=== PATIENT | female | born 1990 | race Caucasian/White ===

== ENCOUNTER 2018-04-24 20:03 | Emergency (ER) | payer OTHER, SELFPAY ==
[~2018-04-24] VITALS: Ht 165.1 cm; Wt 75.0 kg
[~2018-04-24 20:03] MED LIST: /AUGM875TA PO; /CELE20CA PO; /ONDA4TA PO; ACET650S PO; AMIT10TA2 OR; Buspar PO; COLA100C2 OR; CRYS28TA PO; DULO30CA PO; HYOS0.378 OR; MAXA10TA14 PO; MAXA5TAB10 PO; MIRALEX OR; PAXI20TA29 PO; PERC5TAB8 PO; PERC7.5T8 PO; PROP60TA14 PO; TIZA4CAP PO; TRAZ-163 PO; TRAZ1TAB14 PO; ZONI25CA2 PO; [UNRECOGNIZED DRUG - OTHER]; [UNRECOGNIZED DRUG - OTHER] OR; l; topiramate OR
[2018-04-24] MEDS ORDERED: FLUP5TA PO (20:22)
[2018-04-24] MEDS ORDERED: NITR100C2 PO (20:22)
[2018-04-24] MEDS ORDERED: CLON1TAB8 PO (20:22)
[2018-04-24] MEDS ORDERED: ABIL30TA4 PO (20:22)
[2018-04-24] MEDS ORDERED: PROP40TA62 PO (20:22)
[2018-04-24] MEDS ORDERED: PHEN-501 PO (20:22)
[2018-04-24] MEDS ORDERED: FLUO20CA19 PO (20:22)
[2018-04-24] MEDS ORDERED: TOPI100T9 PO ×2 (20:22)
[2018-04-24] MEDS ORDERED: diazePAM 10 MG TAB PO ONE (21:15)
[2018-04-24] MEDS ORDERED: GABAPENTIN 100 MG CAP PO ONE (21:15)
[2018-04-24] MEDS ORDERED: SOMA350T PO (22:28)
[2018-04-24] MEDS ORDERED: GABA-845 PO (22:28)
[2018-04-24 22:35] VITALS: BP 107/61
--- NOTE | 2018-04-25 08:26 | REP ---
Clinical: Pain and swelling. Technique: AP, yousif, bilateral oblique views of the mandible. Findings: The mandible and bilateral temporomandibular joints appear to be intact and stable that the surrounding soft tissues are unremarkable. Impression: No obvious acute abnormality by radiographic evaluation. Electronically Signed by Gregor Carreon MD 04/25/2018 08:18 A
== END 2018-04-24 22:41 | disposition home or self-care (01) ==
LOC: M ED 20:03
DX: R68.84 Jaw pain (principal); Z79.899 Other long term (current) drug therapy; Z88.8 Allergy status to other drugs, medicaments and biological substances

== ENCOUNTER 2018-07-08 17:17 | Inpatient (IN) | payer OTHER ==
[~2018-07-08] VITALS: Ht 165.1 cm; Wt 80.3 kg
[~2018-07-08 17:17] MED LIST changes: -/CELE20CA PO; -/ONDA4TA PO; +ABIL30TA4 PO; +CELE1CAP4 PO; +CLON1TAB8 PO; -DULO30CA PO; +DULO30CA9 PO; +FLUO20CA19 PO; +FLUP5TA PO; +GABA-845 PO; +NITR100C2 PO; +ONDA-1 PO; +PHEN-501 PO; +PROP40TA62 PO; +SOMA350T PO; +TOPI100T9 PO
[2018-07-08] MEDS ORDERED: ONDA4TAB5 PO (17:25)
[2018-07-08] MEDS ORDERED: BUPR1TAB52 PO (17:25)
[2018-07-08] MEDS ORDERED: LITH300C PO (17:25)
[2018-07-08] MEDS ORDERED: NS 1,000 ML IV SCH (17:43)
[2018-07-08] MEDS ORDERED: ONDANSETRON 4MG/2ML VIAL (J2405) IV ONE (17:45)
[2018-07-08] MEDS ORDERED: KETOROLAC 30 MG/ML VIAL (J1885) IV ONE (17:45)
[2018-07-08] MEDS ORDERED: PANTOPRAZOLE 40MG INJ (PROTONIX) (C9113) IV ONE (17:45)
[2018-07-08] MEDS: GASTROGRAFIN SOLUTION 30ML PO SCH ×2 (18:50→20:33)
[2018-07-08] MEDS ORDERED: ISOVUE-370 76% 100ML VIAL (Q9967) As Ordered ONE (19:39)
[2018-07-08] MEDS: SENOKOT S TAB PO SCH (21:00)
[2018-07-08] MEDS ORDERED: MORPHINE 4 MG/ML 1ML VIAL/SYRINGE (J2270) IV ONE (21:15)
[2018-07-08 21:16] LABS: ALBUMIN 3.8 GM/DL (3.2-5.2); ALT/SGPT 23 U/L (12-78); AMYLASE 56 U/L (25-115); BILIRUBIN,DIRECT < 0.1 MG/DL (0.0-0.2); BILIRUBIN,TOTAL 0.3 MG/DL (0.2-1.0); BLOOD UREA NITROGEN 5 MG/DL (7-18); CALCIUM LEVEL 8.9 MG/DL (8.5-10.1); CARBON DIOXIDE LEVEL 25 MEQ/L (21-32); CHLORIDE LEVEL 106 MEQ/L (98-107); GLOMERULAR FILTRATION RATE > 60.0 (>60); GLUCOSE, FASTING 87 MG/DL (70-100); LIPASE 275 U/L (73-393); POTASSIUM SERUM 3.4 MEQ/L (3.5-5.1); SODIUM LEVEL 137 MEQ/L (136-145); TOTAL PROTEIN 7.2 GM/DL (6.4-8.2)
[2018-07-08 21:34] LABS: BASO # 0.1 10^3/uL (0.0-0.2); BASO % 0.8 % (0.0-1.0); EOS # 0.5 10^3/uL (0.0-0.50); EOS % 4.5 % (0.0-3.0); HEMATOCRIT 35.6 % (36.0-47.0); HEMOGLOBIN 11.4 g/dl (12.0-15.5); LYMPH % 27.1 % (24.0-44.0); MEAN CORPUSCULAR HEMOGLOBIN 28.1 pg (27.0-33.0); MEAN CORPUSCULAR VOLUME 87.7 fl (80.0-96.0); MONO # 0.8 10^3/uL (0.0-0.8); MONO % 7.4 % (0.0-5.0); NEUTROPHILS # 6.7 10^3/uL (1.8-7.7); NEUTROPHILS % 59.7 % (36.0-66.0); PLATELET COUNT, AUTOMATED 366 10^3/uL (150-450); RED BLOOD COUNT 4.06 10^6/uL (4.00-5.40); WHITE BLOOD COUNT 11.2 10^3/uL (4.0-10.0)
[2018-07-08 21:38] LABS: HCG, SERUM QUALITATIVE NEGATIVE (NEGATIVE)
--- NOTE | 2018-07-08 22:48 | REPVR ---
EXAM: CT Abdomen and Pelvis With Contrast EXAM DATE/TIME: 07/08/2018 10:05 PM CLINICAL HISTORY: 28 years old, female; Abdominal pain; Generalized; Additional info: Pain HX of bowel obst and resection TECHNIQUE: Imaging protocol: Axial computed tomography images of the abdomen and pelvis with intravenous contrast. Coronal and sagittal reformatted images were created and reviewed. Radiation optimization: All CT scans at this facility use at least one of these dose optimization techniques: automated exposure control; mA and/or kV adjustment per patient size (includes targeted exams where dose is matched to clinical indication); or iterative reconstruction. Contrast material: ISOVUE 370; Contrast volume: 100 ml; Contrast route: IV; COMPARISON: No relevant prior studies available. FINDINGS: ABDOMEN: Liver: Normal. No mass. Gallbladder and bile ducts: There has been a cholecystectomy. Pancreas: Normal. No ductal dilation. Spleen: Normal. No splenomegaly. Adrenals: Normal. No mass. Kidneys and ureters: Normal. No hydronephrosis. Stomach and bowel: There is increased fluid demonstrated in the colon consistent with the reported history of diarrhea. No mass demonstrated. Several loops of dilated fluid-filled small bowel demonstrated as well. Finding may indicate the presence of a diffuse ileus. Small bowel obstruction not excluded. Bowel sutures in the left lower quadrant. Appendix: No evidence of appendicitis. PELVIS: Bladder: Unremarkable as visualized. Reproductive: Unremarkable as visualized. ABDOMEN and PELVIS: Intraperitoneal space: Normal. No free air. No significant fluid collection. Bones/joints: No acute fracture. No dislocation. Soft tissues: Unremarkable. Vasculature: Normal. No abdominal aortic aneurysm. Lymph nodes: Normal. No enlarged lymph nodes. IMPRESSION: 1. There has been a cholecystectomy. 2. There is increased fluid demonstrated in the colon consistent with the reported history of diarrhea. No mass demonstrated. 3. Several loops of dilated fluid-filled small bowel demonstrated as well. Finding may indicate the presence of a diffuse ileus. Small bowel obstruction not excluded. Electronically signed by: Luis Manuel Berman On 07/08/2018 22:48:03 PM
[2018-07-08] MEDS ORDERED: MORPHINE 2 MG/ML 1ML SYRINGE (J2270) IV ONE (23:15)
[2018-07-08] MEDS ORDERED: TUMS500C PO (23:27)
[2018-07-08] MEDS ORDERED: LAMO200T2 PO (23:27)
[2018-07-08] MEDS ORDERED: IBUP200C25 PO (23:27)
[2018-07-08] MEDS ORDERED: MULTCAP PO (23:27)
[2018-07-08] MEDS ORDERED: SIME125C4 PO (23:27)
[2018-07-08] MEDS ORDERED: ACETAMINOPHEN TAB 650MG DOSE (2X325MG) PO PRN (23:30)
[2018-07-08] MEDS: NS 1,000 ML IV SCH (23:46)
[2018-07-09] MEDS: PIPERACILLIN/TAZOBACTAM SOD 3.375 GM in D5W MINI-BAG PLUS 50 ML IV SCH ×5 (00:57→23:52)
[2018-07-09 01:53] VITALS: BP 124/71
[2018-07-09] MEDS: ONDANSETRON 4MG/2ML VIAL (J2405) IV PRN ×3 (02:04→14:23)
[2018-07-09] MEDS: MORPHINE 4 MG/ML 1ML VIAL/SYRINGE (J2270) IV PRN ×8 (02:05→22:42)
[2018-07-09] MEDS ORDERED: KETOROLAC 30 MG/ML VIAL (J1885) IV PRN (03:00)
[2018-07-09 06:00] VITALS: BP 114/66
[2018-07-09] MEDS: NS 1,000 ML IV SCH ×2 (06:22→14:22)
[2018-07-09 06:27] LABS: HEMATOCRIT 33.2 % (36.0-47.0); HEMOGLOBIN 10.2 g/dl (12.0-15.5); MEAN CORPUSCULAR HEMOGLOBIN 28.1 pg (27.0-33.0); MEAN CORPUSCULAR HGB CONC 30.7 g/dl (32.0-36.5); MEAN CORPUSCULAR VOLUME 91.5 fl (80.0-96.0); PLATELET COUNT, AUTOMATED 305 10^3/uL (150-450); RED BLOOD COUNT 3.63 10^6/uL (4.00-5.40); WHITE BLOOD COUNT 7.9 10^3/uL (4.0-10.0)
[2018-07-09 06:59] LABS: BLOOD UREA NITROGEN 4 MG/DL (7-18); CALCIUM LEVEL 7.5 MG/DL (8.5-10.1); CARBON DIOXIDE LEVEL 19 MEQ/L (21-32); CHLORIDE LEVEL 114 MEQ/L (98-107); CREATININE FOR GFR 0.83 MG/DL (0.55-1.30); GLOMERULAR FILTRATION RATE > 60.0 (>60); GLUCOSE, FASTING 85 MG/DL (70-100); POTASSIUM SERUM 3.5 MEQ/L (3.5-5.1); SODIUM LEVEL 143 MEQ/L (136-145)
[2018-07-09] MEDS ORDERED: clonazePAM 1 MG TAB PO PRN (07:45)
[2018-07-09] MEDS ORDERED: RIZATRIPTAN BENZOATE 10 MG TAB PO PRN (07:45)
[2018-07-09] MEDS ORDERED: CALCIUM CARBONATE 500 MG CHEW U/D PO PRN (07:45)
[2018-07-09] MEDS: SENOKOT S TAB PO SCH ×2 (09:00→20:08)
[2018-07-09] MEDS: LITHIUM CARBONATE 300 MG CAP PO SCH ×3 (09:21→20:08)
[2018-07-09] MEDS: buPROPion (WELLBUTRIN SR) 100 MG SR TAB PO SCH (09:21)
[2018-07-09] MEDS: PANTOPRAZOLE 40MG INJ (PROTONIX) (C9113) IV SCH (09:22)
[2018-07-09] MEDS: lamoTRIgine 100MG TAB PO SCH ×2 (09:22→20:08)
[2018-07-09] MEDS: FLUoxetine 20 MG CAP PO SCH (09:22)
[2018-07-09 14:00] VITALS: BP 109/65
[2018-07-09 22:00] VITALS: BP 115/67
[2018-07-10] MEDS: MORPHINE 4 MG/ML 1ML VIAL/SYRINGE (J2270) IV PRN ×7 (01:25→17:08)
[2018-07-10] MEDS: NS 1,000 ML IV SCH ×2 (03:51→08:29)
[2018-07-10] MEDS: PIPERACILLIN/TAZOBACTAM SOD 3.375 GM in D5W MINI-BAG PLUS 50 ML IV SCH ×2 (05:23→11:02)
[2018-07-10 06:00] VITALS: BP 116/70
[2018-07-10 06:53] LABS: HEMATOCRIT 32.8 % (36.0-47.0); HEMOGLOBIN 10.2 g/dl (12.0-15.5); MEAN CORPUSCULAR HEMOGLOBIN 28.6 pg (27.0-33.0); MEAN CORPUSCULAR HGB CONC 31.1 g/dl (32.0-36.5); MEAN CORPUSCULAR VOLUME 91.9 fl (80.0-96.0); PLATELET COUNT, AUTOMATED 322 10^3/uL (150-450); RED BLOOD COUNT 3.57 10^6/uL (4.00-5.40); WHITE BLOOD COUNT 7.1 10^3/uL (4.0-10.0)
[2018-07-10 07:19] LABS: BLOOD UREA NITROGEN 2 MG/DL (7-18); CALCIUM LEVEL 8.4 MG/DL (8.5-10.1); CARBON DIOXIDE LEVEL 25 MEQ/L (21-32); CHLORIDE LEVEL 113 MEQ/L (98-107); CREATININE FOR GFR 0.97 MG/DL (0.55-1.30); GLOMERULAR FILTRATION RATE > 60.0 (>60); GLUCOSE, FASTING 91 MG/DL (70-100); POTASSIUM SERUM 3.4 MEQ/L (3.5-5.1); SODIUM LEVEL 145 MEQ/L (136-145)
[2018-07-10] MEDS: PANTOPRAZOLE 40MG INJ (PROTONIX) (C9113) IV SCH (08:23)
[2018-07-10] MEDS: FLUoxetine 20 MG CAP PO SCH (08:26)
[2018-07-10] MEDS: LITHIUM CARBONATE 300 MG CAP PO SCH ×3 (08:26→20:15)
[2018-07-10] MEDS: SENOKOT S TAB PO SCH (08:27)
[2018-07-10] MEDS: lamoTRIgine 100MG TAB PO SCH ×2 (08:27→20:15)
[2018-07-10] MEDS: buPROPion (WELLBUTRIN SR) 100 MG SR TAB PO SCH (08:27)
[2018-07-10] MEDS: LR 1,000 ML IV SCH (12:18)
--- NOTE | 2018-07-10 13:21 | IPN ---
DATE: 07/10/2018 HISTORY: The patient is a 28-year-old woman who was admitted late on July 08, [address] Leon with some abdominal pain. She was admitted with a diagnosis of enteritis and started on Zosyn for antibiotic coverage. 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 She had a CT scan done on admission that was interpreted by the radiologist as showing fluid in the colon consistent with the history of diarrhea. There were several loops of dilated fluid-filled small bowel demonstrated as well. She reports that she has not had any flatus or bowel movement since admission. She has a nasogastric (NG) tube in place. She has had an adequate urine output. Vital signs: Show that she has been afebrile since admission. Her pulse is in the 60s and 70s and her blood pressure is good. Intake and output shows that she had 900 recorded in yesterday with 1800 of urine output. PHYSICAL EXAMINATION: The patient is lying quietly on the hospital bed. She has a nasogastric tube in place with a minimal amount of yellow-brown fluid in the tubing and in the container. Heart exam shows a regular rhythm. The lungs are clear. The abdomen appears flat. She has some guarding high in the epigastrium on palpation. The lower abdomen is mildly tender to palpation but generally soft. Laboratory studies today show a white count of 7, hemoglobin of 10, hematocrit of 33 and platelet count of 322,000. Chemistry profile today showed a sodium of 145, potassium 3.4, chloride 113, CO2 of 25, BUN of 2, creatinine 0.97, and a glucose of 91. A KUB today showed air throughout the small bowel down to the rectum. There appeared to be a small amount of oral contrast in the distal rectum. The bowel was mildly to moderately distended. There was no free air evident. IMPRESSION: The patient today notes persistent abdominal discomfort. She has some tenderness particularly in the epigastrium. The x-ray shows her small bowel completely filled with air and mildly distended throughout. There is air down into her rectal stump. PLAN: I will change the patient's Toradol to a scheduled medication to try to get better nonnarcotic control of her discomfort. I have encouraged her to cut back on use of the morphine, which she has been taking very regularly every 2 hours. I will check a lithium level to ensure that we have not gone too far astray on her lithium level. Her NG tube will be continued. I encouraged her to be up out of bed to ambulate at least three times a day. Will recheck a KUB in the morning.
[2018-07-10 14:00] VITALS: BP 114/87
[2018-07-10] MEDS: KETOROLAC 30 MG/ML VIAL (J1885) IV SCH ×2 (14:55→20:15)
[2018-07-10 22:00] VITALS: BP 126/91
[2018-07-11] MEDS: MORPHINE 4 MG/ML 1ML VIAL/SYRINGE (J2270) IV PRN ×2 (00:12→05:13)
[2018-07-11] MEDS: LR 1,000 ML IV SCH ×2 (02:24→14:25)
[2018-07-11] MEDS: KETOROLAC 30 MG/ML VIAL (J1885) IV SCH ×4 (02:24→20:32)
[2018-07-11 06:00] VITALS: BP 116/68
[2018-07-11] MEDS: LITHIUM CARBONATE 300 MG CAP PO SCH ×3 (08:43→20:32)
[2018-07-11] MEDS: PANTOPRAZOLE 40MG INJ (PROTONIX) (C9113) IV SCH (08:43)
[2018-07-11] MEDS: buPROPion (WELLBUTRIN SR) 100 MG SR TAB PO SCH (08:43)
[2018-07-11] MEDS: FLUoxetine 20 MG CAP PO SCH (08:43)
[2018-07-11] MEDS: lamoTRIgine 100MG TAB PO SCH ×2 (08:43→20:32)
--- NOTE | 2018-07-11 09:11 | REP ---
Supine abdomen two views: Comparison is the abdomen and pelvis CT dated 07/08/2018. There are are diffusely dilated large and small bowel loops throughout the entire abdomen. This is nonspecific and could represent ileus or bowel obstruction. The tip of a nasogastric tube is noted in the abdominal left upper quadrant. There are surgical clips in the abdominal right upper quadrant. Impression: Ileus versus bowel obstruction. Electronically Signed by Ramirez Lorenzana MD 07/10/2018 09:06 A
[2018-07-11] MEDS: clonazePAM 0.5 MG TAB PO PRN ×2 (11:13→20:32)
[2018-07-11] MEDS: NORCO, ANEXSIA 5/325MG TABLET (HYDROcodone/ACETAMINOPHEN) PO PRN ×2 (13:59→21:21)
[2018-07-11 14:00] VITALS: BP 118/87
[2018-07-11 22:00] VITALS: BP 131/83
[2018-07-12] MEDS: KETOROLAC 30 MG/ML VIAL (J1885) IV SCH (02:40)
[2018-07-12 06:00] VITALS: BP 120/76
[2018-07-12 07:12] LABS: BLOOD UREA NITROGEN 2 MG/DL (7-18); CALCIUM LEVEL 8.5 MG/DL (8.5-10.1); CARBON DIOXIDE LEVEL 28 MEQ/L (21-32); CHLORIDE LEVEL 109 MEQ/L (98-107); CREATININE FOR GFR 0.82 MG/DL (0.55-1.30); GLOMERULAR FILTRATION RATE > 60.0 (>60); GLUCOSE, FASTING 92 MG/DL (70-100); POTASSIUM SERUM 3.4 MEQ/L (3.5-5.1); SODIUM LEVEL 141 MEQ/L (136-145)
[2018-07-12 07:27] LABS: HEMOGLOBIN 10.2 g/dl (12.0-15.5); MEAN CORPUSCULAR HEMOGLOBIN 29.1 pg (27.0-33.0); MEAN CORPUSCULAR HGB CONC 32.9 g/dl (32.0-36.5); MEAN CORPUSCULAR VOLUME 88.3 fl (80.0-96.0); PLATELET COUNT, AUTOMATED 366 10^3/uL (150-450); RED BLOOD COUNT 3.51 10^6/uL (4.00-5.40); WHITE BLOOD COUNT 6.3 10^3/uL (4.0-10.0)
[2018-07-12] MEDS ORDERED: IBUPROFEN 600 MG TAB PO PRN (08:00)
[2018-07-12] MEDS: PANTOPRAZOLE 40MG INJ (PROTONIX) (C9113) IV SCH (09:20)
[2018-07-12] MEDS: LITHIUM CARBONATE 300 MG CAP PO SCH ×3 (09:20→20:46)
[2018-07-12] MEDS: buPROPion (WELLBUTRIN SR) 100 MG SR TAB PO SCH (09:21)
[2018-07-12] MEDS: lamoTRIgine 100MG TAB PO SCH ×2 (09:21→20:46)
[2018-07-12] MEDS: FLUoxetine 20 MG CAP PO SCH (09:21)
[2018-07-12] MEDS: DICYCLOMINE 10 MG CAP PO SCH ×3 (09:21→20:46)
[2018-07-12] MEDS: ONDANSETRON 4MG/2ML VIAL (J2405) IV PRN (11:54)
--- NOTE | 2018-07-12 11:56 | IPN ---
DATE: 07/12/2018 SUBJECTIVE: The patient is seen at bedside. She states that her abdominal pain is improved. She has been up and walking. She still has some pain in her abdomen, and is slightly worse when she has a bowel movement, however getting up and walking around helps her pain. She is off the morphine. She is only oral medication. She states that she has had a few bowel movements overnight. She continues to have good urine output. There were no acute events overnight. The patient has been afebrile. OBJECTIVE: Vital signs: Temperature 98.4, pulse 72 and regular, respiratory rate 16, blood pressure 120/76, pulse oximetry 96% on room air. General: The patient is lying quietly in the hospital bed. She is in no acute distress. Heart: Regular rate and rhythm. No murmurs, gallops or rubs. Lungs: Clear to auscultation bilaterally. No wheezes, rhonchi or rales. Abdomen: Nondistended. Positive bowel sounds. Upon palpation there is some mild pain in the left upper quadrant, otherwise no pain to palpation in the other quadrants. Abdomen is soft. There is no guarding, rebound or rigidity. LABORATORY DATA: CBC: WBC 6.3, hemoglobin 10.2, hematocrit 31.0, platelets 366. Chemistry: Sodium 141, potassium 3.4, chloride 109, carbon dioxide 28, BUN 2, creatinine 0.82, fasting glucose 92, calcium 8.5. IMPRESSION: This is a 28-year-old female who was admitted on 07/08/2018 for abdominal pain with probable enteritis. She continues to have tenderness in the left upper quadrant. PLAN: We are going to the patient's Toradol to Tylenol. We will add Bentyl for what we suspect is gas pain. She was encouraged to ambulate. My faculty preceptor for this patient encounter was physically present during the encounter and was fully available. All aspects of the patient interview, examination, medical decision making process, and medical care plan development were reviewed and approved by the faculty preceptor. The faculty preceptor is aware and concurs with the plan as stated in the body of this note and will attest to such by his/her co-signature.
--- NOTE | 2018-07-12 12:09 | HPE ---
DATE OF ADMISSION: 07/08/2018 CHIEF COMPLAINT: Abdominal pain, vomiting. HISTORY OF PRESENT ILLNESS: The patient is a 28-year-old female with a history of colonic inertia status post total colectomy who presents with recurrent abdominal distension, nausea and vomiting. She had a similar episode just over a week ago down in [place] and was hospitalized there for 5 days. She was treated with NG tube decompression and released after 5 days without any certain follow-up. She came up here to [place] to visit family and presents here with the same symptoms. In the emergency room she was found to have slightly elevated white count of 11.2. She also had a CT scan completed that was concerning for ileus versus bowel obstruction. Therefore, she was admitted to ar for evaluation. She has an NG tube in place already by the emergency room. Her nausea and vomiting have ceased. She is not passing any stool or flatus yet. Abdomen is still slightly distended, but her pain is improved. She says this came on suddenly earlier in the day. For the past week she has been doing okay. She does have a surgeon down in [place] that she follows up with for these chronic colon issues, also related some IBS. She had similar symptoms back in 2014 and required a total colectomy for colonic inertia because of it. They feel like it may be related to some of the extensive psych meds that she is on. Other than the nausea, vomiting, abdominal pain and distention she has no other significant complaints at this time. There is no changes in her medications. No of changes in diet and no trauma to the abdomen. PAST MEDICAL HISTORY: Multiple concussions. Irritable bowel syndrome. Anxiety and depression. PAST SURGICAL HISTORY: Left knee surgery. Cholecystectomy. Appendectomy. Total colectomy. ALLERGIES: 1. CETIRIZINE. 2. REGLAN. 3. SUMATRIPTAN. HOME MEDICATIONS: Please see med rec. SOCIAL HISTORY: Denies drug, alcohol or tobacco usage. FAMILY HISTORY: Noncontributory. REVIEW OF SYSTEMS: Pertinent positives and negatives as stated in the HPI. PHYSICAL EXAMINATION: GENERAL: Alert and oriented times three, in no acute stress. VITALS: Temperature 97.9, pulse 60, respirations 17, blood pressure 131/83, pulse ox 98% room air. HEENT: Pupils equally round and reactive to light and accommodation. HEART: S1, S2. Regular rate and rhythm. LUNGS: Clear to auscultation bilaterally. ABDOMEN: Soft, slightly distended, nontender. No rebound or guarding. EXTREMITIES: No clubbing, cyanosis or edema. LABORATORY DATA: White count 11.2, hemoglobin 11.4, platelets 336, potassium 3.4, creatinine 0.9. IMAGING STUDIES: CT abdomen and pelvis showed fluid distention in the colon consistent with history of diarrhea. Several loops of dilated fluid-filled small bowel demonstrated as well. This might indicate diffuse ileus versus possible obstruction. ASSESSMENT/PLAN: The patient again is a 28-year-old female with signs of likely gastroenteritis versus ileus. She also has a slight UTI on her labs. My recommendation at this time is to treat her with some empiric antibiotics for UTI and enteritis. Also will use the NG tube for decompression. Once her labs return to normal and she starts passing flatus and NG tube output decreased, will remove the NG tube and slowly advance her diet until she can be discharged safely. I have discussed in detail with her and answered all of her questions.
--- NOTE | 2018-07-12 12:22 | IPN ---
DATE: 07/11/2018 HISTORY: The patient was admitted by Dr. Leon with abdominal pain and distension. She had a nasogastric tube placed and has been kept nothing by mouth on some IV maintenance fluid. Today, she reports that she feels much better. She is hungry. She reports that she has been passing a lot of flatus. Vital signs show that she has been afebrile the past 24 hours. Pulse is in the 70s and 80s. Her blood pressure is good. Intake and output shows that her NG tube had about 800 mL out yesterday. Her urine output has been excellent. She has minimal out of her NG tube this morning. Physical exam shows that she appears comfortable. Heart exam shows a regular rate and rhythm. The lungs are clear. The abdomen is flat. She has active bowel sounds today. The abdomen is soft throughout and she does not appear to have any significant tenderness on palpation today. IMPRESSION: The patient seems to have decompressed her abdomen quite nicely since yesterday. The abdomen is soft and without significant tenderness and she has had a lot of flatus. PLAN: I will go ahead and remove her nasogastric tube. She will be started on some clear liquids today. I will stop the IV morphine and provide oral analgesics as necessary. Hopefully, she will continue to make good progress and be ready for discharge in the next 1-2 days.
[2018-07-12 14:00] VITALS: BP 129/85
[2018-07-12] MEDS: clonazePAM 0.5 MG TAB PO PRN ×2 (14:12→20:46)
[2018-07-12 22:00] VITALS: BP 126/75
[2018-07-13 06:00] VITALS: BP 131/86
[2018-07-13 06:51] LABS: HEMATOCRIT 31.9 % (36.0-47.0); HEMOGLOBIN 10.2 g/dl (12.0-15.5); MEAN CORPUSCULAR HEMOGLOBIN 28.4 pg (27.0-33.0); MEAN CORPUSCULAR VOLUME 88.9 fl (80.0-96.0); PLATELET COUNT, AUTOMATED 416 10^3/uL (150-450); RED BLOOD COUNT 3.59 10^6/uL (4.00-5.40); WHITE BLOOD COUNT 6.8 10^3/uL (4.0-10.0)
[2018-07-13 07:09] LABS: BLOOD UREA NITROGEN 1 MG/DL (7-18); CALCIUM LEVEL 9.1 MG/DL (8.5-10.1); CARBON DIOXIDE LEVEL 27 MEQ/L (21-32); CHLORIDE LEVEL 110 MEQ/L (98-107); CREATININE FOR GFR 1.08 MG/DL (0.55-1.30); GLOMERULAR FILTRATION RATE > 60.0 (>60); GLUCOSE, FASTING 89 MG/DL (70-100); POTASSIUM SERUM 3.6 MEQ/L (3.5-5.1); SODIUM LEVEL 141 MEQ/L (136-145)
[2018-07-13] MEDS: FLUoxetine 20 MG CAP PO SCH (08:24)
[2018-07-13] MEDS: LITHIUM CARBONATE 300 MG CAP PO SCH (08:24)
[2018-07-13] MEDS: PANTOPRAZOLE 40MG INJ (PROTONIX) (C9113) IV SCH (08:24)
[2018-07-13] MEDS: lamoTRIgine 100MG TAB PO SCH (08:24)
[2018-07-13] MEDS: buPROPion (WELLBUTRIN SR) 100 MG SR TAB PO SCH (08:24)
[2018-07-13] MEDS: DICYCLOMINE 10 MG CAP PO SCH (08:24)
--- NOTE | 2018-07-15 09:45 | DSES ---
DATE OF ADMISSION: 07/08/2018 DATE OF DISCHARGE: 07/13/2018 ADMISSION DIAGNOSIS: Abdominal pain and vomiting. DISCHARGE DIAGNOSIS: Gastroenteritis. HOSPITAL COURSE: 28-year-old female with history of colonic inertia status post total colectomy presented to the emergency department on 07/08/2018 with recurrent abdominal distension, nausea and vomiting. Originally she is from [place] and had just had a similar episode over a week prior where she was hospitalized for 5 days. She had been treated with nasogastric (NG) tube decompression. She was visiting family in [place] and started to have the same symptoms. In the emergency room, she had a slightly elevated white count of 11.[address] scan concerning for ileus versus bowel obstruction. Therefore, surgery was consulted for admission. NG tube was already put into place, which has helped to alleviate her nausea and vomiting. She was admitted to the medical-surgical floor. She was started on Zosyn for antibiotic coverage, and a KUB done on the second day of admission showed small bowel completely filled with air with mild distension. Pain medications started to be transitioned to nonopioid medication and ambulation was encouraged. The patient did well over the weekend with improvement in her pain, and the patient is starting to have bowel movements. Bentyl was added to her regimen for gas pain and the patient was transitioned to oral medications. On the morning of 07/13/2018, the patient's abdominal pain was much improved and she was anxious to be discharged home. She was discharged home with instructions to followup with the surgeon that she sees for all of her abdominal problems. My faculty preceptor for this patient encounter was physically present during the encounter and was fully available. All aspects of the patient interview, examination, medical decision making process, and medical care plan development were reviewed and approved by the faculty preceptor. The faculty preceptor is aware and concurs with the plan as stated in the body of this note and will attest to such by his/her co-signature.
== END 2018-07-13 10:20 | disposition home or self-care (01) | DRG 249 ==
LOC: M ED 17:17 → M ED INP 23:17 → M MS5PR 07-09 00:57
PROVIDERS: ADMIT Surgery; ATTEND Surgery
DX: K52.9 Noninfective gastroenteritis and colitis, unspecified (principal); F32.9 Major depressive disorder, single episode, unspecified; F41.9 Anxiety disorder, unspecified; Z88.8 Allergy status to other drugs, medicaments and biological substances

== ENCOUNTER 2019-07-16 17:31 | Inpatient (IN) | payer OTHER ==
[~2019-07-16] VITALS: Ht 165.1 cm; Wt 105.2 kg
[~2019-07-16 17:31] MED LIST changes: +BUPR1TAB52 PO; -FLUO20CA19 PO; +FLUO20CA22 PO; +IBUP200C25 PO; +LAMO200T3 PO; +LITH300C PO; +MULTCAP PO; +ONDA-83 PO; +SIME125C4 PO; -TRAZ-163 PO; +TRAZ-257 PO; +TUMS500C PO; +ZONI25CA13 PO; -ZONI25CA2 PO
[2019-07-16 20:13] VITALS: BP 119/74
[2019-07-16] MEDS: LR 1,000 ML IV SCH (21:08)
[2019-07-16] MEDS ORDERED: HALO5TA PO (21:33)
[2019-07-16] MEDS ORDERED: TRAZ-252 PO (21:33)
[2019-07-16] MEDS ORDERED: KLON0.5T PO (21:33)
[2019-07-16] MEDS ORDERED: DIVA500T94 PO (21:33)
[2019-07-16] MEDS ORDERED: ASEN5TA SL (21:37)
--- NOTE | 2019-07-16 21:39 | HPEPDOC ---
General Surgery H&P Date of Admission Jul 16, 2019 Attending Physician: BETH GE MD History and Physical CHIEF COMPLAINT: right lower quadrant pain HISTORY OF PRESENT ILLNESS: Patient is a 29-year-old female was transferred from [facility] where she presented to the emergency department. She is actually interested outside of our area was visiting when she had an episode of right-sided abdominal pain the day prior to persisted. She felt nauseated and was not vomiting. History of prior subtotal colectomy for colonic inertia back in 2014. She apparently had some postoperative problems a few weeks after had to undergo abdominal exploration for which she had a ileostomy/colostomy placed most likely from a leak and this was reversed 3 months after in March 2015. She returned couple weeks after would most likely is an abscess on her prior stoma site for which was opened up and evacuated. Since then has been having intermittent episodes of right lower quadrant pain and vomiting consistent with bowel obstruction. She was here in our hospital back in March 2018 was treated nonoperatively for an episode of bowel obstruction. She tells me that she was admitted in [place] back in March of this year for another bout of bowel obstruction and had a hernia repair done via an incision on her right lower quadrant/prior ileostomy/colostomy site. She was admitted a month back with an episode of constipation/bowel obstruction was treated with bowel rest and laxatives with resolution of her symptoms. This current symptom is about 2 days old. She reports crampy right lower quadrant pain and has been feeling nauseated. [facility] she was found to have a reading of partial small bowel obstruction related to a loop of bowel that is adhered over the right lower quadrant area and subsequently transferred to us for further care. ALLERGIES: Please see below. HOME MEDICATIONS: Please see below. PAST MEDICAL HISTORY: 1. bipolar disorder. 2. chronic neck pain 3. colonic inertia/constipation 4. migraine headaches 5. small bowel obstruction. PAST SURGICAL HISTORY: 1. appendectomy - laparoscopic. 2. cholecystectomy 3. subtotal colectomy 4. knee surgery. 5. hernia repair PERSONAL/SOCIAL HISTORY: denies smoking, occasional alcohol use, regular use of THC. REVIEW OF SYSTEMS: GENERAL: Patient was in her usual state of health prior to 2 days ago where she started having the above symptoms enumerated HPI.. HEENT: Denies any vision problems or hearing problems. Denies any sore throat. NECK: Denies any neck pain. CARDIOVASCULAR: Denies chest pain and palpitations. MUSCULOSKELETAL: Reports chronic back pain. SKIN: Denies rash. NEUROLOGIC: Denies headache, stroke and transient ischemic attack. PSYCHIATRIC: Reports history of anxiety, depression, bipolar disorder on medications. ENDOCRINE: Denies thyroid disease. HEMATOLOGY/ONCOLOGY: Denies any bleeding or clotting disorder. HEART: Denies any chest pains, palpitations, paroxysmal dyspnea, orthopnea. PULMONARY: Denies chronic cough, dyspnea and wheezing. GASTROINTESTINAL: See HPI. GENITOURINARY: Denies dysuria, frequency, hematuria and nocturia. ENDOCRINE: Denies polydipsia, polyphagia, polyuria, heat or cold intolerance. INFECTIOUS: Denies any recent upper respiratory tract infection, UTI, need for use of antibiotics. NUTRITION: Reports poor appetite secondary to above symptoms. PHYSICAL EXAMINATION: VITAL SIGNS: Please see below. GENERAL APPEARANCE: Patient appears mildly uncomfortable and reports anitha n/discomfort over the right lower quadrant area where her previous ileostomy/ostomy site is. Body habitus is moderately obese. HEENT: Normocephalic, atraumatic. [place] palpebral conjunctivae. Anicteric sclerae. Lips are mildly dry. She has a nasogastric tube in place and this is currently draining probably the contrast in her stomach as well as the strawberry flavored juice that she drank lunch time. CHEST: No chest wall abnormalities. Normal respiratory motion/effort. NECK: Supple. No thyromegaly. No lymphadenopathies. LUNGS: Lung sounds are clear to auscultation bilaterally. No wheezing appreciated. HEART: No chest wall abnormalities. Heart rate and rhythm are regular with no murmurs. ABDOMEN: She has a moderately obese abdomen, appears moderately distended, soft. She has a lower vertical midline incision as well as a transverse right lower quadrant incision and what appears to be recent vertical right lower quadrant incision. Grossly no signs of bulging at the right lower quadrant area or below the midline incisional area. She is mostly tender around the prior ostomy site on palpation but without any guarding. Tympanitic to percussion. Hypoactive bowel sounds. SKIN: Warm and dry. EXTREMITIES: Extremities have no deformities. No edema identified. NEUROLOGICAL: Awake, alert, oriented. ANCILLARIES: . LABORATORY DATA: Please see below. done at [facility] WBC 5.9 Hgb 11.3 hct 34.8 plt 249 Cr 1.2, BUN 21, LFTs normal Lip[place] 113 MICROBIOLOGY: Please see below. IMAGING: CT abdomen and pelvis partial small bowel obstruction IMPRESSION AND PLAN: Partial small bowel obstruction Patient presented at an outside institution with acute onset of cramping/right lower quadrant discomfort and on their imaging/follow-up was found to have evidence for what most likely is partial bowel obstruction related to a loop of bowel adhered to the right lower quadrant abdominal wall. She had her imaging studies done at [facility] and they have provided a disc and I will review this. Right now her tenderness is most pronounced over the right lower quadrant area as no signs of generalized peritonitis. Her labs appear within normal. No indication for emergent or urgent surgery. She has had prior bowel obstructions that has resolved with nonoperative therapy. The most recent of which, the patient reports was about a month ago which was admitted in the hospital in [facility]. Last admission here was in March 2018 where she also has had bowel obstruction and was treated nonoperatively with resolution of her symptoms. In between that time she has had a hernia repair according to her in March this year via a right lower quadrant incision. He is not clear whether she has had mesh placed over that area or not. For now she does not seem to be overtly dehydrated. We will keep the nasogastric tube and put this to low intermittent suction for bowel decompression and provide her with pain control as well as IV fluid hydration. I will review the CT imaging and depending on her clinical course make further recommendations. Vital Signs Vital Signs Date Time Temp Pulse Resp B/P (MAP) Pulse Ox O2 Delivery O2 Flow Rate FiO2 07/16/19 20:13 96.3 78 17 119/74 (89) 96 Room Air Home Medications Scheduled Asenapine (Saphris) 5 Mg Tab.subl, 20 MG SL QHS, (Reported) Clonazepam (Klonopin) 0.5 Mg Tablet, 0.5 MG PO TID, (Reported) Fluoxetine Hcl (Fluoxetine HCl) 20 Mg Cap, 60 MG PO DAILY, (Reported) Multivitamin (Multivitamins) 1 Each Capsule, 1 CAP PO DAILY, (Reported) Trazodone HCl (Trazodone HCl) 50 Mg Tablet, 50 MG PO QHS, (Reported) Scheduled PRN Ondansetron HCl (Ondansetron HCl) 4 Mg Tablet, 4 MG PO Q6H PRN for NAUSEA, (Reported) Rizatriptan Benzoate (Maxalt) 10 Mg Tab, 10 MG PO DAILY PRN for MIGRAINE, (Reported) Allergies Coded Allergies: cetirizine (Verified Allergy, Mild, rash, 07/08/18) metoclopramide (Verified Adverse Reaction, Mild, anxiety, 07/08/18) sumatriptan (Verified Adverse Reaction, Mild, joint pain, 07/08/18) A-FIB/CHADSVASC A-FIB History Current/History of A-Fib/PAF?: No Current PO Anticoag Therapy: BETH Ordonez MD Jul 16, 2019 21:39
[2019-07-16 22:00] VITALS: BP 119/75
[2019-07-16] MEDS ORDERED: RIZATRIPTAN BENZOATE 10 MG TAB PO PRN (22:00)
[2019-07-16] MEDS: traZODone 50 MG TAB PO SCH (23:13)
[2019-07-16] MEDS: PANTOPRAZOLE 40MG VIAL (C9113 PER 1) IV SCH (23:13)
[2019-07-16] MEDS: clonazePAM 0.5 MG TAB PO SCH (23:13)
[2019-07-16] MEDS: KETOROLAC 30 MG/ML 1ML VIAL IV PRN (23:14)
[2019-07-17] MEDS: PERCOCET 5MG/325MG TAB PO PRN ×3 (02:28→13:44)
[2019-07-17 06:00] VITALS: BP 120/78
[2019-07-17] MEDS: LR 1,000 ML IV SCH ×3 (06:17→20:40)
[2019-07-17 06:54] LABS: EOS # 0.2 10^3/uL (0.0-0.5); EOS % 4.8 % (0.0-3.0); HEMATOCRIT 32.3 % (36.0-47.0); HEMOGLOBIN 10.5 g/dl (12.0-15.5); LYMPH # 1.9 10^3/uL (1.5-5.0); LYMPH % 46.3 % (24.0-44.0); MEAN CORPUSCULAR HEMOGLOBIN 27.6 pg (27.0-33.0); MEAN CORPUSCULAR HGB CONC 32.5 g/dl (32.0-36.5); MONO # 0.4 10^3/uL (0.0-0.8); MONO % 9.5 % (0.0-5.0); NEUTROPHILS # 1.5 10^3/uL (1.5-8.5); NEUTROPHILS % 37.9 % (36.0-66.0); PLATELET COUNT, AUTOMATED 239 10^3/uL (150-450)
[2019-07-17 07:20] LABS: BLOOD UREA NITROGEN 19 MG/DL (7-18); CALCIUM LEVEL 8.7 MG/DL (8.5-10.1); CARBON DIOXIDE LEVEL 27 MEQ/L (21-32); CHLORIDE LEVEL 106 MEQ/L (98-107); CREATININE FOR GFR 0.85 MG/DL (0.55-1.30); GLOMERULAR FILTRATION RATE > 60.0 (>60); GLUCOSE, FASTING 78 MG/DL (70-100); POTASSIUM SERUM 4.3 MEQ/L (3.5-5.1); SODIUM LEVEL 137 MEQ/L (136-145)
[2019-07-17] MEDS: FLUoxetine 20 MG CAP PO SCH (08:55)
[2019-07-17] MEDS: clonazePAM 0.5 MG TAB PO SCH ×3 (08:55→20:40)
--- NOTE | 2019-07-17 10:42 | REP ---
ABDOMINAL SERIES: Supine and erect view of the abdomen and pelvis are performed. No free air is seen. There are multiple mildly dilated small bowel loops throughout the abdomen. There is a paucity of air in the colon. Findings suggest a area of either some degree of small bowel obstruction or diffuse ileus. There is contrast material in the bladder, which is mildly distended. Metallic clips are seen in the right upper quadrant. A PA view of the chest demonstrates no acute infiltrate. There is a nasogastric tube with sideport in the stomach. The heart is normal in size and the mediastinal silhouette is unremarkable. IMPRESSION: Multiple mildly dilated small bowel loops throughout the abdomen with a paucity of air in the colon suggests some degree of small bowel obstruction, or possibly diffuse ileus. Nasogastric tube is seen with sideport in the stomach. Electronically Signed by Ramirez Hicks MD 07/17/2019 09:51 P
--- NOTE | 2019-07-17 12:51 | IPNPDOC ---
Text Note Date of Service The patient was seen on 07/17/19. NOTE Patient reports improved pain, about 4/10. Still no flatus,no BM, NGT put out 275 mLs overnight She looks more comfortable today. She still has the nasogastric tube which has m ore bilious appearance to its drainage. Abdomen softer today, mild tenderness over RLQ are where her previous hernia is Impression: partial sbo I reviewed the CT scan from [facility] and there seems to be a possible parietal type hernia over the area though I do not see it as the point of obs truction. Follow up xray shows general mild dilation of the small bowel (even that of the pelvis). I would like to do a small bowel follow through to further evaluate for bowel obstruction. This will be scheduled tomorrow. Pain control seems to be adequate continue on NGT decompression. VS,Fishbone, I+O VS, Fishbone, I+O Laboratory Tests 07/17/19 06:38 Vital Signs Date Time Temp Pulse Resp B/P (MAP) Pulse Ox O2 Delivery O2 Flow Rate FiO2 07/17/19 09:28 16 Room Air 07/17/19 06:00 98.1 77 120/78 (92) 99 I&O- Last 24 Hours up to 6 AM 07/17/19 06:00 Intake Total 1325 ml Balance 1325 ml BETH GE MD Jul 17, 2019 12:51
[2019-07-17 14:00] VITALS: BP 121/79
[2019-07-17] MEDS ORDERED: MIRALAX *UNIT DOSE* 17GM PACKET PO ONE (14:00)
[2019-07-17] MEDS: ENOXAPARIN 40MG/0.4ML SYRINGE (J1650 PER 10MG) SC SCH (15:05)
[2019-07-17] MEDS: traZODone 50 MG TAB PO SCH (20:40)
[2019-07-17] MEDS: ONDANSETRON 4MG/2ML VIAL IV PRN (20:40)
[2019-07-17] MEDS: PANTOPRAZOLE 40MG VIAL (C9113 PER 1) IV SCH (20:40)
[2019-07-17] MEDS: KETOROLAC 30 MG/ML 1ML VIAL IV PRN (20:41)
[2019-07-17 22:00] VITALS: BP 114/76
[2019-07-18] MEDS: PERCOCET 5MG/325MG TAB PO PRN ×3 (01:14→16:43)
[2019-07-18] MEDS: LR 1,000 ML IV SCH ×3 (04:31→20:02)
[2019-07-18] MEDS: KETOROLAC 30 MG/ML 1ML VIAL IV PRN ×2 (05:41→23:40)
[2019-07-18 05:57] LABS: BASO % 0.7 % (0.0-1.0); EOS # 0.2 10^3/uL (0.0-0.5); HEMATOCRIT 31.7 % (36.0-47.0); HEMOGLOBIN 10.5 g/dl (12.0-15.5); LYMPH # 1.8 10^3/uL (1.5-5.0); LYMPH % 39.5 % (24.0-44.0); MEAN CORPUSCULAR HEMOGLOBIN 27.3 pg (27.0-33.0); MEAN CORPUSCULAR HGB CONC 33.1 g/dl (32.0-36.5); MEAN CORPUSCULAR VOLUME 82.3 fl (80.0-96.0); MONO # 0.4 10^3/uL (0.0-0.8); MONO % 9.3 % (0.0-5.0); NEUTROPHILS # 2.1 10^3/uL (1.5-8.5); NEUTROPHILS % 46.1 % (36.0-66.0); PLATELET COUNT, AUTOMATED 216 10^3/uL (150-450); RED BLOOD COUNT 3.85 10^6/uL (4.00-5.40); WHITE BLOOD COUNT 4.5 10^3/uL (4.0-10.0)
[2019-07-18 06:00] VITALS: BP 140/75
[2019-07-18 06:14] LABS: BLOOD UREA NITROGEN 11 MG/DL (7-18); CALCIUM LEVEL 8.2 MG/DL (8.5-10.1); CARBON DIOXIDE LEVEL 29 MEQ/L (21-32); CHLORIDE LEVEL 103 MEQ/L (98-107); CREATININE FOR GFR 0.87 MG/DL (0.55-1.30); GLOMERULAR FILTRATION RATE > 60.0 (>60); GLUCOSE, FASTING 75 MG/DL (70-100); SODIUM LEVEL 139 MEQ/L (136-145)
[2019-07-18] MEDS ORDERED: E-Z-PAQUE 96% w/w SUSP 176GM BTL As Ordered ONE (08:07)
[2019-07-18] MEDS: ENOXAPARIN 40MG/0.4ML SYRINGE (J1650 PER 10MG) SC SCH (12:59)
[2019-07-18] MEDS: clonazePAM 0.5 MG TAB PO SCH ×3 (12:59→20:03)
[2019-07-18] MEDS: FLUoxetine 20 MG CAP PO SCH (12:59)
[2019-07-18] MEDS: ONDANSETRON 4MG/2ML VIAL IV PRN (12:59)
[2019-07-18 14:00] VITALS: BP 139/89
--- NOTE | 2019-07-18 16:23 | REP ---
Examination Requested: SBFT Reason For Exam: Right lower quadrant pain evaluate for small bowel obstruction Small Bowel Follow Through The procedure was performed by GAIL Bates, under the direct supervision of Dr. Hicks. The images were reviewed with Dr. Hicks. The respiratory medicine physician film shows no organomegaly or pathological masses. The intestinal gas pattern appears normal. There are surgical roxanne in the right upper quadrant. The patient is status post colectomy in which a large portion of her large intestine was removed, leaving her rectum and sigmoid colon. The barium was administered and the barium column was followed through the small bowel to the level of the rectum . Small bowel transit time was approximately 135 minutes. During fluoroscopy gentle palpation shows all loops are freely mobile and pliable. There are no fixed or angulated loops. The small bowel loops are normal in course and caliber. There is no transition to suggest a partial small-bowel obstruction. Spot filming of the anastomosis at the sigmoid colon was limited due to lack of barium opacification. Impression: 1. Unremarkable small bowel follow-through, no obstruction. 1.5 minutes of fluoroscopy time was utilized for this procedure. Some fluoroscopic images are performed with last image hold technology. These images require no additional radiation. Reviewed by GAIL Canseco 07/18/2019 02:05 P Electronically Signed by Ramirez Hicks MD 07/18/2019 04:16 P
[2019-07-18] MEDS: MORPHINE 4 MG/ML 1ML VIAL/SYRINGE (J2270) IV PRN (19:46)
[2019-07-18] MEDS: PANTOPRAZOLE 40MG VIAL (C9113 PER 1) IV SCH (20:02)
[2019-07-18] MEDS: traZODone 50 MG TAB PO SCH (20:03)
[2019-07-18 22:00] VITALS: BP 132/84
[2019-07-19] VITALS (7 sets, daily range): BP systolic 119–130; BP diastolic 65–81
[2019-07-19] MEDS: LR 1,000 ML IV SCH ×3 (00:57→20:41)
[2019-07-19] MEDS: MORPHINE 4 MG/ML 1ML VIAL/SYRINGE (J2270) IV PRN ×4 (01:41→20:40)
[2019-07-19] MEDS: KETOROLAC 30 MG/ML 1ML VIAL IV PRN (06:16)
[2019-07-19 06:44] LABS: BLOOD UREA NITROGEN 11 MG/DL (7-18); CALCIUM LEVEL 8.9 MG/DL (8.5-10.1); CARBON DIOXIDE LEVEL 28 MEQ/L (21-32); CHLORIDE LEVEL 102 MEQ/L (98-107); CREATININE FOR GFR 0.85 MG/DL (0.55-1.30); GLOMERULAR FILTRATION RATE > 60.0 (>60); GLUCOSE, FASTING 64 MG/DL (70-100); POTASSIUM SERUM 3.9 MEQ/L (3.5-5.1); SODIUM LEVEL 139 MEQ/L (136-145)
[2019-07-19 07:04] LABS: BASO % 0.6 % (0.0-1.0); EOS # 0.3 10^3/uL (0.0-0.5); EOS % 4.9 % (0.0-3.0); HEMOGLOBIN 11.3 g/dl (12.0-15.5); LYMPH # 1.7 10^3/uL (1.5-5.0); LYMPH % 32.1 % (24.0-44.0); MEAN CORPUSCULAR HEMOGLOBIN 27.8 pg (27.0-33.0); MEAN CORPUSCULAR HGB CONC 33.2 g/dl (32.0-36.5); MEAN CORPUSCULAR VOLUME 83.5 fl (80.0-96.0); MONO # 0.6 10^3/uL (0.0-0.8); MONO % 12.1 % (0.0-5.0); NEUTROPHILS # 2.6 10^3/uL (1.5-8.5); NEUTROPHILS % 49.9 % (36.0-66.0); PLATELET COUNT, AUTOMATED 244 10^3/uL (150-450); RED BLOOD COUNT 4.07 10^6/uL (4.00-5.40); WHITE BLOOD COUNT 5.3 10^3/uL (4.0-10.0)
[2019-07-19] MEDS: ENOXAPARIN 40MG/0.4ML SYRINGE (J1650 PER 10MG) SC SCH (08:44)
[2019-07-19] MEDS: clonazePAM 0.5 MG TAB PO SCH ×3 (08:44→22:15)
[2019-07-19] MEDS: FLUoxetine 20 MG CAP PO SCH (08:44)
[2019-07-19] MEDS: ONDANSETRON 4MG/2ML VIAL IV PRN ×2 (09:40→17:52)
[2019-07-19] MEDS: PERCOCET 5MG/325MG TAB PO PRN (09:41)
--- NOTE | 2019-07-19 10:32 | IPNPDOC ---
Text Note Date of Service The patient was seen on 07/19/19. NOTE She continues to complain of right-sided abdominal pain right were previous i leostomy was located. Presumably this had a hernia repaired back in March. Her nasogastric tube output has been trailing off. She tolerated clamping the nasogastric tube overnight. Denies any nausea or bloating. On exam she looks more comfortable than on initial presentation Lungs sounds are clear to auscultation bilaterally with no wheezing Regular heart rate and rhythm without murmurs She has an obese abdomen that is remaining minimally distended uniformly. She remains tender over the right lower quadrant area with mild guarding, just about the same. Impression and plan small bowel obstruction Possible parietal hernia/incisional hernia from previous ileostomy I reviewed with her the results of the small bowel follow-through yesterday which did not objectively show any evidence of partial small bowel obstruction though the general flow was slow right through the midpoint and it took about 135 minutes to get to the sigmoid colon. Extensive she still has a long redundant sigmoid colon. She still does not have any bowel function. She normally has about 3-5 soft loose bowel movements daily. Though she remains decompressed, it does not seem like she has fully resolved. I propose: Into the operating room today to perform a diagnostic laparoscopy. From the image of the CT scan of the abdomen and pelvis done at [facility], I suspect there is some interparietal hernia over the right lower quadrant area where a loop of bowel seems to be tethered which may be causing her to pain and this may need to be freed up and likewise the hernia repaired. Patient has consented to surgery to undergo robotic-assisted laparoscopic lysis of adhesion and possibly repair her incisional hernia. VS,Shaheenbone, I+O VS, Shaheenbone, I+O Laboratory Tests 07/19/19 05:42 Vital Signs Date Time Temp Pulse Resp B/P (MAP) Pulse Ox O2 Delivery O2 Flow Rate FiO2 07/19/19 09:41 16 07/19/19 06:59 Room Air 07/19/19 06:00 98.3 67 121/78 (92) 95 I&O- Last 24 Hours up to 6 AM 07/19/19 06:00 Intake Total 810 ml Output Total 3300 ml Balance -2490 ml BETH GE MD Jul 19, 2019 10:32
[2019-07-19] MEDS ORDERED: ceFAZolin SOD 2 GM in IV 1 EA IV ONE (12:00)
[2019-07-19] MEDS ORDERED: propofoL 200 MG/20 ML VIAL As Ordered ONE (12:58)
[2019-07-19] MEDS ORDERED: dexameTHASONE 4 MG/ML 1ML VIAL (J1100 PER 1MG) As Ordered ONE (12:58)
[2019-07-19] MEDS ORDERED: LIDOCAINE 2% 100MG/5ML SDV (FOR ANES.) As Ordered ONE (12:58)
[2019-07-19] MEDS ORDERED: ONDANSETRON 4MG/2ML VIAL As Ordered ONE ×2 (12:58→17:38)
[2019-07-19] MEDS ORDERED: ROCURONIUM BROMIDE 50 MG/5 ML VIAL As Ordered ONE ×3 (12:58→16:31)
[2019-07-19] MEDS ORDERED: fentaNYL 250 MCG/5 ML INJECTION (J3010) As Ordered ONE (12:58)
[2019-07-19] MEDS ORDERED: MIDAZOLAM INJ 2MG/2ML VIAL (J2250 PER 1MG) As Ordered ONE (12:58)
[2019-07-19] MEDS ORDERED: BUPIVACAINE HCL 0.25% 10ML VIAL As Ordered ONE (13:05)
[2019-07-19] MEDS ORDERED: BUPIVACAINE HCL 0.25% 30ML VIAL As Ordered ONE (13:05)
[2019-07-19] MEDS ORDERED: LIDOCAINE 1% SDV 30ML VIAL As Ordered ONE (13:05)
[2019-07-19] MEDS ORDERED: BUPIVACAINE LIPOSOME/PF 1.3% 20ML VIAL (13.3MG/ML)(EXPAREL)(C9290 PER1MG) As Ordered ONE (13:05)
[2019-07-19] MEDS ORDERED: SCOPOLAMINE 1MG TRANSDERMAL PATCH As Ordered ONE (13:09)
[2019-07-19] MEDS ORDERED: SCOPOLAMINE 1MG TRANSDERMAL PATCH TOP ONE (13:15)
[2019-07-19] MEDS ORDERED: ceFAZolin 2 GM/D5W 50 ML IV BAG (J0690 PER 500MG) As Ordered ONE (13:25)
[2019-07-19] MEDS ORDERED: SUCCINYLCHOLINE 100 MG/5 ML SYRINGE (J0330) As Ordered ONE (13:35)
[2019-07-19] MEDS ORDERED: SEVOFLURANE INHAL SOLN 250 ML BTL As Ordered ONE (14:28)
[2019-07-19] MEDS ORDERED: PHENYLephrine HCL 500 MCG/5 ML (100MCG/ML) SYRINGE (J2370) As Ordered ONE (14:51)
[2019-07-19] MEDS ORDERED: ePHEDrine SULFATE 25 MG/5 ML(5MG/ML) SYRINGE As Ordered ONE (14:51)
[2019-07-19] MEDS ORDERED: ACETAMINOPHEN 1000MG 100ML IV BTL (OFIRMEV) (J0131 PER 10MG) As Ordered ONE (15:06)
[2019-07-19] MEDS ORDERED: SUGAMMADEX SODIUM 500 MG/5 ML VIAL (BRIDION) As Ordered ONE (15:19)
[2019-07-19] MEDS ORDERED: KETOROLAC 60 MG/2 ML VIAL As Ordered ONE (16:06)
[2019-07-19] MEDS ORDERED: fentaNYL 100 MCG/2 ML INJECTION (J3010) As Ordered ONE ×2 (16:32→17:37)
--- NOTE | 2019-07-19 17:38 | POST-OPPD ---
Postoperative Procedure Note Date Of Procedure: Jul 19, 2019 PREOPERATIVE DIAGNOSIS: small bowel obstruction, right lower quadrant incisional hernia, right lower quadrant pain POSTOPERATIVE DIAGNOSIS: right lower quadrant incisional hernia, no definite bowel obstruction FINDINGS: dilated loop of small bowel from prior [id number] small bowel anastomosis to the enterocolic anastomosis though no definite obstruction noted, 4x2 cm incisional hernia at right lower quadrant from prior ileostomy PROCEDURE: Robotic Assisted Laparoscopic lysis of adhesion, transabdominal preperitoneal repair of RLQ area with 9 cm parietex composite mesh SURGEON: LOLLY Gallegos CHILDREN TEACHER: Elmira Montague NP ANESTHESIA: General Anesthesia SPECIMENS: none ESTIMATED BLOOD LOSS: 50 mLs REPLACED: UO 600 mLs DRAINS: none COMPLICATIONS: none POSTOPERATIVE CONDITION: extubated to PACU, stable BETH GE MD Jul 19, 2019 17:38
[2019-07-19] MEDS: fentaNYL 100 MCG/2 ML INJECTION (J3010) IV PRN ×4 (17:45→18:10)
[2019-07-19] MEDS ORDERED: LR 1,000 ML IV SCH (18:00)
[2019-07-19] MEDS ORDERED: MORPHINE 4 MG/ML 1ML VIAL/SYRINGE (J2270) As Ordered ONE (18:03)
[2019-07-19] MEDS ORDERED: HYDROMORPHONE HCL 0.5 MG/ 0.5 ML SYRINGE (J1170 PER 1) As Ordered ONE ×2 (18:08→18:30)
[2019-07-19] MEDS: HYDROMORPHONE HCL 0.5 MG/ 0.5 ML SYRINGE (J1170 PER 1) IV PRN ×5 (18:16→18:49)
[2019-07-19] MEDS: PANTOPRAZOLE 40MG VIAL (C9113 PER 1) IV SCH (22:15)
[2019-07-19] MEDS: traZODone 50 MG TAB PO SCH (22:15)
[2019-07-20] VITALS (7 sets, daily range): BP systolic 98–122; BP diastolic 50–79
[2019-07-20] MEDS: KETOROLAC 30 MG/ML 1ML VIAL IV PRN ×4 (00:29→21:29)
[2019-07-20] MEDS: MORPHINE 4 MG/ML 1ML VIAL/SYRINGE (J2270) IV PRN ×4 (04:20→16:33)
[2019-07-20 06:12] LABS: BASO % 0.6 % (0.0-1.0); EOS # 0.1 10^3/uL (0.0-0.5); EOS % 1.5 % (0.0-3.0); HEMATOCRIT 31.6 % (36.0-47.0); HEMOGLOBIN 10.6 g/dl (12.0-15.5); LYMPH # 0.8 10^3/uL (1.5-5.0); MEAN CORPUSCULAR HGB CONC 33.5 g/dl (32.0-36.5); MEAN CORPUSCULAR VOLUME 83.6 fl (80.0-96.0); MONO # 0.7 10^3/uL (0.0-0.8); NEUTROPHILS # 5.2 10^3/uL (1.5-8.5); NEUTROPHILS % 76.6 % (36.0-66.0); PLATELET COUNT, AUTOMATED 237 10^3/uL (150-450); RED BLOOD COUNT 3.78 10^6/uL (4.00-5.40); WHITE BLOOD COUNT 6.8 10^3/uL (4.0-10.0)
[2019-07-20] MEDS: PERCOCET 5MG/325MG TAB PO PRN ×3 (06:14→17:16)
[2019-07-20] MEDS: LR 1,000 ML IV SCH ×2 (06:17→16:32)
[2019-07-20 06:31] LABS: BLOOD UREA NITROGEN 11 MG/DL (7-18); CALCIUM LEVEL 8.3 MG/DL (8.5-10.1); CARBON DIOXIDE LEVEL 27 MEQ/L (21-32); CHLORIDE LEVEL 102 MEQ/L (98-107); CREATININE FOR GFR 0.72 MG/DL (0.55-1.30); GLOMERULAR FILTRATION RATE > 60.0 (>60); GLUCOSE, FASTING 79 MG/DL (70-100); POTASSIUM SERUM 4.2 MEQ/L (3.5-5.1); SODIUM LEVEL 137 MEQ/L (136-145)
[2019-07-20] MEDS: ENOXAPARIN 40MG/0.4ML SYRINGE (J1650 PER 10MG) SC SCH (08:07)
[2019-07-20] MEDS: MIRALAX *UNIT DOSE* 17GM PACKET PO SCH ×2 (08:07→21:30)
[2019-07-20] MEDS: clonazePAM 0.5 MG TAB PO SCH ×3 (08:08→21:29)
[2019-07-20] MEDS: FLUoxetine 20 MG CAP PO SCH (08:08)
--- NOTE | 2019-07-20 09:41 | ROOPDOC ---
[facility] Report Of Operation Report of Operation DATE OF PROCEDURE: 07/19/19 PREOPERATIVE DIAGNOSIS: small bowel obstruction, right lower quadrant incisional hernia, right lower quadrant pain POSTOPERATIVE DIAGNOSIS: right lower quadrant incisional hernia, no definite bowel obstruction FINDINGS: dilated loop of small bowel from prior [id number] small bowel anastomosis to the enterocolic anastomosis though no definite obstruction noted, 4x2 cm incisional hernia at right lower quadrant from prior ileostomy PROCEDURE: Robotic Assisted Laparoscopic lysis of adhesion, transabdominal preperitoneal repair of RLQ area with 9 cm parietex composite mesh SURGEON: LOLLY Gallegos HR ADVISOR: Elmira Montague NP (Ms. Montague assisted me by providing intraoperative management of instruments on the field while I was at the surgeons console, retraction of bowels and suctioning. ) ANESTHESIA: General Anesthesia SPECIMENS: none ESTIMATED BLOOD LOSS: 50 mLs REPLACED: UO 600 mLs DRAINS: none COMPLICATIONS: none POSTOPERATIVE CONDITION: extubated to PACU, stable DESCRIPTION OF PROCEDURE: After sufficient general anesthesia, her abdomen was prepped and draped in usual sterile fashion. We paused for a surgical timeout using both pre-incision safety checklist to verify correct patient, procedure site and additional clinical information prior to beginning the procedure. She received Ancef 2 g IV preoperatively for wound prophylaxis. She had a prior midline incision and also a transverse and vertical incision over the right lower quadrant area where her prior ileostomy was located and according to her a recent open hernia repair done back in March. Her abdomen is obese, remains moderately distended but soft. I initially tried entered the abdomen using a left upper quadrant incision using a Veress needle but I could not get a consistent pressure reading during ins ufflation and likewise an inconsistent saline drop response. I switched to a 5 mm Kii Fios using a direct entry technique. Once I was sure I was through the peritoneum the abdomen was insufflated to a pressure 15 mmHg which dropped the bowels away from the port. Initial diagnostic laparoscopy of the bowel seems to move away from the abdominal wall except for a loop of bowel over the right upper quadrant area. There is evidence of persistent hernia over the right lower quadrant area where her prior ileostomy was located. Externally this was not palpable that this would be considered an intraparietal hernia. There were no bowels within the hernia itself. The dimensions measured is 4 x 2 cm oriented vertically. There is no presence of mesh to like to see. Her abdominal wall abscess relatively thinned out with prior scarring from her prior incisions. The visible portion of the small bowel appears moderately distended over the right lower quadrant area and this seems to be a prior [id number] entero-antral anastomosis. The bowels over the upper abdomen does not seem to be distended. I could not follow the course of her bowel to the rectum though from the small bowel follow-through the day prior seems to be at the level of the upper or mid sigmoid colon. She was placed in a slight Trendelenburg position, right tilt. 2 other robotic ports were placed over the left side of the abdomen roughly about 8-10 cm apart. The previous 5 mm port was exchanged for an 8 mm robotic trocar. I also placed the 5 mm port over the epigastric area to get a better look over the left upper quadrant area to check for any possible injury on entry and none was found. Using the epigastric port I also try to view over the right lower quadrant area and there is still some movable portion of the bowels. BETH GE MD Jul 20, 2019 09:41
[2019-07-20] MEDS: ONDANSETRON 4MG/2ML VIAL IV PRN (17:27)
[2019-07-20] MEDS ORDERED: MORPHINE 4 MG/ML 1ML VIAL/SYRINGE (J2270) IV ONE (18:00)
[2019-07-20] MEDS: PANTOPRAZOLE 40MG VIAL (C9113 PER 1) IV SCH (21:29)
[2019-07-20] MEDS: traZODone 50 MG TAB PO SCH (21:29)
[2019-07-21] MEDS: MORPHINE 4 MG/ML 1ML VIAL/SYRINGE (J2270) IV PRN ×5 (00:50→22:46)
[2019-07-21] MEDS: PERCOCET 5MG/325MG TAB PO PRN ×2 (02:42→15:22)
[2019-07-21] MEDS: LR 1,000 ML IV SCH ×2 (02:43→22:46)
[2019-07-21] MEDS: ONDANSETRON 4MG/2ML VIAL IV PRN ×2 (05:19→21:04)
[2019-07-21] MEDS: KETOROLAC 30 MG/ML 1ML VIAL IV PRN ×3 (05:21→21:04)
[2019-07-21 06:00] VITALS: BP 123/71
[2019-07-21 06:12] LABS: BASO % 0.2 % (0.0-1.0); EOS # 0.3 10^3/uL (0.0-0.5); HEMATOCRIT 29.7 % (36.0-47.0); HEMOGLOBIN 9.7 g/dl (12.0-15.5); LYMPH # 1.1 10^3/uL (1.5-5.0); LYMPH % 22.1 % (24.0-44.0); MEAN CORPUSCULAR HGB CONC 32.7 g/dl (32.0-36.5); MEAN CORPUSCULAR VOLUME 85.8 fl (80.0-96.0); MONO # 0.6 10^3/uL (0.0-0.8); MONO % 11.7 % (0.0-5.0); NEUTROPHILS % 60.8 % (36.0-66.0); PLATELET COUNT, AUTOMATED 219 10^3/uL (150-450); RED BLOOD COUNT 3.46 10^6/uL (4.00-5.40)
[2019-07-21 06:50] LABS: BLOOD UREA NITROGEN 11 MG/DL (7-18); CALCIUM LEVEL 8.4 MG/DL (8.5-10.1); CARBON DIOXIDE LEVEL 27 MEQ/L (21-32); CHLORIDE LEVEL 105 MEQ/L (98-107); CREATININE FOR GFR 0.86 MG/DL (0.55-1.30); GLOMERULAR FILTRATION RATE > 60.0 (>60); GLUCOSE, FASTING 93 MG/DL (70-100); POTASSIUM SERUM 3.6 MEQ/L (3.5-5.1); SODIUM LEVEL 139 MEQ/L (136-145)
[2019-07-21] MEDS: ENOXAPARIN 40MG/0.4ML SYRINGE (J1650 PER 10MG) SC SCH (08:02)
[2019-07-21] MEDS: MIRALAX *UNIT DOSE* 17GM PACKET PO SCH ×2 (08:02→21:00)
[2019-07-21] MEDS: clonazePAM 0.5 MG TAB PO SCH ×2 (08:02→16:36)
[2019-07-21] MEDS: FLUoxetine 20 MG CAP PO SCH (08:02)
[2019-07-21] MEDS ORDERED: PEG1POW PO ×2 (12:39→12:41)
[2019-07-21] MEDS ORDERED: PERCOCET PO (12:39)
--- NOTE | 2019-07-21 12:43 | DS.PDOC ---
Discharge Summary General Date of Admission Jul 16, 2019 at 20:13 Date of Discharge July 21, 2019 Attending Physician: BETH GE MD Discharge Summary PROCEDURES PERFORMED DURING STAY: Robotic Assisted Laparoscopic Lysis of Adhesion, incisional hernia repair. ADMITTING DIAGNOSES: 1. small bowel obstruction. DISCHARGE DIAGNOSES: 1. small bowel obstruction 2. incisional hernia. COMPLICATIONS/CHIEF COMPLAINT: Small Bowel Obstruction. HISTORY OF PRESENT ILLNESS: . HOSPITAL COURSE: . DISCHARGE MEDICATIONS: Please see below. ALLERGIES: Please see below. PHYSICAL EXAMINATION ON DISCHARGE: VITAL SIGNS: Please see below. GENERAL: HEENT: NECK: CARDIOVASCULAR EXAMINATION: RESPIRATORY EXAMINATION: ABDOMINAL EXAMINATION: EXTREMITIES: SKIN: NEUROLOGICAL EXAMINATION: PSYCHIATRIC EXAMINATION: LABORATORY DATA: Please see below. IMAGING: PROGNOSIS: ACTIVITY: [As tolerated]. DIET: DISCHARGE PLAN: DISPOSITION: . DISCHARGE INSTRUCTIONS: 1. . ITEMS TO FOLLOWUP ON ON OUTPATIENT: 1. . DISCHARGE CONDITION: [Stable]. TIME SPENT ON DISCHARGE: Greater than minutes. Vital Signs/I&Os Vital Signs Date Time Temp Pulse Resp B/P (MAP) Pulse Ox O2 Delivery O2 Flow Rate FiO2 07/21/19 11:55 16 Room Air 07/21/19 06:00 98.1 84 123/71 (88) 95 07/20/19 06:14 2.0 I&O- Last 24 Hours up to 6 AM 07/21/19 06:00 Intake Total 3980 ml Output Total 1350 ml Balance 2630 ml Laboratory Data Labs 24H Laboratory Tests 2 07/21/19 05:58: Immature Granulocyte % (Auto) 0.2, Neutrophils (%) (Auto) 60.8, Lymphocytes (%) (Auto) 22.1L, Monocytes (%) (Auto) 11.7H, Eosinophils (%) (Auto) 5.0H, Basophils (%) (Auto) 0.2, Neutrophils # (Auto) 3.0, Lymphocytes # (Auto) 1.1L, Monocytes # (Auto) 0.6, Eosinophils # (Auto) 0.3, Basophils # (Auto) 0.0, Nucleated Red Blood Cells % (auto) 0.0, Anion Gap 7L, Glomerular Filtration Rate > 60.0, Calcium Level 8.4L CBC/BMP Laboratory Tests 07/21/19 05:58 Discharge Medications Scheduled Asenapine (Saphris) 5 Mg Tab.subl, 20 MG SL QHS, (Reported) Clonazepam (Klonopin) 0.5 Mg Tablet, 0.5 MG PO TID, (Reported) Fluoxetine Hcl (Fluoxetine HCl) 20 Mg Cap, 60 MG PO DAILY, (Reported) Multivitamin (Multivitamins) 1 Each Capsule, 1 CAP PO DAILY, (Reported) Polyethylene Glycol 3350 (Polyethylene Glycol 3350) 17 Gm Powd.pack, 1 TBS PO DAILY Trazodone HCl (Trazodone HCl) 50 Mg Tablet, 50 MG PO QHS, (Reported) Scheduled PRN Ondansetron HCl (Ondansetron HCl) 4 Mg Tablet, 4 MG PO Q6H PRN for NAUSEA, (Reported) Oxycodone/Acetaminophen (Oxycodone-Acetaminophen 5-325) 1 Each Tablet, 1 TAB PO Q4HP PRN for MILD/MODERATE PAIN (PS 1-7) Rizatriptan Benzoate (Maxalt) 10 Mg Tab, 10 MG PO DAILY PRN for MIGRAINE, (Reported) Allergies Coded Allergies: cetirizine (Verified Allergy, Mild, rash, 07/08/18) metoclopramide (Verified Adverse Reaction, Mild, anxiety, 07/08/18) sumatriptan (Verified Adverse Reaction, Mild, joint pain, 07/08/18) BETH GE MD Jul 21, 2019 12:43
[2019-07-21 14:00] VITALS: BP 120/72
[2019-07-21 16:15] LABS: APPEARANCE, URINE CLOUDY (CLEAR); BACTERIA, URINE AUTO NEGATIVE (NEGATIVE); BILIRUBIN, URINE AUTO NEGATIVE (NEGATIVE); BLOOD, URINE BLOOD NEGATIVE (NEGATIVE); COLOR, URINE YELLOW (YELLOW); GLUCOSE, URINE (UA) AUTO NEGATIVE (NEGATIVE); KETONE, URINE AUTO NEGATIVE (NEGATIVE); LEUKOCYTE ESTERASE, URINE AUTO NEGATIVE (NEGATIVE); MUCUS, URINE SMALL (NEGATIVE); NITRITE, URINE AUTO NEGATIVE (NEGATIVE); PROTEIN, URINE AUTO NEGATIVE (NEGATIVE); RBC, URINE AUTO 1 /HPF (0-3); SPECIFIC GRAVITY URINE AUTO 1.011 (1.002-1.035); SQUAMOUS EPITHELIAL CELL UR AU 7 /HPF (0-6); UROBILINOGEN, URINE AUTO 0.2 mg/dL (0.0-2.0); WBC, URINE AUTO 5 /HPF (0-3)
[2019-07-21] MEDS ORDERED: ACETAMINOPHEN TAB 650MG DOSE (2X325MG) PO PRN (21:15)
[2019-07-21 22:00] VITALS: BP 112/68
[2019-07-21] MEDS: PANTOPRAZOLE 40MG VIAL (C9113 PER 1) IV SCH (22:45)
--- NOTE | 2019-07-22 00:11 | REP ---
Clinical: Nausea and vomiting. Technique: Upright view of the chest with supine and upright views of the abdomen and pelvis. Comparison: 07/10/2018 Findings: Current examination demonstrates dilated loops of small bowel with air-fluid levels suggesting element of early versus partial small bowel obstruction (Contrast identified within the rectosigmoid colon likely from recent small bowel follow-through examination). Upright view of the chest demonstrates no free air to suggest perforation. Evidence of prior cholecystectomy. Skeletal structures are intact. No foreign body. Impression: Findings suggest early versus partial small bowel obstruction. Correlation and follow up is recommended. Electronically Signed by Gregor Carreon MD 07/22/2019 12:02 A
[2019-07-22] MEDS: traZODone 50 MG TAB PO SCH (00:30)
[2019-07-22] MEDS: clonazePAM 0.5 MG TAB PO SCH ×2 (00:30→08:10)
[2019-07-22] MEDS: PERCOCET 5MG/325MG TAB PO PRN ×2 (02:26→10:14)
[2019-07-22 06:00] VITALS: BP 110/66
[2019-07-22] MEDS ORDERED: FLEET ENEMA PR ONE (06:00)
[2019-07-22 06:54] LABS: BASO % 0.3 % (0.0-1.0); EOS # 0.4 10^3/uL (0.0-0.5); HEMATOCRIT 29.4 % (36.0-47.0); HEMOGLOBIN 9.2 g/dl (12.0-15.5); LYMPH # 1.2 10^3/uL (1.5-5.0); LYMPH % 19.4 % (24.0-44.0); MEAN CORPUSCULAR HEMOGLOBIN 27.4 pg (27.0-33.0); MEAN CORPUSCULAR HGB CONC 31.3 g/dl (32.0-36.5); MEAN CORPUSCULAR VOLUME 87.5 fl (80.0-96.0); MONO % 16.4 % (0.0-5.0); NEUTROPHILS # 3.4 10^3/uL (1.5-8.5); NEUTROPHILS % 57.4 % (36.0-66.0); PLATELET COUNT, AUTOMATED 249 10^3/uL (150-450); RED BLOOD COUNT 3.36 10^6/uL (4.00-5.40)
[2019-07-22] MEDS: LR 1,000 ML IV SCH (07:15)
[2019-07-22 07:25] LABS: ALBUMIN 2.7 GM/DL (3.2-5.2); ALT/SGPT 24 U/L (12-78); BILIRUBIN,TOTAL 0.3 MG/DL (0.2-1.0); BLOOD UREA NITROGEN 8 MG/DL (7-18); CALCIUM LEVEL 8.1 MG/DL (8.5-10.1); CARBON DIOXIDE LEVEL 30 MEQ/L (21-32); CHLORIDE LEVEL 105 MEQ/L (98-107); CREATININE FOR GFR 0.87 MG/DL (0.55-1.30); GLOMERULAR FILTRATION RATE > 60.0 (>60); GLUCOSE, FASTING 85 MG/DL (70-100); POTASSIUM SERUM 3.9 MEQ/L (3.5-5.1); SODIUM LEVEL 141 MEQ/L (136-145); TOTAL PROTEIN 5.3 GM/DL (6.4-8.2)
[2019-07-22] MEDS: MIRALAX *UNIT DOSE* 17GM PACKET PO SCH (08:09)
[2019-07-22] MEDS: MORPHINE 4 MG/ML 1ML VIAL/SYRINGE (J2270) IV PRN ×2 (08:10→12:15)
[2019-07-22] MEDS: FLUoxetine 20 MG CAP PO SCH (08:10)
[2019-07-22] MEDS: ENOXAPARIN 40MG/0.4ML SYRINGE (J1650 PER 10MG) SC SCH (08:10)
--- NOTE | 2019-07-22 12:03 | IPNPDOC ---
Text Note Date of Service The patient was seen on 07/22/19. NOTE Patient was doing well when I saw her yesterday and felt ready to go home but in the afternoon she was noted to have low grade fever so discharge was held. In the evening she had one episode of fever of 101.6 and did not feel well and threw up. She defervesced and feels moderately better this morning. She has had 2 small bms this morning (one after the fleets enema). Denies nuasea at this time. She has tolerated some clears and would like to try some solid food. On exam she looks relatively comfortable Her abdomen still looks somewhat distended and tympanitic to percussion. She has some mild tenderness over the right lower quadrant area but no guarding. Impression and plans; small bowel obstruction RLQ incisional hernia h/o colonic inertia s/p subtotal colectomy I am not sure what the fever is about. Workup so far is negative including that of her urinalysis, cxr and axr. No free air on xr and no signs of peritonitis on exam. Her labs skew more shift of lymphocytes with normal wbc (?viral origin) that is why I checked her for covid and this was also negative. She still is somewhat distended but tolerating clears and would like to try soft foods and if possible go home. I will advance her to soft diet and check up on her later and if not febrile would consider discharging her home. There is still the issue of her abdominal distention. Intraoperatively the portion of her small bowel from the astj-hs-fkfv sb anastomosis from the ileostomy to the junction of the entero-colic anastomosis was distended uniformly. There is no mechanical obstruction along the route of the bowel. The left over colon is still somewhat redundant for treatment for colonic inertia (usually taken through to the upper rectum) and this could still pose as possible functional obstructing point, I think. I would recommend for her to continue on intermittent miralax. VS,Fishbone, I+O VS, Fishbone, I+O Laboratory Tests 07/22/19 06:09 Vital Signs Date Time Temp Pulse Resp B/P (MAP) Pulse Ox O2 Delivery O2 Flow Rate FiO2 07/22/19 10:44 16 07/22/19 06:00 98.7 94 110/66 (81) 98 Room Air 07/20/19 06:14 2.0 I&O- Last 24 Hours up to 6 AM 07/22/19 06:00 Intake Total 2260 ml Output Total 1400 ml Balance 860 ml BETH GE MD July 22, 2019 12:03
[2019-07-22] MEDS ORDERED: KETOROLAC 30 MG/ML 1ML VIAL IV PRN (12:45)
[2019-07-22] MEDS ORDERED: PERCOCET 5MG/325MG TAB PO PRN (12:45)
[2019-07-23] MEDS ORDERED: FLUO40CA PO (10:00)
[2019-07-23] MEDS ORDERED: MIRA1POW3 PO (10:00)
[2019-07-23] MEDS ORDERED: PERC5TAB12 PO (10:00)
[2019-07-23] MEDS ORDERED: NEXP1IMP SC (10:00)
== END 2019-07-22 15:23 | disposition left against medical advice (07) | DRG 227 ==
LOC: M MSPAV 20:13
PROVIDERS: ADMIT Surgery; ATTEND Surgery
PROC: 8E0W4CZ Robotic Assisted Procedure of Trunk Region, Percutaneous Endoscopic Approach (ICD-10-PCS; 2019-07-19)
PROC: 0WUF4JZ Supplement Abdominal Wall with Synthetic Substitute, Percutaneous Endoscopic Approach (ICD-10-PCS; principal; 2019-07-19 13:00)
DX: K43.2 Incisional hernia without obstruction or gangrene (principal); K56.50 Intestinal adhesions [bands], unspecified as to partial versus complete obstruction; Z79.899 Other long term (current) drug therapy; F31.9 Bipolar disorder, unspecified; M54.2 Cervicalgia; G43.909 Migraine, unspecified, not intractable, without status migrainosus; Z88.8 Allergy status to other drugs, medicaments and biological substances

== ENCOUNTER 2019-07-23 07:36 | Inpatient (IN) | payer OTHER ==
[~2019-07-23] VITALS: Ht 165.1 cm; Wt 109.1 kg
[~2019-07-23 07:36] MED LIST changes: +ASEN5TA SL; +DIVA500T94 PO; +HALO5TA PO; +KLON0.5T PO; +PEG1POW PO; +PERCOCET PO; +TRAZ-252 PO
[2019-07-23] MEDS ORDERED: ONDANSETRON 4MG/2ML VIAL IV ONE (08:30)
[2019-07-23] MEDS ORDERED: MORPHINE 4 MG/ML 1ML VIAL/SYRINGE (J2270) IV ONE (08:30)
[2019-07-23] MEDS ORDERED: NS 1,000 ML IV ONE (08:30)
[2019-07-23 08:31] LABS: BASO % 0.3 % (0.0-1.0); EOS # 0.5 10^3/uL (0.0-0.5); EOS % 7.8 % (0.0-3.0); HEMATOCRIT 32.4 % (36.0-47.0); HEMOGLOBIN 10.4 g/dl (12.0-15.5); LYMPH # 0.9 10^3/uL (1.5-5.0); LYMPH % 13.4 % (24.0-44.0); MEAN CORPUSCULAR HEMOGLOBIN 27.5 pg (27.0-33.0); MEAN CORPUSCULAR HGB CONC 32.1 g/dl (32.0-36.5); MEAN CORPUSCULAR VOLUME 85.7 fl (80.0-96.0); MONO # 0.7 10^3/uL (0.0-0.8); MONO % 9.9 % (0.0-5.0); NEUTROPHILS # 4.5 10^3/uL (1.5-8.5); NEUTROPHILS % 68.1 % (36.0-66.0); PLATELET COUNT, AUTOMATED 303 10^3/uL (150-450); RED BLOOD COUNT 3.78 10^6/uL (4.00-5.40); WHITE BLOOD COUNT 6.6 10^3/uL (4.0-10.0)
[2019-07-23] MEDS ORDERED: ISOVUE-370 76% 100ML VIAL As Ordered ONE (08:31)
[2019-07-23 08:55] LABS: BILIRUBIN,DIRECT 0.1 MG/DL (0.0-0.2); BILIRUBIN,TOTAL 0.3 MG/DL (0.2-1.0); TOTAL PROTEIN 6.1 GM/DL (6.4-8.2)
[2019-07-23] MEDS ORDERED: MORPHINE 2 MG/ML 1ML VIAL (J2270) IV ONE (09:15)
--- NOTE | 2019-07-23 09:17 | REP ---
Clinical: Abdominal pain with hernia surgery postop day #3. Technique: Axial contrast enhanced images from the lung bases to the pubic symphysis with coronal and sagittal re-formations using 100 ml Isovue 370 intravenous contrast material. Findings: Bibasilar atelectasis and small pleural effusions noted. There is evidence and history for prior colectomy and previous anterior colonic anastomosis at the level of the sigmoid colon. Generalized fluid-filled distended loops of bowel are noted throughout the abdomen and pelvis along with few collapsed loops of small bowel in the left mid abdomen. Small amount of free fluid and scattered mesenteric stranding noted. These findings are nonspecific and may represent postoperative changes and ileus. However clinical correlation is recommended to exclude possible infection and/or partial obstruction. No free air or discrete drainable collection/abscess identified. Fatty infiltration to the liver. Spleen, pancreas, bilateral adrenal glands and kidneys are normal. Evidence of prior cholecystectomy noted. Pelvis demonstrates collapsed normal bladder and age-appropriate uterus/adnexa. No significant adenopathy. No free air. Abdominal aorta without aneurysm or dissection. Musculoskeletal structures are intact. Impression: 1. Nonspecific findings involving the bowel including dilated fluid-filled loops of bowel as well as mesenteric stranding and small amount of ascites. Differential diagnosis includes normal postoperative changes with ileus as well as possible infection and partial obstruction. Close clinical observation is warranted. 2. Mild bibasilar atelectasis and small pleural effusions. Electronically Signed by Gregor Carreon MD 07/23/2019 09:08 A
[2019-07-23] MEDS ORDERED: MORPHINE 2 MG/ML 1ML VIAL (J2270) IV PRN (09:30)
[2019-07-23] MEDS ORDERED: NS 1,000 ML IV SCH (09:30)
--- NOTE | 2019-07-23 09:31 | REP ---
Clinical: Abdominal pain . Comparison: 07/21/2019 . Findings: The mediastinum and cardiac silhouette are stable and within normal limits for portable technique. The lung ayala are clear without acute consolidation, effusion, or pneumothorax. Skeletal structures are intact. Impression: No acute cardiopulmonary process appreciated. Electronically Signed by Gregor Carreon MD 07/23/2019 09:23 A
[2019-07-23] MEDS ORDERED: MIRA1POW3 PO (10:00)
[2019-07-23] MEDS ORDERED: PERC5TAB12 PO (10:00)
[2019-07-23] MEDS ORDERED: FLUO40CA PO (10:00)
[2019-07-23] MEDS ORDERED: NEXP1IMP SC (10:00)
[2019-07-23 11:45] VITALS: BP 140/87
[2019-07-23] MEDS: SIMETHICONE 80 MG CHEW TAB PO SCH ×3 (12:02→20:24)
[2019-07-23] MEDS: D5W/LR 1,000 ML IV SCH ×2 (12:03→20:23)
[2019-07-23] MEDS: MORPHINE 2 MG/ML 1ML VIAL (J2270) IV PRN ×3 (12:03→22:00)
[2019-07-23] MEDS: PANTOPRAZOLE 40MG VIAL (C9113 PER 1) IV SCH (12:03)
[2019-07-23 14:00] VITALS: BP 141/83
[2019-07-23] MEDS: KETOROLAC 30 MG/ML 1ML VIAL IV PRN ×2 (14:46→21:14)
--- NOTE | 2019-07-23 15:55 | HPE ---
DATE OF ADMISSION: 07/23/2019 The patient is being readmitted after she left reportedly against medical advice (AMA) yesterday with having a persistent ileus after an incisional hernia was repaired by Dr. Lowery. Essentially had evidence of an ileus/partial bowel obstruction, underwent operative repair of a right lower quadrant incisional hernia, and did have some progression of her diet but then had increasing distension and had increasing pain. Essentially went home and had increasing discomfort, pain, distension, and presents now for readmission. PAST MEDICAL HISTORY: Significant for a history of bipolar disorder, chronic neck pain, colonic inertia, constipation, history of migraines, history of small bowel obstruction, history of laparoscopic appendectomy, history of cholecystectomy, history of subtotal colectomy, history of knee surgery, history of hernia repair. PHYSICAL EXAMINATION: Reveals a morbidly obese female who seems uncomfortable but not in severe distress. HEENT: Unremarkable. NECK: Supple without adenopathy. LUNGS: Clear. HEART: Regular. ABDOMEN: Distended, mildly tender but mostly on the right-hand side where she had the incisional hernia repaired. Her incisions are clean and dry. No drainage. No erythema is appreciated. Otherwise, CT scan was reviewed which indeed shows evidence of dilated small bowel and a small amount of ascites, most likely consistent with an ileus more so than a persistent bowel obstruction. IMPRESSION AND PLAN: The patient has evidence of a postoperative ileus. At this point given her abdominal distension, pain, nasogastric (NG) tube decompression with nothing by mouth status is warranted. We will see how she does over the ensuing 24-48 hours but I anticipate she will need to be hospitalized for the next several days. We will start some IV fluids for hydration and continue watching her at this time.
[2019-07-23 18:00] VITALS: BP 130/79
[2019-07-23 22:00] VITALS: BP 134/75
[2019-07-23] MEDS: ONDANSETRON 4MG/2ML VIAL IV PRN (22:01)
[2019-07-24 02:00] VITALS: BP 130/66
[2019-07-24] MEDS: MORPHINE 2 MG/ML 1ML VIAL (J2270) IV PRN ×5 (02:26→22:33)
[2019-07-24] MEDS: D5W/LR 1,000 ML IV SCH ×4 (02:36→22:33)
[2019-07-24 05:15] LABS: HEMATOCRIT 27.8 % (36.0-47.0); HEMOGLOBIN 8.8 g/dl (12.0-15.5); MEAN CORPUSCULAR HEMOGLOBIN 27.6 pg (27.0-33.0); MEAN CORPUSCULAR HGB CONC 31.7 g/dl (32.0-36.5); MEAN CORPUSCULAR VOLUME 87.1 fl (80.0-96.0); PLATELET COUNT, AUTOMATED 276 10^3/uL (150-450); RED BLOOD COUNT 3.19 10^6/uL (4.00-5.40); WHITE BLOOD COUNT 5.2 10^3/uL (4.0-10.0)
[2019-07-24 05:36] LABS: BLOOD UREA NITROGEN 5 MG/DL (7-18); CALCIUM LEVEL 8.3 MG/DL (8.5-10.1); CARBON DIOXIDE LEVEL 28 MEQ/L (21-32); CHLORIDE LEVEL 107 MEQ/L (98-107); CREATININE FOR GFR 0.67 MG/DL (0.55-1.30); GLOMERULAR FILTRATION RATE > 60.0 (>60); GLUCOSE, FASTING 95 MG/DL (70-100); POTASSIUM SERUM 3.6 MEQ/L (3.5-5.1); SODIUM LEVEL 141 MEQ/L (136-145)
[2019-07-24] MEDS: KETOROLAC 30 MG/ML 1ML VIAL IV PRN (05:47)
[2019-07-24 06:00] VITALS: BP 128/86
[2019-07-24] MEDS: SIMETHICONE 80 MG CHEW TAB PO SCH ×4 (07:25→21:06)
[2019-07-24] MEDS: PANTOPRAZOLE 40MG VIAL (C9113 PER 1) IV SCH (07:25)
[2019-07-24 10:00] VITALS: BP 132/84
[2019-07-24] MEDS: KETOROLAC 30 MG/ML 1ML VIAL IV SCH ×2 (11:23→17:22)
[2019-07-24 14:00] VITALS: BP 135/89
[2019-07-24 18:00] VITALS: BP_SYST 111; BP_SYST 139; BP_DIAS 74; BP_DIAS 88
[2019-07-24] MEDS: traZODone 50 MG TAB PO SCH (21:06)
[2019-07-24] MEDS: clonazePAM 0.5 MG TAB PO SCH (21:06)
[2019-07-24 22:00] VITALS: BP 135/84
[2019-07-25] MEDS: KETOROLAC 30 MG/ML 1ML VIAL IV SCH ×5 (01:00→23:49)
[2019-07-25 02:00] VITALS: BP 131/85
[2019-07-25] MEDS: MORPHINE 2 MG/ML 1ML VIAL (J2270) IV PRN ×3 (03:49→20:30)
[2019-07-25] MEDS: D5W/LR 1,000 ML IV SCH ×2 (03:53→20:17)
[2019-07-25 05:52] LABS: HEMATOCRIT 28.9 % (36.0-47.0); HEMOGLOBIN 9.3 g/dl (12.0-15.5); MEAN CORPUSCULAR HEMOGLOBIN 27.5 pg (27.0-33.0); MEAN CORPUSCULAR HGB CONC 32.2 g/dl (32.0-36.5); MEAN CORPUSCULAR VOLUME 85.5 fl (80.0-96.0); PLATELET COUNT, AUTOMATED 296 10^3/uL (150-450); RED BLOOD COUNT 3.38 10^6/uL (4.00-5.40); WHITE BLOOD COUNT 5.2 10^3/uL (4.0-10.0)
[2019-07-25 06:00] VITALS: BP 130/88
[2019-07-25 06:13] LABS: BLOOD UREA NITROGEN 5 MG/DL (7-18); CALCIUM LEVEL 8.4 MG/DL (8.5-10.1); CARBON DIOXIDE LEVEL 29 MEQ/L (21-32); CHLORIDE LEVEL 107 MEQ/L (98-107); GLOMERULAR FILTRATION RATE > 60.0 (>60); GLUCOSE, FASTING 104 MG/DL (70-100); POTASSIUM SERUM 3.7 MEQ/L (3.5-5.1); SODIUM LEVEL 143 MEQ/L (136-145)
[2019-07-25] MEDS: PANTOPRAZOLE 40MG VIAL (C9113 PER 1) IV SCH (09:07)
[2019-07-25] MEDS: clonazePAM 0.5 MG TAB PO SCH ×3 (09:07→20:16)
[2019-07-25] MEDS: SIMETHICONE 80 MG CHEW TAB PO SCH ×4 (09:07→20:16)
[2019-07-25 10:00] VITALS: BP 127/79
--- NOTE | 2019-07-25 10:20 | IPN ---
DATE: 07/24/2019 The patient was admitted yesterday with ileus postoperatively. She has sustained a normal white count overnight. She has been afebrile. However, she has only had some minimal nasogastric (NG) tube output and a very small bowel movement, but she still is complaining of crampy abdominal pain and significant abdominal distention. On her abdominal exam, she does have some distention, but it is not as tense as it was yesterday. She still has some tenderness around her incisional site, but otherwise is stable. Overall from an abdominal exam standpoint, I am not seeing any infectious abnormality. IMPRESSION AND PLAN: The patient has evidence of a small bowel movement, has had minimal NG output, all suggesting that she is starting to resolve her ileus, but she is still moderately distended. Thus, I anticipate that this is not completely resolved. Thus, will keep her nothing by mouth (n.p.o.) with the NG tube in place overnight and will see how she does over the next 24 hours. Will continue with supportive care and increase her activity. At this point, her abdominal pain, I am questioning whether this is most likely secondary to the fascial closure/incisional hernia repair more so than the abdominal distention, but in any case given that she is still uncomfortable with her current situation it is reasonable to see how she does with the NG tube overnight and see if we can resolve this. She may need an upper GI with small bowel follow-through or she may need a transversus abdominis plane (TAP) block from anesthesia to provide some extra relief if this her major issue at this time, pain control. Will see how she does overnight with the nonsteroidals and morphine that is currently ordered.
[2019-07-25] MEDS ORDERED: FLEET ENEMA PR ONE (12:30)
--- NOTE | 2019-07-25 12:41 | REP ---
ABDOMINAL SERIES: Supine and erect views of the abdomen are performed. No free intraperitoneal air is seen. There are moderately dilated small and large bowel loops with air-fluid levels on the upright view. Pattern is similar to the CT scan of 07/23/2019. The dilated bowel loops are mainly in the abdomen with relative collapse of the rectum. Metallic clips are seen in the right upper quadrant. An accompanying view of the chest demonstrates no acute infiltrate. Heart and mediastinum are unremarkable. IMPRESSION: Moderate dilatation of small and large bowel loops in the abdomen appears similar in pattern and caliber compared to the CT of 07/23/2019. Electronically Signed by Ramirez Hicks MD 07/25/2019 12:51 P
[2019-07-25 14:00] VITALS: BP 137/86
[2019-07-25] MEDS ORDERED: MAGNESIUM CITRATE 300 ML BTL PO ONE (15:30)
[2019-07-25 18:00] VITALS: BP 136/74
[2019-07-25] MEDS: ONDANSETRON 4MG/2ML VIAL IV PRN (19:04)
[2019-07-25] MEDS: ALVIMOPAN 12 MG CAPSULE (ENTEREG) PO SCH (20:16)
[2019-07-25] MEDS: traZODone 50 MG TAB PO SCH (20:16)
[2019-07-25 22:00] VITALS: BP 140/88
[2019-07-26 02:00] VITALS: BP 140/89
[2019-07-26] MEDS: D5W/LR 1,000 ML IV SCH ×2 (03:21→12:24)
[2019-07-26] MEDS: MORPHINE 2 MG/ML 1ML VIAL (J2270) IV PRN ×2 (03:21→08:38)
[2019-07-26] MEDS: KETOROLAC 30 MG/ML 1ML VIAL IV SCH ×3 (05:53→17:17)
[2019-07-26 06:00] VITALS: BP 138/90
[2019-07-26 06:27] LABS: HEMATOCRIT 30.7 % (36.0-47.0); MEAN CORPUSCULAR HEMOGLOBIN 27.6 pg (27.0-33.0); MEAN CORPUSCULAR HGB CONC 32.6 g/dl (32.0-36.5); MEAN CORPUSCULAR VOLUME 84.8 fl (80.0-96.0); PLATELET COUNT, AUTOMATED 326 10^3/uL (150-450); RED BLOOD COUNT 3.62 10^6/uL (4.00-5.40); WHITE BLOOD COUNT 5.2 10^3/uL (4.0-10.0)
[2019-07-26 06:54] LABS: BLOOD UREA NITROGEN 4 MG/DL (7-18); CALCIUM LEVEL 8.6 MG/DL (8.5-10.1); CARBON DIOXIDE LEVEL 30 MEQ/L (21-32); CHLORIDE LEVEL 106 MEQ/L (98-107); CREATININE FOR GFR 0.75 MG/DL (0.55-1.30); GLOMERULAR FILTRATION RATE > 60.0 (>60); GLUCOSE, FASTING 103 MG/DL (70-100); POTASSIUM SERUM 3.9 MEQ/L (3.5-5.1); SODIUM LEVEL 141 MEQ/L (136-145)
--- NOTE | 2019-07-26 08:28 | IPNPDOC ---
Text Note Date of Service The patient was seen on 07/25/19. NOTE Patient signed out AMA last Thursday and returned to the hospital Thursday with right lower quadrant abdominal pain. On imaging during her presentation she has evidence of either bowel obstruction at the enterocolic anastomosis on postop ileus. She is having small loose bowel movements but has not decompressed her abdomen yet. She had lost her NG tube yesterday evening but that has not been draining anything the past day or so. She reports she is better but still having crampy right lower quadrant pain. She is taking a lot of narcotics and asking for them even though she looks comfortable. She is ambulating hallways per her report. She's been afebrile. On examination she is lying flat in bed, looks comfortable does not seem to be anxious. She is cooperative. Lungs are clear to auscultation bilaterally without wheezing She has regular heart rate and rhythm without murmurs Abdomen is obese, soft still distended in appearance, soft mildly less so than it was last Thursday. Mildly less tender over the right lower quadrant/incisional hernia repair site. The 3 port sites are all healing accordingly with Dermabond on them with no drainage. Impression: Status post incisional hernia repair Partial small bowel obstruction versus ileus I'm allowing her some clear liquids. I'll give her a dose of mag citrate and also some fleets enema was given early today. She is having small bowel movements but not enough to decompress her abdomen. She is only passing little flatus in between. I suspect this has also somewhat to do with the use of narcotics. I would consider doing a barium enema to evaluate the possibility of stricture or narrowing at the enterocolic anastomosis if no better. VS,Fishbone, I+O VS, Fishbone, I+O Laboratory Tests 07/26/19 05:36 Vital Signs Date Time Temp Pulse Resp B/P (MAP) Pulse Ox O2 Delivery O2 Flow Rate FiO2 07/26/19 06:00 97.3 77 17 138/90 (106) 94 Room Air I&O- Last 24 Hours up to 6 AM 07/26/19 06:00 Intake Total 2290 ml Output Total 2150 ml Balance 140 ml BETH GE MD July 26, 2019 08:28
[2019-07-26] MEDS: PANTOPRAZOLE 40MG VIAL (C9113 PER 1) IV SCH (08:37)
[2019-07-26] MEDS: clonazePAM 0.5 MG TAB PO SCH ×3 (08:37→21:34)
[2019-07-26] MEDS: ALVIMOPAN 12 MG CAPSULE (ENTEREG) PO SCH ×2 (08:37→21:34)
[2019-07-26] MEDS: SIMETHICONE 80 MG CHEW TAB PO SCH ×4 (08:37→21:34)
[2019-07-26 10:00] VITALS: BP 137/79
[2019-07-26] MEDS ORDERED: LIQUID POLIBAR PLUS 105% w/v 1900ML BTL As Ordered ONE (12:45)
[2019-07-26] MEDS ORDERED: PERCOCET 5MG/325MG TAB PO PRN (13:00)
[2019-07-26 14:00] VITALS: BP 143/78
[2019-07-26] MEDS: PERCOCET 5MG/325MG TAB PO PRN ×2 (14:01→18:50)
--- NOTE | 2019-07-26 16:37 | REP ---
BARIUM ENEMA SINGLE CONTRAST The procedure was performed under the direct supervision of Dr. Hicks. The images were reviewed with Dr. Hicks. The mosaic layer film shows no organomegaly or pathological masses. Bowel gas pattern is nonspecific. There are surgical clips noted in the right upper quadrant. Liquid barium was instilled into the colon and retrograde flow. There is free flow of contrast through the ileocolic anastomosis. The contrast refluxes into moderately dilated small bowel loops. There is no evidence of stricture or obstruction. There is a blind ending segment of bowel identified. There is no evidence of extravasation. Impression: There is free flow of contrast through the ileocolic anastomoses without evidence of stricture or obstruction. 3.8 minutes of fluoroscopy time was utilized for this procedure. Electronically Signed by GAIL Frye 07/26/2019 04:23 P Electronically Signed by Ramirez Hicks MD 07/26/2019 04:29 P
[2019-07-26] MEDS: diphenhydrAMINE 25MG CAP PO PRN (17:16)
[2019-07-26 18:00] VITALS: BP 133/86
[2019-07-26] MEDS: traZODone 50 MG TAB PO SCH (21:34)
[2019-07-26 22:00] VITALS: BP 123/74
[2019-07-27] MEDS: diphenhydrAMINE 25MG CAP PO PRN ×2 (00:19→08:22)
[2019-07-27] MEDS: KETOROLAC 30 MG/ML 1ML VIAL IV SCH ×2 (00:20→06:03)
[2019-07-27 02:00] VITALS: BP 121/76
[2019-07-27 05:46] LABS: HEMATOCRIT 31.2 % (36.0-47.0); HEMOGLOBIN 10.2 g/dl (12.0-15.5); MEAN CORPUSCULAR HEMOGLOBIN 27.6 pg (27.0-33.0); MEAN CORPUSCULAR HGB CONC 32.7 g/dl (32.0-36.5); MEAN CORPUSCULAR VOLUME 84.6 fl (80.0-96.0); PLATELET COUNT, AUTOMATED 345 10^3/uL (150-450); RED BLOOD COUNT 3.69 10^6/uL (4.00-5.40); WHITE BLOOD COUNT 5.7 10^3/uL (4.0-10.0)
[2019-07-27 06:00] VITALS: BP 109/69
[2019-07-27 06:05] LABS: BLOOD UREA NITROGEN 5 MG/DL (7-18); CALCIUM LEVEL 8.6 MG/DL (8.5-10.1); CARBON DIOXIDE LEVEL 29 MEQ/L (21-32); CHLORIDE LEVEL 105 MEQ/L (98-107); CREATININE FOR GFR 0.86 MG/DL (0.55-1.30); GLOMERULAR FILTRATION RATE > 60.0 (>60); GLUCOSE, FASTING 93 MG/DL (70-100); POTASSIUM SERUM 3.8 MEQ/L (3.5-5.1); SODIUM LEVEL 141 MEQ/L (136-145)
[2019-07-27] MEDS: clonazePAM 0.5 MG TAB PO SCH (08:22)
[2019-07-27] MEDS: PERCOCET 5MG/325MG TAB PO PRN (08:22)
[2019-07-27] MEDS: ALVIMOPAN 12 MG CAPSULE (ENTEREG) PO SCH (08:22)
[2019-07-27] MEDS: PANTOPRAZOLE 40MG VIAL (C9113 PER 1) IV SCH ×2 (08:22→09:00)
[2019-07-27] MEDS: SIMETHICONE 80 MG CHEW TAB PO SCH (08:25)
[2019-07-27] MEDS ORDERED: MIRALAX *UNIT DOSE* 17GM PACKET PO SCH (09:00)
[2019-07-27 10:00] VITALS: BP 142/88
--- NOTE | 2019-07-27 12:37 | IPNPDOC ---
Text Note Date of Service The patient was seen on 07/27/19. NOTE Patient has tolerated soft diet last night and this morning. She denies any na usea or increased bloating. Abdominal pain continues to get better. She had a barium enema done yesterday afternoon. She continues to have small loose bowel movements and passes flatus during bowel movements. On exam she looks comfortable Her abdomen remains mildly distended but less so than it was the past 2 days. There is only minimal residual tenderness of the right lower quadrant incisional hernia repair site without any evidence for seroma or hematoma. Her 3 lateral port incisions are healing accordingly. The rash on her abdomen seems to have resolved. Impression and plans: Right lower quadrant incisional hernia repair. She is 1 week postop now Postop ileus versus partial small bowel obstruction on a patient with prior history of subtotal colectomy for colonic inertia. Had a discussion with air with the results of all the studies we have done so far. She had a subtotal colectomy done for colonic inertia and preoperatively last week I did a small bowel follow-through and noted that contrast did pass through her small bowel although this was at the top end of normal as it took 1 hour 30 minutes for all the contrast passed through to the colonic anastomosis which seems to be at the level of the sigmoid colon. There is some small bowel distention at the level of the prior ileostomy reversal site. This was confirmed intraoperatively were her side to side small bowel anastomosis seems distended and this progresses through to the level of the right lower quadrant ileocolonic anastomosis and she seems to have still some redundant sigmoid colon left. I did not see any obvious areas of obstruction or stricture as I ran the bowel. The area where her small bowel is anastomosed to the sigmoid colon has a large mesenteric defect which is quite large to close and may pose as site of internal hernia theoretically but is not at the moment and the redundant portion of the sigmoid colon passes through this freely. I did a barium enema yesterday to further evaluate the site of the ileocolonic anastomosis to see if there is any narrowing or stricture at the area and this is also confirmative of both the preoperative small bowel follow-through and intraoperative findings. She seems to have a [id number] ileocolonic anastomosis at the proximal sigmoid colon with a relatively long segment of the distal sigmoid as a blind end. I told her that not sure how this is contributing to her symptoms though she tells me that she is having regular multiple loose bowel movements daily safe for the periods where she has obstruction. Since she is all better now, I think she is able to go home and advised her to discuss the findings with her operative surgeon or with a colorectal surgeon whether her anastomosis needs to be revised. Otherwise I think she is stable enough for discharge. VS,Fishbone, I+O VS, Fishbone, I+O Laboratory Tests 07/27/19 05:20 Vital Signs Date Time Temp Pulse Resp B/P (MAP) Pulse Ox O2 Delivery O2 Flow Rate FiO2 07/27/19 10:00 96.9 86 20 142/88 (106) 99 Room Air I&O- Last 24 Hours up to 6 AM 07/27/19 06:00 Intake Total 2565 ml Output Total 1450 ml Balance 1115 ml BETH GE MD July 27, 2019 12:37
[2019-07-28] MEDS ORDERED: CLON1TAB8 OR (11:11)
[2019-07-28] MEDS ORDERED: PRED20TA PO (12:49)
== END 2019-07-27 11:54 | disposition home or self-care (01) | DRG 252 ==
LOC: M ED 07:36 → M ED INP 09:25 → ENRESERV 11:30 → M MSPAV 11:48
PROVIDERS: ADMIT Surgery; ATTEND Surgery
DX: K91.89 Other postprocedural complications and disorders of digestive system (principal); F31.9 Bipolar disorder, unspecified; G43.909 Migraine, unspecified, not intractable, without status migrainosus; M54.2 Cervicalgia

== ENCOUNTER 2019-07-28 10:44 | Emergency (ER) | payer OTHER ==
[~2019-07-28] VITALS: Ht 165.1 cm; Wt 102.5 kg
[~2019-07-28 10:44] MED LIST changes: +FLUO40CA PO; +MIRA1POW3 PO; +NEXP1IMP SC; +PERC5TAB12 PO
[2019-07-28] MEDS ORDERED: CLON1TAB8 OR (11:11)
[2019-07-28] MEDS ORDERED: diphenhydrAMINE 50MG/ML VIAL (J1200) IV STA (11:43)
[2019-07-28] MEDS ORDERED: FAMOTIDINE INJ 20MG/2ML VIAL (S0028 PER 1) IVP ONE (11:45)
[2019-07-28] MEDS ORDERED: methylPREDNISolone INJ 125 MG/2 ML VIAL (J2930) IV ONE (11:45)
[2019-07-28] MEDS ORDERED: PRED20TA PO (12:49)
[2019-07-28 12:52] VITALS: BP 137/73
== END 2019-07-28 12:57 | disposition home or self-care (01) ==
LOC: M ED 10:44
DX: L50.9 Urticaria, unspecified (principal); T78.40XA Allergy, unspecified, initial encounter; Y92.89 Other specified places as the place of occurrence of the external cause; G43.909 Migraine, unspecified, not intractable, without status migrainosus; F32.9 Major depressive disorder, single episode, unspecified; F41.9 Anxiety disorder, unspecified; F60.3 Borderline personality disorder; Z79.899 Other long term (current) drug therapy; Z88.8 Allergy status to other drugs, medicaments and biological substances
CPT/HCPCS: 84702; 96374; 96375; 99283; J1200; J2930

== ENCOUNTER 2019-08-01 11:18 | Emergency (ER) | payer OTHER ==
[~2019-08-01] VITALS: Ht 165.1 cm; Wt 99.0 kg
[~2019-08-01 11:18] MED LIST changes: +CLON1TAB8 OR; +PRED20TA PO
[2019-08-01 11:53] LABS: BASO # 0.1 10^3/uL (0.0-0.2); EOS # 0.2 10^3/uL (0.0-0.5); EOS % 1.9 % (0.0-3.0); HEMATOCRIT 37.2 % (36.0-47.0); HEMOGLOBIN 11.8 g/dl (12.0-15.5); LYMPH # 2.9 10^3/uL (1.5-5.0); MEAN CORPUSCULAR HEMOGLOBIN 27.2 pg (27.0-33.0); MEAN CORPUSCULAR HGB CONC 31.7 g/dl (32.0-36.5); MEAN CORPUSCULAR VOLUME 85.7 fl (80.0-96.0); MONO # 0.8 10^3/uL (0.0-0.8); MONO % 6.6 % (0.0-5.0); NEUTROPHILS # 7.2 10^3/uL (1.5-8.5); NEUTROPHILS % 63.6 % (36.0-66.0); PLATELET COUNT, AUTOMATED 443 10^3/uL (150-450); RED BLOOD COUNT 4.34 10^6/uL (4.00-5.40); WHITE BLOOD COUNT 11.3 10^3/uL (4.0-10.0)
[2019-08-01 12:22] LABS: BILIRUBIN,DIRECT 0.1 MG/DL (0.0-0.2); BILIRUBIN,TOTAL 0.3 MG/DL (0.2-1.0); TOTAL PROTEIN 7.2 GM/DL (6.4-8.2)
[2019-08-01] MEDS ORDERED: ONDANSETRON 4MG/2ML VIAL IV ONE (12:30)
[2019-08-01] MEDS ORDERED: KETOROLAC 30 MG/ML 1ML VIAL IV ONE (12:30)
[2019-08-01] MEDS ORDERED: MORPHINE 4 MG/ML 1ML VIAL/SYRINGE (J2270) IV ONE (12:45)
--- NOTE | 2019-08-01 13:38 | REP ---
ABDOMINAL SERIES: Supine and erect view of the abdomen are performed. There is no free intraperitoneal air. There is no evidence of small bowel obstruction. No significantly dilated small bowel loops are seen. Metallic clips are seen in the right upper quadrant. Visualized osseous structures are unremarkable. IMPRESSION: No free air or obstruction. Electronically Signed by Ramirez Hicks MD 08/01/2019 01:46 P
[2019-08-01 13:45] VITALS: BP 109/65
[2019-08-01] MEDS ORDERED: ONDA4TAB6 PO (13:45)
== END 2019-08-01 14:00 | disposition home or self-care (01) ==
LOC: M ED 11:18
DX: K91.89 Other postprocedural complications and disorders of digestive system (principal); J45.909 Unspecified asthma, uncomplicated; F31.9 Bipolar disorder, unspecified; K21.9 Gastro-esophageal reflux disease without esophagitis; G43.909 Migraine, unspecified, not intractable, without status migrainosus; K58.9 Irritable bowel syndrome, unspecified; F60.3 Borderline personality disorder; Z79.899 Other long term (current) drug therapy; Z79.3 Long term (current) use of hormonal contraceptives; Z88.8 Allergy status to other drugs, medicaments and biological substances
CPT/HCPCS: 74019; 80047; 80076; 81001; 83690; 84702; 85025; 96374; 96375; 99284; J1885; J2270; J2405

== ENCOUNTER 2019-09-14 10:52 | Emergency (ER) | payer OTHER ==
[~2019-09-14] VITALS: Ht 165.1 cm; Wt 90.9 kg
[~2019-09-14 10:52] MED LIST changes: -FLUP5TA PO; +FLUP5TAB13 PO; +ONDA4TAB6 PO
[2019-09-14] MEDS ORDERED: LORA1TAB4 PO (11:18)
[2019-09-14] MEDS ORDERED: HYDR1CAP25 PO (11:18)
[2019-09-14 11:26] VITALS: BP 124/73
[2020-01-05] MEDS ORDERED: PAXI20TA29 PO (08:27)
[2020-02-05] MEDS ORDERED: QUET300T2 PO (00:07)
[2020-02-05] MEDS ORDERED: RISP-7 PO (00:07)
== END 2019-09-14 11:28 | disposition home or self-care (01) ==
LOC: M ED 10:52
DX: F11.20 Opioid dependence, uncomplicated (principal); Z79.899 Other long term (current) drug therapy

== ENCOUNTER 2019-11-11 16:32 | Emergency (ER) | payer OTHER ==
[~2019-11-11] VITALS: Ht 165.1 cm; Wt 94.8 kg
[~2019-11-11 16:32] MED LIST changes: +FLUP5TA PO; -FLUP5TAB13 PO; +HYDR1CAP25 PO; +LORA1TAB4 PO
[2019-11-11 16:33] VITALS: BP 129/75
[2019-11-11] MEDS ORDERED: BUSP15TA47 PO (17:03)
--- NOTE | 2019-12-02 13:09 | ECGEPIP ---
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
== END 2019-11-11 17:16 | disposition left against medical advice (07) ==
LOC: M ED 16:32
DX: Z76.0 Encounter for issue of repeat prescription (principal); F41.9 Anxiety disorder, unspecified; F31.9 Bipolar disorder, unspecified; Z53.9 Procedure and treatment not carried out, unspecified reason; Z88.8 Allergy status to other drugs, medicaments and biological substances; Z79.899 Other long term (current) drug therapy

== ENCOUNTER 2020-01-05 08:09 | Emergency (ER) | payer OTHER ==
[~2020-01-05] VITALS: Ht 165.1 cm; Wt 99.8 kg
[~2020-01-05 08:09] MED LIST changes: +BUSP15TA47 PO
[2020-01-05] MEDS ORDERED: PAXI20TA29 (08:27)
[2020-01-05] MEDS ORDERED: CYCL-707 (08:27)
[2020-01-05 09:19] LABS: BASO # 0.1 10^3/uL (0.0-0.2); BASO % 0.8 % (0.0-1.0); EOS # 0.2 10^3/uL (0.0-0.5); EOS % 3.1 % (0.0-3.0); HEMOGLOBIN 11.9 g/dl (12.0-15.5); LYMPH % 25.4 % (24.0-44.0); MEAN CORPUSCULAR HGB CONC 32.2 g/dl (32.0-36.5); MEAN CORPUSCULAR VOLUME 90.2 fl (80.0-96.0); MONO # 0.5 10^3/uL (0.0-0.8); NEUTROPHILS % 64.1 % (36.0-66.0); PLATELET COUNT, AUTOMATED 301 10^3/uL (150-450); WHITE BLOOD COUNT 7.7 10^3/uL (4.0-10.0)
[2020-01-05 09:39] LABS: ALBUMIN 3.8 GM/DL (3.2-5.2); BILIRUBIN,DIRECT 0.1 MG/DL (0.0-0.2); BILIRUBIN,TOTAL 0.3 MG/DL (0.2-1.0)
[2020-01-05] MEDS ORDERED: KETOROLAC 30 MG/ML 1ML VIAL IV ONE (09:45)
[2020-01-05] MEDS ORDERED: ISOVUE-370 76% 100ML VIAL As Ordered ONE (10:26)
--- NOTE | 2020-01-05 10:30 | REPVR ---
PROCEDURE INFORMATION: Exam: XR Abdomen, 1 View Exam date and time: 01/05/2020 10:06 AM Age: 29 years old Clinical indication: Abdominal pain; Additional info: Umbilical pain, recent sbo TECHNIQUE: Imaging protocol: XR of the abdomen. Views: Frontal supine view of the abdomen. 1 View. COMPARISON: CR ABDOMEN (MIN 2 VIEW) 08/01/2019 12:21 PM FINDINGS: Gastrointestinal tract: There are air-filled loops of bowel noted in the right upper quadrant possibly large bowel. Feces are noted in the rectum. Intraperitoneal space: There is a small amount of air in slightly dilated left upper quadrant small bowel loops up to 31 mm. Organs: There are cholecystectomy clips. Bones/joints: Unremarkable. IMPRESSION: Ileus versus early bowel obstruction. Electronically signed by: Bayron Carver On 01/05/2020 10:30:18 AM
--- NOTE | 2020-01-05 10:54 | REPVR ---
PROCEDURE INFORMATION: Exam: CT Abdomen And Pelvis With Contrast Exam date and time: 01/05/2020 10:28 AM Age: 29 years old Clinical indication: Abdominal pain; Periumbilical; Additional info: Periumbilical pain into lower abdomen, last week sbo TECHNIQUE: Imaging protocol: Computed tomography of the abdomen and pelvis with intravenous contrast. Radiation optimization: All CT scans at this facility use at least one of these dose optimization techniques: automated exposure control; mA and/or kV adjustment per patient size (includes targeted exams where dose is matched to clinical indication); or iterative reconstruction. Contrast material: ISOVUE 370; Contrast volume: 100 ml; Contrast route: INTRAVENOUS (IV); COMPARISON: SR CT ABD/PEL W/IV CONTRAST ONLY 07/23/2019 8:42 AM FINDINGS: Lungs: The lung bases are almost clear with a minimal amount of fluid and atelectasis in each base. Liver: The liver is moderate to severely fatty enlarged 192 mm. Gallbladder and bile ducts: The gallbladder removal is stable. Pancreas: Normal. No ductal dilation. Spleen: Normal. No splenomegaly. Adrenals: Normal. No mass. Kidneys and ureters: Normal. No hydronephrosis. Stomach and bowel: There is an abundance of feces noted in the rectosigmoid colon. There is a suture line seen involving the sigmoid colon. There appears to be a subtotal colectomy and this is stable. There dilated small bowel loops in upper pelvis measuring up to 38 mm. There is a suture line seen involving the small bowel at the level of transition between dilated small bowel apparently nondilated small bowel. Small bowel loops that are dilated appear to be distal to nondilated small bowel loops. Appendix: No evidence of appendicitis. Intraperitoneal space: Unremarkable. No free air. No significant fluid collection. Vasculature: Unremarkable. No abdominal aortic aneurysm. Lymph nodes: Unremarkable. No enlarged lymph nodes. Urinary bladder: Unremarkable as visualized. Reproductive: Unremarkable as visualized. Bones/joints: The spine is unchanged. Soft tissues: Unremarkable. IMPRESSION: 1. Questionable internal hernia or focal obstruction versus ileus. Consider small bowel series. 2. Subtotal colectomy with feces throughout the remaining sigmoid colon. 3. Stable fatty large liver. Electronically signed by: Bayron Carver On 01/05/2020 10:54:44 AM
[2020-01-05] MEDS ORDERED: ONDANSETRON 4MG/2ML VIAL IV ONE (11:15)
[2020-01-05] MEDS ORDERED: MORPHINE 2 MG/ML 1ML VIAL (J2270) IV ONE (11:15)
[2020-01-05 14:14] VITALS: BP 133/88
== END 2020-01-05 14:15 | disposition short-term general hospital (02) ==
LOC: M ED 08:09
DX: K56.609 Unspecified intestinal obstruction, unspecified as to partial versus complete obstruction (principal); K76.0 Fatty (change of) liver, not elsewhere classified; K59.00 Constipation, unspecified; G43.909 Migraine, unspecified, not intractable, without status migrainosus; G47.00 Insomnia, unspecified; F41.9 Anxiety disorder, unspecified; F33.9 Major depressive disorder, recurrent, unspecified; Z88.8 Allergy status to other drugs, medicaments and biological substances; Z79.899 Other long term (current) drug therapy
CPT/HCPCS: 74018; 74177; 80047; 80076; 81001; 83690; 84702; 85025; 96374; 96375; 99284; J1885; J2270; J2405; Q9967

== ENCOUNTER 2020-02-04 16:31 | Inpatient (IN) | payer OTHER ==
[~2020-02-04] VITALS: Ht 165.1 cm; Wt 90.0 kg
[~2020-02-04 16:31] MED LIST changes: +CYCL-707
[2020-02-04] MEDS ORDERED: IBUP1TAB7 PO (16:48)
[2020-02-04] MEDS ORDERED: NORC1TAB7 PO (16:48)
[2020-02-04] MEDS ORDERED: NS 1,000 ML IV ONE ×2 (17:15→23:30)
[2020-02-04] MEDS ORDERED: ONDANSETRON 4MG/2ML VIAL IV ONE (17:15)
[2020-02-04 17:51] LABS: BASO # 0.1 10^3/uL (0.0-0.2); BASO % 0.8 % (0.0-1.0); EOS # 0.4 10^3/uL (0.0-0.5); EOS % 6.6 % (0.0-3.0); HEMATOCRIT 35.1 % (36.0-47.0); HEMOGLOBIN 11.1 g/dl (12.0-15.5); LYMPH # 2.6 10^3/uL (1.5-5.0); LYMPH % 42.9 % (24.0-44.0); MEAN CORPUSCULAR HEMOGLOBIN 27.8 pg (27.0-33.0); MEAN CORPUSCULAR HGB CONC 31.6 g/dl (32.0-36.5); MONO # 0.4 10^3/uL (0.0-0.8); MONO % 7.2 % (0.0-5.0); NEUTROPHILS # 2.6 10^3/uL (1.5-8.5); NEUTROPHILS % 42.3 % (36.0-66.0); PLATELET COUNT, AUTOMATED 385 10^3/uL (150-450); RED BLOOD COUNT 3.99 10^6/uL (4.00-5.40); WHITE BLOOD COUNT 6.1 10^3/uL (4.0-10.0)
[2020-02-04] MEDS ORDERED: KETOROLAC 30 MG/ML 1ML VIAL IV ONE (18:00)
[2020-02-04 18:18] LABS: ALBUMIN 3.9 GM/DL (3.2-5.2); ALT/SGPT 50 U/L (12-78); BILIRUBIN,DIRECT < 0.1 MG/DL (0.0-0.2); BILIRUBIN,TOTAL 0.3 MG/DL (0.2-1.0); LIPASE 190 U/L (73-393); TOTAL PROTEIN 7.8 GM/DL (6.4-8.2)
--- NOTE | 2020-02-04 18:53 | REPVR ---
PROCEDURE INFORMATION: Exam: XR Complete Acute Abdomen Series Exam date and time: 02/04/2020 5:07 PM Age: 29 years old Clinical indication: Abdominal pain TECHNIQUE: Imaging protocol: XR complete acute abdomen series, including 2 or more views of the abdomen and a single view chest. COMPARISON: CR Abdomen,Flat Upright,PA CHEST 07/25/2019 10:37 AM FINDINGS: Lungs: Normal. No consolidation. Pleural space: Normal. No pneumothorax. Heart/Mediastinum: Normal. No cardiomegaly. Gastrointestinal tract: There is gastric distention with retained secretions. Clinical correlation to exclude gastroparesis or gastric outlet obstruction suggested. Intraperitoneal space: Normal. No free air. Organs: There has been a cholecystectomy. Bones/joints: Normal. No acute fracture. Soft tissues: Normal. IMPRESSION: 1. There has been a cholecystectomy. 2. There is gastric distention with retained secretions. Clinical correlation to exclude gastroparesis or gastric outlet obstruction suggested. Electronically signed by: Luis Manuel Berman On 02/04/2020 18:53:32 PM
[2020-02-04] MEDS ORDERED: MORPHINE 4 MG/ML 1ML VIAL/SYRINGE (J2270) IV ONE ×2 (19:00→22:45)
[2020-02-04] MEDS: GASTROGRAFIN SOLUTION 30ML PO SCH ×2 (19:54→20:29)
[2020-02-04] MEDS ORDERED: ISOVUE-370 76% 100ML VIAL As Ordered ONE (21:03)
--- NOTE | 2020-02-04 22:10 | REPVR ---
PROCEDURE INFORMATION: Exam: CT Abdomen And Pelvis With Contrast Exam date and time: 02/04/2020 9:43 PM Age: 29 years old Clinical indication: Other: Gastroparesis; Prior surgery; Additional info: Possible gastric outlet obx, gastroparesis, recent bowel res TECHNIQUE: Imaging protocol: Computed tomography of the abdomen and pelvis with intravenous contrast. Radiation optimization: All CT scans at this facility use at least one of these dose optimization techniques: automated exposure control; mA and/or kV adjustment per patient size (includes targeted exams where dose is matched to clinical indication); or iterative reconstruction. Contrast material: ISOVUE 370; Contrast volume: 100 ml; Contrast route: INTRAVENOUS (IV); COMPARISON: CT ABD/PEL W/IV CONTRAST ONLY 01/05/2020 10:24 AM FINDINGS: Liver: There is a diffuse decrease in hepatic parenchymal density, consistent with steatosis. Gallbladder and bile ducts: There has been a cholecystectomy. Pancreas: Normal. No ductal dilation. Spleen: Normal. No splenomegaly. Adrenal glands: Normal. No mass. Kidneys and ureters: Normal. No hydronephrosis. Stomach and bowel: There is gastric distention with retained secretions. Clinical correlation to exclude gastroparesis or gastric outlet obstruction suggested. Previously demonstrated distended rectosigmoid colon containing feces is clear. Sutures demonstrated in the mid sigmoid region consistent with prior subtotal colectomy. Right lower quadrant ileostomy. Thickened wall of several small bowel loops in the right lower quadrant. Finding may be related to bowel infection or inflammatory bowel disease in the appropriate clinical setting. No bowel obstruction demonstrated. Appendix: No evidence of appendicitis. Intraperitoneal space: There is a small amount of free intraperitoneal fluid present. Incisional fluid demonstrated in the suture line in the lower abdomen consistent with recent surgery. Vasculature: Unremarkable. No abdominal aortic aneurysm. Lymph nodes: Unremarkable. No enlarged lymph nodes. Urinary bladder: Unremarkable as visualized. Reproductive: Unremarkable as visualized. Bones/joints: Unremarkable. No acute fracture. Soft tissues: Unremarkable. IMPRESSION: 1. There is a small amount of free intraperitoneal fluid present. 2. There is a diffuse decrease in hepatic parenchymal density, consistent with steatosis. 3. There has been a cholecystectomy. 4. There is gastric distention with retained secretions. Clinical correlation to exclude gastroparesis or gastric outlet obstruction suggested. 5. Previously demonstrated distended rectosigmoid colon containing feces is clear. Sutures demonstrated in the mid sigmoid region consistent with prior subtotal colectomy. 6. Thickened wall of several small bowel loops in the right lower quadrant. Finding may be related to bowel infection or inflammatory bowel disease in the appropriate clinical setting. No bowel obstruction demonstrated. 7. Incisional fluid demonstrated in the suture line in the lower abdomen consistent with recent surgery. Electronically signed by: Luis Manuel Berman On 02/04/2020 22:09:28 PM
[2020-02-04] MEDS ORDERED: GLUCAGON INJ 1MG VIAL SC PRN (23:15)
[2020-02-04] MEDS ORDERED: GLUCOSE 4GM CHEW TABLET PO PRN (23:15)
[2020-02-04] MEDS ORDERED: DEXTROSE 50% 50 ML SYRINGE IV PRN (23:15)
[2020-02-04] MEDS ORDERED: ACETAMINOPHEN *IV* 1,000 MG in IV 1 EA IV ONE (23:30)
[2020-02-04] MEDS ORDERED: PROMETHAZINE INJ 25 MG/ML VIAL (J2550) IV PRN (23:30)
[2020-02-05] MEDS ORDERED: METOCLOPRAMIDE INJ 10MG/2ML VIAL (J2765 PER 1) IV SCH
[2020-02-05] MEDS ORDERED: TRAZ-189 PO (00:04)
[2020-02-05] MEDS ORDERED: ONDA-83 PO (00:04)
[2020-02-05] MEDS ORDERED: QUET1TAB10 PO (00:07)
[2020-02-05] MEDS ORDERED: HYDR-4571 PO (00:07)
[2020-02-05] MEDS ORDERED: RISP0.5T3 PO (00:07)
[2020-02-05] MEDS ORDERED: AIMO70IN2 INJ (00:07)
[2020-02-05] MEDS ORDERED: DICY20TA11 PO (00:09)
[2020-02-05] MEDS ORDERED: HALO5TA PO (00:09)
--- NOTE | 2020-02-05 00:23 | HPEPDOC ---
[facility] Medical History & Physical Date of Admission Feb 04, 2020 Date of Service: Feb 04, 2020 History and Physical CHIEF COMPLAINT: abdominal pain x 1 day HISTORY OF PRESENT ILLNESS: 29 y/o female with past medical history significant for IBS, ULISES, Depression, colonic inertia s/p subtotal colectomy, RLQ ileostomy, Bowel obstruction, lysis of adhesions with multiple ER visits and hospital admissions for abdominal pain presents to the ER c/o acute onset of periumbilical abdominal pain that started this morning when she woke up, described as sharp and stabbing with a constant ache all over the sharp stabbing pains last for about 1-2 minutes, accompanied with persistent nausea throughout the day without fever, chills, or vomiting. Her ileostomy has yellow loose stools noted today. She is passing gas from below. Pain is worse when she is sitting up or presses on the periumbilical area and worse when she walks around. Pain is better when she lays still on her back. After taking 800 mg of ibuprofen and hydrocodone 5 mg patient had no improvement and decided to come into the ER for further evaluation. Patient was found to be afebrile with no white count. CT abdomen and pelvis shows possible gastric outlet obstruction versus gastroparesis, prior subtotal colectomy. Thickened monahan of several small bowel loops in the right lower quadrant may be related to bowel infection or inflammatory bowel disease in the appropriate setting. Incisional fluid in the suture line in the lower abdomen consistent with recent surgery. Patient otherwise denies bright red blood via the ileostomy bag, melena, black tarry stools, constipation, hematemesis, fever, chills, sore throat, ear pain, discharge, rhinorrhea, blurred vision, double vision, shortness of breath, chest pain, pressure, tightness, lightheadedness or diz ziness, polyuria, polydipsia, flank pain, malodorous cloudy urine, bilateral upper and lower extremity weakness, rash, weight gain, weight loss, polyphagia, insomnia or hypersomnia.Hospitalist was called to admit for abdominal pain, possible gastroparesis versus gastric outlet obstruction. PAST MEDICAL HISTORY: migraines, vertigo, generalized anxiety disorder, multiple concussions, irritable bowel syndrome. acute stress disorder. major depression. Postoperative ileus versus partial small bowel obstruction. of bowel obstruction status post lysis of adhesions and incisional hernia repair .colonic inertia status post subtotal colectomy. chronic neck pain. trapezius muscle spasms. cervical disc bulging. liver steatosis PAST SURGICAL HISTORY: lysis of adhesions and incisional hernia repair . subtotal colectomy.Left knee surgery.Cholecystectomy. laparoscopic Appendectomy. HOME MEDICATIONS: SEE BELOW ALLERGIES: see below SOCIAL HISTORY: masters degree in Social work. denies etoh, cigarette. admits to using THC. used marijuana at the age of 9. FAMILY HISTORY: mother-bipolar disorder. middle sister-suicide attempt ALLERGIES: Please see below. REVIEW OF SYSTEMS:per HPI for positive findings. 10point ROS otherwise negative HOME MEDICATIONS: Please see below. PHYSICAL EXAMINATION: VITAL SIGNS:see below GENERAL APPEARANCE: Obese female, no respiratory distress HEENT: Normocephalic, atraumatic. Anicteric sclerae. . Dry mucous membranes . Pupils round, reactive to light accommodation. Extra muscles are intact. Normocephalic, atraumatic. Face is symmetric. Tongue is midline CHEST: No chest wall abnormalities. Normal respiratory motion/effort. NECK: Supple. No thyromegaly. No lymphadenopathies. , No thyromegaly LUNGS: Air entry is equal. No kyphoscoliosis Lung sounds are clear to auscultation bilaterally. No adventitious breath sounds HEART: S1, S2 gular with no murmurs. ABDOMEN: Midline abdominal incision with roxanne lines clean, dry, without purulence RLQ tenderness around the ostomy site on palpation but without any guarding. Tympanitic to percussion. Hypoactive bowel sounds. SKIN: [place] in color, well perfused Warm and dry. EXTREMITIES: No cyanosis, clubbing or pitting edema LABORATORY DATA: See below. IMAGING: Exam: CT Abdomen And Pelvis With Contrast Exam date and time: 02/04/2020 9:43 PM Age: 29 years old Clinical indication: Other: Gastroparesis; Prior surgery; Additional info: Possible gastric outlet obx, gastroparesis, recent bowel res TECHNIQUE: Imaging protocol: Computed tomography of the abdomen and pelvis with intravenous contrast. Radiation optimization: All CT scans at this facility use at least one of these dose optimization techniques: automated exposure control; mA and/or kV adjustment per patient size (includes targeted exams where dose is matched to clinical indication); or iterative reconstruction. Contrast material: ISOVUE 370; Contrast volume: 100 ml; Contrast route: INTRAVENOUS (IV); COMPARISON: CT ABD/PEL W/IV CONTRAST ONLY 01/05/2020 10:24 AM FINDINGS: Liver: There is a diffuse decrease in hepatic parenchymal density, consistent with steatosis. Gallbladder and bile ducts: There has been a cholecystectomy. Pancreas: Normal. No ductal dilation. Spleen: Normal. No splenomegaly. Adrenal glands: Normal. No mass. Kidneys and ureters: Normal. No hydronephrosis. Stomach and bowel: There is gastric distention with retained secretions. Clinical correlation to exclude gastroparesis or gastric outlet obstruction suggested. Previously demonstrated distended rectosigmoid colon containing feces is clear. Sutures demonstrated in the mid sigmoid region consistent with prior subtotal colectomy. Right lower quadrant ileostomy. Thickened wall of several small bowel loops in the right lower quadrant. Finding may be related to bowel infection or inflammatory bowel disease in the appropriate clinical setting. No bowel obstruction demonstrated. Appendix: No evidence of appendicitis. Intraperitoneal space: There is a small amount of free intraperitoneal fluid present. Incisional fluid demonstrated in the suture line in the lower abdomen consistent with recent surgery. Vasculature: Unremarkable. No abdominal aortic aneurysm. Lymph nodes: Unremarkable. No enlarged lymph nodes. Urinary bladder: Unremarkable as visualized. Reproductive: Unremarkable as visualized. Bones/joints: Unremarkable. No acute fracture. Soft tissues: Unremarkable. IMPRESSION: 1. There is a small amount of free intraperitoneal fluid present. 2. There is a diffuse decrease in hepatic parenchymal density, consistent with steatosis. 3. There has been a cholecystectomy. 4. There is gastric distention with retained secretions. Clinical correlation to exclude gastroparesis or gastric outlet obstruction suggested. 5. Previously demonstrated distended rectosigmoid colon containing feces is clear. Sutures demonstrated in the mid sigmoid region consistent with prior subtotal colectomy. 6. Thickened wall of several small bowel loops in the right lower quadrant. Finding may be related to bowel infection or inflammatory bowel disease in the appropriate clinical setting. No bowel obstruction demonstrated. 7. Incisional fluid demonstrated in the suture line in the lower abdomen consistent with recent surgery. Electronically signed by: Luis Manuel Berman On 02/04/2020 22:09:28 PM MICROBIOLOGY: Please see below. ASSESSMENT/PLAN:29 y/o female with past medical history significant for IBS, ULISES, Depression, colonic inertia s/p subtotal colectomy, RLQ ileostomy, Bowel obstruction, lysis of adhesions with multiple ER visits and hospital admissions for abdominal pain presents to the ER c/o acute onset of periumbilical abdominal pain that started this morning when she woke up, described as sharp and stabbing with a constant ache all over the sharp stabbing pains last for about 1-2 minutes, accompanied with persistent nausea throughout the day without fever, chills, or vomiting. Her ileostomy has yellow loose stools noted today. She is passing gas from below. Pain is worse when she is sitting up or presses on the periumbilical area and worse when she walks around. Pain is better when she lays still on her back. After taking 800 mg of ibuprofen and hydrocodone 5 mg patient had no improvement and decided to come into the ER for further evaluation. Patient was found to be afebrile with no white count. CT abdomen and pelvis shows possible gastric outlet obstruction versus gastroparesis, prior subtotal colectomy. Thickened monahan of several small bowel loops in the right lower quadrant may be related to bowel infection or inflammatory bowel disease in the appropriate setting. Incisional fluid in the suture line in the lower abdomen consistent with recent surgery. Patient otherwise denies bright red blood via the ileostomy bag, melena, black tarry stools, constipation, hematemesis, fever, chills, sore throat, ear pain, discharge, rhinorrhea, blurred vision, double vision, shortness of breath, chest pain, pressure, tightness, lightheadedness or dizziness, polyuria, polydipsia, flank pain, malodorous cloudy urine, bilateral upper and lower extremity weakness, rash, weight gain, weight loss, polyphagia, insomnia or hypersomnia.Hospitalist was called to admit for abdominal pain, possible gastroparesis versus gastric outlet obstruction. Gastroparesis/Gastric Outlet Obstruction -Nothing by mouth status, IV fluids, antiemetics. Hypoglycemic protocol. Monitor electrolytes and supplement as needed. Patient has had no vomiting. Does not want a nasogastric tube. General surgery has been consulted. Dr. Leon. migraines, chronic -No acute complaints generalized anxiety disorder, -Chronic major depression. -Chronic . Resume home medications. Denies suicidal or homicidal ideation h/o colonic inertia status post subtotal colectomy -RLQ ileostomy . Supportive care, IV fluids, nothing by mouth status, antiemetics and pain medications chronic neck pain/ cervical disc bulging. -No acute complaints Obesity BMI 34 -Complicating care Diet nothing by mouth DVT prophylaxis compression stockings, Lovenox Disposition pending clinical improvement Vital Signs Vital Signs Date Time Temp Pulse Resp B/P (MAP) Pulse Ox O2 Delivery O2 Flow Rate FiO2 02/04/20 22:47 18 02/04/20 20:38 96.4 85 122/82 (95) 100 Room Air Laboratory Data Labs 24H Laboratory Tests 2 02/04/20 17:23: Immature Granulocyte % (Auto) 0.2, Neutrophils (%) (Auto) 42.3, Lymphocytes (%) (Auto) 42.9, Monocytes (%) (Auto) 7.2H, Eosinophils (%) (Auto) 6.6H, Basophils (%) (Auto) 0.8, Neutrophils # (Auto) 2.6, Lymphocytes # (Auto) 2.6, Monocytes # (Auto) 0.4, Eosinophils # (Auto) 0.4, Basophils # (Auto) 0.1, Nucleated Red Blood Cells % (auto) 0.0, Total Bilirubin 0.3, Direct Bilirubin < 0.1, Aspartate Amino Transf (AST/SGOT) 34, Alanine Aminotransferase (ALT/SGPT) 50, Alkaline Phosphatase 52, Total Protein 7.8, Albumin 3.9, Albumin/Globulin Ratio 1.0L, Lipase 190 02/04/20 17:40: POC Glucose (Misc Panel) 85, POC Sodium (Misc Panel) 140, POC Potassium (Misc Panel) 4.0, POC Chloride (Misc Panel) 100, POC Total CO2 (Misc Panel) 31.0H, POC Blood Urea Nitrogen (Misc Panel 20, POC Ionized Calcium (Misc Panel) 4.8, POC Creatinine (Misc Panel) 0.9, POC Hematocrit (Misc Panel) 35.0L 02/04/20 17:43: POC Beta HCG, Quantitative < 5.0 CBC/BMP Laboratory Tests 02/04/20 17:23 Home Medications Scheduled Buspirone HCl (Buspirone HCl) 15 Mg Tablet, 15 MG PO TID Erenumab-Aooe (Aimovig Autoinjector) 140 Mg/1 Ml Auto.injct, 140 MG INJ QMONTH DECEMBER NOT SURE ON EXACT DAY Etonogestrel (Nexplanon) 68 Mg Implant, 68 MG SC ASDIRECTED Haloperidol (Haloperidol) 5 Mg Tablet, 5 MG PO TID Multivitamin (Multivitamins) 1 Each Capsule, 1 CAP PO DAILY Paroxetine HCl (Paxil) 20 Mg Tablet, 60 MG PO DAILY Quetiapine Fumarate (Quetiapine Fumarate) 300 Mg Tablet, 300 MG PO QHS Risperidone (Risperidone) 0.5 Mg Tablet, 0.5 MG PO BID Trazodone HCl (Trazodone HCl) 100 Mg Tablet, 200 MG PO QHS Scheduled PRN Dicyclomine HCl (Dicyclomine HCl) 20 Mg Tablet, 20 MG PO TID PRN for ABDOMINAL PAIN Hydrocodone/Acetaminophen ([place] 5-325 Tablet) 1 Each Tablet, 1 TAB PO BIDP PRN for pain Hydroxyzine Pamoate (Hydroxyzine Pamoate) 25 Mg Capsule, 100 MG PO TID PRN for ANXIETY/AGITATION Ibuprofen (Ibuprofen) 800 Mg Tablet, 800 MG PO TID PRN for PAIN Ondansetron HCl (Ondansetron HCl) 4 Mg Tablet, 4 MG PO Q6-8HP PRN for NAUSEA OR VOMITING Rizatriptan Benzoate (Maxalt) 10 Mg Tab, 10 MG PO DAILY PRN for MIGRAINE Allergies Coded Allergies: cetirizine (Verified Allergy, Mild, rash, 01/05/20) metoclopramide (Verified Adverse Reaction, Mild, anxiety, 01/05/20) sumatriptan (Verified Adverse Reaction, Mild, joint pain, 01/05/20) A-FIB/CHADSVASC A-FIB History Current/History of A-Fib/PAF?: No Current PO Anticoag Therapy: No Age/Risk Factor Scoring CHADSVASC: CHADSVASC Response (Comments) Value Age Risk Factor Age < 65 years old 0 Gender Risk Factor Female 1 Hx of CHF No 0 Hx of HTN No 0 Hx of Stroke/TIA/or VTE No 0 Hx of Diabetes No 0 Hx of Vascular Disease No 0 Total 1 Treatment Treatment ordered: NONE REX BARRIOS MD Feb 04, 2020 23:24
[2020-02-05] MEDS: KETOROLAC 30 MG/ML 1ML VIAL IV SCH ×3 (00:29→11:33)
[2020-02-05] MEDS: D5W/0.45% SODIUM CHLORIDE 1,000 ML IV SCH ×2 (02:00→11:33)
[2020-02-05] MEDS ORDERED: PERCOCET 5MG/325MG TAB PO ONE (03:00)
[2020-02-05] MEDS ORDERED: NALOXONE INJ 0.4MG/1ML VIAL (J2310 PER 1MG) IV PRN (03:00)
[2020-02-05] MEDS ORDERED: HYDROMORPHONE HCL 0.5 MG/ 0.5 ML SYRINGE (J1170 PER 1) IV ONE (03:00)
[2020-02-05] MEDS ORDERED: PANTOPRAZOLE 40MG VIAL (C9113 PER 1) IV ONE (03:00)
[2020-02-05 04:00] VITALS: BP 111/78
[2020-02-05 04:03] VITALS: BP 124/72
[2020-02-05] MEDS ORDERED: ACETAMINOPHEN 500 MG TAB PO PRN (06:30)
[2020-02-05] MEDS ORDERED: PERCOCET 5MG/325MG TAB PO PRN (07:00)
[2020-02-05 07:33] LABS: BLOOD UREA NITROGEN 12 MG/DL (7-18); CALCIUM LEVEL 8.2 MG/DL (8.5-10.1); CARBON DIOXIDE LEVEL 20 MEQ/L (21-32); CHLORIDE LEVEL 111 MEQ/L (98-107); CREATININE FOR GFR 0.71 MG/DL (0.55-1.30); GLOMERULAR FILTRATION RATE > 60.0 (>60); GLUCOSE, FASTING 95 MG/DL (70-100); POTASSIUM SERUM 4.1 MEQ/L (3.5-5.1); SODIUM LEVEL 141 MEQ/L (136-145)
[2020-02-05 08:11] LABS: HEMATOCRIT 31.5 % (36.0-47.0); HEMOGLOBIN 9.8 g/dl (12.0-15.5); MEAN CORPUSCULAR HEMOGLOBIN 27.9 pg (27.0-33.0); MEAN CORPUSCULAR HGB CONC 31.1 g/dl (32.0-36.5); MEAN CORPUSCULAR VOLUME 89.7 fl (80.0-96.0); PLATELET COUNT, AUTOMATED 337 10^3/uL (150-450); RED BLOOD COUNT 3.51 10^6/uL (4.00-5.40); WHITE BLOOD COUNT 5.4 10^3/uL (4.0-10.0)
--- NOTE | 2020-02-05 08:31 | REP ---
INDICATION: abd pain. COMPARISON: 02/04/2020 FINDINGS: KUB shows the intestinal gas pattern to be nonspecific. The organ silhouettes insofar as delineated are unremarkable. There is no evidence of free intraperitoneal air. The colostomy site is unchanged. The urinary bladder is opacified with previously injected intravenous contrast. IMPRESSION: Nonspecific. <Electronically signed by Alexandro Garcia > 02/05/20 0888
[2020-02-05] MEDS ORDERED: ENOXAPARIN 40MG/0.4ML SYRINGE (J1650 PER 10MG) SC SCH (09:00)
[2020-02-05] MEDS ORDERED: PERCOCET PO (13:14)
[2020-02-05] MEDS ORDERED: ACET-683 PO ×2 (13:14→13:16)
[2020-02-05] MEDS ORDERED: PANT40TA29 PO (13:18)
--- NOTE | 2020-02-05 13:31 | DS.PDOC ---
Discharge Summary General Date of Admission Feb 04, 2020 at 23:15 Date of Discharge 02/05/20 Attending Physician: MARIE JACKSON MD Discharge Summary PROCEDURES PERFORMED DURING STAY: [None]. ADMITTING DIAGNOSES: Gastroparesis/gastric outlet obstruction Chronic migraines ULISES Major depression Hx of colonic inertia s/p subtotal colectomy Chronic neck pain/cervical disc bulge Obesity, BMI 34 DISCHARGE DIAGNOSES: Gastritis Chronic migraines ULISES Major depression Hx of colonic inertia s/p subtotal colectomy Chronic neck pain/cervical disc bulge Obesity, BMI 34 COMPLICATIONS/CHIEF COMPLAINT: Gastric Outlet Obstruction. HISTORY OF PRESENT ILLNESS: 29 y/o female with past medical history significant for IBS, ULISES, Depression, colonic inertia s/p subtotal colectomy, RLQ il eostomy, Bowel obstruction, lysis of adhesions with multiple ER visits and hospital admissions for abdominal pain presents to the ER c/o acute onset of periumbilical abdominal pain that started this morning when she woke up, described as sharp and stabbing with a constant ache all over the sharp stabbing pains last for about 1-2 minutes, accompanied with persistent nausea throughout the day without fever, chills, or vomiting. Her ileostomy has yellow loose stools noted today. She is passing gas from below. Pain is worse when she is sitting up or presses on the periumbilical area and worse when she walks around. Pain is better when she lays still on her back. After taking 800 mg of ibuprofen and hydrocodone 5 mg patient had no improvement and decided to come into the ER for further evaluation. Patient was found to be afebrile with no white count. CT abdomen and pelvis shows possible gastric outlet obstruction versus gastroparesis, prior subtotal colectomy. Thickened monahan of several small bowel loops in the right lower quadrant may be related to bowel infection or inflammatory bowel disease in the appropriate setting. Incisional fluid in the suture line in the lower abdomen consistent with recent surgery. Patient otherwise denies bright red blood via the ileostomy bag, melena, black tarry stools, constipation, hematemesis, fever, chills, sore throat, ear pain, discharge, rhinorrhea, blurred vision, double vision, shortness of breath, chest pain, pressure, tightness, lightheadedness or dizziness, polyuria, polydipsia, flank pain, malodorous cloudy urine, bilateral upper and lower extremity weakness, rash, weight gain, weight loss, polyphagia, insomnia or hypersomnia.Hospitalist was called to admit for abdominal pain, possible gastroparesis versus gastric outlet obstruction. HOSPITAL COURSE: Patient was admitted for management of abdominal pain. Is controlled with IV ketorolac as well as morphine IV. She was evaluated by Dr. Leon from general surgery. Patient has been having regular bowel movements through the ostomy. She did not complain of nausea, vomiting. She tolerated a regular diet that was ordered by Dr. Leon. I discussed case with him, she likely suffers from a bout of gastroenteritis. Further, he is not concerned regarding gastric outlet obstruction as the patient underwent a CT with by mouth contrast and contrast was seen to transition throughout the GI tract and into the ostomy bag. She does not require surgical management, could be discharged with outpatient surgical follow-up in [place]. Patient's pain was well- controlled on discharge. The patient's hemoglobin went from 11.1-9.8. However, it should be noted that the patient received 2 L of normal saline IV fluids and this is likely due to dilution, as is indicated by reduction of WBC, as well as platelet counts. No blood was seen in the output of the ostomy. DISCHARGE MEDICATIONS: Please see below. ALLERGIES: Please see below. PHYSICAL EXAMINATION ON DISCHARGE: VITAL SIGNS: Please see below. VITAL SIGNS: please see below General: NAD, comfortable HEENT: PERRLA, EOMI, sclerae clear Neck: supple, normal ROM, no JVD Respiratory: lungs CTAB, no wheeze, no rales, no crackles CVS: RRR, normal S1, S2, no murmurs Abdo: Resident is stoma putting out soft brown stool. Abdomen is soft, nontender to palpation. Bowel sounds present Extremities: no edema, pulses 2+ MSK: no joint deformities, normal ROM Neuro: no focal neuro deficits, moving all 4 extremities, CN2-12 intact. Stren gth 5/5 in all 4 extremities. No nystagmus. Psych: calm, cooperative, AAO x 3 LABORATORY DATA: Please see below. IMAGING: Abdo xray (): FINDINGS: Lungs: Normal. No consolidation. Pleural space: Normal. No pneumothorax. Heart/Mediastinum: Normal. No cardiomegaly. Gastrointestinal tract: There is gastric distention with retained secretions. Clinical correlation to exclude gastroparesis or gastric outlet obstruction suggested. Intraperitoneal space: Normal. No free air. Organs: There has been a cholecystectomy. Bones/joints: Normal. No acute fracture. Soft tissues: Normal. IMPRESSION: 1. There has been a cholecystectomy. 2. There is gastric distention with retained secretions. Clinical correlation to exclude gastroparesis or gastric outlet obstruction suggested. Exam: CT Abdomen And Pelvis With Contrast Exam date and time: 02/04/2020 9:43 PM Age: 29 years old Clinical indication: Other: Gastroparesis; Prior surgery; Additional info: Possible gastric outlet obx, gastroparesis, recent bowel res TECHNIQUE: Imaging protocol: Computed tomography of the abdomen and pelvis with intravenous contrast. Radiation optimization: All CT scans at this facility use at least one of these dose optimization techniques: automated exposure control; mA and/or kV adjustment per patient size (includes targeted exams where dose is matched to clinical indication); or iterative reconstruction. Contrast material: ISOVUE 370; Contrast volume: 100 ml; Contrast route: INTRAVENOUS (IV); COMPARISON: CT ABD/PEL W/IV CONTRAST ONLY 01/05/2020 10:24 AM FINDINGS: Liver: There is a diffuse decrease in hepatic parenchymal density, consistent with steatosis. Gallbladder and bile ducts: There has been a cholecystectomy. Pancreas: Normal. No ductal dilation. Spleen: Normal. No splenomegaly. Adrenal glands: Normal. No mass. Kidneys and ureters: Normal. No hydronephrosis. Stomach and bowel: There is gastric distention with retained secretions. Clinical correlation to exclude gastroparesis or gastric outlet obstruction suggested. Previously demonstrated distended rectosigmoid colon containing feces is clear. Sutures demonstrated in the mid sigmoid region consistent with prior subtotal colectomy. Right lower quadrant ileostomy. Thickened wall of several small bowel loops in the right lower quadrant. Finding may be related to bowel infection or inflammatory bowel disease in the appropriate clinical setting. No bowel obstruction demonstrated. Appendix: No evidence of appendicitis. Intraperitoneal space: There is a small amount of free intraperitoneal fluid present. Incisional fluid demonstrated in the suture line in the lower abdomen consistent with recent surgery. Vasculature: Unremarkable. No abdominal aortic aneurysm. Lymph nodes: Unremarkable. No enlarged lymph nodes. Urinary bladder: Unremarkable as visualized. Reproductive: Unremarkable as visualized. Bones/joints: Unremarkable. No acute fracture. Soft tissues: Unremarkable. IMPRESSION: 1. There is a small amount of free intraperitoneal fluid present. 2. There is a diffuse decrease in hepatic parenchymal density, consistent with steatosis. 3. There has been a cholecystectomy. 4. There is gastric distention with retained secretions. Clinical correlation to exclude gastroparesis or gastric outlet obstruction suggested. 5. Previously demonstrated distended rectosigmoid colon containing feces is clear. Sutures demonstrated in the mid sigmoid region consistent with prior subtotal colectomy. 6. Thickened wall of several small bowel loops in the right lower quadrant. Finding may be related to bowel infection or inflammatory bowel disease in the appropriate clinical setting. No bowel obstruction demonstrated. 7. Incisional fluid demonstrated in the suture line in the lower abdomen consistent with recent surgery. Electronically signed by: Luis Manuel Berman On 02/04/2020 22:09:28 PM Jose M astudillo 02/05/20 FINDINGS: KUB shows the intestinal gas pattern to be nonspecific. The organ silhouettes insofar as delineated are unremarkable. There is no evidence of free intraperitoneal air. The colostomy site is unchanged. The urinary bladder is opacified with previously injected intravenous contrast. IMPRESSION: Nonspecific. PROGNOSIS: good ACTIVITY: As tolerated. DIET: regular DISCHARGE PLAN: DC home with PCP and general surgery follow up. Pain control. DISPOSITION: home DISCHARGE INSTRUCTIONS: 1. Please follow-up with your primary care doctor within 3-5 days 2. Please follow-up with general surgery within 1-2 weeks (Dr. Regan in [facility] in [facility]). 3. Please taking medications as prescribed. 4. If he developed bleeding, chest pain, shortness of breath, seizures, nausea, fevers, or otherwise worsening of your symptoms, please call 911 or return to the nearest emergency room DISCHARGE CONDITION: Stable TIME SPENT ON DISCHARGE: 35 minutes Vital Signs/I&Os Vital Signs Date Time Temp Pulse Resp B/P (MAP) Pulse Ox O2 Delivery O2 Flow Rate FiO2 02/05/20 10:00 17 02/05/20 04:03 98.0 82 124/72 (89) 98 Room Air I&O- Last 24 Hours up to 6 AM 02/05/20 06:00 Intake Total 2380 ml Output Total 0 ml Balance 2380 ml Laboratory Data Labs 24H Laboratory Tests 2 02/04/20 17:23: Immature Granulocyte % (Auto) 0.2, Neutrophils (%) (Auto) 42.3, Lymphocytes (%) (Auto) 42.9, Monocytes (%) (Auto) 7.2H, Eosinophils (%) (Auto) 6.6H, Basophils (%) (Auto) 0.8, Neutrophils # (Auto) 2.6, Lymphocytes # (Auto) 2.6, Monocytes # (Auto) 0.4, Eosinophils # (Auto) 0.4, Basophils # (Auto) 0.1, Nucleated Red Blood Cells % (auto) 0.0, Total Bilirubin 0.3, Direct Bilirubin < 0.1, Aspartate Amino Transf (AST/SGOT) 34, Alanine Aminotransferase (ALT/SGPT) 50, Alkaline Phosphatase 52, Total Protein 7.8, Albumin 3.9, Albumin/Globulin Ratio 1.0L, Lipase 190 02/04/20 17:40: POC Glucose (Misc Panel) 85, POC Sodium (Misc Panel) 140, POC Potassium (Misc Panel) 4.0, POC Chloride (Misc Panel) 100, POC Total CO2 (Misc Panel) 31.0H, POC Blood Urea Nitrogen (Misc Panel 20, POC Ionized Calcium (Misc Panel) 4.8, POC Creatinine (Misc Panel) 0.9, POC Hematocrit (Misc Panel) 35.0L 02/04/20 17:43: POC Beta HCG, Quantitative < 5.0 02/05/20 00:21: Erythrocyte Sedimentation Rate 24H, Lactic Acid Level 1.4, C-Reactive Protein, Quantitative < 0.30 02/05/20 02:43: Coronavirus (COVID-19)(PCR) NEGATIVE 02/05/20 06:25: Anion Gap 10, Glomerular Filtration Rate > 60.0, Calcium Level 8.2L, Magnesium Level 2.0 02/05/20 08:00: Nucleated Red Blood Cells % (auto) 0.0 CBC/BMP Laboratory Tests 02/04/20 17:23 02/05/20 06:25 02/05/20 08:00 Discharge Medications Scheduled Buspirone HCl (Buspirone HCl) 15 Mg Tablet, 15 MG PO TID, (Reported) Erenumab-Aooe (Aimovig Autoinjector) 140 Mg/1 Ml Auto.injct, 140 MG INJ QMONTH, (Reported) DECEMBER NOT SURE ON EXACT DAY Etonogestrel (Nexplanon) 68 Mg Implant, 68 MG SC ASDIRECTED, (Reported) Haloperidol (Haloperidol) 5 Mg Tablet, 5 MG PO TID, (Reported) Multivitamin (Multivitamins) 1 Each Capsule, 1 CAP PO DAILY, (Reported) Pantoprazole Sodium (Pantoprazole Sodium) 40 Mg Tablet.dr, 40 MG PO DAILY Paroxetine HCl (Paxil) 20 Mg Tablet, 60 MG PO DAILY, (Reported) Quetiapine Fumarate (Quetiapine Fumarate) 300 Mg Tablet, 300 MG PO QHS, (R eported) Risperidone (Risperidone) 0.5 Mg Tablet, 0.5 MG PO BID, (Reported) Trazodone HCl (Trazodone HCl) 100 Mg Tablet, 200 MG PO QHS, (Reported) Scheduled PRN Acetaminophen (Acetaminophen) 500 Mg Tablet, 500 MG PO Q8H PRN for PAIN Dicyclomine HCl (Dicyclomine HCl) 20 Mg Tablet, 20 MG PO TID PRN for ABDOMINAL PAIN, (Reported) Hydrocodone/Acetaminophen ([place] 5-325 Tablet) 1 Each Tablet, 1 TAB PO BIDP PRN for pain, (Reported) Hydroxyzine Pamoate (Hydroxyzine Pamoate) 25 Mg Capsule, 100 MG PO TID PRN for ANXIETY/AGITATION, (Reported) Ondansetron HCl (Ondansetron HCl) 4 Mg Tablet, 4 MG PO Q6-8HP PRN for NAUSEA OR VOMITING, (Reported) Oxycodone/Acetaminophen (Oxycodone-Acetaminophen 5-325) 1 Each Tablet, 1 TAB PO Q4HP PRN for MODERATE PAIN (PS 5-7) Rizatriptan Benzoate (Maxalt) 10 Mg Tab, 10 MG PO DAILY PRN for MIGRAINE, (Reported) Allergies Coded Allergies: cetirizine (Verified Allergy, Mild, rash, 01/05/20) metoclopramide (Verified Adverse Reaction, Mild, anxiety, 01/05/20) sumatriptan (Verified Adverse Reaction, Mild, joint pain, 01/05/20) MARIE JACKSON MD Feb 05, 2020 13:31
[2020-02-06] MEDS ORDERED: PANTOPRAZOLE 40MG VIAL (C9113 PER 1) IV SCH (09:00)
--- NOTE | 2020-02-06 09:59 | CR ---
DATE OF CONSULTATION: 02/05/2020 REASON FOR CONSULTATION: Abdominal pain. HISTORY OF PRESENT ILLNESS: The patient is a 29-year-old female with a past surgical history significant for multiple abdominal surgeries. She has had at least three surgeries with within the past year for both hernia repairs and a bowel obstruction. The most recent surgery was about three weeks ago down in [place]. She had a laparotomy with lysis of adhesions and a right lower quadrant ileostomy that was created. She does have a history of colonic inertia. Therefore, she has had multiple bowel resections with subtotal colectomy. She has had multiple hernias, lysis of adhesions, appendectomy, cholecystectomy in addition to multiple other surgeries. She currently lives in [place]. She is in town visiting her mother. Yesterday she had breakfast at home and then went out to eat with her mother as well. Mid-afternoon, she developed sharp pains in the middle of her incision just superior to the umbilicus in the midline. It was a very sharp stabbing pain. She tried taking ibuprofen and hydrocodone for it but without any improvement. She came to the emergency room for evaluation. In the ER, labs were normal. Vitals were stable. Pain was uncontrolled with medications. CT showed the stomach full of food as well as some thickened loops of small bowel. Because of this, she was admitted to the medical service and then consulted me for evaluation. This morning, she says the pain is improved but it is still present. It is mainly point tenderness just above the belly button in the midline, no pains anywhere else. She denies any nausea or vomiting, no fevers or chills. Even though her stomach was full of food or secretions on the CT, she denies having any problems with nausea or emesis and again she did say that she had eaten just prior to coming to the hospital. Her ostomy is still working. Output has been adequate and no other complaints. PAST MEDICAL HISTORY: 1. Migraines. 2. Vertigo. 3. Generalized anxiety disorder. 4. IBS. 5. Depression. 6. Fatty liver. 7. Chronic neck pain. PAST SURGICAL HISTORY: 1. Lysis of adhesions. 2. Hernia repairs. 3. Subtotal colectomy. 4. Left knee surgery. 5. Cholecystectomy. 6. Appendectomy. SOCIAL HISTORY: Denies drug, alcohol, tobacco use. FAMILY HISTORY: Noncontributory. ALLERGIES: Cetirizine, metoclopramide, sumatriptan. HOME MEDICATIONS: Please see med rec. REVIEW OF SYSTEMS: Pertinent positives and negatives in the HPI. PHYSICAL EXAMINATION: GENERAL: Alert and oriented x3. No acute distress. VITAL SIGNS: Temperature 98, pulse 82, respirations 18, blood pressure 124/72, pulse ox 98% on room air. HEENT: Pupils equally round and reactive to light and accommodation. HEART: S1, S2, regular rate and rhythm. LUNGS: Clear to auscultation bilaterally. ABDOMEN: Soft, slight tenderness in the midline superior to the umbilicus, no palpable hernias. No tenderness anywhere else in the abdomen. No rebound, guarding or rigidity. EXTREMITIES: No clubbing, cyanosis or edema. LABORATORY DATA: White count 6.1, hemoglobin 11.1, platelets 385. Potassium 4.1, creatinine 0.71, lactic acid 1.4. IMAGING: CT, abdomen and pelvis from yesterday evening showed free fluid inside the abdomen, fatty liver, cholecystectomy, gastric distention with retained secretions. Rectosigmoid colon containing feces, thickened wall with several small bowel loops in the right lower quadrant and some incisional fluid in the suture line in the lower abdomen, consistent with recent surgery. ASSESSMENT AND PLAN: The patient is a 29-year-old female three weeks postop from laparotomy with bowel resection and ileostomy, currently presenting with midline abdominal pains. I explained to her that this could be related to some mild gastroenteritis versus the possibility of ripping of a stitch in her midline. At this time, there are no palpable hernias. There are no hernias identified on her CT scan. She has no nausea, vomiting or fevers and her white count is normal. At this time, I recommend continue with just p.o. pain control, put her back on a regular diet and once her pain is stable, she can be discharged home to return to [place]. There are no signs of anything here that needs emergent or urgent surgery. This is likely all normal postoperative pain coinciding with possibly some mild gastroenteritis. PATI
== END 2020-02-05 14:10 | disposition home or self-care (01) | DRG 254 ==
LOC: M ED 16:31 → M ED INP 23:15 → ENRESERV 02-05 02:09 → M MSPAV 02-05 04:29
PROVIDERS: ADMIT General Practice; ATTEND Family Medicine
DX: K31.1 Adult hypertrophic pyloric stenosis (principal); K31.84 Gastroparesis; K76.0 Fatty (change of) liver, not elsewhere classified; G43.909 Migraine, unspecified, not intractable, without status migrainosus; F32.9 Major depressive disorder, single episode, unspecified; M54.2 Cervicalgia; E66.9 Obesity, unspecified; Z68.34 Body mass index [BMI] 34.0-34.9, adult; F41.1 Generalized anxiety disorder; Z79.899 Other long term (current) drug therapy; Z88.8 Allergy status to other drugs, medicaments and biological substances

== ENCOUNTER 2020-04-11 13:38 | Emergency (ER) | payer OTHER ==
[~2020-04-11] VITALS: Ht 165.1 cm; Wt 100.2 kg
[~2020-04-11 13:38] MED LIST changes: +ACET-683 PO; +AIMO70IN2 INJ; +DICY20TA11 PO; -FLUP5TA PO; +FLUP5TAB13 PO; +HYDR-4571 PO; +IBUP1TAB7 PO; +NORC1TAB7 PO; +PANT40TA29 PO; +QUET300T2 PO; +RISP-7 PO; +TRAZ-189 PO
--- OUTSIDE RECORDS SUMMARY | 2020-04-11 13:46 | CCD | Continuity of Care Document ---
Author Author [facility] Address [address] [place] [address] Phone Care Team Providers Care Direct Entry Midwife Name Role Phone PCP Unavailable Allergies, Adverse Reactions, Alerts Allergen Type Severity Reaction Last Updated Verified Status MDX - Nka - No Known Allergies Allergy Unknown June No Active Medications Medication Status Dose Units Route Sig Qty Days Start Date End Date Instructions CYCLOBENZAPRINE HCL Active 10 At Bedtime Escitalopram Oxalate Active 20 At Bedtime Ibuprofen Active 800 Rizatriptan Benzoate Active 10 Trazodone HCl* Active 50 At Bedtime Problems No problem information available. Procedures Procedure Date Performed Status ABD/PEL WITH IV CONTRAST February 09, 2020 completed ABD/PEL WITH IV CONTRAST March 09, 2020 completed ABD/PEL WITH IV CONTRAST April 06, 2020 completed Relevant Diagnostic Tests and/or Laboratory Data Laboratory Results Test Date/Time Result Interpretation Reference Range Result Co mment Performing Site White Blood Count April 06, 2020 5:48am 6.0 4.0-10 .0 [facility], [address] [place] [address] Red Blood Count April 06, 2020 5:48am 3.92 4.00-5.5 0 [facility], [address] [place] [address] Hemoglobin April 06, 2020 5:48am 10.9 12.0-16.0 [facility], [address] [place] [address] Hematocrit April 06, 2020 5:48am 32.5 36.0-48.8 [facility], [address] [place] [address] Mean Corpuscular Volume April 06, 2020 5:48am 82.9 80-96 [facility], [address] [facility] [address] Mean Corpuscular Hemoglobin April 06, 2020 5:48am 27.8 27.0-31.0 [facility], [address] [place] [address] Mean Corpuscular Hgb Concent Diff April 06, 2020 5:48am 33.5 32.0-36.0 [facility], [address] [facility] [address] Red Cell Distribution Width April 06, 2020 5:48am 13.6 10.0-14.5 [facility], [address] [facility] [address] Platelet Count April 06, 2020 5:48am 290 172-450 [facility], [address] [facility] [address] Mean Platelet Volume April 06, 2020 5:48am 10.4 9.0 -13.0 [facility], [address] [facility] [address] Granulocytes % (Auto) April 06, 2020 5:48am 61.1 50 -80.0 [facility], [address] [facility] [address] Immature Granulocytes % April 06, 2020 5:48am 0.3 0.0-0.2 [facility], [address] [facility] [address] Lymphocytes % April 06, 2020 5:48am 26.8 25.0-50.0 [facility], [address] [facility] [address] Monocytes % April 06, 2020 5:48am 7.0 2.0-10.0 [facility], [address] [facility] [address] Eosinophils % April 06, 2020 5:48am 4.0 0-5.0 [facility], [address] [facility] [address] Basophils % April 06, 2020 5:48am 0.8 0.0-2.0 [facility], [address] [facility] [address] Granulocytes # April 06, 2020 5:48am 3.7 2.0-8.00 [facility], [address] [facility] [address] Immature Granulocytes # April 06, 2020 5:48am 0.0 0.0-0.2 [facility], [address] [facility] [address] Lymphocytes # April 06, 2020 5:48am 1.6 1.0-5.0 [facility], [address] [facility] [address] Monocytes # April 06, 2020 5:48am 0.4 0.10-1.20 [facility], [address] [facility] [address] Eosinophils # April 06, 2020 5:48am 0.2 0.0-0.5 [facility], [address] [facility] [address] Basophils # April 06, 2020 5:48am 0.1 0.0-0.2 [facility], [address] [facility] [address] Prothrombin Time March 09, 2020 3:30am 10.1 9.1-11 .6 [facility], [address] [facility] [address] INR International Normalized Ratio March 09, 2020 3:30am 0.97 0.87-1.06 [facility], [address] [facility] [address] Partial Thromboplastin Time - Familia March 09, 2020 3:30am 20.8 21.2-27.3 [facility], [address] [facility] [address] Urine Color April 06, 2020 5:49am [facility], [address] [facility] [address] Urine Appearance April 06, 2020 5:49am CLOUDY [facility], [address] [facility] [address] Urine Glucose April 06, 2020 5:49am NEGATIVE NEGATIVE [facility], [address] [facility] [address] Urine Bilirubin April 06, 2020 5:49am NEGATIVE NEGATIVE [facility], [address] [facility] [address] Urine Ketones April 06, 2020 5:49am NEGATIVE NEGATIVE [facility], [address] [facility] [address] Specific [place] April 06, 2020 5:49am 1.025 1.001-1 .035 [facility], [address] [facility] [address] Urine Blood April 06, 2020 5:49am NEGATIVE NEGATIVE [facility], [address] [facility] [address] Urine pH April 06, 2020 5:49am 5.0 5.0-9.0 [facility], [address] [facility] [address] Urine Protein April 06, 2020 5:49am NEGATIVE NEGATIVE [facility], [address] [facility] [address] Urine Urobilinogen April 06, 2020 5:49am NORMAL(0.2-1) 0 -1 [facility], [address] [facility] [address] Urine Nitrite April 06, 2020 5:49am NEGATIVE NEGATIVE [facility], [address] [facility] [address] Urine Leukocyte Esterase April 06, 2020 5:49am NEGATIVE NEGATIVE [facility], [address] [facility] [address] Glucose Level April 06, 2020 5:48am 97 74-106 [facility], [address] [facility] [address] Lactic Acid Level April 06, 2020 5:48am 1.2 0.4-2. 0 [facility], [address] [facility] [address] Blood Urea Nitrogen April 06, 2020 5:48am 19 7-18 [facility], [address] [facility] [address] Creatinine April 06, 2020 5:48am 0.80 0.6-1.0 [facility], [address] [facility] [address] Sodium Level April 06, 2020 5:48am 136 136-145 [facility], [address] [facility] [address] Potassium Level April 06, 2020 5:48am 5.0 3.5-5.1 [facility], [address] [facility] [address] Chloride Level April 06, 2020 5:48am 100 98-107 [facility], [address] [facility] [address] Carbon Dioxide Level April 06, 2020 5:48am 25 21- 32 [facility], [address] [facility] [address] Calcium Level April 06, 2020 5:48am 9.4 8.5-10.1 [facility], [address] [place] [id number] Anion Gap April 06, 2020 5:48am 11.0 5-12 [facility], [address] [facility] [address] Estimated GFR (MDRD) April 06, 2020 5:48am 84 GFR IS CALCULATED IN mL/min/1.73m2 NORMAL FUNCTION: >90MILDLY DECREASED: 60-89MILDY TO MODERATELY DECREASED: 45-59 MODERATELY TO SEVERELY DECREASED: 30-44SEVERELY DECREASED: 15-29RENAL FAILURE: <15 [facility], [address] [place] [address] Aspartate Amino Transf (AST/SGOT) April 06, 2020 5:48am 43 15-37 [facility], [address] [place] [id number] Alanine Aminotransferase (ALT/SGPT) April 06, 2020 5:48am 73 12-78 [facility], [address] [facility] [address] Alkaline Phosphatase April 06, 2020 5:48am 38 46- 116 [facility], [address] [facility] [address] Total Bilirubin April 06, 2020 5:48am 0.4 0.2-1.0 [facility], [address] [facility] [address] Total Protein April 06, 2020 5:48am 7.5 6.4-8.2 [facility], [address] [facility] [address] Albumin April 06, 2020 5:48am 3.6 3.4-5.0 [facility], [address] [facility] [address] Lipase April 06, 2020 5:48am 70 73-393 [facility], [address] [facility] [address] Magnesium Level March 09, 2020 3:30am 2.0 1.8-2.4 [facility], [address] [facility] [address] Coronavirus (COVID-19)(PCR) April 06, 2020 6:15am NEGATIVE NEGATIVE Negative results should be treated as presumptive and, ifinconsistent with clinical signs and symptoms or necessaryfor patient management, should be tested with differentauthorized or cleared molecular tests.Negative results do not preclude SARS-CoV-2 infection andshould not be used as the sole basis for patient managementdecisions.This is a rapid molecular in vitro diagnostic test utilizingan isothermal nucleic acid amplification technology intendedfor the qualitative detection of nucleic acid from the SARS-CoV-2 viral RNA in direct nasal, nasopharyngeal orthroat swabs from individuals who are suspected of COVID-19.Results are for the indentification of SARS-CoV-2 RNA. [id number] RNA is generally detectable in respiratorysamples during the actue phase of infection. [facility], [address] [place], [place] [id number] Blood Culture (LAB) March 09, 2020 3:40am SENT TO [facility], [address] [place] [address] Diagnostic Imaging Reports Report Dictated Date/Time Dictated By Status PS360 TEMPLATE February 09, 2020 8:53am CHRIS MCKEON Patient Name: RITA ROSA Unit#: [id number] Rad#: [id number] : 90 Status: TAD Whittington MD: DARLEEN FRITZ @ Room/Bed Sex: Lauren BrooksAnimal Physiologist: Irais Pedro Date: 02/09/20 Report #: [id number] Signed - ABD/PEL WITH IV CONTRAST ORIGINAL REPORT DATE OF EXAMINATION: 02/09/2020 13:36 EST ABD/PEL WITH IV CONTRAST HISTORY: Pain. Periumbilical pain. TECHNIQUE: This CT exam was performed using the following dose reduction techniques: automated exposure control, adjustment of mA and/or kV according to the patient's size, and use of iterative reconstruction technique. Standard contiguous axial spiral imaging was obtained from the dome of the diaphragms through the symphysis pubis without oral contrast and with intravenous contrast administration and with coronal reformatting. FINDINGS: Lower thorax: Unremarkable ABDOMEN: Liver: Moderate fatty infiltration Gallbladder and bile ducts: Cholecystectomy Pancreas: Unremarkable Spleen: Unremarkable Adrenals: Unremarkable Kidneys and ureters: Unremarkable Stomach and bowel: Right lower quadrant ostomy stoma. Colectomy appear Appendix: No appendicitis PELVIS: Bladder: Grossly unremarkable, partially opacified Reproductive: Unremarkable Mild ascites IMPRESSION: Status post colectomy. Right lower quadrant ostomy stoma. There is some subcutaneous soft tissue stranding above the umbilicus and the umbilicus itself likely related to recent surgery. Cellulitis not excluded. Mild ascites. Moderate fatty infiltration of liver. Electronically signed in PS360 by: Chris Mckeon M.D. 02/09/2020 13:56 EST PS360 TEMPLATE March 09, 2020 5:13am CHRIS MCKEON comp leted Patient Name: RITA ROSA Unit#: [id number] Rad#: [id number] : 90 Status: REG SONYA Whittington MD: [place] OLVERA Room/Bed Sex: F Animal Physiologist: Ej Gonzales Date: 03/09/20 Report #: [id number] Signed - ABD/PEL WITH IV CONTRAST ORIGINAL REPORT DATE OF EXAMINATION: 03/09/2020 8:13 EST ABD/PEL WITH IV CONTRAST HISTORY: Abdominal pain. Lower abdominal pain. Comparison is made to prior study of 02/09/2020 TECHNIQUE: This CT exam was performed using the following dose reduction techniques: automated exposure control, adjustment of mA and/or kV according to the patient's size, and use of iterative reconstruction technique. Standard contiguous axial spiral imaging was obtained from the dome of the diaphragms through the symphysis pubis without oral contrast and with intravenous contrast administration and with coronal reformatting. FINDINGS: Lower thorax: Unremarkable ABDOMEN: Liver: Fatty infiltration without interval progression Gallbladder and bile ducts: Cholecystectomy Pancreas: Unremarkable Spleen: Unremarkable Adrenals: Unremarkable Kidneys and ureters: Unremarkable Stomach and bowel: Right lower quadrant ostomy stoma as seen previously. Colectomy Appendix: Colectomy PELVIS: Bladder: Incompletely opacified and distended, grossly unremarkable Reproductive: Unremarkable Mild ascites without interval change. Previously noted soft tissue stranding in the region of the umbilicus has improved. IMPRESSION: No significant interval change since the prior study with exception of resolved soft tissue stranding near the umbilicus in this patient with colectomy. Electronically signed in PS360 by: Chris Mckeon M.D. 03/09/2020 10:16 EST Health Concerns No known health concerns documented Chief Complaint and Reason for Visit Reason for Visit SEVERE ABDOMINAL PAIN, VOMIT ING Encounters Encounter Location(s) Arrival/Admit Date Discharge/Depart Date Provider(s) [facility] April 06, 2020 5:28am April 06, 2020 8:20am NICKIE OTT [facility] March 09, 2020 2:53a m March 09, 2020 6:31am [place] OLVERA [facility] March 04, 2020 9:03a m March 04, 2020 11:09am PHYLLIS HERNANDEZ [facility] February 09, 2020 5:16a m February 09, 2020 10:06am DARLEEN FRITZ @[facility] No Assessments Information Available Functional Status No Functional Status information available Goals No Goals Information Available Immunizations No Immunization Information Available Mental Status No Mental Status Information Available Medical Equipment No Medical Equipment Information available Insurance Providers Guarantor RITA ROSA Address [address] [place] [address] Contact Info. Home Phone: Payer Policy Id Coverage Id Subscriber's Name Subscriber Id Effect carlin Date Expiration Date [facility] [id number] RITA ROSA Social History Assigned Sex Female Vital Signs No vital signs result information available.
--- OUTSIDE RECORDS SUMMARY | 2020-04-11 13:46 | CCD | Continuity of Care Document ---
Author Author [facility] Address [address] [place] [address] Phone Care Team Providers Care Silk Printer Name Role Phone NEEDED, INFO PCP Unavailable Allergies, Adverse Reactions, Alerts Allergen [...] information available. Procedures Procedure Date Performed Status ABDOMEN FLAT/UPRIGHT November 13, 2019 completed ABD/PEL NO CONTRAST December 20, 2019 completed ABD/PEL NO CONTRAST December 21, 2019 completed ABDOMEN (KUB) December 29, 2019 completed ABD/PEL WITH IV CONTRAST February 09, 2020 completed Relevant Diagnostic Tests and/or Laboratory Data Laboratory Results Test Date/Time Result Interpretation Reference Range Result Co mment Performing Site White Blood Count February 09, 2020 7:40am 6.4 4.0-1 0.0 [facility] Main Lab, [address] [place] [address]293 Red Blood Count February 09, 2020 7:40am 3.69 4.00-5. 50 [facility], [address] [place] [address] 54596 Hemoglobin February 09, 2020 7:40am 10.4 12.0-16.0 [facility], [address] [place] [address] 66446 Hematocrit February 09, 2020 7:40am 32.1 36.0-48.8 [facility], [address] [facility] 93557 Mean Corpuscular Volume February 09, 2020 7:40am 87.0 80-96 [facility], [address] [facility] 05365 Mean Corpuscular Hemoglobin February 09, 2020 7:40am 28.2 27.0-31.0 [facility], [address] [facility] 94033 Mean Corpuscular Hgb Concent Diff February 09, 2020 7:40am 32.4 32.0-36.0 [facility], [address] [facility] 19472 Red Cell Distribution Width February 09, 2020 7:40am 12.8 10.0-14.5 [facility], [address] [facility] 85298 Platelet Count February 09, 2020 7:40am 267 172-450 [facility], [address] [facility] 20608 Mean Platelet Volume February 09, 2020 7:40am 9.6 9. 0-13.0 [facility], [address] [facility] 20564 Granulocytes % (Auto) February 09, 2020 7:40am 54.8 5 0-80.0 [facility], [address] [facility] 28050 Immature Granulocytes % February 09, 2020 7:40am 0.0 0.0-0.2 [facility], [address] [facility] 12106 Lymphocytes % February 09, 2020 7:40am 28.7 25.0-50.0 [facility], [address] [facility] 64131 Monocytes % February 09, 2020 7:40am 7.4 2.0-10.0 [facility], [address] [facility] 86017 Eosinophils % February 09, 2020 7:40am 8.5 0-5.0 [facility], [address] [facility] 47249 Basophils % February 09, 2020 7:40am 0.6 0.0-2.0 [facility], [address] [facility] 93229 Granulocytes # February 09, 2020 7:40am 3.5 2.0-8.00 [facility], [address] [facility] 61429 Immature Granulocytes # February 09, 2020 7:40am 0.0 0.0-0.2 [facility], [address] [facility] 20195 Lymphocytes # February 09, 2020 7:40am 1.8 1.0-5.0 [facility], [address] [facility] 77825 Monocytes # February 09, 2020 7:40am 0.5 0.10-1.20 [facility], [address] [facility] 23747 Eosinophils # February 09, 2020 7:40am 0.5 0.0-0.5 [facility], [address] [facility] 51169 Basophils # February 09, 2020 7:40am 0.0 0.0-0.2 [facility], [address] [facility] 61844 Prothrombin Time February 09, 2020 7:40am 9.9 9.1-11 .6 [facility], [address] [facility] 68918 INR International Normalized Ratio February 09, 2020 7:40am 0.95 0.87-1.06 [facility] Lab, [address] [facility] 04347 Partial Thromboplastin Time - [place] February 09, 2020 7:40am 21.0 21.2-27.3 [facility], [address] [facility] 95410 Urine Color December 29, 2019 2:36pm [facility] Main Lab, [address] [facility] 77029 Urine Appearance December 29, 2019 2:36pm CLEAR [facility], [address] [facility] 93733 Urine Glucose December 29, 2019 2:36pm NEGATIVE NEGATIVE [facility], [address] [facility] 50587 Urine Bilirubin December 29, 2019 2:36pm NEGATIVE NEGATIVE [facility], [address] [facility] 82809 Urine Ketones December 29, 2019 2:36pm NEGATIVE NEGATIVE [facility], [address] [facility] 14079 Specific [place] December 29, 2019 2:36pm 1.025 1.001-1. 035 [facility], [address] [facility] 05499 Urine Blood December 29, 2019 2:36pm NEGATIVE NEGATIVE [facility], [address] [facility] 21534 Urine pH December 29, 2019 2:36pm 7.5 5.0-9.0 [facility] Lab, [address] [facility] 77094 Urine Protein December 29, 2019 2:36pm NEGATIVE NEGATIVE [facility], [address] [facility] 61546 Urine Urobilinogen December 29, 2019 2:36pm NORMAL(0.2-1) 0- 1 [facility] Lab, [address] [facility] 72730 Urine Nitrite December 29, 2019 2:36pm NEGATIVE NEGATIVE [facility] Lab, [address] [facility] 34695 Urine Leukocyte Esterase December 29, 2019 2:36pm TRACE NEGATIVE [facility] Lab, [address] [facility] 21493 Specific [place] December 21, 2019 3:34pm 1.025 1.001 -1.035 [facility] Lab, [address] [facility] 71870 Urine Leukocyte Esterase December 21, 2019 3:34pm NEGATIVE NEGATIVE [facility], [address] [facility] 45458 Urine Nitrite December 21, 2019 3:34pm NEGATIVE NEGATIVE [facility], [address] [facility] 31904 Urine pH December 21, 2019 3:34pm 7.0 5.0-9.0 [facility], [address] [facility] 54758 Urine Protein December 21, 2019 3:34pm NEGATIVE NEGATIVE [facility], [address] [facility] 77627 Urine Glucose December 21, 2019 3:34pm NEGATIVE NEGATIVE [facility], [address] [facility] 13151 Urine Ketones December 21, 2019 3:34pm NEGATIVE NEGATIVE [facility] Lab, [address] [facility] 02936 Urine Urobilinogen December 21, 2019 3:34pm NORMAL(0.2-1) 0-1 [facility], [address] [facility] 38402 Urine Bilirubin December 21, 2019 3:34pm NEGATIVE NEGATI VE [facility] Lab, [address] [facility] 06609 Urine Blood December 21, 2019 3:34pm NEGATIVE NEGATIVE [facility], [address] [facility] 76176 Urine Microscopic RBC December 29, 2019 2:36pm NONE SEEN 0-3 [facility], [address] [facility] 44816 Urine Microscopic WBC December 29, 2019 2:36pm 0-2 0-5 [facility], [address] [facility] 02949 Urine Epithelial Cells December 29, 2019 2:36pm 3+ 0 [facility], [address] [facility] 07601 Urine Bacteria December 29, 2019 2:36pm 1+ NONE SEEN [facility], [address] [facility] 92812 URINE CULTURE November 13, 2019 6:22am SENT TO REF LAB [facility], [address] [place] [address]804 Glucose Level February 09, 2020 7:40am 96 74-106 [facility] Lab, [address] [place] [address] 77121 Lactic Acid Level December 29, 2019 5:40pm 1.6 0.4-2.0 [facility], [address] [place] [address] 87214 Blood Urea Nitrogen February 09, 2020 7:40am 15 7-1 8 [facility], [address] [facility] 51361 Creatinine February 09, 2020 7:40am 0.9 0.6-1.0 [facility], [address] [place] [address] 76187 Sodium Level February 09, 2020 7:40am 139 136-145 [facility], [address] [facility] 77383 Potassium Level February 09, 2020 7:40am 4.1 3.5-5.1 [facility], [address] [place] [address] 59912 Chloride Level February 09, 2020 7:40am 100 98-107 [facility], [address] [facility] 71776 Carbon Dioxide Level February 09, 2020 7:40am 29 21 -32 [facility], [address] [facility] 98152 Calcium Level February 09, 2020 7:40am 9.4 8.5-10.1 [facility], [address] [place] [address] 58292 Anion Gap February 09, 2020 7:40am 10.0 5-12 [facility], [address] [facility] 93202 Estimated GFR (MDRD) February 09, 2020 7:40am 74 GFR IS CALCULATED IN mL/min/1.73m2 NORMAL FUNCTION: >90MILDLY DECREASED: 60-89MILDY TO MODERATELY DECREASED: 45-59 MODERATELY TO SEVERELY DECREASED: 30-44SEVERELY DECREASED: 15-29RENAL FAILURE: <15 [facility], [address] [facility] 61413 Aspartate Amino Transf (AST/SGOT) February 09, 2020 7:40am 16 15-37 02/09/20 1538: AST previously reported as: 0 L U/L [facility], [address] [place] [address] Alanine Aminotransferase (ALT/SGPT) February 09, 2020 7:40am 39 12-78 [facility], [address] [facility] 19333 Alkaline Phosphatase February 09, 2020 7:40am 41 46 -116 [facility], [address] [place] [address] 99698 Total Bilirubin February 09, 2020 7:40am 0.2 0.2-1.0 [facility], [address] [place] [address] 13110 Total Protein February 09, 2020 7:40am 7.2 6.4-8.2 [facility], [address] [place] [address] 23082 Albumin February 09, 2020 7:40am 3.6 3.4-5.0 [facility], [address] [place] [address] 60346 Lipase February 09, 2020 7:40am 106 73-393 [facility], [address] [place] [address] 09349 Magnesium Level February 09, 2020 7:40am 1.7 1.8-2.4 [facility], [address] [place] [address] 52229 Urine HCG, Qualitative December 29, 2019 2:36pm NEGATIVE NE GATIVE [facility], [address] [place] [address] 73404 Adenovirus (PCR) December 22, 2019 1:28am Not Detected Not [facility], [address] [place] [address] 54569 Coronavirus Type 229E (PCR) December 22, 2019 1:28am Not Detected Not [facility], [address] [place] [address] 29806 Coronavirus Type HKU1 (PCR) December 22, 2019 1:28am Not Detected Not [facility], [address] [facility] 44964 Coronavirus Type NL63 (PCR) December 22, 2019 1:28am Not Detected Not [facility] Lab, [address] [facility] 67648 Coronavirus Type OC43 (PCR) December 22, 2019 1:28am Not Detected Not [facility], [address] [facility] 98967 Coronavirus (COVID-19)(PCR) December 22, 2019 1:28am Not Detected Not [facility], [address] [facility] 85661 Human Metapneumovirus (PCR) December 22, 2019 1:28am Not Detected Not [facility], [address] [facility] 27963 Rhinovirus (PCR) December 22, 2019 1:28am Not Detected Not [facility], [address] [facility] 37300 Influenza Type A (RT-PCR) December 22, 2019 1:28am Not Detected Not [facility], [address] [facility] 90235 Influenza Type B (RT-PCR) December 22, 2019 1:28am Not Detected Not [facility], [address] [facility] 87979 Parainfluenza Type 1 (PCR) December 22, 2019 1:28am Not Detected Not [facility], [address] [facility] 18078 Parainfluenza Type 2 (PCR) December 22, 2019 1:28am Not Detected Not [facility], [address] [facility] 58847 Parainfluenza Type 3 (PCR) December 22, 2019 1:28am Not Detected Not [facility], [address] [facility] 08183 Parainfluenza Type 4 (PCR) December 22, 2019 1:28am Not Detected Not [facility], [address] [facility] 71410 Respiratory Syncytial Virus (PCR) December 22, 2019 1:28am Not Detecte d Not [facility], [address] [facility] 65360 Bordetella parapertussis DNA (PCR) December 22, 2019 1:28am Not Detec donny Not [facility], [address] [place] [address] 12495 Bordetella pertussis DNA (PCR) December 22, 2019 1:28am Not Detected Not [facility], [address] [facility] 52435 Chlamydia pneumoniae December 22, 2019 1:28am Not Detected N ot [facility], [address] [facility] 76180 Mycoplasma pneumoniae December 22, 2019 1:28am Not Detected Not The Above results have been determined by using the TORCHmolecular FilmArray system.FilmArray is an automated in vitro diagnostic system thatutilizes nested multiplex Polymerase Chain Reaction (PCR)and high-resolution melting analysis to detect and identifymultiple nucleic acid targets from clinical specimens. [facility], [address] [place] [address] Blood Culture (LAB) December 29, 2019 5:40pm SENT TO [facility], [address] [place] [address] Diagnostic Imaging Reports Report Dictated Date/Time Dictated By Status PS360 TEMPLATE November 13, 2019 7:56am KEZIA BARNEY ed Patient Name: RITA ROSA Unit#: [id number] Rad#: [id number] : 90 Status: REG SONYA Whittington MD: PHYLLIS HERNANDEZ Room/Bed Sex: F Sleeping Car Conductor: Christian Whaley Date: 11/13/19 Report #: [id number] Signed - ABDOMEN FLAT/UPRIGHT ORIGINAL REPORT DATE OF EXAMINATION: 11/13/2019 10:42 EDT ABDOMEN FLAT/UPRIGHT ABDOMEN INDICATION: Small bowel obstruction COMPARISON: CT scan 10/19/2019 TECHNIQUE: AP supine and upright views of the abdomen were obtained. FINDINGS: Large amount stool in the distal colon. No dilated small bowel or air-fluid levels. Surgical clips are visualized in the right upper quadrant. No pathologic calcifications. IMPRESSION: Nonobstructive bowel gas pattern Electronically signed in PS360 by: Kezia Barney M.D. 11/13/2019 11:57 EDT PS360 TEMPLATE December 20, 2019 4:38pm KEZIA BARNEY comp leted Patient Name: RITA ROSA Unit#: [id number] Rad#: [id number] : 90 Status: TAD Whittington MD: HALLE AN Room/Bed Sex: F Sleeping Car Conductor: Sylvia Magallon Date: 12/20/19 Report #: [id number] Signed - ABD/PEL NO CONTRAST ORIGINAL REPORT CT SCAN OF THE ABDOMEN AND PELVIS DATE OF EXAMINATION: 12/20/2019 INDICATION: Abdominal pain COMPARISON: 10/19/2019, 02/09/2019 TECHNIQUE: Axial images were obtained through the abdomen and pelvis from the lung bases through the rectum. Intravenous contrast was not utilized for this examination. One or more of the following dose reduction techniques were utilized in effectively lowering the radiation dose for this examination: Automated Exposure Control, Adjustment of the mA and/or kV according to patient size, or Iterative reconstruction ABDOMEN FINDINGS: There is mild dependent atelectatic change at the lung bases. The liver is diminished in attenuation consistent with fatty change. No focal hepatic or splenic lesions. The patient is postcholecystectomy. Stomach is full of particulate matter. There is prominent renal sinus fat. No hydronephrosis or renal stones. The left kidney is duplex system. The pancreas and adrenal glands are unremarkable. The patient is post subtotal colectomy. There is gaseous distention of bowel. Surgical clips are visualized in the lower abdomen. PELVIC FINDINGS: No adenopathy, ascites, or abnormal pelvic masses are identified. The bladder is unremarkable. IMPRESSION: Post subtotal colectomy. There is gaseous distention of bowel however no evidence of obstruction. No evidence of free air. The liver is diffusely decreased in attenuation consistent with fatty change. Electronically signed in PS360 by: Kezia Barney M.D. 12/20/2019 20:44 EDT PS360 TEMPLATE December 21, 2019 5:07pm KEZIA BARNEY comp leted Patient Name: RITA ROSA Unit#: [id number] Rad#: [id number] : 90 Status: TAD Whittington MD: [place] OLVERA Room/Bed Sex: F Sleeping Car Conductor: Ronit Guevara Date: 12/21/19 Report #: [id number] Signed - ABD/PEL NO CONTRAST ORIGINAL REPORT CT SCAN OF THE ABDOMEN AND PELVIS DATE OF EXAMINATION: 12/21/2019 INDICATION: Lower abdominal pain and vomiting COMPARISON: 12/20/2019 TECHNIQUE: Axial images were obtained through the abdomen and pelvis from the lung bases through the rectum. Intravenous contrast was not utilized for this examination. One or more of the following dose reduction techniques were utilized in effectively lowering the radiation dose for this examination: Automated Exposure Control, Adjustment of the mA and/or kV according to patient size, or Iterative reconstruction ABDOMEN FINDINGS: Lung bases are clear. The patient is post subtotal colectomy. The liver is diffusely decreased in attenuation consistent with fatty change. There are surgical clips in the gallbladder fossa postcholecystectomy. The spleen, pancreas, adrenal glands are unremarkable. There is slight prominence of the renal sinus fat. No hydronephrosis. There is a tiny hyperdense punctate focus in the cortex of the midpole of the right kidney laterally. The aorta is unremarkable. Bowel is distended and fluid-filled. No clear obstruction of identified. Postoperative changes are noted with surgical clips as well as stranding within the soft tissues of the right lower quadrant superficial tissues. PELVIC FINDINGS: The bladder is unremarkable. Uterus is unremarkable. Postoperative changes are noted. There is prominent stool and a small section of bowel in the pelvis. No free air or free fluid. IMPRESSION: Post subtotal colectomy. There is distention of the bowel with air-fluid levels. This has increased slightly when compared to the study from one day previously. No clear obstructing point. There is a focus of of stool within the distal colon and pelvis. Electronically signed in PS360 by: Kezia Barney M.D. 12/21/2019 21:13 EDT PS360 TEMPLATE December 29, 2019 4:35pm KEZIA BARNEY [facility] ed Patient Name: RITA ROSA Unit#: [id number] Rad#: [id number] : 90 Status: TAD Whittington MD: MINH VIGIL Room/Bed Sex: F Sleeping Car Conductor: Nehemiah Lilly Date: 12/29/19 Report #: [id number] Signed - ABDOMEN (KUB) ORIGINAL REPORT DATE OF EXAMINATION: 12/29/2019 19:33 EDT ABDOMEN (KUB) ABDOMEN INDICATION: Right flank COMPARISON: 11/13/2019 TECHNIQUE: AP supine views of the abdomen were obtained. FINDINGS: There are surgical clips in the right upper quadrant consistent with previous cholecystectomy. There are multiple surgical roxanne in the right hemiabdomen. No dilated bowel. Bowel gas pattern is unremarkable. No visualized pathologic calcifications. IMPRESSION: Unremarkable bowel gas pattern Electronically signed in PS360 by: Kezia Barney M.D. 12/29/2019 20:36 EDT Health Concerns No known health concerns documented Chief Complaint and Reason for Visit Reason for Visit SEVERE STOMACH PAIN Encounters Encounter Location(s) Arrival/Admit Date Discharge/Depart Date Provider(s) [facility] February 09, 2020 5:16a honorio February 09, 2020 10:06am DARLEEN FRITZ @[facility] December 29, 2019 2:14pm December 29, 2019 6:45pm MINH VIGIL [facility] December 21, 2019 2: 33pm December 22, 2019 12:30pm [place] OLVERA [facility] December 20, 2019 2:18 pm December 20, 2019 5:14pm HALLE AN [facility] November 13, 2019 6:00am November 13, 2019 8:55am HERNANDEZ, PHYLLIS W Assessments No Assessments Information Available Functional Status No Functional Status information available Goals No Goals Information Available Immunizations No Immunization Information Available Mental Status No Mental Status Information Available Medical Equipment No Medical Equipment Information available Insurance Providers Guarantor RITA ROSA Address [address] [place] [address] Contact Info. Home Phone: Payer Policy Id Coverage Id Subscriber's Name Subscriber Id Effect carlin Date Expiration Date [employer] [id number] RITA ROSA Plan of Treatment Future Tests Future scheduled test information is unavailable Pending Tests Test Name Date ordered URINE COLOR. February 09, 2020 6:16am URINE APPEARANCE February 09, 2020 6:16am URINE GLUCOSE (UA) February 09, 2020 6:16am URINE BILIRUBIN February 09, 2020 6:16am URINE KETONE February 09, 2020 6:16am SPECIFIC GRAVITY,URINE February 09, 2020 6:16am URINE BLOOD February 09, 2020 6:16am PH,URINE February 09, 2020 6:16am URINE PROTEIN February 09, 2020 6:16am URINE UROBILINOGEN February 09, 2020 6:16am URINE NITRATE February 09, 2020 6:16am URINE LEUKOCYTE ESTERASE February 09, 2020 6:16am Future Visits Future appointment information is unavailable Referrals to Other Providers Referral information is unavailable Future Procedures Future procedure information is unavailable Future Medications Future medication information is unavailable Patient Instructions Patient instructions are unavailable Social History Assigned Sex Female Vital Signs No vital signs result information available.
--- OUTSIDE RECORDS SUMMARY | 2020-04-11 13:46 | CCD | Continuity of Care Document ---
Author Author [facility] Address [address] [place] [address] Phone Care Team Providers Care Assistant Professor Of Art Name Role Phone PCP Unavailable Allergies, Adverse [...] available. Procedures Procedure Date Performed Status ABD/PEL NO CONTRAST December 20, 2019 completed ABD/PEL NO CONTRAST December 21, 2019 completed ABDOMEN (KUB) December 29, 2019 completed ABD/PEL WITH IV CONTRAST February 09, 2020 completed Relevant Diagnostic Tests and/or Laboratory Data Laboratory Results Test Date/Time Result Interpretation Reference Range Result Co mment Performing Site White Blood Count February 09, 2020 7:40am 6.4 4.0-[address] [facility], [address] [place] [address] 17787 Red Blood Count February 09, 2020 7:40am 3.69 4.00-5. 50 [facility], [address] [place] [address] 62613 Hemoglobin February 09, 2020 7:40am 10.4 12.0-16.0 [facility], [address] [place] [address] 93648 Hematocrit February 09, 2020 7:40am 32.1 36.0-48.8 [facility], [address] [place] [address] 14887 Mean Corpuscular Volume February 09, 2020 7:40am 87.0 80-96 [facility], 4 [facility] [address]40 Mean Corpuscular Hemoglobin February 09, 2020 7:40am 28.2 27.0-31.0 [facility], [address] [place] [address] Mean Corpuscular Hgb Concent Diff February 09, 2020 7:40am 32.4 32.0-36.0 [facility], [address] [place] [address] Red Cell Distribution Width February 09, 2020 7:40am 12.8 10.0-14.5 [facility], [address] [place] [address] Platelet Count February 09, 2020 7:40am 267 172-450 [facility], [address] [place] [address] Mean Platelet Volume February 09, 2020 7:40am 9.6 9. 0-13.0 [facility], [address] [place] [address] Granulocytes % (Auto) February 09, 2020 7:40am 54.8 5 0-80.0 [facility], [address] [place] [address] Immature Granulocytes % February 09, 2020 7:40am 0.0 0.0-0.2 [facility], 4 [facility] 41980 Lymphocytes % February 09, 2020 7:40am 28.7 25.0-50.0 [facility], 4 [facility] 51877 Monocytes % February 09, 2020 7:40am 7.4 2.0-10.0 [facility], 4 [facility] 10250 Eosinophils % February 09, 2020 7:40am 8.5 0-5.0 [facility], 4 [facility] 10643 Basophils % February 09, 2020 7:40am 0.6 0.0-2.0 [facility], 4 [facility] 08733 Granulocytes # February 09, 2020 7:40am 3.5 2.0-8.00 [facility], 4 [facility] 29588 Immature Granulocytes # February 09, 2020 7:40am 0.0 0.0-0.2 [facility], 4 [facility] 54332 Lymphocytes # February 09, 2020 7:40am 1.8 1.0-5.0 [facility], 4 [facility] 09436 Monocytes # February 09, 2020 7:40am 0.5 0.10-1.20 [facility], 4 [facility] 42430 Eosinophils # February 09, 2020 7:40am 0.5 0.0-0.5 [facility], 4 [facility] 47122 Basophils # February 09, 2020 7:40am 0.0 0.0-0.2 [facility], 4 [facility] 91748 Prothrombin Time February 09, 2020 7:40am 9.9 9.1-[address] [facility], 4 [facility] 48124 INR International Normalized Ratio February 09, 2020 7:40am 0.95 0.87-1.06 [facility], 4 [facility] 22079 Partial Thromboplastin Time - Familia February 09, 2020 7:40am 21.0 21.2-27.3 [facility], 4 [facility] 51599 Urine Color December 29, 2019 2:36pm [facility], 4 [facility] 90626 Urine Appearance December 29, 2019 2:36pm [facility], 4 [facility] 97465 Urine Glucose December 29, 2019 2:36pm NEGATIVE NEGATIVE [facility], 4 [facility] 92691 Urine Bilirubin December 29, 2019 2:36pm NEGATIVE NEGATIVE [facility], 4 [facility] 49549 Urine Ketones December 29, 2019 2:36pm NEGATIVE NEGATIVE [facility], 4 [facility] 83194 Specific [place] December 29, 2019 2:36pm 1.025 1.001-1. 035 [facility], 4 [facility] 07350 Urine Blood December 29, 2019 2:36pm NEGATIVE NEGATIVE [facility], 4 [facility] 03207 Urine pH December 29, 2019 2:36pm 7.5 5.0-9.0 [facility], 4 [facility] 48571 Urine Protein December 29, 2019 2:36pm NEGATIVE NEGATIVE [facility], 4 [facility] 42386 Urine Urobilinogen December 29, 2019 2:36pm NORMAL(0.2-1) 0- 1 [facility], 4 [facility] 87984 Urine Nitrite December 29, 2019 2:36pm NEGATIVE NEGATIVE [facility], 4 [facility] 51965 Urine Leukocyte Esterase December 29, 2019 2:36pm TRACE NEGATIVE [facility], 4 [facility] 58563 Specific [place] December 21, 2019 3:34pm 1.025 1.001 -1.035 [facility], 4 [facility] 30232 Urine Leukocyte Esterase December 21, 2019 3:34pm NEGATIVE NEGATIVE [facility], 4 [facility] 24053 Urine Nitrite December 21, 2019 3:34pm NEGATIVE NEGATIVE [facility], 4 [facility] 36043 Urine pH December 21, 2019 3:34pm 7.0 5.0-9.0 [facility], 4 [facility] 00755 Urine Protein December 21, 2019 3:34pm NEGATIVE NEGATIVE [facility], 4 [facility] 44370 Urine Glucose December 21, 2019 3:34pm NEGATIVE NEGATIVE [facility], 4 [facility] 70787 Urine Ketones December 21, 2019 3:34pm NEGATIVE NEGATIVE [facility], 4 [facility] 02179 Urine Urobilinogen December 21, 2019 3:34pm NORMAL(0.2-1) 0-1 [facility], 4 [facility] 27094 Urine Bilirubin December 21, 2019 3:34pm NEGATIVE NEGATI VE [facility], 4 [facility] 57997 Urine Blood December 21, 2019 3:34pm NEGATIVE NEGATIVE [facility], 4 [facility] 10928 Urine Microscopic RBC December 29, 2019 2:36pm NONE SEEN 0-3 [facility], 4 [facility] 43536 Urine Microscopic WBC December 29, 2019 2:36pm 0-2 0-5 [facility], 4 [facility] 99589 Urine Epithelial Cells December 29, 2019 2:36pm 3+ 0 [facility], 4 [facility] 54831 Urine Bacteria December 29, 2019 2:36pm 1+ NONE SEEN [facility], 4 [facility] 04525 Glucose Level February 09, 2020 7:40am 96 74-106 [facility], 4 [facility] 97703 Lactic Acid Level December 29, 2019 5:40pm 1.6 0.4-2.0 [facility], 4 [facility] 43859 Blood Urea Nitrogen February 09, 2020 7:40am 15 7-[address] [facility], 4 [facility] 92389 Creatinine February 09, 2020 7:40am 0.9 0.6-1.0 [facility], 4 [facility] 09453 Sodium Level February 09, 2020 7:40am 139 136-145 [facility], 4 [facility] 16577 Potassium Level February 09, 2020 7:40am 4.1 3.5-5.1 [facility], 4 [facility] 66669 Chloride Level February 09, 2020 7:40am 100 98-107 [facility], 4 [facility] 38741 Carbon Dioxide Level February 09, 2020 7:40am 29 21 -32 [facility], 4 [facility] 56542 Calcium Level February 09, 2020 7:40am 9.4 8.5-10.1 [facility], 4 [facility] 90209 Anion Gap February 09, 2020 7:40am 10.0 5-12 [facility], 4 [facility] 57842 Estimated GFR (MDRD) February 09, 2020 7:40am 74 GFR IS CALCULATED IN mL/min/1.73m2 NORMAL FUNCTION: >90MILDLY DECREASED: 60-89MILDY TO MODERATELY DECREASED: 45-59 MODERATELY TO SEVERELY DECREASED: 30-44SEVERELY DECREASED: 15-29RENAL FAILURE: <15 [facility], 4 [facility] 58167 Aspartate Amino Transf (AST/SGOT) February 09, 2020 7:40am 16 15-37 02/09/20 1538: AST previously reported as: 0 L U/L [facility], 4 [facility] 15793 Alanine Aminotransferase (ALT/SGPT) February 09, 2020 7:40am 39 12-78 [facility], 4 [facility] 05401 Alkaline Phosphatase February 09, 2020 7:40am 41 46 -116 [facility], 4 [facility] 14066 Total Bilirubin February 09, 2020 7:40am 0.2 0.2-1.0 [facility], [address] [place] [address] 60903 Total Protein February 09, 2020 7:40am 7.2 6.4-8.2 [facility], [address] [place] [address] 35969 Albumin February 09, 2020 7:40am 3.6 3.4-5.0 [facility], [address] [place] [address] 28934 Lipase February 09, 2020 7:40am 106 73-393 [facility], [address] [place] [address] 60269 Magnesium Level February 09, 2020 7:40am 1.7 1.8-2.4 [facility], [address] [place] [address] 59865 Urine HCG, Qualitative December 29, 2019 2:36pm NEGATIVE NE GATIVE [facility], [address] [place] [address] 41611 Adenovirus (PCR) December 22, 2019 1:28am Not Detected Not [facility], [address] [place] [address] 60424 Coronavirus Type 229E (PCR) December 22, 2019 1:28am Not Detected Not [facility], [address] [place] [address] 44673 Coronavirus Type HKU1 (PCR) December 22, 2019 1:28am Not Detected Not [facility], [address] [place] [address] 53061 Coronavirus Type NL63 (PCR) December 22, 2019 1:28am Not Detected Not [facility], [address] [place] [address] 68523 Coronavirus Type OC43 (PCR) December 22, 2019 1:28am Not Detected Not [facility], 4 [facility] 00362 Coronavirus (COVID-19)(PCR) December 22, 2019 1:28am Not Detected Not [facility], 4 [facility] 59279 Human Metapneumovirus (PCR) December 22, 2019 1:28am Not Detected Not [facility], 4 [facility] 22278 Rhinovirus (PCR) December 22, 2019 1:28am Not Detected Not [facility], 4 [facility] 05317 Influenza Type A (RT-PCR) December 22, 2019 1:28am Not Detected Not [facility], 4 [facility] 06336 Influenza Type B (RT-PCR) December 22, 2019 1:28am Not Detected Not [facility], 4 [facility] 08202 Parainfluenza Type 1 (PCR) December 22, 2019 1:28am Not Detected Not [facility], 4 [facility] 91896 Parainfluenza Type 2 (PCR) December 22, 2019 1:28am Not Detected Not [facility], 4 [facility] 12760 Parainfluenza Type 3 (PCR) December 22, 2019 1:28am Not Detected Not [facility], 4 [facility] 69860 Parainfluenza Type 4 (PCR) December 22, 2019 1:28am Not Detected Not [facility], 4 [facility] 10859 Respiratory Syncytial Virus (PCR) December 22, 2019 1:28am Not Detecte d Not [facility], 4 [facility] 26507 Bordetella parapertussis DNA (PCR) December 22, 2019 1:28am Not Detec donny Not [facility], 4 [facility] 22192 Bordetella pertussis DNA (PCR) December 22, 2019 1:28am Not Detected Not [facility], 4 [facility] 02669 Chlamydia pneumoniae December 22, 2019 1:28am Not Detected N ot [facility], 4 [facility] 54808 Mycoplasma pneumoniae December 22, 2019 1:28am Not Detected Not The Above results have been determined by using the [employer] FilmArray system.FilmArray is an automated in vitro diagnostic system thatutilizes nested multiplex Polymerase Chain Reaction (PCR)and high-resolution melting analysis to detect and identifymultiple nucleic acid targets from clinical specimens. [facility], [address] [place] [address] 89749 Blood Culture (LAB) December 29, 2019 5:40pm SENT TO [facility], [address] [place], [place] [address] Diagnostic Imaging Reports Report Dictated Date/Time Dictated By Status PS360 TEMPLATE December 20, 2019 4:38pm KEZIA BARNEY Patient Name: RITA ROSA Unit#: [id number] Rad#: [id number] : 90 Status: TAD Whittington MD: HALLE AN Room/Bed Sex: F Manager Primary Care: Sylvia Magallon Date: 12/20/19 Report #: [id number] Signed - ABD/PEL NO CONTRAST ORIGINAL REPORT [...] TEMPLATE December 21, 2019 5:07pm KEZIA BARNEY leted Patient Name: RITA ROSA Unit#: [id number] Rad#: [id number] : 90 Status: REG SONYA Whittington MD: [place] OLVERA Room/Bed Sex: F Manager Primary Care: GuevaraRonit ding Date: 12/21/19 Report #: [id number] Signed - ABD/PEL NO CONTRAST ORIGINAL REPORT [...] TEMPLATE December 29, 2019 4:35pm KEZIA BARNEY ed Patient Name: RITA ROSA Unit#: [id number] Rad#: [id number] : 90 Status: TAD Whittington MD: MINH VIGIL Room/Bed Sex: F Manager Primary Care: Nehemiah Lilly Date: 12/29/19 Report #: [id number] Signed - ABDOMEN (KUB) ORIGINAL REPORT DATE OF EXAMINATION: 12/29/2019 19:33 EDT ABDOMEN (KU) ABDOMEN INDICATION: Right flank COMPARISON: 11/13/2019 TECHNIQUE: [...] by: Kezia Barney M.D. 12/29/2019 20:36 EDT PS360 TEMPLATE February 09, 2020 8:53am CHRIS MCKEON Patient Name: RITA ROSA Unit#: [id number] Rad#: [id number] : 90 Status: TAD Whittington MD: DARLEEN FRITZ @ Room/Bed Sex: F Manager Primary Care: Irais Pedro Date: 02/09/20 Report #: [id number] Signed - ABD/PEL WITH IV CONTRAST ORIGINAL [...] by: Chris Mckeon M.D. 02/09/2020 13:56 EST Health Concerns No known health concerns documented Chief Complaint and Reason for Visit Reason for Visit HEADACHE Encounters Encounter Location(s) Arrival/Admit Date Discharge/Depart Date Provider(s) [facility] March 04, 2020 9:03a m March 04, 2020 11:09am PHYLLIS HERNANDEZ [facility] February 09, 2020 5:16a m February 09, 2020 10:06am DARLEEN FRITZ @[facility] December 29, 2019 2:14pm December 29, 2019 6:45pm MINH VIGIL Discharged Inpatient [facility] December 21, 2019 2: 33pm December 22, 2019 12:30pm [place] OLVERA [facility] December 20, 2019 2:18 pm December 20, 2019 5:14pm HALLE AN Assessments No Assessments Information Available Functional Status No Functional Status information available Goals No Goals Information Available Immunizations No Immunization Information Available Mental Status No Mental Status Information Available Medical Equipment No Medical Equipment Information available Insurance Providers Guarantor RITA ROSA Address [address] [place] [address] Contact Info. Home Phone: Payer Policy Id Coverage Id Subscriber's Name Subscriber Id Effect carlin Date Expiration Date [facility] [id number] RITA ROSA Social History Assigned Sex Female Vital Signs No vital signs result information available.
--- OUTSIDE RECORDS SUMMARY | 2020-04-11 13:46 | CCD | Continuity of Care Document ---
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 50 [facility] Lab, 4 [facility] 68825 Hemoglobin March 09, 2020 3:30am 11.3 12.0-16.0 [facility] Main Lab, 4 [facility] [address]3286 Hematocrit March 09, 2020 3:30am 33.8 36.0-48.8 [facility] Main Lab, [address] [place] [address] Mean Corpuscular Volume March 09, 2020 3:30am 83.3 80-96 [facility] Main Lab, 4 [facility] [address] Mean Corpuscular Hemoglobin March 09, 2020 3:30am 27.8 27.0-31.0 [facility] Main Lab, [address] [place] [address] Mean Corpuscular Hgb Concent Diff March 09, 2020 3:30am 33.4 32.0-36.0 [facility] Main Lab, [address] [place] [address] Red Cell Distribution Width March 09, 2020 3:30am 12.9 10.0-14.5 [facility] Main Lab, [address] [place] [address] Platelet Count March 09, 2020 3:30am 273 172-450 [facility] Main Lab, [address] [place] [address] Mean Platelet Volume March 09, 2020 3:30am 10.0 9. 0-13.0 [facility] Main Lab, [address] [place] [address] Granulocytes % (Auto) March 09, 2020 3:30am 58.2 5 0-80.0 [facility] Main Lab, [address] [place] [address] Immature Granulocytes % March 09, 2020 3:30am 0.3 0.0-0.2 [facility] Main Lab, 4 [facility] [address] Lymphocytes % March 09, 2020 3:30am 30.0 25.0-50.0 [facility] Main Lab, 4 [facility] 85846 Monocytes % March 09, 2020 3:30am 7.5 2.0-10.0 [facility] Main Lab, 4 [facility] [address] Eosinophils % March 09, 2020 3:30am 3.1 0-5.0 [facility] Main Lab, 4 [facility] [address] Basophils % March 09, 2020 3:30am 0.9 0.0-2.0 [facility] Main Lab, 4 [facility] [address] Granulocytes # March 09, 2020 3:30am 3.4 2.0-8.00 [facility] Main Lab, 4 [place] [address] Immature Granulocytes # March 09, 2020 3:30am 0.0 0.0-0.2 [facility] Main Lab, 4 [facility] [address]609 Lymphocytes # March 09, 2020 3:30am 1.8 1.0-5.0 [facility] Main Lab, 4 [facility] [address]8079 Monocytes # March 09, 2020 3:30am 0.4 0.10-1.20 [facility] Main Lab, 4 [facility] [address]46 Eosinophils # March 09, 2020 3:30am 0.2 0.0-0.5 [facility] Main Lab, 4 [facility] [address]2316 Basophils # March 09, 2020 3:30am 0.1 0.0-0.2 [facility] Main Lab, 4 [facility] [address] Prothrombin Time March 09, 2020 3:30am 10.1 9.1-11 .6 [facility] Main Lab, 4 [facility] [address] INR International Normalized Ratio March 09, 2020 3:30am 0.97 0.87-1.06 [facility] Main Lab, 4 [facility] [address]165 Partial Thromboplastin Time - Familia March 09, 2020 3:30am 20.8 21.2-27.3 [facility] Main Lab, 4 [facility] 85324 Urine Color March 09, 2020 5:30am [facility] Main Lab, 4 [facility] 92002 Urine Appearance March 09, 2020 5:30am CLEAR [facility] Main Lab, 4 [facility] [address]138 Urine Glucose March 09, 2020 5:30am NEGATIVE NEGATIVE [facility] Main Lab, 4 [facility] [address]85[address] Urine Bilirubin March 09, 2020 5:30am NEGATIVE NEGATIV E [facility] Main Lab, 4 [facility] [address] Urine Ketones March 09, 2020 5:30am NEGATIVE NEGATIVE [facility] Main Lab, 4 [facility] [address] Specific Olin March 09, 2020 5:30am 1.020 1.001- 1.035 [facility] Main Lab, 4 [facility] 58864 Urine Blood December 29, 2019 2:36pm NEGATIVE NEGATIVE [facility] Main Lab, 4 [facility] [address]192 Urine Blood March 09, 2020 5:30am NEGATIVE NEGATIVE [facility] Main Lab, 4 [facility] [address] Urine pH March 09, 2020 5:30am 6.0 5.0-9.0 [facility] Main Lab, 4 [facility] 62497 Urine Protein December 29, 2019 2:36pm NEGATIVE NEGATIVE [facility] Main Lab, 4 [facility] 31928 Urine Protein March 09, 2020 5:30am NEGATIVE NEGATIVE [facility] Main Lab, 4 [facility] 93371 Urine Urobilinogen March 09, 2020 5:30am NORMAL(0.2-1) 0-1 [facility] Main Lab, 4 [facility] [address] Urine Nitrite December 29, 2019 2:36pm NEGATIVE NEGATIVE [facility] Main Lab, 4 [facility] [address]885 Urine Nitrite March 09, 2020 5:30am NEGATIVE NEGATIVE [facility] Main Lab, 4 [facility] [address]83 Urine Leukocyte Esterase December 29, 2019 2:36pm TRACE NEGATIVE [facility] Main Lab, 4 [facility] 81631 Urine Leukocyte Esterase March 09, 2020 5:30am NEGATIVE NEGATIVE [facility] Main Lab, 4 [facility] 81321 Specific [place]lin December 21, 2019 3:34pm 1.025 1.001 -1.035 [facility] Main Lab, 4 [facility] 08120 Urine Leukocyte Esterase December 21, 2019 3:34pm NEGATIVE NEGATIVE [facility] Main Lab, 4 [facility] 87441 Urine Nitrite December 21, 2019 3:34pm NEGATIVE NEGATIVE [facility] Main Lab, 4 [facility] [address]85 Urine pH December 21, 2019 3:34pm 7.0 5.0-9.0 [facility] Main Lab, 4 [facility] 67441 Urine Protein December 21, 2019 3:34pm NEGATIVE NEGATIVE [facility] Main Lab, 4 [facility] 28490 Urine Glucose December 21, 2019 3:34pm NEGATIVE NEGATIVE [facility] Main Lab, 4 [facility] 75447 Urine Ketones December 21, 2019 3:34pm NEGATIVE NEGATIVE [facility] Main Lab, 4 [facility] 52106 Urine Urobilinogen December 21, 2019 3:34pm NORMAL(0.2-1) 0-1 [facility] Main Lab, 4 [facility] 28665 Urine Bilirubin December 21, 2019 3:34pm NEGATIVE NEGATI VE [facility] Main Lab, 4 [facility] 84735 Urine Blood December 21, 2019 3:34pm NEGATIVE NEGATIVE [facility] Main Lab, 4 [facility] 61511 Urine Microscopic RBC December 29, 2019 2:36pm NONE SEEN 0-3 [facility] Main Lab, 4 [facility] 28014 Urine Microscopic WBC December 29, 2019 2:36pm 0-2 0-5 [facility] Main Lab, 4 [facility] 57349 Urine Epithelial Cells December 29, 2019 2:36pm 3+ 0 [facility] Main Lab, 4 [facility] 42061 Urine Bacteria December 29, 2019 2:36pm 1+ NONE SEEN [facility] Main Lab, 4 [facility] 41726 Glucose Level March 09, 2020 3:30am 101 74-106 [facility] Main Lab, 4 [facility] 24928 Lactic Acid Level March 09, 2020 3:30am 2.0 0.4-2 .0 [facility] Main Lab, 4 [facility] 66756 Blood Urea Nitrogen March 09, 2020 3:30am 15 7-1 8 [facility] Main Lab, 4 [facility] 36618 Creatinine March 09, 2020 3:30am 0.87 0.6-1.0 [facility] Main Lab, 4 [facility] 85667 Sodium Level March 09, 2020 3:30am 138 136-145 [facility] Main Lab, 4 [facility] 00603 Potassium Level March 09, 2020 3:30am 3.9 3.5-5.1 [facility] Main Lab, 4 [facility] 23132 Chloride Level March 09, 2020 3:30am 100 98-107 [facility] Main Lab, 4 [facility] 22777 Carbon Dioxide Level March 09, 2020 3:30am 24 21 -32 [facility] Main Lab, 4 [facility] 84825 Calcium Level March 09, 2020 3:30am 9.6 8.5-10.1 [facility] Main Lab, 4 [facility] 35703 Anion Gap March 09, 2020 3:30am 14.0 5-12 [facility] Main Lab, 4 [facility] 33815 Estimated GFR (MDRD) March 09, 2020 3:30am 76 GFR IS CALCULATED IN mL/min/1.73m2 NORMAL FUNCTION: >90MILDLY DECREASED: 60-89MILDY TO MODERATELY DECREASED: 45-59 MODERATELY TO SEVERELY DECREASED: 30-44SEVERELY DECREASED: 15-29RENAL FAILURE: <15 [facility] Main Lab, [address] [place] [address] Aspartate Amino Transf (AST/SGOT) March 09, 2020 3:30am 27 15-37 [facility] Main Lab, [address] [place] [address] Alanine Aminotransferase (ALT/SGPT) March 09, 2020 3:30am 52 12-78 [facility] Main Lab, 4 [place] [address] Alkaline Phosphatase March 09, 2020 3:30am 33 46 -116 [facility] Main Lab, 4 [facility] [address]391 Total Bilirubin March 09, 2020 3:30am 0.4 0.2-1.0 [facility] Main Lab, 4 [facility] 03496 Total Protein March 09, 2020 3:30am 7.7 6.4-8.2 [facility] Main Lab, 4 [facility] 08118 Albumin March 09, 2020 3:30am 4.0 3.4-5.0 [facility] Main Lab, 4 [facility] 09176 Lipase March 09, 2020 3:30am 64 73-393 [facility] Main Lab, 4 [facility] 45156 Magnesium Level March 09, 2020 3:30am 2.0 1.8-2.4 [facility] Main Lab, 4 [facility] 25707 Urine HCG, Qualitative December 29, 2019 2:36pm NEGATIVE NE GATIVE [facility] Main Lab, [address] [place] [address] Adenovirus (PCR) December 22, 2019 1:28am Not Detected [facility] Main Lab, 4 [facility] 16320 Coronavirus Type 229E (PCR) December 22, 2019 1:28am Not Detected Not [facility] Main Lab, 4 [facility] 27405 Coronavirus Type HKU1 (PCR) December 22, 2019 1:28am Not Detected [facility] Main Lab, 4 [facility] 59313 Coronavirus Type NL63 (PCR) December 22, 2019 1:28am Not Detected [facility] Main Lab, 4 [facility] 78404 Coronavirus Type OC43 (PCR) December 22, 2019 1:28am Not Detected Not [facility] Main Lab, 4 [facility] 19045 Coronavirus (COVID-19)(PCR) December 22, 2019 1:28am Not Detected Not [facility] Main Lab, 4 [facility] 92186 Human Metapneumovirus (PCR) December 22, 2019 1:28am Not Detected Not [facility] Main Lab, 4 [facility] 71384 Rhinovirus (PCR) December 22, 2019 1:28am Not Detected [facility] Main Lab, 4 [facility] 60958 Influenza Type A (RT-PCR) December 22, 2019 1:28am Not Detected Not [facility] Main Lab, 4 [facility] 39767 Influenza Type B (RT-PCR) December 22, 2019 1:28am Not Detected Not [facility] Main Lab, 4 [facility] 59355 Parainfluenza Type 1 (PCR) December 22, 2019 1:28am Not Detected Not [facility] Main Lab, 4 [facility] 36461 Parainfluenza Type 2 (PCR) December 22, 2019 1:28am Not Detected Not [facility] Main Lab, 4 [facility] 45245 Parainfluenza Type 3 (PCR) December 22, 2019 1:28am Not Detected Not [facility] Main Lab, 4 [facility] 90942 Parainfluenza Type 4 (PCR) December 22, 2019 1:28am Not Detected Not [facility] Main Lab, 4 [facility] 68319 Respiratory Syncytial Virus (PCR) December 22, 2019 1:28am Not Detecte d Not [facility] Main Lab, [address] [place] [address] Bordetella parapertussis DNA (PCR) December 22, 2019 1:28am Not Detec donny Not [facility], [address] [place] [address] Bordetella pertussis DNA (PCR) December 22, 2019 1:28am Not Detected Not [facility], [address] [place] [address] Chlamydia pneumoniae December 22, 2019 1:28am Not Detected N ot [facility], [address] [place] [address] Mycoplasma pneumoniae December 22, 2019 1:28am Not Detected Not The Above results have been determined by using the [employer] FilmArray system.FilmArray is an automated in vitro diagnostic system thatutilizes nested multiplex Polymerase Chain Reaction (PCR)and high-resolution melting analysis to detect and identifymultiple nucleic acid targets from clinical specimens. [facility], [address] [place] [address] Blood Culture (LAB) March 09, 2020 3:40am SENT TO [facility], [address] [place] [address] Diagnostic Imaging Reports Report Dictated Date/Time Dictated By Status PS360 TEMPLATE December 20, 2019 4:38pm KEZIA [place] Patient Name: RITA ROSA Unit#: [id number] Rad#: [id number] : 90 Status: REG SONYA Whittington MD: HALLE AN Room/Bed Sex: F Missing Persons Investigator: Sylvia Magallon Date: 12/20/19 Report #: [id number] Signed - ABD/PEL NO CONTRAST ORIGINAL REPORT [...] [place] leted Patient Name: RITA ROSA Unit#: [id number] Rad#: [id number] : 90 Status: TAD Whittington MD: [place] OLVERA Room/Bed Sex: F Missing Persons Investigator: Ronit Guevara Date: 12/21/19 Report #: [id number] Signed - ABD/PEL NO CONTRAST ORIGINAL REPORT [...] [place] ed Patient Name: RITA ROSA Unit#: [id number] Rad#: [id number] : 90 Status: REG SONYA Whittington MD: MINH VIGIL Room/Bed Sex: Lauren Missing Persons Investigator: Nehemiah Lilly Date: 12/29/19 Report #: [id number] Signed - ABDOMEN (KUB) ORIGINAL REPORT DATE [...] CHRIS MCKEON Patient Name: RITA ROSA Unit#: [id number] [facility]#: [id number] [id number]: REG SONYA Whittington MD: DARLEEN FRITZ @ Room/Bed Sex: F Missing Persons Investigator: Irais Pedro Date: 02/09/20 Report #: [id number] Signed - ABD/PEL WITH IV CONTRAST ORIGINAL [...] for Visit Reason for Visit SEVERE ABDOMINAL PAIN Encounters Encounter Location(s) Arrival/Admit Date Discharge/Depart Date Provider(s) [facility] March 09, 2020 2:53a m March 09, 2020 6:31am [place] OLVERA [facility] March 04, 2020 9:03a m March 04, 2020 11:09am PHYLLIS HERNANDEZ [facility] February 09, 2020 5:16a m February 09, 2020 10:06am DARLEEN FRITZ @[facility] December 29, 2019 2:14pm December 29, 2019 6:45pm MINH VIGIL [facility] December 21, 2019 2: 33pm December 22, 2019 12:30pm [place] OLVERA [facility] December 20, 2019 2:18 pm December 20, 2019 5:14pm HALLE AN Assessments No Assessments Information Available Functional Status No Functional Status information available Goals No Goals Information Available Immunizations No Immunization Information Available Mental Status No Mental Status Information Available Medical Equipment No Medical Equipment Information available Insurance Providers Guarantor RITA ROSA Address [address] [place] [address] Contact Info. Home Phone: Payer Policy Id Coverage Id Subscriber's Name Subscriber Id Effect carlin Date Expiration Date [facility] [id number] RITA ROSA Social History Assigned Sex Female Vital Signs No vital signs result information available.
--- OUTSIDE RECORDS SUMMARY | 2020-04-11 13:47 | CCD ---
Author Author [facility] Organization [facility] Address Unknown Phone Unavailable Care Team Providers Care Laundromat Worker Name Role Phone PETROFF, NICKIE PA Unavailable Unavailable PETROFF, NICKIE PA Unavailable Unavailable PETROFF, NICKIE PA Unavailable Unavailable PETROFF, NICKIE PA Unavailable Unavailable PETROFF, NICKIE PA Unavailable Unavailable PETROFF, NICKIE PA Unavailable Unavailable PETROFF, NICKIE PA Unavailable Unavailable PETROFF, NICKIE PA Unavailable Unavailable SYMENOW, G CHRISTOPHER PA Unavailable Unavailable SYMENOW, G CHRISTOPHER PA Unavailable Unavailable SYMENOW, G CHRISTOPHER PA Unavailable Unavailable SYMENOW, G CHRISTOPHER PA Unavailable Unavailable SYMENOW, G CHRISTOPHER PA Unavailable Unavailable SYMENOW, G CHRISTOPHER PA Unavailable Unavailable SYMENOW, G CHRISTOPHER PA Unavailable Unavailable SYMENOW, G CHRISTOPHER PA Unavailable Unavailable SYMENOW, G CHRISTOPHER PA Unavailable Unavailable SYMENOW, G CHRISTOPHER PA Unavailable Unavailable SYMENOW, G CHRISTOPHER PA Unavailable Unavailable SYMENOW, G CHRISTOPHER PA Unavailable Unavailable SYMENOW, G CHRISTOPHER PA Unavailable Unavailable SYMENOW, G CHRISTOPHER PA Unavailable Unavailable SYMENOW, G CHRISTOPHER PA Unavailable Unavailable SYMENOW, G CHRISTOPHER PA Unavailable Unavailable SYMENOW, G CHRISTOPHER PA Unavailable Unavailable Cope, W Phyllis RPA-C Unavailable Unavailable Cope, W Phyllis RPA-C Unavailable Unavailable Cope, W Phyllis RPA-C Unavailable Unavailable Cope, W Phyllis RPA-C Unavailable Unavailable Cope, W Phyllis RPA-C Unavailable Unavailable Cope, W Phyllis RPA-C Unavailable Unavailable Cope, W Phyllis RPA-C Unavailable Unavailable Cope, W Phyllis RPA-C Unavailable Unavailable Cope, W Phyllis RPA-C Unavailable Unavailable Cope, W Phyllis RPA-C Unavailable Unavailable Cope, W Phyllis RPA-C Unavailable Unavailable Cope, W Phyllis RPA-C Unavailable Unavailable Cope, W Phyllis RPA-C Unavailable Unavailable Cope, W Phyllis RPA-C Unavailable Unavailable Cope, W Phyllis RPA-C Unavailable Unavailable Cope, W Phyllis RPA-C Unavailable Unavailable CATRINA, L DARLEEN PA Unavailable Unavailable CATRINA, L DARLEEN PA Unavailable Unavailable CATRINA, L DARLEEN PA Unavailable Unavailable CATRINA, L DARLEEN PA Unavailable Unavailable CATRINA, L DARLEEN PA Unavailable Unavailable CATRINA, L DARLEEN PA Unavailable Unavailable CATRINA, L DARLEEN PA Unavailable Unavailable CATRINA, L DARLEEN PA Unavailable Unavailable CATRINA, L DARLEEN PA Unavailable Unavailable CATRINA, L DARLEEN PA Unavailable Unavailable CATRINA, L DARLEEN PA Unavailable Unavailable CATRINA, L DARLEEN PA Unavailable Unavailable CATRINA, L DARLEEN PA Unavailable Unavailable CATRINA, L DARLEEN PA Unavailable Unavailable CATRINA, L DARLEEN PA Unavailable Unavailable CATRINA, L DARLEEN PA Unavailable Unavailable CATRINA, L DARLEEN PA Unavailable Unavailable CATRINA, L DARLEEN PA Unavailable Unavailable CATRINA, L DARLEEN PA Unavailable Unavailable NATALIYA, HALLE PA Unavailable Unavailable NATALIYA, HALLE PA Unavailable Unavailable NATALIYA, HALLE PA Unavailable Unavailable NATALIYA, HALLE PA Unavailable Unavailable NATALIYA, HALLE PA Unavailable Unavailable NATALIYA, HALLE PA Unavailable Unavailable NATALIYA, HALLE PA Unavailable Unavailable NATALIYA, HALLE PA Unavailable Unavailable NATALIYA, HALLE PA Unavailable Unavailable NATALIYA, HALLE PA Unavailable Unavailable NATALIYA, HALLE PA Unavailable Unavailable NATALIYA, HALLE PA Unavailable Unavailable NATALIYA, HALLE PA Unavailable Unavailable NATALIYA, HALLE PA Unavailable Unavailable NATALIYA, HALLE PA Unavailable Unavailable Josiah Mcfadden MD Unavailable Unavailable Josiah Mcfadden MD Unavailable Unavailable Josiah Mcfadden MD Unavailable Unavailable Dombek-Lang, Josiah EarlPatricia MD Unavailable Unavailable Dombek-Lang, Josiah EarlPatricia MD Unavailable Unavailable Dombek-Lang, Josiah Gomez MD Unavailable Unavailable Dombek-Lang, Josiah EarlPatricia MD Unavailable Unavailable Dombek-Lang, Josiah Gomez MD Unavailable Unavailable Dombek-Lang, V Patricia MD Unavailable Unavailable Dombek-Lang, V Patricia MD Unavailable Unavailable Dombek-Lang, Josiah Gomez MD Unavailable Unavailable Dombek-Lang, V Patricia MD Unavailable Unavailable Dombek-Lang, V Patricia MD Unavailable Unavailable Dombek-Lang, V Patricia MD Unavailable Unavailable Dombek-Lang, V Patricia MD Unavailable Unavailable Dombek-Lang, V Patricia MD Unavailable Unavailable Dombek-Lang, Josiah Gomez MD Unavailable Unavailable Dombek-Lang, Josiah Gomez MD Unavailable Unavailable Dombek-Lang, V Patricia CRUZ Unavailable Unavailable Dombek-Lang, Josiah Gomez MD Unavailable Unavailable Dombek-Lang, Josiah Gomez MD Unavailable Unavailable Dombek-Lang, Josiah Gomez MD Unavailable Unavailable Dombek-Lang, Josiah Gomez MD Unavailable Unavailable Dombek-Lang, Josiah Gomez MD Unavailable Unavailable Marcusbek-LangJosiah MD Unavailable Unavailable Dombek-Lang, Josiah Gomez MD Unavailable Unavailable Dombek-LangJosiah MD Unavailable Unavailable Dombek-Lang, Josiah Gomez MD Unavailable Unavailable aMrcusbek-LangJosiah MD Unavailable Unavailable Marcusbek-LangJosiah MD Unavailable Unavailable Dombek-LangJosiah MD Unavailable Unavailable Dombek-LangJosiah MD Unavailable Unavailable Dombek-Lang, V Patricia CRUZ Unavailable Unavailable Dombek-Lang, V Patricia MD Unavailable Unavailable Dombek-Lang, V Patricia CRUZ Unavailable Unavailable Dombek-Lang, V Patricia MD Unavailable Unavailable Richards, Emil PA Unavailable Unavailable Richards, Emil PA Unavailable Unavailable Richards, Emil PA Unavailable Unavailable Richards, Emil PA Unavailable Unavailable Richards, Emil PA Unavailable Unavailable Richards, Emil PA Unavailable Unavailable Richards, Emil PA Unavailable Unavailable Richards, Emil PA Unavailable Unavailable Richards, Emil PA Unavailable Unavailable Richards, Emil PA Unavailable Unavailable Richards, Emil PA Unavailable Unavailable Richards, Emil PA Unavailable Unavailable CRANE, W ADI PA Unavailable Unavailable CRANE, W ADI PA Unavailable Unavailable CRANE, W ADI PA Unavailable Unavailable CRANE, W ADI PA Unavailable Unavailable CRANE, W ADI PA Unavailable Unavailable CRANE, W ADI PA Unavailable Unavailable CRANE, W ADI PA Unavailable Unavailable CRANE, W ADI PA Unavailable Unavailable CRANE, W ADI PA Unavailable Unavailable CRANE, W ADI PA Unavailable Unavailable CRANE, W ADI PA Unavailable Unavailable CRANE, W ADI PA Unavailable Unavailable CRANE, W ADI PA Unavailable Unavailable CRANE, W ADI PA Unavailable Unavailable CRANE, W ADI PA Unavailable Unavailable CRANE, W ADI PA Unavailable Unavailable CRANE, W ADI PA Unavailable Unavailable CRANE, W ADI PA Unavailable Unavailable CRANE, W ADI PA Unavailable Unavailable CRANE, W ADI PA Unavailable Unavailable CRANE, W ADI PA Unavailable Unavailable CRANE, W ADI PA Unavailable Unavailable CRANE, W ADI PA Unavailable Unavailable CRANE, W ADI PA Unavailable Unavailable CRANE, W ADI PA Unavailable Unavailable CRANE, W ADI PA Unavailable Unavailable CRANE, W ADI PA Unavailable Unavailable CRANE, W ADI PA Unavailable Unavailable CRANE, W ADI PA Unavailable Unavailable CRANE, W ADI PA Unavailable Unavailable CRANE, W ADI PA Unavailable Unavailable CRANE, W ADI PA Unavailable Unavailable CRANE, W ADI PA Unavailable Unavailable CRANE, W ADI PA Unavailable Unavailable CRANE, W ADI PA Unavailable Unavailable CRANE, W ADI PA Unavailable Unavailable CRANE, W ADI PA Unavailable Unavailable CRANE, W ADI PA Unavailable Unavailable CRANE, W ADI PA Unavailable Unavailable CRANE, W ADI PA Unavailable Unavailable CRANE, W ADI PA Unavailable Unavailable CRANE, W ADI PA Unavailable Unavailable CRANE, W ADI PA Unavailable Unavailable CRANE, W ADI PA Unavailable Unavailable CRANE, W ADI PA Unavailable Unavailable CRANE, W ADI PA Unavailable Unavailable ABELINO HUNTER MD Unavailable Unavailable ABELINO HUNTER MD Unavailable Unavailable ABELINO HUNTER MD Unavailable Unavailable ABELINO HUNTER MD Unavailable Unavailable TEGANLARRY MCCULLOUGH PA Unavailable Unavailable TEGANLARRY MCCULLOUGH PA Unavailable Unavailable TEGAN, LARRY JESSICA PA Unavailable Unavailable TEGAN, LARRY JESSICA PA Unavailable Unavailable TEGAN, LARRY JESSICA PA Unavailable Unavailable TEGAN, LARRY JESSICA PA Unavailable Unavailable TEGAN, LARRY JESSICA PA Unavailable Unavailable TEGAN, LARRY JESSICA PA Unavailable Unavailable TEGAN, LARRY JESSICA PA Unavailable Unavailable TEGAN, LARRY JESSICA PA Unavailable Unavailable TEGAN, LARRY JESSICA PA Unavailable Unavailable TEGAN, LARRY JESSICA PA Unavailable Unavailable TEGAN, LARRY JESSICA PA Unavailable Unavailable TEGAN, LARRY JESSICA PA Unavailable Unavailable TEGAN, LARRY JESSICA PA Unavailable Unavailable TEGAN, LARRY JESSICA PA Unavailable Unavailable TEGAN, LARRY JESSICA PA Unavailable Unavailable TEGAN, LARRY JESSICA PA Unavailable Unavailable TEGAN, LARRY JESSICA PA Unavailable Unavailable TEGAN, LARRY JESSICA PA Unavailable Unavailable TEGAN, LARRY JESSICA PA Unavailable Unavailable Cope, W Phyllis RPA-C Unavailable Unavailable Cope, W Phyllis RPA-C Unavailable Unavailable Cope, W Phyllis RPA-C Unavailable Unavailable Cope, W Phyllis RPA-C Unavailable Unavailable Cope, W Phyllis RPA-C Unavailable Unavailable Cope, W Phyllis RPA-C Unavailable Unavailable Cope, W Phyllis RPA-C Unavailable Unavailable Cope, W Phyllis RPA-C Unavailable Unavailable Cope, W Phyllis RPA-C Unavailable Unavailable Cope, W Phyllis RPA-C Unavailable Unavailable Cope, W Phyllis RPA-C Unavailable Unavailable Cope, W Phyllis RPA-C Unavailable Unavailable Cope, W Phyllis RPA-C Unavailable Unavailable Cope, W Phyllis RPA-C Unavailable Unavailable Cope, W Phyllis RPA-C Unavailable Unavailable Cope, W Phyllis RPA-C Unavailable Unavailable Abimael Bales Unavailable Unavailable Abimael Bales Unavailable Unavailable MARTHA, Yariel TUCKER MD Unavailable Unavailable MARTHA, Yariel TUCKER MD Unavailable Unavailable MARTHA, Yariel TUCKER MD Unavailable Unavailable MARTHA, Yariel TUCKER MD Unavailable Unavailable MARTHA, Yariel TUCKER MD Unavailable Unavailable MARTHA, Yariel TUCKER MD Unavailable Unavailable MARTHA, Yariel TUCKER MD Unavailable Unavailable MARTHA, Yariel TUCKER MD Unavailable Unavailable Cliff TRAORE KIN DO Unavailable Unavailable EUGENIE, J KIN DO Unavailable Unavailable EUGENIE, J KIN DO Unavailable Unavailable EUGENIE, J KIN DO Unavailable Unavailable EUGENIE, J KIN DO Unavailable Unavailable EUGENIE, J KIN DO Unavailable Unavailable EUGENIE, Cliff KIN DO Unavailable Unavailable EUGENIE, J KIN DO Unavailable Unavailable EUGENIE, Cliff KIN DO Unavailable Unavailable WERBLIN, Esteban. PHYLLIS Unavailable [phone] WERBLIN, Esteban. PHYLLIS Unavailable [phone] WERBLIN, Esteban. PHYLLIS Unavailable [phone] WERBLIN, Esteban. PHYLLIS Unavailable [phone] WERBLIN, Luigi FERGUSON Unavailable [phone] [facility] [place] Unavailable Unavailable Bartoszewski, Aparna Jacque MS, RPA-C Unavailable Unav ailable Bartoszewski, Aparna Jacque MS, RPA-C Unavailable Unav ailable Bartoszewski, Aparna Jacque MS, RPA-C Unavailable Unav ailable Bartoszewski, Aparna Jacque MS, RPA-C Unavailable Unav ailable Bartoszewski, Aparna Jacque MS, RPA-C Unavailable Unav ailable Bartoszewski, Aparna Jacque MS, RPA-C Unavailable Unav ailable Bartoszewski, Aparna Jacque MS, RPA-C Unavailable Unav ailable Bartoszewski, Aparna Jacque MS, RPA-C Unavailable Unav ailable Bartoszewski, Aparna Jacque MS, RPA-C Unavailable Unav ailable Bartoszewski, Aparna Jacque MS, RPA-C Unavailable Unav ailable Bartoszewski, Aparna Jacque MS, RPA-C Unavailable Unav ailable Bartoszewski, Aparna Jacque MS, RPA-C Unavailable Unav ailable Bartoszewski, Aparna Jacque MS, RPA-C Unavailable Unav ailable Bartoszewski, Aparna Jacque MS, RPA-C Unavailable Unav ailable Bartoszewski, Aparna Jacque MS, RPA-C Unavailable Unav ailable Bartoszewski, Aparna Jacque MS, RPA-C Unavailable Unav ailable Bartoszewski, Aparna Jacque MS, RPA-C Unavailable Unav ailable Bartoszewski, Aparna Jacque MS, RPA-C Unavailable Unav ailable Bartoszewski, Aparna Jacque MS, RPA-C Unavailable Unav ailable Bartoszewski, Aparna Jacque MS, RPA-C Unavailable Unav ailable Bartoszewski, Aparna Jacque MS, RPA-C Unavailable Unav ailable Bartoszewski, Apanra Jacque MS, RPA-C Unavailable Unav ailable Bartoszewski, Aparna Jacque MS, RPA-C Unavailable Unav ailable Bartoszewski, Aparna Jacque MS, RPA-C Unavailable Unav ailable Bartoszewski, Aparna Jacque MS, RPA-C Unavailable Unav ailable Bartoszewski, Aparna Jacque MS, RPA-C Unavailable Unav ailable Bartoszewski, Aparna Jacque MS, RPA-C Unavailable Unav ailable Bartoszewski, Aparna Jacque MS, RPA-C Unavailable Unav ailable Bartoszewski, Aparna Jacque MS, RPA-C Unavailable Unav ailable DiVencenzo, Phyllis DO Unavailable Unavailable DiVencenzo, Phyllis DO Unavailable Unavailable DiVencenzo, Phyllis DO Unavailable Unavailable DiVencenzo, Phyllis DO Unavailable Unavailable DiVencenzo, Phyllis DO Unavailable Unavailable SYSTEM IN, NOT IN PROVIDER Unavailable Unavailable Rydberg, Sabrina PA Unavailable Unavailable Rydberg, Sabrina PA Unavailable Unavailable Rydberg, Sabrina PA Unavailable Unavailable Rydberg, Sabrina PA Unavailable Unavailable Rydberg, Sabrina PA Unavailable Unavailable Rydberg, Sabrina PA Unavailable Unavailable Rydberg, Sabrina PA Unavailable Unavailable Rydberg, Sabrina PA Unavailable Unavailable Rydberg, Sabrina PA Unavailable Unavailable Rydberg, Sabrina PA Unavailable Unavailable Rydberg, Sabrina PA Unavailable Unavailable Rydberg, Sabrina PA Unavailable Unavailable Rydberg, Sabrina PA Unavailable Unavailable Rydberg, Sabrina PA Unavailable Unavailable Rydberg, Sabrina PA Unavailable Unavailable Rydberg, Sabrina PA Unavailable Unavailable Rydberg, Sabrina PA Unavailable Unavailable Rydberg, Sabrina PA Unavailable Unavailable Rydberg, Sabrina PA Unavailable Unavailable Rydberg, Sabrina PA Unavailable Unavailable Rydberg, Sabrina PA Unavailable Unavailable Rydberg, Sabrina PA Unavailable Unavailable Re-disclosure Warning The records that you are about to access may contain information from federally-assisted alcohol or drug abuse programs. If such information is present, then the following federally mandated warning applies: This information has been disclosed to you from records protected by federal confidentiality rules (42 CFR part 2). The federal rules prohibit you from making any further disclosure of this information unless further disclosure is expressly permitted by the written consent of the person to whom it pertains or as otherwise permitted by 42 CFR part 2. A general authorization for the release of medical or other information is NOT sufficient for this purpose. The Federal rules restrict any use of the information to criminally investigate or prosecute any alcohol or drug abuse patient.The records that you are about to access may contain highly sensitive health information, the redisclosure of which is protected by Article 27-F of the [facility] Public Health law. If you continue you may have access to information: Regarding HIV / AIDS; Provided by facilities licensed or operated by the [facility] Office of Mental Health; or Provided by the [facility] Office for People With Developmental Disabilities. If such information is present, then the following [facility] mandated warning applies: This information has been disclosed to you from confidential records which are protected by state law. State law prohibits you from making any further disclosure of this information without the specific written consent of the person to whom it pertains, or as otherwise permitted by law. Any unauthorized further disclosure in violation of state law may result in a fine or [place] [facility] sentence or both. A general authorization for the release of medical or other information is NOT sufficient authorization for further disc losure. Allergies and Adverse Reactions Type Description Substance Reaction Status Data Source(s ) DRUG INGREDI METOCLOPRAMIDE METOCLOPRAMIDE Anxiety [facility] [place] DRUG INGREDI SUMATRIPTAN SUMATRIPTAN Other [facility] Drug allergy MDX - Nka - No Known Allergies MDX - Nka - No Known [facility] Family History Family Member Name Family Member Gender Family Member Status Date o f Status Description Data Source(s) Unknown Female Encounters Encounter Providers Location Date Indications Data Source(s ) Outpatient Attender: Sabrina DILLON 04/09/2020 11:19:00 AM [facility] Outpatient Attender: Sabrina DILLON 04/09/2020 10:30:00 AM [facility] Emergency Attender: NICKIE DILLON EMERGENCY ROOM-ER 03/23 11:16:00 AM EST - 04/06/2020 01:20:00 PM [facility] Patient discharged. Outpatient Attender: NJ OLVERA PAConsultant: [facility] [id number] 03/09/2020 08:30:00 AM [facility] Emergency Attender: NJ DILLON EMERGENCY ROOM- ER 03/09/2020 08:02:00 AM [facility] - 03/09/2020 11:31:00 AM [facility] Patient discharged. Emergency Attender: Phyllis LUZC 02:40:00 PM [facility] - 03/04/2020 04:09:00 PM [facility] Patient discharged. Emergency Attender: DARLEEN DILLON EMERGENCY ROOM-ER 11:18:00 AM [facility] - 02/09/2020 03:06:00 PM [facility] Patient discharged. Outpatient Attender: Patricia Mcfadden MDConsultant: [facility] [id number] 12/29/2019 09:40:00 PM EDT [facility] Emergency Attender: Emil Richards PAAdayaender: NIKKIE DILLON EMERGENCY ROOM-ER 12/29/2019 07:33:00 PM EDT - 12/29/2019 10:45:00 PM EDT [facility] Patient discharged. Inpatient Attender: ABELINO HUNTER MDReferrer: ABELINO HUNTER MD 12/22/2019 10:13:22 PM EDT [facility] Inpatient Attender: Andrei Sheridan er: ABELINO HUNTER MDAdmitter: Andrei Cosme: PROVIDER SYSTEM IN [id number]-0512/22/2019 12:00:00 A M EDT - 12/25/2019 01:57:00 PM EDT Unspecified intestinal obstruction, unsp ecified as to partial versus complete obstruction [facility] Unspecified intestinal obstruction, unsp ecified as to partial versus complete obstruction Patient discharged. Inpatient Attender: NJ Melgar PAAdayaender: DARLEEN LOZADAdmitter: Phyllis Carranza DO EMERGENCY ROOM-OBS UNIT 12/21/2019 09:59:00 PM EDT - 12/22/2019 04:30:00 PM EDT [facility] Patient discharged. Emergency Attender: HALLE AN PAAttender: NIKKIE DILLON EMERGENCY ROOM-ER 12/20/2019 08:09:00 PM EDT - 12/20/2019 09:14:00 PM [facility] Patient discharged. Emergency Attender: Phyllis STEWART EMERGENCY ROOM-ER 0 11/13/2019 10:30:00 AM EDT - 11/13/2019 12:55:00 PM [facility] Patient discharged. Outpatient Attender: Phyllis LUZCConsultant: [facility] [id number] [facility]EN D[facility]ON EMERGENCY ROOM-ER 05:29:00 PM EDT - [facility]ender: JESSICA DILLON 03:30:00 PM EDT - 10/03/2019 04:55:00 PM [facility] Patient discharged. Emergency Attender: DARLEEN DILLON EMERGENCY ROOM-ER 11:38:00 AM EDT - 09/12/2019 04:28:00 PM [facility] Patient discharged. Emergency Attender: NICKIE DILLON EMERGENCY ROOM-ER 06/22 03:47:00 PM EDT - 07/16/2019 07:28:00 PM [facility] Patient discharged. Emergency Attender: DARLEEN DILLON EMERGENCY ROOM-ER 11:31:00 AM EDT - 10/31/2018 03:00:00 PM [facility] Patient discharged. Emergency Attender: PHYLLIS CADE EMERGENCY ROOM-ER 12/15 03:33:00 PM EDT - 12/16/2015 07:10:00 PM [facility] Emergency Attender: GARRETT THOMAS MD EMERGENCY ROOM-E R 02/07/2014 11:15:00 AM [facility] - 02/07/2014 01:35:00 PM [facility] Emergency Attender: ADI DILLON 01:22:00 PM [facility] - 03/17/2013 03:06:00 PM [facility] Outpatient Attender: Jacque Zurita MS, PAT EMERGENC Y ROOM-RAD 03/15/2012 10:24:00 AM [facility] - 03/15/2012 10:24:00 AM EST [facility] Emergency Attender: KIN TRAORE DO EMERGENCY ROOM-ER 05:55:00 AM [facility] - 03/14/2012 01:33:00 PM [facility] Immunizations Vaccine Date Status Description Data Source(s) New in 2011. IIV4 12/23/2019 12:00:00 AM EDT completed In [facility] IM Pres Free (0.5 mL dose) 12/23/2019 [facility] Medications Medication Brand Name Start Date Product Form Dose Route Admi nistrative Instructions Pharmacy Instructions Status Indications Reaction Description Data Source(s) 500 mg 04/09/2020 12:00:00 AM EST tablet 20 TAKE ONE TABLET BY MOUTH EVERY 12 HOURS WITH FOOD OR MILK TAKE ONE TABLET BY MOUTH EVERY 12 HOURS WITH FOOD OR MILK SOLD: 04/09/2020 [facility] 875-125 mg 03/04/2020 12:00:00 AM EST tablet 20 TAKE ONE TABLET BY MOUTH TWICE A DAY TAKE ONE TABLET BY MOUTH TWICE A DAY SOLD: 03/04/2020 [facility] 5-325 mg 02/09/2020 12:00:00 AM EST tablet 12 TAKE ONE TO TWO TABLETS BY MOUTH EVERY 4 TO 6 HOURS WHILE AWAKE NEEDED FOR PAIN MAXIMUM DAILY DOSE = 12 TAKE ONE TO TWO TABLETS BY MOUTH EVERY 4 TO 6 HOURS WHILE AWAKE NEEDED FOR PAIN MAXIMUM DAILY DOSE = 12 SOLD: 02/09/2020 [facility] pantoprazole 40 MG Delayed Release Oral Tablet Pantoprazole Sodium 40 MG Oral Tablet Delayed Release (PROTONIX) Pantoprazole Sodium 40 MG Oral Tablet De layed Release (PROTONIX) 12/26/2019 12:00:00 AM EDT 40 mg Oral active Take 1 tablet by mouth daily [facility] pantoprazole 40 MG Delayed Release Oral Tablet pantoprazole (PROTONIX) EC tablet 40 mg pantoprazole (PROTONIX) EC tablet 40 mg 12/25/2019 09:00:00 AM E DT 40 mg Oral active 40 mg, Ora l, Daily Standard, First dose on 12/25/19 at 0900, For 30 days
Do not crush or chew
[facility] Medication administered onsite Cyclobenzaprine hydrochloride 10 MG Oral Tablet CYCLOBENZAPR INE HCL 12/25/2019 12:00:00 AM EDT tablet 40 TAKE ONE TABLET BY MOUTH TWICE A DAY NEEDED MAXIMUM DAILY DOSE = 2 TAKE ONE TABLET BY MOUTH TWICE A DAY NEEDED MAXIMUM DAILY DOSE = 2 SOLD: 12/25/2019 [facility] 50 mg 12/25/2019 12:00:00 AM EDT tablet 8 TAKE ONE TABLET BY MOUTH EVERY 6 HOURS NEEDED MAXIMUM DAILY DOSE = 4 TAKE ONE TABLET BY MOUTH EVERY 6 HOURS A S NEEDED MAXIMUM DAILY DOSE = 4 SOLD: 12/25/2019 [facility] tramadol hydrochloride 50 MG Oral Tablet traMADol HCl 50 MG Oral Tablet (ULTRAM) traMADol HCl 50 MG Oral Tablet (ULTRAM) 12/25/2019 12:00:00 AM EDT 50 mg Oral active Take 1 tablet b y mouth every 6 (six) hours as needed for up to 2 days, Max Daily Dose: 200 mg [facility] Acetaminophen 325 MG Oral Tablet Acetaminophen 325 MG Oral T ablet 12/25/2019 12:00:00 AM EDT 650 mg Oral active Take 2 tablets by mouth every 8 (eight) hours [facility] 15 mg 12/25/2019 12:00:00 AM EDT tablet 20 TAKE ONE TABLET BY MOUTH EVERY DAY TAKE ONE TABLET BY MOUTH EVERY DAY SOLD: 12/25/2019 [facility] meloxicam 15 MG Oral Tablet Meloxicam 15 MG Oral Table t (Mobic) Meloxicam 15 MG Oral Tablet (Mobic) 12/25/2019 12:00:00 AM EDT 15 mg Oral active Take 1 tablet by mouth daily [facility] Cyclobenzaprine hydrochloride 10 MG Oral Tablet Cyclobenzaprine HCl 10 MG Oral Tablet (FLEXERIL) Cyclobenzaprine HCl 10 MG Oral Tablet (FLEXERIL) 12/24 12:00:00 AM EDT 10 mg Oral active Take 1 tablet by mouth Two times daily as needed for Muscle spasms [facility] pantoprazole 40 MG Delayed Release Oral Tablet PANTOPRAZOLE SODIUM 12/25/2019 12:00:00 AM EDT tablet,delayed release (DR/EC) 30 T WINTER ONE TABLET BY MOUTH EVERY DAY TAKE ONE TABLET BY MOUTH EVERY DAY SOLD: 12/25/2019 [facility] Benzocaine 15 MG / Menthol 3.6 MG Oral L ozenge benzocaine-menthol (CEPACOL) 15- 3.6 MG per lozenge 1 lozenge benzocaine-menthol (CEPACOL) 15-3.6 MG p er lozenge 1 lozenge 12/24/2019 01:19:36 PM EDT 1 {lozenge} Mouth/Throat active 1 lozenge, Mouth/Throat, Every 2 hours PRN, Sore Throat, Starting 12/24/19 at 1319, For 30 days [facility] Medication administered onsite potassium chloride (K-DUR) dissolvable tablet 40 mEq 12585-5 [id number] 12/24/2019 12:15:00 PM EDT 40 meq Oral completed 40 mEq, Oral, Once, 12/24/19 at 1215, For 1 dose
May be dissolved in water for patients with a G-Tube or unable to swallow. If concern for clogging G-Tube, may contact Pharmacy to switch formulation to a powder packet.
[facility] Medication administered onsite tramadol hydrochloride 50 MG Oral Tablet tramadol (ULT KAMINI) tablet 50 mg tramadol (ULTRAM) tablet 50 mg 12/24/2019 12:07:47 PM EDT 50 mg Oral active 50 mg, Oral, Every 6 hours PRN, Moderate Pain (Pain Scale Score 4-6), Starting 12/24/19 at 1207, For 3 days [facility] Medication administered onsite Furosemide 20 MG Oral Tablet furosemide (LASIX) tablet 20 mg furosemide (LASIX) tablet 20 mg 12/24/2019 12:07:14 PM EDT 20 mg Oral activ e 20 mg, Oral, Daily PRN, Swelling, Starting 12/24/19 at 1207, For 30 days [facility] Medication administered onsite Dicyclomine Hydrochloride 10 MG Oral Capsule dicyclomi ne (BENTYL) capsule 10 mg dicyclomine (BENTYL) capsule 10 mg 12/24/2019 12:06:32 PM EDT 10 mg Oral active 10 mg, Oral, 2 Times Daily PRN, Spastic pain, Starting 12/24/19 at 1206, For 30 days [facility] Medication administered onsite Cyclobenzaprine hydrochloride 10 MG Oral Tablet cyclobenzaprine (FLEXERIL) tablet 10 mg cyclobenzaprine (FLEXERIL) tablet 10 mg 12/24/2019 12:05:52 PM EDT 10 mg Oral active 10 mg, Oral, 2 T imes Daily PRN, Muscle spasms, Starting 12/24/19 at 1205, For 30 days [facility] Medication administered onsite pantoprazole 4 MG/ML Injectable Solution pantoprazole (PROTONIX) injection 40 mg pantoprazole (PROTONIX) injection 40 mg 12/24/2019 09:00:00 AM EDT 40 mg Intravenous aborted 40 mg, Intrav enous, Daily Standard, First dose on 12/24/19 at 0900, For 30 days [facility] Medication administered onsite Acetaminophen 325 MG Oral Tablet acetaminophen (TYLENO L) tablet 975 mg acetaminophen (TYLENOL) tablet 975 mg 12/24/2019 08:30:00 AM EDT 97 5 mg Oral active 975 mg, Oral, E very 8 hours, First dose on 12/24/19 at 0830, For 30 days
Maximum daily dose of acetaminophen is 3,000 mg from all sources in 24 hours.
[facility] Medication administered onsite Oxycodone Hydrochloride 5 MG Oral Tablet oxyCODONE (ROXICODONE) immediate release tablet 5 mg oxyCODONE (ROXICODONE) immediate release tablet 5 mg 12/24/2019 08:16:51 AM EDT 5 mg Oral aborted 5 mg, Oral, Every 4 hours PRN, Moderate Pain (Pain Scale Score 4-6), Starting 12/24/19 at 0816, For 3 days
Oxycodone immediate release is limited to 10 mg per dose. Higher doses ( only) require Pain Service consultation and approval.
[facility] Medication administered onsite Acetaminophen 10 MG/ML Injectable Soluti on acetaminophen (OFIRMEV) infusion 1,000 mg acetaminophen (OFIRMEV) infusion 1,000 mg 12/23/2019 10:39:15 PM EDT 1000 mg Intravenous aborted 1,000 mg , Intravenous, Administer over 15 Minutes, Every 8 hours PRN, Mild Pain (Pain Scale Score 1-3), Moderate Pain (Pain Scale Score 4-6), Starting Thu12/23/19 at 2239, For 1 day
Maximum dose 3 gm daily from all sources
[facility] Medication administered onsite influenza vac split quad (FLUARIX) injection 6 months and ol marco a 0.5 mL [id number] 12/23/2019 08:27:06 PM EDT 0.5 mL Intramuscular complet ed 0.5 mL, Intramuscular, Give Now, Starting Thu12/23/19 at 2027, For 1 dose [facility] Medication administered onsite Potassium Chloride 0.1 MEQ/ML Injectable Solution potassium chloride 10 mEq in 100 mL IVPB (premix) potassium chloride 10 mEq in 100 mL IVPB (premix) 12/23/2019 06:00:00 PM EDT 10 meq Intravenous completed 10 mEq, Intravenous, Administer over 60 Minutes, Every 1 hour, First dose on Thu12/23/19 at 1800, For 2 doses [facility] Medication administered onsite 0.4 ML Enoxaparin sodium 100 MG/ML Prefi lled Syringe enoxaparin sodium (LOVENOX) injection 40 mg enoxaparin sodium (LOVENOX) injection 40 mg 12/23/2019 09:00:00 AM EDT 40 mg Subcutaneous active 40 mg, Subcutaneous, Daily Standard, First dose on Thu12/23/19 at 0900, For 30 days [facility] Medication administered onsite ondansetron (ZOFRAN) injection 4 mg [id number] 12/23/2019 02:56:2 5 AM EDT 4 mg Intravenous active 4 mg, In travenous, Every 8 hours PRN, Nausea, Vomiting, Starting Thu12/23/19 at 0256, For 7 days [facility] Medication administered onsite Calcium Chloride 0.0014 MEQ/ML / Potassi um Chloride 0.004 MEQ/ML / Sodium Chloride 0.103 MEQ/ML / Sodium Lactate 0.028 MEQ/ML Injectable Solution lactated ringers infusion lactated ringers infusion 12/22/2019 10:15:00 PM EDT 135 mL/h Intravenous aborted at 135 m L/hr, Intravenous, Continuous, Starting [place] 12/22/19 at 2215, For 30 days [facility] Medication administered onsite fentaNYL (SUBLIMAZE) (PF) injection 25 mcg [id number] 12/22/2019 10:06:32 PM EDT 25 ug Intravenous aborted 25 m cg, Intravenous, Every 3 hours PRN, Other, breakthrough, Starting [place] 12/22/19 at 2206, For 2 days [facility] Medication administered onsite 1 ML Ketorolac Tromethamine 15 MG/ML Car tridge ketorolac (TORADOL) 15 MG/ML injection 15 mg ketorolac (TORADOL) 15 MG/ML injection 15 mg 0 10:06:15 PM EDT 15 mg Intravenous aborted 15 m g, Intravenous, Every 6 hours PRN, Severe Pain (Pain Scale Score 7-10), Starting [place] 12/22/19 at 2206, For 5 days [facility] Medication administered onsite Acetaminophen 10 MG/ML Injectable Soluti on acetaminophen (OFIRMEV) infusion 1,000 mg acetaminophen (OFIRMEV) infusion 1,000 mg 12/22/2019 10:05:59 PM EDT 1000 mg Intravenous completed 1,000 mg , Intravenous, Administer over 15 Minutes, Every 8 hours PRN, Mild Pain (Pain Scale Score 1-3), Moderate Pain (Pain Scale Score 4-6), Starting [place] 12/22/19 at 2205, For 1 day
Maximum dose 3 gm daily from all sources
[facility] Medication administered onsite diphenhydrAMINE (BENADRYL) injection 25 mg [id number] 12/22/2019 09:30:00 PM EDT 25 mg Intravenous completed 25 mg, Intravenous, Once, [place] 12/22/19 at 2130, For 1 dose [facility] Medication administered onsite morphine sulfate (PF) injection 4 mg [id number] 12/22/2019 09:15: 00 PM EDT 4 mg Intravenous completed 4 mg, In travenous, Once, [facility] 12/22/19 at 2115, For 1 dose [facility] Medication administered onsite morphine sulfate (PF) 4 MG/ML injection [id number] 12/22/19 09:07:38 PM EDT completed Starting [facility] at 2107, For 1 dose
Jaquelin Chavis : cabinet override
[facility] Medication administered onsite morphine sulfate (PF) injection 4 mg [id number] 12/22/2019 07:45: 00 PM EDT 4 mg Intravenous completed 4 mg, In travenous, Once, [facility] 12/22/19 at 1945, For 1 dose [facility] Medication administered onsite ondansetron (ZOFRAN) injection 4 mg [id number] 12/22/2019 07:45:0 0 PM EDT 4 mg Given by IV completed 4 mg, Gi thao by IV, Once, [place] 12/22/19 at 1945, For 1 dose [facility] Medication administered onsite Dicyclomine Hydrochloride 10 MG Oral Cap norbert Dicyclomine HCl 10 MG Oral Capsule (BENTYL) Dicyclomine HCl 10 MG Oral Capsule (BENTYL) 12/21/2019 12:00 :00 AM EDT aborted TAKE ONE CAPSULE BY MOUTH TWICE A DAY NEEDED [facility] 10 mg 12/21/2019 12:00:00 AM EDT capsule 15 TAKE ONE CAPSULE BY MOUTH TWICE A DAY NEEDED TAKE ONE CAPSULE BY MOUTH TWICE A DAY NEEDED SOLD: 12/21/2019 [facility] tramadol hydrochloride 50 MG Oral Tablet traMADol HCl 50 MG Oral Tablet (ULTRAM) traMADol HCl 50 MG Oral Tablet (ULTRAM) 10/20/2019 12:00:00 AM EDT aborted TAKE 1 2 TABLETS BY MOUTH EVERY 4 6 HOURS MAXIMUM DAILY DOSE 8 TABLETS [facility] 50 mg 10/20/2019 12:00:00 AM EDT tablet 12 TAKE 1-2 TABLETS BY MOUTH EVERY 4-6 HOURS MAXIMUM DAILY DOSE = 8 TABLETS TAKE 1-2 TABLETS BY MOUTH EVERY 4-6 HOURS MAXIMUM DAILY DOSE = 8 TABLETS SOLD: 10/20/2019 [facility] 4 mg 10/20/2019 12:00:00 AM EDT tablet 12 TAKE ONE TABLET BY MOUTH THREE TIMES A DAY NEEDED TAKE ONE TABLET BY MOUTH THREE TIMES A DAY NEEDED S OLD: 10/20/2019 [facility] 1 mg 10/17/2019 12:00:00 AM EDT tablet 42 TAKE ONE TABLET BY MOUTH THREE TIMES A DAY NEEDED MAXIMUM DAILY DOSE = 3 TAKE ONE TABLET BY MOUTH THREE TIMES A DAY NEEDED MAXIMUM DAILY DOSE = 3 SOLD: 10/17/2019 [facility] Cyclobenzaprine hydrochloride 10 MG Oral Tablet CYCLOBENZAPR INE HCL 10/03/2019 12:00:00 AM EDT tablet 21 TAKE ONE TABLET BY MOUTH EVERY 8 HOURS NEEDED FOR PAIN TAKE ONE TABLET BY MOUTH EVERY 8 HOURS NEEDED FOR PAIN SO LD: 10/03/2019 [facility] Cyclobenzaprine hydrochloride 10 MG Oral Tablet Cyclobenzaprine HCl 10 MG Oral Tablet (FLEXERIL) Cyclobenzaprine HCl 10 MG Oral Tablet (FLEXERIL) 10/02 12:00:00 AM EDT 10 mg Oral aborted Take 10 mg by mouth every 8 (eight) hours as needed For Pain [facility] Furosemide 20 MG Oral Tablet Furosemide 20 MG Oral Tab let (LASIX) Furosemide 20 MG Oral Tablet (LASIX) 10/01/2019 12:00:00 AM EDT active TAKE ONE TABLET BY MOUTH EVERY DAY NEEDED FOR SWELLING [facility] 20 mg 10/01/2019 12:00:00 AM EDT tablet 30 TAKE ONE TABLET BY MOUTH EVERY DAY NEEDED FOR SWELLING TAKE ONE TABLET BY MOUTH EVERY DAY NE EDED FOR SWELLING SOLD: 10/01/2019 [facility] 1 mg 09/12/2019 12:00:00 AM EDT tablet 12 TAKE ONE TABLET BY MOUTH THREE TIMES A DAY NEEDED, MAXIMUM DAILY DOSE = 3 TAKE ONE TABLET BY MOUTH THREE TIMES A DAY NEEDED, MAXIMUM DAILY DOSE = 3 SOLD: 09/12/2019 [facility] 20 mg 09/12/2019 12:00:00 AM EDT tablet 15 TAKE THREE TABLETS BY MOUTH EVERY DAY TAKE THREE TABLETS BY MOUTH EVERY DAY SOLD: 09/12/2019 [facility] Acetaminophen 325 MG / Oxycodone Hydrochloride 5 MG Or al Tablet [Percocet] Percocet 08/02/2019 12:00:00 AM EDT ORAL active [facility] ([facility], ) Acetaminophen 325 MG / Oxycodone Hydroch loride 5 MG Oral Tablet oxyCODONE- Acetaminophen 5-325 MG Oral Tablet (PERCOCET) oxyCODONE-Acetaminophen 5-325 MG Oral Tablet (PERCOCET) 08/02/2019 12:00:00 AM EDT aborted TAKE ONE TABLET BY MOUTH EVERY 4 TO 6 HOURS MAXIMUM DAILY DOSE 4 [facility] Insurance Providers Payer name Policy type / Coverage type Policy ID Covered libertarian ID Covered libertarian's relationship to haque Policy Haque Plan Information [employer] INSUR[employer] CO [id number] SP [id number] [facility] [id number] S U [id number] [facility] [id number] S [id number] CLAIM#[id number] CLAIM#[id number] INSURANCE CLAIM#[id number] S CLAIM#[id number] [facility] [id number] CHILD [id number] [employer] INSURANCE CO O [id number] S [id number] CIGNA U [id number] Self [id number] CIGNA [id number] Jayashree [id number] CIGNA [id number] [employer] [place] [id number] S [id number] [id number] CIG[employer] INSURANCE CO [id number] SP [id number] SELF PAY ONLY [id number] [facility] [id number] [facility] [id number] [id number] Health Net Federal Servic Commercial Family Depend ent SELF PAY SP UNAVAILABLE S UNAVAILA BLE CLAIMS SERVICE [place] [id number] PARENT [id number] [employer] [place] BC [id number] S VYS [id number] [employer] [place] WATN PPO [id number]/[phone] [id number] SP [id number] Problems, Conditions, and Diagnoses Code Display Name Description Problem Type Effective Dates Data Source(s) M62.838 Other muscle spasm OTHER MUSCLE SPASM Diagnosis 01:24:00 PM [facility] Z90.49 Acquired 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 ACQUIRED ABSENCE OF OTHER SPECIFIED PARTS OF DIGES Diagnosis 04/06/2020 11:16:0 0 AM [facility] Z79.899 Other residential (current) drug therapy O THER [facility] (CURRENT) DRUG THERAPY Diagnosis 04/06/2020 11:16:00 AM [facility] Z79.891 long-term (current) use of opiate analge sic [facility] (CURRENT) USE OF OPIATE ANALGESIC Diagnosis 04/06/2020 11:16:00 AM [facility] Z20.822 CONTACT WITH AND (SUSPECTED) EXPOSURE TO COVID-19 CONTACT WITH AND (SUSPECTED) EXPOSURE TO COVID-19 Diagnosis 04/06/2020 11:16:00 AM [facility] J45.909 Unspecified asthma, uncomplicated UNSPECIFIED THMA, UNCOMPLICATED Diagnosis 04/06/2020 11:16:00 AM [facility] R10.31 Right lower quadrant pain RIGHT LOWER QUADRANT PAIN Di agnosis 04/06/2020 11:16:00 AM [facility] Z90.89 Acquired absence of other organs ACQUIRED ABSENC E OF OTHER ORGANS Diagnosis 03/09/2020 08:02:00 AM [facility] Z79.3 long-term (current) use of hormonal cont raceptives 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 Diagnosis 03/09/2020 08:02:00 AM [facility] Z79.2 long-term (current) use of antibiotics L SHARMILA TERM (CURRENT) USE OF ANTIBIOTICS Diagnosis 03/09/2020 08:02:00 AM [facility] G89.29 Other chronic pain OTHER CHRONIC PAIN Diagnosis 08:02:00 AM [facility] R10.11 Right upper quadrant pain RIGHT UPPER QUADRANT PAIN Di agnosis 03/09/2020 08:02:00 AM [facility] R10.9 Unspecified abdominal pain UNSPECIFIED ABDOMINAL PAIN Diagnosis 03/09/2020 08:02:00 AM [facility] H66.001 Acute suppurative otitis med ia without spontaneous rupture of ear drum, right ear ACUTE SUPPR OTITIS MEDIA W/O SPON RUPT EAR DRUM, R Diagnosis 03/04/2020 02:40:00 PM [facility] G43.009 Migraine without aura, not intractable, without status migrainosus MIGRAINE W/O AURA, NOT INTRACTABLE, W/O STATUS MARISA Diagnosis 02:40:00 PM [facility] R51.9 HEADACHE, UNSPECIFIED HEADACHE, UNSPECIFIED Diagnosis 03/04/2020 02:40:00 PM [facility] R10.13 Epigastric pain EPIGASTRIC PAIN Diagnosis 02/09/2020 11:1 8:00 AM [facility] K56.609 Unspecified intestinal obstr uction, unspecified as to partial versus complete obstruction Unspecified intestinal obstruction, unsp ecified as to partial versus complete obstruction Diagnosis 12/22/2019 06:33:00 PM E [facility] concern for SBO, N/V, abd pain concern for SBO, N/V, a bd pain Diagnosis 12/22/2019 06:33:00 PM [facility] Z68.35 Body mass index (BMI) 35.0-35.9, adult B [place] INDEX [BMI] 35.0-35.9, ADULT Diagnosis 12/21/2019 09:59:00 PM [facility] Z20.828 Contact with and (suspected) exposure to other viral communicable diseases CONTACT W AND EXPOSURE TO OTH VIRAL COMMUNICABLE D Diagnosis 12/21/2019 09:59:00 PM [facility] E66.9 Obesity, unspecified OBESITY, UNSPECIFIED Diagnosis 12/21/2019 09:59:00 PM [facility] D64.9 Anemia, unspecified ANEMIA, UNSPECIFIED Diagnosis 0 12/21/2019 09:59:00 PM [facility] N18.2 Chronic kidney disease, stage 2 (mild) C HRONIC KIDNEY DISEASE, STAGE 2 (MILD) Diagnosis 12/21/2019 09:59:00 PM [facility] I12.9 Hypertensive chronic kidney disease with stage 1 through stage 4 chronic kidney disease, or unspecified chronic kidney disease HYPERTENSIVE CHRONIC KIDNEY DISEASE W STG 1-4/UNSP Diagnosis 12/21/2019 09:59:00 PM [facility] K56.7 Ileus, unspecified ILEUS, UNSPECIFIED Diagnosis 09:59:00 PM [facility] K52.9 Noninfective gastroenteritis and colitis , unspecified NONINFECTIVE GASTROENTERITIS AND COLITIS, UNSPECIF Diagnosis 12/20/2019 08:09:00 PM [facility] R10.30 Lower abdominal pain, unspecified LOWER ABDOMINA L PAIN, UNSPECIFIED Diagnosis 12/20/2019 08:09:00 PM [facility] R10.84 Generalized abdominal pain GENERALIZED ABDOMINAL PAIN Diagnosis 11/13/2019 10:30:00 AM [facility] Y92.[address] the place of o ccurrence of the external cause OTH PLACES THE PLACE OF OCCURRENCE OF THE EXTER Diagnosis 03:30:00 PM [facility] X50.1XXA OVEREXERTION FROM PROLONGED STATIC OR AW KWARD POST OVEREXERTION FROM PROLONGED STATIC OR AWKWARD POST Diagnosis 10/03/2019 03:30:00 PM [facility] Y93.01 Activity, walking, marching and hiking A CTIVITY, WALKING, MARCHING AND HIKING Diagnosis 10/03/2019 03:30:00 PM [facility] S43.421A Sprain of right rotator cuff capsule, in itial encounter SPRAIN OF RIGHT ROTATOR CUFF CAPSULE, INITIAL ENCO Diagnosis 10/03/2019 03:30:00 PM [facility] S43.001A Unspecified subluxation of right shoulde r joint, initial encounter UNSPECIFIED SUBLUXATION OF RIGHT SHOULDER JOINT, I Diagnosis 03:30:00 PM [facility] S49.91XA Unspecified injury of right shoulder and upper arm, initial encounter UNSP INJURY OF RIGHT SHOULDER AND UPPER ARM, INIT ENCNTR Diagnosis 10/03/2019 03:30:00 PM [facility] R79.89 Other specified abnormal findings of blo od chemistry OTHER SPECIFIED ABNORMAL 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 Diagnosis 09/12/2019 11:38:00 AM [facility] M79.662 Pain in left lower leg PAIN IN LEFT LOWER LEG Diagnosi s 09/12/2019 11:38:00 AM [facility] M79.661 Pain in right lower leg PAIN IN RIGHT LOWER LEG Diagno sis 09/12/2019 11:38:00 AM [facility] F41.1 Generalized anxiety disorder GENERALIZED ANXIETY DISOR MARCO A Diagnosis 09/12/2019 11:38:00 AM [facility] J45.31 Mild persistent asthma with (acute) exac erbation MILD PERSISTENT ASTHMA WITH (ACUTE) EXACERBATION Diagnosis 09/12/2019 11:38:00 AM [facility] R06.00 Dyspnea, unspecified DYSPNEA, UNSPECIFIED Diagnosis 09/12/2019 11:38:00 AM [facility] K59.8 Other specified functional intestinal di sorders OTHER SPECIFIED FUNCTIONAL INTESTINAL DISORDERS Diagnosis 07/16/2019 03:47:[facility] K[facility].51 INTESTINAL ADHESIONS [BANDS], WITH PARTI AL OBSTRUC INTESTINAL ADHESIONS [BANDS], WITH PARTIAL OBSTRUC Diagnosis 07/16/2019 03:47:00 PM [facility] Surgeries/Procedures Procedure Description Date Indications Data Source(s) BLOOD COUNT COMPLETE AUTOMATED CBC STAT 12/25/2019 6:18 A M EDT 12/25/2019 06:18:00 AM [facility] PHOSPHORUS INORGANIC PHOSPHORUS LEVEL STAT 12/25/2019 6:18 AM E DT 12/25/2019 06:18:00 AM [facility] MAGNESIUM MAGNESIUM LEVEL STAT 12/25/2019 6:18 AM EDT 12/25/2019 06:18:00 AM [facility] BASIC METABOLIC PANEL CALCIUM TOTAL BASIC METABOLIC PANEL STAT 12/25/2019 6:18 AM EDT 12/25/2019 [facility]TE AUTOMATED CBC Routine 12/24/2019 3:39 A M EDT 12/24/2019 03:39:00 AM [facility] PHOSPHORUS INORGANIC PHOSPHORUS LEVEL Routine 12/24/2019 3:39 AM E DT 12/24/2019 03:39:00 AM [facility] MAGNESIUM MAGNESIUM LEVEL Routine 12/24/2019 3:39 AM EDT 12/24/2019 03:39:00 AM [facility] BASIC METABOLIC PANEL CALCIUM TOTAL BASIC METABOLIC PANEL Routi ne 12/24/2019 3:39 AM EDT 12/24/2019 03:39:00 AM EDT [facility] FLUORO UPPER GI SERIES WITH SMALL BOWEL FLUORO UPPER GI SERIES WITH SMALL BOWEL STAT 12/23/2019 3:20 PM EDT 12/23/2019 03:20 :00 PM [facility] THROMBOPLASTIN TIME PARTIAL PLASMA/WHOLE BLOOD PARTIA L THROMBOPLASTIN TIME (PTT) Routine 12/22/2019 10:54 PM EDT 12/22/2019 10:54 :00 PM [facility] PROTHROMBIN TIME PROTIME INR Routine 12/22/2019 10:54 PM EDT 12/22/2019 10:54:00 PM [facility] BLOOD COUNT COMPLETE AUTOMATED CBC Routine 12/22/2019 10:54 P M EDT 12/22/2019 10:54:00 PM [facility] LIPASE LIPASE LEVEL Routine 12/22/2019 10:54 PM EDT 12/22/2019 10:54:00 PM [facility] AMYLASE AMYLASE LEVEL Routine 12/22/2019 10:54 PM EDT 12/22/2019 10:54:00 PM [facility] HEPATIC FUNCTION PANEL HEPATIC FUNCTION PANEL A Routine 12/22/2019 10:54 PM EDT 12/22/2019 10:54:00 PM EDT [facility] BASIC METABOLIC PANEL CALCIUM TOTAL BASIC METABOLIC PANEL Routi ne 12/22/2019 10:54 PM EDT 12/22/2019 10:54:00 PM EDT [facility] COVID-19 PCR COVID-19 PCR Routine 12/22/2019 10:05 PM EDT 12/22/2019 10:05:00 PM [facility] XR ABDOMEN AP ABD SUPINE ONLY 14035 XR ABDOMEN AP ABD SUPIN E ONLY [id number] Routine 12/22/2019 11:00 AM EDT 12/22/2019 11:00:00 AM [facility] Results ID Date Data Source [id number] 04/06/2020 04:31:00 PM EST [facility] Patient: RITA ROSA Observation Report [facility].VisitID: [id number] [place] [id number] [phone], FRegistration Date/Time: 04/06/2020 10:29 Weight:95.7 kg (S). Height/Length:65 inches (S). BMI:35.2 FAMILY HISTORYPaternal grandmother: Cancer. Father: Diabetes Insipidus, Heart Disease, Hypertension, CVA - Cerebrovascular Accident. INSTRUCTIONSYour Current Medications: Your current home medications have been reviewed. CONTINUE TAKING THE FOLLOWING MEDICATIONS:Hydrocodone* : 5-325mg q8h, Last: 0500 today, prn. hydrOXYzine HCl Oral : 50 mg 3x a day, Last: today, prn. Macrobid Oral : 50mg daily, Last: today. Multivitamins Oral : 1 pill daily, Last: today. Nexplanon Subcutaneous : Last: continuous, implant. Paxil Oral : Tablet 20 mg, 1 tablet daily, Last: today. SEROquel Oral : Tablet 300 mg, 1 tablet daily, Last: last night, every PM. Topiramate Oral : Tablet 100 mg, 1 tablet daily, Last: last night, at bedtime. traZODone HCl Oral : 150 mg daily, Last: last night, every PM. Zofran ODT Oral : 4mg 3x a day, Last: 3 days ago, prn, after meals. (Electronically signed by Nickie Ryan P.A. 04/06/2020 16:22) Name Value Range Interpretation Code Description Data Colleen rce(s) Supporting Document(s) ID Date Data Source [id number] 04/06/2020 12:46:00 PM EST [facility] DATE OF EXAMINATION: 04/06/2020 11:07 EST ABD/PEL WITH IV CONTRAST HISTORY: Pain TECHNIQUE: This CT exam was performed using the following dose reduction techniques:automated exposure control, adjustment of mA and/or kV according to thepatient's size, and use of iterative reconstruction technique. Standard contiguous axial spiral imaging was obtained from the dome of thediaphragms through the symphysis pubis without oral contrast and withintravenous contrast administration and with coronal reformatting. FINDINGS: Lower thorax: Unremarkable ABDOMEN: Liver: Moderate fatty infiltration unchanged since the prior studyGallbladder and bile ducts: CholecystectomyPancreas: UnremarkableSpleen: UnremarkableAdrenals: UnremarkableKidneys and ureters: UnremarkableStomach and bowel: Colectomy. Right lower quadrant ostomy stomaAppendix: Colectomy PELVIS: Bladder: UnremarkableReproductive: Unremarkable Again identified is mild ascites. IMPRESSION: No interval change. Electronically signed in PS[facility] by: Chris Mckeon M.D. 04/06/2020 12:40 EST Name Value Range Interpretation Code Description Data Colleen rce(s) Supporting Document(s) ID Date Data Source [id number] 04/06/2020 11:15:00 AM EST [facility] Name Value Range Interpretation Code Description Data Colleen rce(s) Supporting Document(s) COVID-19 NEGATIVE [facility] This lab was ordered by [facility] and reported by [facility]. ID Date Data Source [id number] 04/06/2020 11:36:00 AM EST [facility] [id number] Name Value Range Interpretation Code Description Data Colleen rce(s) Supporting Document(s) COVID-19 NEGATIVE NEGATIVE [facility] Negative results should be treated as pr esumptive and, ifinconsistent with clinical signs and symptoms [...] are for the indentification of SARS-CoV-2 RNA. [id number] RNA is generally detectable in respiratorysamples during the actue phase of infection. ID Date Data Source [id number] 04/06/2020 11:15:00 AM EST [facility]SYS[facility] [id number] Name Value Range Interpretation Code Description Data Colleen rce(s) Supporting Document(s) URINE COLOR. [facility] URINE [facility] CLOU[facility] GLU[facility]SE (UA) NEGATIVE mg/dL NEGATIVE [facility] URINE BILIRUBIN NEGATIVE NEGATIVE [facility] URINE KETONE NEGATIVE mg/dL NEGATIVE [facility] SPECIFIC GRAVITY,URINE 1.025 1.001-1.035 [facility] URINE BLOOD NEGATIVE NEGATIVE [facility] PH,URINE 5.0 5.0-9.0 [facility] URINE PROTEIN NEGATIVE mg/dL NEGATIVE [facility] URINE UROBILINOGEN NORMAL(0.2-1) mg/dL 0-1 [facility] URINE NITRATE NEGATIVE NEGATIVE [facility] URINE LEUKOCYTE ESTERASE NEGATIVE NEGATIVE [facility] ID Date Data Source [id number] 04/06/2020 11:29:00 AM [facility] TSYSORDER [id number] Name Value Range Interpretation Code Description Data Colleen rce(s) Supporting Document(s) LACTIC ACID 1.2 mmol/L 0.4-2.0 [facility] ID Date Data Source [id number] 04/06/2020 11:23:00 AM [facility] l TSYSORDER [id number] Name Value Range Interpretation Code Description Data Colleen rce(s) Supporting Document(s) LIPASE 70 U/L 73-393 [facility] ID Date Data Source [id number] 04/06/2020 11:23:00 AM [facility] l TSYSORDER [id number] Name Value Range Interpretation Code Description Data Colleen rce(s) Supporting Document(s) GLUCOSE 97 mg/dL 74-106 [facility] BLOOD UREA NITROGEN 19 mg/dL 7-18 H [facility] ital CREATININE 0.80 mg/dL 0.6-1.0 [facility] SODIUM 136 mmol/L 136-145 [facility] POTASSIUM 5.0 mmol/L 3.5-5.1 [facility] CHLORIDE 100 mmol/L 98-107 [facility] CO2 25 mmol/L 21-32 [facility] CALCIUM 9.4 mg/dL 8.5-10.1 [facility] ANION GAP 11.0 mmol/L 5-12 [facility] GLOMERULAR FILTRATION RATE 84 mL/min [facility] GFR IS CALCULATED IN mL/min/1.73m2 TATI L FUNCTION: >90MILDLY DECREASED: 60-89MILDY TO MODERATELY DECREASED: 45-59 MODERATELY TO SEVERELY DECREASED: 30-44SEVERELY DECREASED: 15-29RENAL FAILURE: <15 AST 43 U/L 15-37 H [facility] ALT 73 U/L 12-78 [facility] ALKALINE PHOSPHATASE 38 U/L 46-116 L [facility] TOTAL BILIRUBIN 0.4 mg/dL 0.2-1.0 [facility] TOTAL PROTEIN 7.5 g/dl 6.4-8.2 [facility] ALBUMIN 3.6 gm/dL 3.4-5.0 [facility] ID Date Data Source [id number] 04/06/2020 11:21:00 AM [facility] al TSYSORDER [id number] Name Value Range Interpretation Code Description Data Colleen rce(s) Supporting Document(s) HCG,SERUM NEGATIVE NEGATIVE [facility] False negative results may occur when th e levels of hCG arebelow the sensitivity level of the test. If isstill suspected, a first morning urine specimen should becollected 48hrs later.This test has a sensitivity of 10mIU/mL in serum mod18fPB/mL in urine. ID Date Data Source [id number] 04/06/2020 11:11:00 AM [facility] l TSYSORDER [id number] Name Value Range Interpretation Code Description Data Colleen rce(s) Supporting Document(s) WHITE BLOOD COUNT 6.0 K/mm3 4.0-10.0 [facility] al RED BLOOD COUNT 3.92 M/mm3 4.00-5.50 L [facility] HEMOGLOBIN 10.9 gm/dL 12.0-16.0 L [facility] HEMATOCRIT 32.5 % 36.0-48.8 L [facility] MEAN CELL VOLUME 82.9 fl 80-96 [facility] MEAN CORPUSCULAR HEMOGLOBIN 27.8 pg 27.0-31.0 [facility] MEAN CORPUSCULAR HGB CONC 33.5 g/dl 32.0-36.0 [facility] RED CELL DISTRIBUTION WIDTH 13.6 % 10.0-14.5 [facility] PLATELET COUNT 290 K/mm3 172-450 [facility] MEAN PLATELET VOLUME 10.4 fl 9.0-13.0 [facility] pital GRAN % 61.1 % 50-80.0 [facility] IG% 0.3 % 0.0-0.2 H [facility] LYMPH % 26.8 % 25.0-50.0 [facility] MONO % 7.0 % 2.0-10.0 [facility] EOS % 4.0 % 0-5.0 [facility] BASO % 0.8 % 0.0-2.0 [facility] GRAN # 3.7 K/mm3 2.0-8.00 [facility] IG# 0.0 K/mm3 0.0-0.2 [facility] LYMPH # 1.6 K/mm3 1.0-5.0 [facility] MONO # 0.4 K/mm3 0.10-1.20 [facility] EOS # 0.2 K/mm3 0.0-0.5 [facility] BASO # 0.1 K/mm3 0.0-0.2 [facility] ID Date Data Source [id number] 03/29/2020 05:15:00 PM EST [facility] Name Value Range Interpretation Code Description Data Colleen rce(s) Supporting Document(s) SARS-CoV-2 RNA Resp Ql LEXIE+probe Negative [facility] This lab was ordered by [facility] and reported by [facility]. ID Date Data Source [id number] 03/09/2020 01:09:00 PM EST [facility] Patient: RITA ROSA [facility]ation [facility].VisitID: [id number] [place] [address] [phone], FRegistration Date/Time: 03/09/2020 07:53 Weight:90.2 kg (S). Height/Length:65 inches (S). 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 Additional Surgeries:Appendectomy.Cholecystectomy.Colon resection.Hernia Repair.Knee Surgery.Left knee surgery. Medications:Amoxicillin-Pot Clavulanate Oral, 2x a day, last dose this am.Hydrocodone 5-325mg, q8h as needed, last dose today.hydrOXYzine HCl Oral 50 mg, 3x a day as needed, last dose today.Multivitamins Oral 1 pill, daily, last dose today.Nexplanon Subcutaneous, last dose continuous (implant).Paxil Oral (Tablet 20 mg) 1 tablet, daily, last dose today.SEROquel Oral 300 mg, daily every PM, last dose last night (100 mg am and 200 mg at night total of 300 mg po daily).traZODone HCl Oral 150 mg, daily every PM, last dose last night.Zofran ODT Oral 4mg, 3x a day as needed, after meals, last dose today. Allergies:No Known Environmental Allergies.Reglan.(anxiety)Sumatriptan. (joint pain). FAMILY HISTORYFather: Diabetes, Heart Disease, Hypertension, Stroke/Brain Attack. INSTRUCTIONSYour Current Medications: Your current home medications have been reviewed. CONTINUE TAKING THE FOLLOWING MEDICATIONS:Amoxicillin-Pot Clavulanate Oral : 2x a day, Last: this am. Hydrocodone* : 5-325mg q8h, Last: today, prn. hydrOXYzine HCl Oral : 50 mg 3x a day, Last: today, prn. Multivitamins Oral : 1 pill daily, Last: today. Nexplanon Subcutaneous : Last: continuous, implant. Paxil Oral : Tablet 20 mg, 1 tablet daily, Last: today. SEROquel Oral : 300 mg daily, Last: last night, every PM, 100 mg am and 200 mg at night total of 300 mg po daily. traZODone HCl Oral : 150 mg daily, Last: last night, every PM. Zofran ODT Oral : 4mg 3x a day, Last: today, prn, after meals. (Electronically signed by Nj Olvera, P.AWilmar 03/09/2020 13:01) Name Value Range Interpretation Code Description Data [facility] Supporting Document(s) ID Date Data Source [id number] 03/09/2020 10:51:00 AM EST [facility] TSYSORDER [id number] Name Value Range Interpretation Code Description Data [facility] Supporting Document(s) URINE COLOR. [facility] URINE APPEARANCE CLEAR [facility] URINE GLUCOSE (UA) NEGATIVE mg/dL NEGATIVE [facility] URINE BILIRUBIN NEGATIVE NEGATIVE [facility] URINE KETONE NEGATIVE mg/dL NEGATIVE [facility] SPECIFIC GRAVITY,URINE 1.020 1.001-1.035 [facility] URINE BLOOD NEGATIVE NEGATIVE [facility] PH,URINE 6.0 5.0-9.0 [facility] URINE PROTEIN NEGATIVE mg/dL NEGATIVE [facility] URINE UROBILINOGEN NORMAL(0.2-1) mg/dL 0-1 [facility] URINE NITRATE NEGATIVE NEGATIVE [facility] URINE LEUKOCYTE ESTERASE NEGATIVE NEGATIVE [facility] ID Date Data Source [id number] 03/09/2020 10:22:00 AM EST [facility] DATE OF EXAMINATION: 03/09/2020 8:13 EST ABD/PEL WITH IV CONTRAST HISTORY: Abdominal pain. Lower abdominal pain. Comparison is made to prior studyof 02/09/2020 TECHNIQUE: This CT exam was performed using the following dose reduction techniques:automated exposure control, adjustment of mA and/or kV according to thepatient's size, and use of iterative reconstruction technique. Standard contiguous axial spiral imaging was obtained from the dome of thediaphragms through the symphysis pubis without oral contrast and withintravenous contrast administration and with coronal reformatting. FINDINGS: Lower thorax: Unremarkable ABDOMEN: Liver: Fatty infiltration without interval progressionGallbladder and bile ducts: CholecystectomyPancreas: UnremarkableSpleen: UnremarkableAdrenals: UnremarkableKidneys and ureters: UnremarkableStomach and bowel: Right lower quadrant ostomy stoma as seen previously.ColectomyAppendix: Colectomy PELVIS: Bladder: Incompletely opacified and distended, grossly unremarkableReproductive: Unremarkable Mild ascites without interval change. Previously noted soft tissue stranding inthe region of the umbilicus has improved. IMPRESSION: No significant interval change since the prior study with exception of resolvedsoft tissue stranding near the umbilicus in this patient with colectomy. Electronically signed in PS360 by: Chris Mckeon M.D. 03/09/2020 10:16 EST Name Value Range Interpretation Code Description Data Colleen rce(s) Supporting Document(s) ID Date Data Source [id number] 03/16/2020 09:28:00 AM EST [facility] L-AC Name Value Range Interpretation Code Description Data Colleen rce(s) Supporting Document(s) [facility] ID Date Data Source [id number] 03/16/2020 09:29:00 AM EST [facility] #1LAC Name Value Range Interpretation Code Description Data Colleen rce(s) Supporting Document(s) [facility] ID Date Data Source [id number] 03/09/2020 09:14:00 AM EST [facility] TSYSORDER [id number] Name Value Range Interpretation Code Description Data Colleen rce(s) Supporting Document(s) LACTIC ACID 2.0 mmol/L 0.4-2.0 [facility] ID Date Data Source [id number] 03/09/2020 09:14:00 AM EST [facility] TSYSORDER [id number] Name Value Range Interpretation Code Description Data Colleen rce(s) Supporting Document(s) MAGNESIUM 2.0 mg/dL 1.8-2.4 [facility] ID Date Data Source [id number] 03/09/2020 09:14:00 AM EST [facility] TSYSORDER [id number] Name Value Range Interpretation Code Description Data Colleen rce(s) Supporting Document(s) LIPASE 64 U/L 73-393 L [facility] ID Date Data Source [id number] 03/09/2020 09:14:00 AM [facility] TSYSORDER [id number] Name Value Range Interpretation Code Description Data Colleen rce(s) Supporting Document(s) GLUCOSE 101 mg/dL 74-106 [facility] BLOOD UREA NITROGEN 15 mg/dL 7-18 [facility] ital CREATININE 0.87 mg/dL 0.6-1.0 [facility] SODIUM 138 mmol/L 136-145 [facility] POTASSIUM 3.9 mmol/L 3.5-5.1 [facility] CHLORIDE 100 mmol/L 98-107 [facility] CO2 24 mmol/L 21-32 [facility] CALCIUM 9.6 mg/dL 8.5-10.1 [facility] ANION GAP 14.0 mmol/L 5-12 H [facility] GLOMERULAR FILTRATION RATE 76 mL/min [facility] GFR IS CALCULATED IN mL/min/1.73m2 TATI L FUNCTION: >90MILDLY DECREASED: 60-89MILDY TO MODERATELY DECREASED: 45-59 MODERATELY TO SEVERELY DECREASED: 30-44SEVERELY DECREASED: 15-29RENAL FAILURE: <15 AST 27 U/L 15-37 [facility] ALT 52 U/L 12-78 [facility] ALKALINE PHOSPHATASE 33 U/L 46-116 L [facility] pital TOTAL BILIRUBIN 0.4 mg/dL 0.2-1.0 [facility] TOTAL PROTEIN 7.7 g/dl 6.4-8.2 [facility] ALBUMIN 4.0 gm/dL 3.4-5.0 [facility] ID Date Data Source [id number] 03/09/2020 09:14:00 AM [facility] l TSYSORDER [id number] Name Value Range Interpretation Code Description Data Colleen rce(s) Supporting Document(s) PARTIAL THROMBOPLASTIN TIME 20.8 SECONDS 21.2-27.3 [facility] ID Date Data Source [id number] 03/09/2020 09:14:00 AM [facility] TSYSORDER [id number] Name Value Range Interpretation Code Description Data Colleen rce(s) Supporting Document(s) PROTHROMBIN TIME (PATIENT) 10.1 SECONDS 9.1-11.6 [facility] INR 0.97 0.87-1.06 [facility] ID Date Data Source [id number] 03/09/2020 09:02:00 [facility] [id number] Name Value Range Interpretation Code Description Data Colleen rce(s) Supporting Document(s) HCG,SERUM NEGATIVE NEGATIVE [facility] False negative results may occur when th e levels of hCG arebelow the sensitivity level of the test. If isstill suspected, a first morning urine specimen should becollected 48hrs later.This test has a sensitivity of 10mIU/mL in serum kom80tJD/mL in urine. ID Date Data Source [id number] 03/09/2020 08:46:00 AM [facility] TSYSORDER [id number] Name Value Range Interpretation Code Description Data Colleen rce(s) Supporting Document(s) WHITE BLOOD COUNT 5.8 K/mm3 4.0-10.0 [facility] al RED BLOOD COUNT 4.06 M/mm3 4.00-5.50 [facility] HEMOGLOBIN 11.3 gm/dL 12.0-16.0 [facility] HEMATOCRIT 33.8 % 36.0-48.8 [facility] MEAN CELL VOLUME 83.3 fl 80-96 [facility] MEAN CORPUSCULAR HEMOGLOBIN 27.8 pg 27.0-31.0 [facility] MEAN CORPUSCULAR HGB CONC 33.4 g/dl 32.0-36.0 [facility] RED CELL DISTRIBUTION WIDTH 12.9 % 10.0-14.5 [facility] PLATELET COUNT 273 K/mm3 172-450 [facility] MEAN PLATELET VOLUME 10.0 fl 9.0-13.0 [facility] pital GRAN % 58.2 % 50-80.0 [facility] IG% 0.3 % 0.0-0.2 H [facility] LYMPH % 30.0 % 25.0-50.0 [facility] MONO % 7.5 % 2.0-10.0 [facility] EOS % 3.1 % 0-5.0 [facility] BASO % 0.9 % 0.0-2.0 [facility] GRAN # 3.4 K/mm3 2.0-8.00 [facility] IG# 0.0 K/mm3 0.0-0.2 [facility] LYMPH # 1.8 K/mm3 1.0-5.0 [facility] MONO # 0.4 K/mm3 0.10-1.20 [facility] EOS # 0.2 K/mm3 0.0-0.5 [facility] BASO # 0.1 K/mm3 0.0-0.2 [facility] ID Date Data Source [id number] 03/04/2020 05:05:00 PM [facility] Patient: RITA ROSA Observation Report - [facility].VisitID: [id number] [place] [address] [phone], [facility] Date/Time: 03/04/2020 14:03 Weight:90.2 kg (S). Height/Length:69 inches (S). BMI:29.4 FAMILY HISTORYNo significant family medical history. (Electronically signed by Phyllis Cope PA 03/04/2020 16:00) Name Value Range Interpretation Code Description Data Colleen rce(s) Supporting Document(s) ID Date Data Source [id number] 02/09/2020 06:46:00 PM EST [facility] Patient: SANDEEPArielle RITA Coronado Observation Report [facility].VisitID: [id number] [place] [address] [phone], FRegistration Date/Time: 02/09/2020 10:16 Weight:90.2 kg (S). Height/Length:65 inches (S). 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 Additional Surgeries:Appendectomy.Cholecystectomy.Colon resection.Hernia Repair.Knee Surgery.Left knee surgery. Medications:hydrOXYzine HCl Oral 50 mg, 3x a day as needed, last dose today.Multivitamins Oral 1 pill, daily, last dose yesterday.Nexplanon Subcutaneous, last dose continuous (implant).Paxil Oral (Tablet 20 mg) 1 tablet, daily, last dose today.SEROquel Oral 300 mg, daily every AM, every PM, last dose last night (100 mg am and 200 mg at night total of 300 mg po daily).traZODone HCl Oral 150 mg, daily every PM, last dose last night.Zofran ODT Oral 4mg, 3x a day as needed, after meals, last dose today. Allergies:Reglan.(anxiety)Sumatriptan. (joint pain). FAMILY HISTORYNegative. No significant family medical history. (Electronically signed by Bridger Nunez 02/09/2020 18:00) Name Value Range Interpretation Code Description Data Colleen rce(s) Supporting Document(s) ID Date Data Source [id number] 02/09/2020 02:01:00 PM [facility] DATE OF EXAMINATION: 02/09/2020 13:36 ES T ABD/PEL WITH IV CONTRAST HISTORY: Pain. Periumbilical pain. TECHNIQUE: This CT exam was performed using the following dose reduction techniques:automated exposure control, adjustment of mA and/or kV according to thepatient's size, and use of iterative reconstruction technique. Standard contiguous axial spiral imaging was obtained from the dome of thediaphragms through the symphysis pubis without oral contrast and withintravenous contrast administration and with coronal reformatting. FINDINGS: Lower thorax: Unremarkable ABDOMEN: Liver: Moderate fatty infilt rationGallbladder and bile ducts: CholecystectomyPancreas: UnremarkableSpleen: UnremarkableAdrenals: UnremarkableKidneys and ureters: UnremarkableStomach and bowel: Right lower quadrant ostomy stoma. Colectomy appearAppendix: No appendicitis PELVIS: Bladder: Grossly unremarkable, partially opacifiedReproductive: Unremarkable Mild ascites IMPRESSION: Status post colectomy. Right lower quadrant ostomy stoma. There is somesubcutaneous soft tissue stranding above the umbilicus and the umbilicus itselflikely related to recent surgery. Cellulitis not excluded. Mild ascites. Moderate fatty infiltration of liver. Electronically signed in PS360 by: Chris Mckeon M.D. 02/09/2020 13:56 EST Name Value Range Interpretation Code Description Data Colleen rce(s) Supporting Document(s) ID Date Data Source [id number] 02/09/2020 01:20:00 PM EST [facility] TSYSORDER [id number] Name Value Range Interpretation Code Description Data Colleen rce(s) Supporting Document(s) MAGNESIUM 1.7 mg/dL 1.8-2.4 [facility] ID Date Data Source [id number] 02/09/2020 01:20:00 PM EST [facility] TSYSORDER [id number] Name Value Range Interpretation Code Description Data Colleen rce(s) Supporting Document(s) LIPASE 106 U/L 73-393 [facility] ID Date Data Source [id number] 02/09/2020 01:20:00 PM EST [facility] TSYSORDER [id number] Name Value Range Interpretation Code Description Data Colleen rce(s) Supporting Document(s) GLUCOSE 96 mg/dL 74-106 [facility] BLOOD UREA NITROGEN 15 mg/dL 7-18 [facility] ital CREATININE 0.9 mg/dL 0.6-1.0 [facility] SODIUM 139 mmol/L 136-145 [facility] POTASSIUM 4.1 mmol/L 3.5-5.1 [facility] CHLORIDE 100 mmol/L 98-107 [facility] CO2 29 mmol/L 21-32 [facility] CALCIUM 9.4 mg/dL 8.5-10.1 [facility] ANION GAP 10.0 mmol/L 5-12 [facility] GLOMERULAR FILTRATION RATE 74 mL/min [facility] GFR IS CALCULATED IN mL/min/1.73m2 TATI L FUNCTION: >90MILDLY DECREASED: 60-89MILDY TO MODERATELY DECREASED: 45-59 MODERATELY TO SEVERELY DECREASED: 30-44SEVERELY DECREASED: 15-29RENAL FAILURE: <15 AST 16 U/L 15-37 L [facility] 02/09/20 1538: AST previously reported as: 0 L U/L ALT 39 U/L 12-78 [facility] ALKALINE PHOSPHATASE 41 U/L 46-116 [facility] pital TOTAL BILIRUBIN 0.2 mg/dL 0.2-1.0 [facility] TOTAL PROTEIN 7.2 g/dl 6.4-8.2 [facility] ALBUMIN 3.6 gm/dL 3.4-5.0 [facility] ID Date Data Source [id number] 02/09/2020 01:10:00 PM [facility] Name Value Range Interpretation Code Description Data Colleen rce(s) Supporting Document(s) PARTIAL THROMBOPLASTIN TIME 21.0 SECONDS 21.2-27.3 [facility] ID Date Data Source [id number] 02/09/2020 01:10:00 PM [facility] Name Value Range Interpretation Code Description Data Colleen rce(s) Supporting Document(s) PROTHROMBIN TIME (PATIENT) 9.9 SECONDS 9.1-11.6 [facility] INR 0.95 0.87-1.06 [facility] ID Date Data Source [id number] 02/09/2020 01:05:00 [facility] [id number] Name Value Range Interpretation Code Description Data Colleen rce(s) Supporting Document(s) HCG,SERUM NEGATIVE NEGATIVE [facility] False negative results may occur when th e levels of hCG arebelow the sensitivity level of the test. If isstill suspected, a first morning urine specimen should becollected 48hrs later.This test has a sensitivity of 10mIU/mL in serum vbd25wOD/mL in urine. ID Date Data Source [id number] 02/09/2020 12:57:00 PM EST [facility] TSYSORDER [id number] Name Value Range Interpretation Code Description Data Colleen rce(s) Supporting Document(s) WHITE BLOOD COUNT 6.4 K/mm3 4.0-10.0 [facility] 3.69 M/mm3 4.00-5.50 L [facility] l HEMOGLOBIN 10.4 gm/dL 12.0-16.0 L [facility] HEMATOCRIT 32.1 % 36.0-48.8 L [facility] MEAN CELL VOLUME 87.0 fl 80-96 [facility] l MEAN CORPUSCULAR HEMOGLOBIN 28.2 pg 27.0-31.0 [facility] MEAN CORPUSCULAR HGB CONC 32.4 g/dl 32.0-36.0 [facility] RED CELL DISTRIBUTION WIDTH 12.8 % 10.0-14.5 [facility] PLATELET COUNT 267 K/mm3 172-450 [facility] MEAN PLATELET VOLUME 9.6 fl 9.0-13.0 [facility] pital GRAN % 54.8 % 50-80.0 [facility] IG% 0.0 % 0.0-0.2 [facility] LYMPH % 28.7 % 25.0-50.0 [facility] MONO % 7.4 % 2.0-10.0 [facility] EOS % 8.5 % 0-5.0 H [facility] BASO % 0.6 % 0.0-2.0 [facility] GRAN # 3.5 K/mm3 2.0-8.00 [facility] IG# 0.0 K/mm3 0.0-0.2 [facility] LYMPH # 1.8 K/mm3 1.0-5.0 [facility] MONO # 0.5 K/mm3 0.10-1.20 [facility] EOS # 0.5 K/mm3 0.0-0.5 [facility] BASO # 0.0 K/mm3 0.0-0.2 [facility] ID Date Data Source [id number] 01/12/2020 07:25:00 PM EDT [facility] Name Value Range Interpretation Code Description Data Colleen rce(s) Supporting Document(s) SARS coronavirus 2 RNA [Presence] in Res piratory specimen by LEXIE with probe detection [facility] This lab was ordered by [facility] and reported by [facility]. ID Date Data Source [id number] 12/29/2019 10:57:00 PM EDT [facility] Patient: RITA ROSA Observation Report [facility].VisitID: [id number] [place], [place] [id number], FRegistration Date/Time: 12/29/2019 18:14 Weight:95.7 kg (S). Height/Length:65 inches (S). BMI:35.2 PAST HISTORYMedications:Paxil Oral (Tablet 20 mg) 1 tablet, daily, last dose 12/29/19.hydrOXYzine HCl Oral 50 mg, 3x a day as needed, last dose 12/29/19.Multivitamins Oral 1 pill, daily, last dose this am.Nexplanon Subcutaneous, last dose continuous (implant).SEROquel Oral 300 mg, daily every AM, every PM, last dose last night (100 mg am and 200 mg at night total of 300 mg po daily).traZODone HCl Oral 150 mg, daily every PM, last dose last night.Zofran ODT Oral 4mg, 3x a day as needed, after meals, last dose 12/28/19. Allergies:Immitrex.Reglan. Definite(anxiety). FAMILY HISTORY(non contributory). (Electronically signed by Emil Richards PA-C 12/29/2019 22:37) Addenda for RITA ROSA VisitID: [id number] Date: 12/29/2019 12/29/2019 18:37Triage/assessment/progress all completed by Meg Stoddard. Richi Mercedes aware.(Electronically signed by Alma Vigil R.N. 12/29/2019 18:37) Name Value Range Interpretation Code Description Data Colleen rce(s) Supporting Document(s) ID Date Data Source [id number] 01/05/2020 10:26:00 AM EDT [facility] Name Value Range Interpretation Code Description Data Colleen rce(s) Supporting Document(s) [facility] ID Date Data Source [id number] 12/29/2019 10:37:00 PM EDT [facility] l TSYSORDER [id number] Name Value Range Interpretation Code Description Data Colleen rce(s) Supporting Document(s) LACTIC ACID 1.6 mmol/L 0.4-2.0 [facility] ID Date Data Source [id number] 12/29/2019 10:27:00 PM EDT [facility] TSYSORDER [id number] Name Value Range Interpretation Code Description Data Colleen rce(s) Supporting Document(s) GLUCOSE 83 mg/dL 74-106 [facility] BLOOD UREA NITROGEN 16 mg/dL 7-18 [facility] ital CREATININE 0.9 mg/dL 0.6-1.0 [facility] SODIUM 140 mmol/L 136-145 [facility] POTASSIUM 3.9 mmol/L 3.5-5.1 [facility] CHLORIDE 101 mmol/L 98-107 [facility] CO2 28 mmol/L 21-32 [facility] CALCIUM 9.1 mg/dL 8.5-10.1 [facility] ANION GAP 11.0 mmol/L 5-12 [facility] GLOMERULAR FILTRATION RATE 74 mL/min [facility] GFR IS CALCULATED IN mL/min/1.73m2 TATI L FUNCTION: >90MILDLY DECREASED: 60-89MILDY TO MODERATELY DECREASED: 45-59 MODERATELY TO SEVERELY DECREASED: 30-44SEVERELY DECREASED: 15-29RENAL FAILURE: <15 AST 11 U/L 15-37 [facility] ALT 29 U/L 12-78 [facility] ALKALINE PHOSPHATASE 50 U/L 46-116 [facility] pital TOTAL BILIRUBIN 0.2 mg/dL 0.2-1.0 [facility] TOTAL PROTEIN 6.6 g/dl 6.4-8.2 [facility] ALBUMIN 3.9 gm/dL 3.4-5.0 [facility] ID Date Data Source [id number] 12/29/2019 10:27:00 PM EDT [facility] l TSYSORDER [id number] Name Value Range Interpretation Code Description Data Colleen rce(s) Supporting Document(s) MAGNESIUM 1.9 mg/dL 1.8-2.4 [facility] ID Date Data Source [id number] 12/29/2019 10:27:00 PM EDT [facility] TSYSORDER [id number] Name Value Range Interpretation Code Description Data Colleen e(s) Supporting Document(s) LIPASE 159 U/L 73-393 [facility] ID Date Data Source [id number] 12/29/2019 10:22:00 PM EDT [facility] [id number] Name Value Range Interpretation Code Description Data Colleen [facility](s) Supporting Document(s) WHITE BLOOD COUNT 4.9 K/mm3 4.0-10.0 [facility]LOOD [facility] 3.83 M/mm3 4.00-5.50 L [facility] l HEMOGLOBIN 11.3 gm/dL 12.0-16.0 [facility] HEMATOCRIT 33.2 % 36.0-48.8 [facility] MEAN CELL VOLUME 86.7 fl 80-96 [facility] MEAN CORPUSCULAR HEMOGLOBIN 29.5 pg 27.0-31.0 [facility] MEAN CORPUSCULAR HGB CONC 34.0 g/dl 32.0-36.0 [facility] RED CELL DISTRIBUTION WIDTH 12.8 % 10.0-14.5 [facility] PLATELET COUNT 312 K/mm3 172-450 [facility] MEAN PLATELET VOLUME 10.0 fl 9.0-13.0 [facility] pital GRAN % 39.5 % 50-80.0 L [facility] IG% 0.4 % 0.0-0.2 H [facility] LYMPH % 47.2 % 25.0-50.0 [facility] MONO % 9.1 % 2.0-10.0 [facility] EOS % 2.6 % 0-5.0 [facility] BASO % 1.2 % 0.0-2.0 [facility] GRAN # 1.9 K/mm3 2.0-8.00 L [facility] IG# 0.0 K/mm3 0.0-0.2 [facility] LYMPH # 2.3 K/mm3 1.0-5.0 [facility] MONO # 0.5 K/mm3 0.10-1.20 [facility] EOS # 0.1 K/mm3 0.0-0.5 [facility] BASO # 0.1 K/mm3 0.0-0.2 [facility] ID Date Data Source [id number] 12/29/2019 10:21:00 PM EDT [facility] l TSYSORDER [id number] Name Value Range Interpretation Code Description Data Colleen rce(s) Supporting Document(s) PROTHROMBIN TIME (PATIENT) 9.9 SECONDS 9.2-11.6 [facility] INR 0.95 0.87-1.06 [facility] ID Date Data Source [id number] 12/29/2019 10:21:00 PM EDT [facility] l TSYSORDER [id number] Name Value Range Interpretation Code Description Data Colleen rce(s) Supporting Document(s) PARTIAL THROMBOPLASTIN TIME 20.1 SECONDS 21.4-30.2 [facility] ID Date Data Source [id number] 12/29/2019 08:42:00 PM EDT [facility] DATE OF EXAMINATION: 12/29/2019 19:33 EDT ABDOMEN (KUB) ABDOMEN INDICATION: Right flank COMPARISON: 11/13/2019 TECHNIQUE: AP supine views of the abdomen were obtained. FINDINGS: There are surgical clips in the right upper quadrant consistent withprevious cholecystectomy. There are multiple surgical roxanne in the righthemiabdomen. No dilated bowel. Bowel gas pattern is unremarkable. No visualizedpathologic calcifications. IMPRESSION: Unremarkable bowel gas pattern Electronically signed in PS360 by: Kezia Braney M.D. 12/29/2019 20:36 EDT Name Value Range Interpretation Code Description Data Colleen rce(s) Supporting Document(s) ID Date Data Source [id number] 12/29/2019 07:52:00 PM EDT [facility] l TSYSORDER [id number] Name Value Range Interpretation Code Description Data Colleen rce(s) Supporting Document(s) URINE RBC NONE SEEN /hpf 0-3 [facility] URINE WBC 0-2 /hpf 0-5 H [facility] URINE EPITHELIAL CELLS 3+ /hpf 0 [facility] URINE BACTERIA 1+ NONE SEEN [facility] ID Date Data Source [id number] 12/29/2019 07:50:00 PM EDT [facility] ital TSYSORDER [id number] Name Value Range Interpretation Code Description Data Colleen rce(s) Supporting Document(s) URINE COLOR. [facility] URINE APPEARANCE CLEAR [facility] l URINE GLUCOSE (UA) NEGATIVE mg/dL NEGATIVE [facility] URINE BILIRUBIN NEGATIVE NEGATIVE [facility] URINE KETONE NEGATIVE mg/dL NEGATIVE [facility] SPECIFIC GRAVITY,URINE 1.025 1.001-1.035 [facility] URINE BLOOD NEGATIVE NEGATIVE [facility] PH,URINE 7.5 5.0-9.0 [facility] URINE PROTEIN NEGATIVE mg/dL NEGATIVE [facility] URINE UROBILINOGEN NORMAL(0.2-1) mg/dL 0-1 [facility] URINE NITRATE NEGATIVE NEGATIVE [facility] URINE LEUKOCYTE ESTERASE TRACE NEGATIVE [facility] ID Date Data Source [id number] 12/29/2019 06:36:00 PM EDT [facility] TSYSORDER [id number] Name Value Range Interpretation Code Description Data Colleen rce(s) Supporting Document(s) HCG URINE NEGATIVE NEGATIVE [facility] ID Date Data Source [id number] 12/29/2019 11:20:49 AM EDT [facility] Name Value Range Interpretation Code Description Data Colleen rce(s) Supporting Document(s) Discharge Summary [facility] MAIHEp0iBrYLHrEc86/WUWhvKIJgj1JeVGwpCCz7EEdrJMQbM1ShSGD7mI7pVOF3NYzWIcEwRfRwOUN2 lbm [file] MlGXXmXPRzTaX2XnBgQH2LWf0WKoC8XOR6rGQmFk5KBRo9AWCHHzQvGB6ZFHs= ID Date Data Source [id number] 12/25/2019 11:52:52 PM EDT [facility] Name Value Range Interpretation Code Description Data Colleen rce(s) Supporting Document(s) ED Provider Note [facility] RYEUOn9iLiADUwOy76/YJTfaPPHxu0VmUFwcGPd4KAziZQAzO6WfRSZ7gV3wVHP0XEhBZuBbKiWiOHQ5 lbm [file] ICAgICAgICAgICAgICAgICAgICAgICAgICAgICAgICAgICAgICAgICAgICAgICAgICAgICAgICAgICAg ICAgICAgICAgICAgICAgICAgICAgICAgICAgICAgICAgDQogICAgICAgICAgICAgICAgICAgICAgICAg ICAgICAgICAgICAgICAgICAgICAgICAgICAgICAgIC AgICAgICAgICAgICAgICAgICAgICAgICAgICAgICAgICAgICAgICAgICAgDQogICAgICAgICAgICAgIC AgICAgICAgICAgICAgICAgICAgICAgICAgICAgICAgICAgICAgICAgICAgICAgICAgICAgICAgICAgIC AgICAgICAgICAgICAgICAgICAgICAgICAgDQogICAg ICAgICAgICAgICAgICAgICAgICAgICAgICAgICAgICAgICAgICAgICAgICAgICAgICAgICAgICAgICAg ICAgICAgICAgICAgICAgICAgICAgICAgICAgICAgICAgICAgDQogICAgICAgICAgICAgICAgICAgICAg ICAgICAgICAgICAgICAgICAgICAgICAgICAgICAgIC AgICAgICAgICAgICAgICAgICAgICAgICAgICAgICAgICAgICAgICAgICAgICAgDQogICAgICAgICAgIC AgICAgICAgICAgICAgICAgICAgICAgICAgICAgICAgICAgICAgICAgICAgICAgICAgICAgICAgICAgIC AgICAgICAgICAgICAgICAgICAgICAgICAgICAgDQog ICAgICAgICAgICAgICAgICAgICAgICAgICAgICAgICAgICAgICAgICAgICAgICAgICAgICAgICAgICAg ICAgICAgICAgICAgICAgICAgICAgICAgICAgICAgICAgICAgICAgDQogICAgICAgICAgICAgICAgICAg ICAgICAgICAgICAgICAgICAgICAgICAgICAgICAgIC AgICAgICAgICAgICAgICAgICAgICAgICAgICAgICAgICAgICAgICAgICAgICAgICAgDQogICAgICAgIC AgICAgICAgICAgICAgICAgICAgICAgICAgICAgICAgICAgICAgICAgICAgICAgICAgICAgICAgICAgIC AgICAgICAgICAgICAgICAgICAgICAgICAgICAgICAg DQogICAgICAgICAgICAgICAgICAgICAgICAgICAgICAgICAgICAgICAgICAgICAgICAgICAgICAgICAg BOJwUFEdWIRfVJXpLLAyTYVhAPEbIAObGWKzOVRbDNBiRGCkJGUrHHQvMWg0K8xoXGWxADSzAQ0sPGh5 Jz8+OJmHQwGpKAS4eoMkuL4TLN9ys0CiSHslRLAjn6 TiRRw0TT5KHJRtNRpdKQ2HWNdpoj7WFNSdGFTcmMILf3zrOdVdVLT0QBNmEdzhAP6WCIXsW5esjaZzDQ HuQKLJLEfrENZKPNksBOOOJFFtLVTlNbJcQkMtNOOnPVToCJCZTQC8RKNmOgXxEDvtJT8Rh0NmmHV5SG o+Qg5CTR6fp9AoGAh3XxKvSB5iwx7MURqZOwGfJ6Qi azB2CGRsANEyYv7KAAQtKJQduFZ3PDYuHITGNgBfP0PpgX05KVDQPu8+HAsmhcKrSazTKwFvHFWfk0Rj DTe3NP0ETWNmXEw8hFMlPPDjSCQxfbnaTTZpSb40BAExQqokUNHveJLgFEqvQXCvyjawSV5HVVU9RDAm FqDhOfByREArJHzvQNPOCRlVMmKfZ9Axx0IjHwG0VY EmKmDaDAhvCTArMoBdIZ24aTqsOC0FUZAxJKPrGH05FVKlYUOzEn0VXPMnJeT2aQL6RNUmRLIKUs5+DQ ofxvThLftXInV7XRLnf7RsPIw0IV3VVPLoHDx4hREsZPDnSRBmnsfvBNLtEv33CFEtVehyGTFujUHmLK ewETYndrakEQ6TTYV4GWJzOtSyLeEbHJWfCLveGIKR XXuZCnJhW1Cec5EoCpTwNMFhFKYxI6gRGxYcGCHzAPSbcWvyTX7FVtVsW8LaxrJodHQ4JpOoYGJLLpXd O7JfYSDmZAFvGEHFBRojIC5EWEc9LJE2LDZdOi8OIk5TIdNqST2ziw0FCDFmUXNsAzeOWbz5NVoyFW9B hEDdFPxYOGCGajztQ6ZzEk67AIKxRaisXq2wGWR7BF KgDgUsj90gRjGgDVSQExAnjSOsRU9mVqRwGsFoLDZ3WIeuEQ6uNIznNF7MLPN3LDgaNGkcOECPHS5MLQ cdIONaXMHatrYlaUOmRNieKR0UKOVhftOsWMEiAMCQBLvqVV5StfG0IIL1NJCqVu9MVu7SLoMzLT7ltq 9DFOBmIKUlOsdTEdm0XTxqEN6UdZVdD8AwfPEde5eP TqIjK7EWTBWvJIGcAa9JUFEkVwVqCWAhJJeqTW6bVWSvEQSTaGkuhgU7ZM4UCK8plxHlND4WMlFdEd0y Up7WTaIdW2ZyQ9QrYFDvSHDADLbjMQ5PWZlbTI8pQY6Xy0THjMRkkM4kas6YAKEoGBDjAdvopz4ICpfq L3X4sNwzKVJvXQRdIWQCFEyrVZ9MGCVlXQL0IBZ5KE CmJRDMGjTlJ62aXR5LO7Hyg68jWkZ9MGQhNgDtOJmyTI55gIwvuqBitAGfeDlqPH3TGo8+DQplbmRvYm oJOgmkZCKFZdMkJAvEVmHlSWKmAHLtPMJjQiO0KhXuXc3NQOAgCHQmMUFtKsGkBXKjDGUtJFkrVXNdUW F9CDw2YCNjHTGpNU7RClAgNJGlNfF3AASoUWZePQSb bq2CYWJfCTQvAHS4PlWvORIcHPIiNMilYOZjCTEeCzJ5UPBeLCQzUF6BMkUmQRMgZFS6WwflACCqIDWz ey6EMSEoBKCwBWtqOtIdGFEhGLImEBreNRSwDYS4BVD6OYItCMEvRC6FUgVdCRXsAWgyYsOtNKPpOAOl sv6AWFWaDMKfWWSiSJFzMDNlLUHoTLvoOLRoSHZuGB N4RWExQQUtXL4CZtIsTBLuFUUnPpNkJAYzBLLoiu9TPKAcFRVhKCJ5KKEiVTPtAMQjEQwmWLQsJQQ6DK SwPCFkESIkJU4ULoJlBUPsOZe8XJLiBVCwQZKjgl7EKIYnUPQyJuv2IGQuXXLpUFBpMDmsRBNuTCQkSg MqZKRdOKWfFU7LUtKpXRHqDqY0HWKyXCWcTPWjar4C UEZiSPReCXn9WzKjJOMoFTAjXQxgPWPvGFJqNQuiHNCqJDZtQR6WMlTeXANhBzKcRTMaJBBpQVUvew2Z NSFfHDDpSdPfIWMfMQAlQLGuEBdcSILvYCUcSkS9UJPkABNoUH4DZgUlSMOrCoE9MHCiOTZsJDFofu5B ZCNzOXD9KihkFVNeAHAeSCZmGOcoYORvZXQ1XEM4UG TgUQBoQJ9DWhImYGYbXFNvCRWbAOApYMXqvv1ELPAxFQI5DJtqInHeZYTpJYCvJAhiGOSpIXQ0UHFrRC XzGXImLJ8ZKyZfRSTtHSX9TIkiDYJtVHHegw1VPEFxJZD6BaF5XCTrVHCxBVYuGNaqWGYcLHB0XbB6SG ZkHJTtID0XVxTqVHBlHOl3DSWpAZOcZSVdqo6YMBBl DRF6Igt7NoJdDRRfWVIsMOycAJDwFEU1ERxaKXGpSFJjKL4QKnZqZXSfEPf5JEHuWKGfZPWytc2NPHYl UNP7NFX5UtBsNKAwMYIxMZwvXTSbDFT9NXDiYDEiFTLzSP1EObCoOONmDTr8OVzqKCDzLTXukh3ARFXj VTN6XMu5KqZmTMWcCBKwLJvyPDQnGSWvNfW3DEKnPR WdYY4KNiMxGZWvTlH7ANOsWFAzDIGjqw3IRXXdRBA1IPm6NUJkQXEyXGVeBEmxAEZiRYIfMFMjPMIrGR JoRE6NSwVqTIJvOuLdWZiaMGTvVIOvwq5QPVVmENN1YxJ9KSKoTGOdMHBrZGk4yoRoiXTgKFt2AC5AT3 YsydZzMXbRWo6Gy855EBL3WZFpRv6ST4raXf6oSNHz HVWBTo2INBv7BQWtNJM9EELdMqBvKyM5QBM0WcklAEYyVGH9EBTpWZt+TNakWAP0Xwt3SjRbDJTbKKBc IhOtAGJePKB8VdW9VNM3FW6uXYNUHt3+WZgfaYUicGwqMBTPKeFbXcNeWPqsCGKHLs9N ID Date Data Source [id number] 12/25/2019 07:10:04 AM [facility] Name Value Range Interpretation Code Description Data Colleen rce(s) Supporting Document(s) Leukocytes [#/volume] in Blood by Automated count 5.5 10*3/uL 4-10 [facility] Erythrocytes [#/volume] in Blood by Automated count 4.13 10*6/uL 4.1- 5.3 [facility] Hemoglobin [Mass/volume] in Blood 12.3 g/dL 11.5-15.5 [facility] Hematocrit [Volume Fraction] of Blood by Automated count 35.8 % 3 6-45 L [facility] Erythrocyte mean corpuscular volume [Entitic volume] by Auto mated count 86.8 fL 80-96 [facility] Erythrocyte mean corpuscular hemoglobin [Entitic mass] by Automated count 29.9 pg 27-33 [facility] Erythrocyte mean corpuscular hemoglobin concentration [Mass/volume] by Automated count 34.4 g/dL 32.0-36.0 [facility] Erythrocyte distribution width [Ratio] by Automated count 13.5 % 11.5-14.5 [facility] Platelets [#/volume] in Blood by Automated count 318 10*3/uL 150-400 [facility] ID Date Data Source [id number] 12/25/2019 08:06:02 AM [facility] Name Value Range Interpretation Code Description Data Colleen rce(s) Supporting Document(s) Bicarbonate [Moles/volume] in Serum 25 mmol/L 22-29 [facility] Chloride [Moles/volume] in Serum or Plasma 102 mmol/L 98-107 [facility] Creatinine [Mass/volume] in Serum or Plasma 0.91 mg/dL 0.50-0.90 H [facility] Glucose [Mass/volume] in Serum or Plasma 87 mg/dL 70-140 [facility] Potassium [Moles/volume] in Serum or Plasma 4.0 mmol/L 3.4-5.1 [facility] Sodium [Moles/volume] in Serum or Plasma 138 mmol/L 136-145 [facility] Urea nitrogen [Mass/volume] in Serum or Plasma 10 mg/dL 6-20 [facility] Anion gap 3 in Serum or Plasma 11 mmol/L 8-15 [facility] Osmolality of Serum or Plasma by calculation 284 mosm/kg 275-300 [facility] Creatinine/Urea nitrogen [Mass Ratio] in Serum or Plasma 11 [facility] Calcium [Mass/volume] in Serum or Plasma 8.7 mg/dL 8.6-10.0 [facility] Glomerular filtration rate/1.73 sq M pre dicted among non-blacks [Volume Rate/Area] in Serum or Plasma by Creatinine-based formula (MDRD) 85 mL/min/1.73m2 >60 [facility] Glomerular filtration rate/1.73 sq M pre dicted among blacks [Volume Rate/Area] in Serum or Plasma by Creatinine-based formula (MDRD) >60 [facility] ID Date Data Source [id number] 12/25/2019 08:06:02 AM [facility] Name Value Range Interpretation Code Description Data Colleen rce(s) Supporting Document(s) Phosphate [Mass/volume] in Serum or Plasma 3.8 mg/dL 2.5-4.5 [facility] ID Date Data Source [id number] 12/25/2019 08:06:02 AM [facility] Name Value Range Interpretation Code Description Data Colleen rce(s) Supporting Document(s) Magnesium [Mass/volume] in Serum or Plasma 2.1 mg/dL 1.6-2.6 [facility] ID Date Data Source [id number] 12/24/2019 05:03:32 AM [facility] Name Value Range Interpretation Code Description Data Colleen rce(s) Supporting Document(s) Leukocytes [#/volume] in Blood by Automated count 7.2 10*3/uL 4-10 [facility] Erythrocytes [#/volume] in Blood by Automated count 4.09 10*6/uL 4.1- 5.3 L [facility] Hemoglobin [Mass/volume] in Blood 12.1 g/dL 11.5-15.5 [facility] Hematocrit [Volume Fraction] of Blood by Automated count 35.3 % 3 6-45 L [facility] Erythrocyte mean corpuscular volume [Entitic volume] by Auto mated count 86.4 fL 80-96 [facility] Erythrocyte mean corpuscular hemoglobin [Entitic mass] by Automated count 29.6 pg 27-33 [facility] Erythrocyte mean corpuscular hemoglobin concentration [Mass/volume] by Automated count 34.3 g/dL 32.0-36.0 [facility] Erythrocyte distribution width [Ratio] by Automated count 13.8 % 11.5-14.5 [facility] Platelets [#/volume] in Blood by Automated count 346 10*3/uL 150-400 [facility] ID Date Data Source [id number] 12/24/2019 05:21:20 AM EDT [facility] Name Value Range Interpretation Code Description Data Colleen rce(s) Supporting Document(s) Bicarbonate [Moles/volume] in Serum 28 mmol/L 22-29 [facility] Chloride [Moles/volume] in Serum or Plasma 100 mmol/L 98-107 [facility] Creatinine [Mass/volume] in Serum or Plasma 0.82 mg/dL 0.50-0.90 [facility] Glucose [Mass/volume] in Serum or Plasma 72 mg/dL 70-140 [facility] Potassium [Moles/volume] in Serum or Plasma 3.6 mmol/L 3.4-5.1 [facility] Sodium [Moles/volume] in Serum or Plasma 140 mmol/L 136-145 [facility] Urea nitrogen [Mass/volume] in Serum or Plasma 9 mg/dL 6-20 [facility] Anion gap 3 in Serum or Plasma 11 mmol/L 8-15 [facility] Osmolality of Serum or Plasma by calculation 287 mosm/kg 275-300 [facility] Creatinine/Urea nitrogen [Mass Ratio] in Serum or Plasma 11 [facility] Calcium [Mass/volume] in Serum or Plasma 9.1 mg/dL 8.6-10.0 [facility] Glomerular filtration rate/1.73 sq M pre dicted among non-blacks [Volume Rate/Area] in Serum or Plasma by Creatinine-based formula (MDRD) >6 0 [facility] Glomerular filtration rate/1.73 sq M pre dicted among blacks [Volume Rate/Area] in Serum or Plasma by Creatinine-based formula (MDRD) >60 [facility] ID Date Data Source [id number] 12/24/2019 05:21:20 AM EDT [facility] Name Value Range Interpretation Code Description Data Oclleen rce(s) Supporting Document(s) Magnesium [Mass/volume] in Serum or Plasma 2.0 mg/dL 1.6-2.6 [facility] ID Date Data Source [id number] 12/24/2019 05:21:20 AM EDT [facility] Name Value Range Interpretation Code Description Data Colleen rce(s) Supporting Document(s) Phosphate [Mass/volume] in Serum or Plasma 3.8 mg/dL 2.5-4.5 [facility] ID Date Data Source [id number] 12/23/2019 07:15:00 PM EDT [facility] Patient: RITA ROSA Observation [facility].VisitID: [id number] [place] [phone], FRegistration Date/Time: 12/21/2019 18:33 Weight:95.7 kg (S). Height/Length:65 inches (S). BMI:35.2 Obs Start: 12/21/2019 21:59 Obs Dispo: 12/22/2019 16:30 Obs Duration: 18 hr 31 min Historian- patient. HISTORY OF PRESENT ILLNESS(Chief complaint: Abdominal pain, nausea and vomiting HPI: The patient is a 29-year-old white female who had been in her usual state of health until approximately 2 weeks ago when she suddenly developed abdominal pain. The pain was localized to her lower mid abdomen, towards the right, but otherwise nonradiating. The patient has been constant over the past couple of weeks but the intensity is very. The lowest pain level was 5/10 and highest level 9/10. Currently, during my evaluation she stated was 7/10. The pain is described as a squeezing pain. The only thing that is relie darshan pain over the past couple of weeks has been morphine. She's had almost no relief with Toradol, Bentyl, ibuprofen or Tylenol. It is exacerbated anytime she eats or drinks. She has had similar symptoms in the past with the last episode a few months ago. She has been diagnosed with multiple prior small bowel obstructions including recently. She was hospitalized for 5 days in [place] and sent home over a week ago. The patient required NG decompression. 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 She did undergo a subtotal colectomy 2014. She did have complications that required a colostomy and then reversal of colostomy in 2015 as well as an abdominal abscess. That, and the multiple episodes of small bowel obstructions since. Additionally, patient has had intermittent nausea and vomiting. She last vomited yesterday morning, however she has had almost persistent nausea. This has been going on for the past 2 weeks as well. About 5 days ago she developed diarrhea and has been having multiple episodes of loose watery bowel movements. There is no melena or blood. There is no mucus. The patient does not drink well water and has not recently been on antibiotics. The patient's travel history include a recent inpatient admission for her bipolar disorder in [place] and that's where she developed the symptoms and then was hospitalized. She came home to [place] little over week ago and then came here to see her mother a few days ago. She is unaware of any sick contacts. As I stated above she does follow up with the colorectal surgeon in [place] (Dr. Salinas) and saw him about a week ago, just after her hospitalization for the SBO. Her pain became much worse on Thursday evening. She came to our emergency room and had a full evaluation including a CT without contrast. Her workup was non. Actionable and she was discharged home. After dinner last night her symptoms again flared and she came back to the ER. She again had a full workup including labs, UA, repeat CT without contrast and the results are documented below. She was given Zofran, Phenergan as well as Toradol, but her symptoms persisted. She was subsequently admitted as an observation admission for further evaluation and management. There is continued concern for an underlying SBO, versus other etiology.The patient was managed by our provider in the ER . Her condition was stable. She was made nothing by mouth and continued on IV fluids. Vital signs were monitored closely. Some of her home medications were provided.I saw the patient this morning and with her underlying history, persistent symptoms and clinical evaluation, I feel the patient warrants further evaluation by surgery and possibly GI and/or colorectal subspecialty. I discussed this with the patient and she is agreeable. The patient prefers to be sent to [facility] and I am working with the providers at [facility] for transfer.). REVIEW OF SYSTEMSThe patient denies fever or chills. She does not have an appetite. She denies feeling lightheaded or dizzy, nor has she had headaches. She denies any change in vision, speech or swallowing. She denies any EENT complaints. She denies shortness of breath, wheezing or cough. She denies chest pain or palpitations. She has no other GI complaints except for what is noted above. The patient is voiding without difficulty and denies an y complaints. 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 She denies any specific musculoskeletal complaints. She denies any weakness, numbness or tingling. She denies any skin issues. From a psychiatric standpoint she is doing well on her current medical regimen. She's had no recent suicidal or homicidal ideation. She denies any auditory or visual hallucinations. 10 point review systems is otherwise negative except for as noted above. PAST HISTORYPAST MEDICAL HISTORY: Colonic inertiaSubstance abuse (oral narcotics after her colon surgery and has been in recovery for years. She has been doing well for over 3 years)Migraine headachesHemorrhoidsChronic neck painBipolar disorderDepressionAnal fissuresIntermittent small bowel obstructionsObesity class IIMild anemiaAsthmaRecently was diagnosed by MRI to have a brain cyst. She is still undergoing workup in [place] for this. PAST SURGICAL HISTORY: Subtotal colectomy in 2015Colostomy with reversal in 2016Surgical intervention for abdominal abscessAppendectomyCholecystectomyAbdominal hernia repair ???2Left knee arthroscopyColonoscopy ???2EGD ???3 SOCIAL HISTORY: The patient is , but has no childrenShe is disabled due to her bipolar disorder and is on SSDShe is a nonsmoker and does not use drugs or drink alcohol FAMILY HISTORY: Father at age 57 from an [place]. He had an underlying CAD, prior CVAs, diabetes and hypertensionMother is 65 years old and has a pituitary tumor as well as brain aneurysmShe has 2 sisters, ages 33 and 36 and they are both alive and well ADVANCED DIRECTIVES: The patient's healthcare proxy is her husbandShe is a full code IMMUNIZATIONS: Flu vaccine fall 2018Shjennifer has never received a pneumonia vaccine ALLERGIES/INTOLERANCES: Imitrex (her joints "lock up")Reglan (anxiety) MEDICATIONS: Multivitamin by mouth dailyNexplanon SCHydroxyzine 50 mg 3 times a day as needed for anxietyProzac 60 mg by mouth dailySeroquel 300 mg by mouth daily at bedtimeTrazodone 150 mg by mouth daily at bedtimeZofran ODT 4 mg 3 times a day as neededRisperidone 0.5 mg by mouth twice a dayLamictal 25 mg by mouth daily at bedtime. ADDITIONAL NOTESThe nursing notes have been reviewed (Nurses notes have been reviewed). PHYSICAL EXAMVital Signs: 12/22/2019 11:24 BP: 149/63. MAP: 91. HR: 60. O2 saturation: 97% on room air. Pain level now: 10/30.12/22/2019 08:40 BP: 128/69. MAP: 88. HR: 74. RR: 16. O2 saturation: 97%. Temp: 98.7 F. Pain level now: 09/29.12/22/2019 05:19 BP: 134/78. MAP: 96. HR: 59. RR: 16. O2 saturation: 95% on room air. Temp: 97.8 F. Pain level now: 08/30.12/22/2019 02:21 BP: 118/72. MAP: 87. HR: 63. RR: 14. O2 saturation: 98% on room air. Temp: 97.6 F. Pain level now: 05/30.12/21/2019 22:23 BP: lying 140/93. MAP: 108. HR: 63. RR: 15. O2 saturation: 98% on room air. Pain level now: 07/30.12/21/2019 21:00 BP: 155/94. MAP: 114. HR: 68. RR: 16. O2 saturation: 98% on room air. Pain level now: 07/30.12/21/2019 19:19 BP: 141/97. MAP: 111. HR: 86. RR: 18. O2 saturation: 98%. Temp: 98.7 F. Pain level now: 09/29. Have been re viewed and appear to be correct. Appearance: (General: Obese, well-developed white female who was alert, oriented ???3, cooperative, but in mild distress.HEENT: Normocephalic, atraumatic, pupils reactive, sclerae anicteric, EOMI, oral mucosa was pink and moist, unremarkable oropharynxNeck: Full range of motion, supple, nontender, no masses or lymphadenopathy, trachea in the midline, no thyromegaly, carotids 2+ without bruits, there is no JVDLungs: Clear to auscultation bilaterally. There is no respiratory distress or accessory muscle movement.Chest wall: Nontender and no crepitationHeart: Regular, rate and rhythm with normal S1-S2. There is no murmur, gallop or rub.Abdomen: Obese, soft, there was rather significant tenderness in the right mid to lower abdomen. There was some slight guarding as well as rebound. I did not note any masses or organomegaly. Bowel sounds were hypoactive.Extremities: The patient moved all 4 extremities without difficulty the bedside. Peripheral pulses are 2+. T here was no edema or calf tenderness.Neurologic: Cranial nerves grossly intact as tested, normal speech, motor and sensory grossly intact, no focal deficits.Back: There was no vertebral or CVA tenderness. There was no paravertebral muscle spasm.Skin: Warm and dry, normal colorPsychiatric: Mood and affect were appropriateLymphatic: No palpable lymphadenopathy). LABS, X-RAYS, AND EKGLaboratory Tests: [facility] Respiratory Panel: (SONY: 12/22/2019 05:28)( MsgRcvd 12/22/2019 06:18) New Order TSYSORDER [id number] Test Result Flag Units (Referen ce)Adenovirus Not Detected Detected (Not) Coronavirus 229E Not Detected Detected (Not) Coronavirus HKU1 Not Detected Detected (Not) Coronavirus NL63 Not Detected Detected (Not) Coronavirus OC43 Not Detected Detected (Not) Sars Cov 2 Not Detected Detected (Not) Human Metapneumovirus Not Detected Detected (Not) Human Rhinovirus Not Detected Detected (Not) Influenza A Not Detected Detected (Not) Influenza B Not Detected Detected (Not) Parainfluenza Virus 1 Not Detected Detected (Not) Parainfluenza Virus 2 Not Detected Detected (Not) Parainfluenza Virus 3 Not Detected Detected (Not) Parainfluenza Virus 4 Not Detected Detected (Not) Respiratory Syncytial Virus Not Detected Detected (Not) Bordetella parapertus (OS8015) Not Detected Detected (Not) Bordetella pertussis (ptxP) Not Detected Detected (Not) Chlamydia pneumoniae Not Detected Detected (Not) Mycoplasma pneumoniae Not Detected Detected (Not) The Above results have been determined by using the [employer] system.[employer] is an automated in vitro diagnostic system thatutilizes nested multiplex Polymerase Chain Reaction (PCR)and high-resolution melting analysis to detect and identifymultiple nucleic acid targets from clinical specimens. CBC w Diff: (SONY: 12/21/2019 20:55)( MsgRcvd 12/21/2019 21:03) New Order TSYSORDER [id number] Test Result Flag Units (Reference)WHITE BLOOD COUNT 7.6 K/mm3 (4.0-10.0) RED BLOOD COUNT 3.88 L M/mm3 (4.00-5.50) HEMOGLOBIN 11.4 L gm/dL (12.0-16.0) HEMATOCRIT 33.8 L % (36.0-48.8) MEAN CELL VOLUME 87.1 fl (80-96) MEAN CORPUSCULAR HEMOGLOBIN 29.4 pg (27.0-31.0) MEAN CORPUSCULAR HGB CONC 33.7 g/dl (32.0-36.0) RED CELL DISTRIBUTION WIDTH 13.0 % (10.0-14.5) PLATELET COUNT 323 K/mm3 (172-450) MEAN PLATELET VOLUME 9.2 fl (9.0- 13.0) GRAN % 62.3 % (50-80.0) IG% 0.3 H % (0.0-0.2) LYMPH % 27.7 % (25.0-50.0) MONO % 5.7 % (2.0-10.0) EOS % 2.9 % (0-5.0) BASO % 1.1 % (0.0-2.0) GRAN # 4.7 K/mm3 (2.0- 8.00) IG# 0.0 K/mm3 (0.0-0.2) LYMPH # 2.1 K/mm3 (1.0-5.0) MONO # 0.4 K/mm3 (0.10-1.20) EOS # 0.2 K/mm3 (0.0-0.5) BASO # 0.1 K/mm3 (0.0-0.2) CMP: (SONY: 12/21/2019 20:55)( MsgRcvd 12/21/2019 21:52) New Order TSYSORDER [id number] Test Result Flag Units (Reference)GLUCOSE 94 mg/dL (74-106) BLOOD UREA NITROGEN 9 mg/dL (7-18) CREATININE 0.9 mg/dL (0.6-1.0) SODIUM 140 mmol/L (136-145) POTASSIUM 3.8 mmol/L (3.5-5.1) CHLORIDE 103 mmol/L (98-107) CO2 27 mmol/L (21-32) CALCIUM 9.0 mg/dL (8.5-10.1) ANION GAP 10.0 mmol/L (5-12) GLOMERULAR FILTRATION RATE 74 mL/min GFR IS CALCULATED IN mL/min/1.36r3JSIGEE FUNCTION: >90MILDLY DECREASED: 60-89MILDY TO MODERATELY DECREASED: 45-59 MODERATELY TO SEVERELY DECREASED: 30-44SEVERELY DECREASED: 15-29RENAL FAILURE: <15 AST 11 L U/L (15-37) ALT 36 U/L (12-78) ALKALINE PHOSPHATASE 42 L U/L (46-116) TOTAL BILIRUBIN 0.2 mg/dL (0.2-1.0) TOTAL PROTEIN 6.6 g/dl (6.4-8.2) ALBUMIN 3.8 gm/dL (3.4-5.0) LIPASE 201 U/L (73-393) MAGNESIUM 2.1 mg/dL (1.8-2.4) PT with INR: (SONY: 12/21/2019 20:55)( MsgRcvd 12/21/2019 21:30) New Order TSYSORDER [id number] Test Result Flag Units (Reference)PROTHROMBIN TIME (PATIENT) 9.9 SECONDS (9.2-11.6) INR 0.95 (0.87-1.06) PARTIAL THROMBOPLASTIN TIME 23.5 SECONDS (21.4-30.2) UA CULTURE IF INDICATED: (SONY: 12/21/2019 19:34)( [facility] 12/21/2019 19:46) New Order URINE SOURCE? URINE, CLEAN CATCHTSYSORDER [id number] Test Result Flag Units (Reference)URINE COLOR. YELLOW URINE APPEARANCE SLIGHTY CLOUDY SPECIFIC GRAVITY,URINE 1.025 (1.001-1.035) URINE LEUKOCYTE ESTERASE NEGATIVE (NEGATIVE) URINE NITRATE NEGATIVE (NEGATIVE) PH,URINE 7.0 (5.0-9.0) URINE PROTEIN NEGATIVE mg/dL (NEGATIVE) URINE GLUCOSE (UA) NEGATIVE mg/dL (NEGATIVE) URINE KETONE NEGATIVE mg/dL (NEGATIVE) URINE UROBILINOGEN NORMAL(0.2-1) mg/dL (0-1) URINE BILIRUBIN NEGATIVE (NEGATIVE) URINE BLOOD NEGATIVE (NEGATIVE) Beta-HCG, Qual Urine: (SONY: 12/21/2019 19:34)( [facility] 12/21/2019 20:07) New Order TSYSORDER [id number] Test Result Flag Units (Reference)HCG URINE NEGATIVE (NEGATIVE) CT ABDOMEN PELVIS DRY: (SONY: 12/21/2019 19:33)( [facility] 12/21/2019 21:19) F Exam ABD/PEL NO CONTRAST CT SCAN OF THE ABDOMEN AND PELVIS [...] FINDINGS: The bladder is unremarkable. Uterus is un remarkable. Postoperative changes are noted. There is prominent [...] by: Kezia Barney M.D. 12/21/2019 21:13 EDT Dictated by: KEZIA BARNEY . PROGRESS AND PROCEDURESCourse of Care: IMPRESSION: Abdominal pain, possible SBO, could the patient have underlying Ibeth's syndromeNausea/vomiting, intermittentDiarrhea, question etiologyHypertension, likely secondary to patient's abdominal painNormocytic anemiaChronic kidney disease stage IIFatty liver, noted by CTHistory of colonic inertia (status post subtotal colectomy, positive history of palpitations including need for a colostomy, status post ostomy reversal, status post abdominal abscess, and subsequent multiple SBO's)Bipolar disorderDepression/anxietyHistory of substance abuse (oral narcotics), 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 Surgery has been notified and they are recommending the patient go directly to the ER for evaluation. There are beds available. I am awaiting a call back as to the logistics and if this isn't appropriate transfer to the ER as the patient is an observation admission. This has been clarified and the patient is being auto excepted to the ER. The pediatrician/medical doctor Dr. Paz is the accepting physician. The appropriate paperwork has been completed. The patient is medically stable for transfer. Disposition: Benefits, risks and alternatives to transfer explained to patient and mother. [facility]red [facility]. Summary of care (CCDA) provided to transport team, EMS and transfer facility. 13:30. Condition: stable. CLINICAL IMPRESSIONAbdominal pain of unknown cause. (Possible SBO, question [place] syndrome). nausea with periodic vomiting. (Electronically signed by Phyllis Carranza DO 12/23/2019 18:39) Weight:95.7 kg (S). Height/Length:65 inches (S). 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 Additional Surgeries:Appendectomy.Cholecystectomy.Colon resection.Hernia Repair.Knee Surgery.Left knee surgery. Medications:Multivitamins Oral 1 pill, daily, last dose this am.Nexplanon Subcutaneous, last dose continuous (implant).PROzac Oral 60mg, daily, last dose this am.SEROquel Oral 300 mg, daily every AM, every PM, last dose last night (100 mg am and 200 mg at night total of 300 mg po daily).traZODone HCl Oral 150 mg, daily every PM, last dose last night.Zofran ODT Oral 4mg, 3x a day as needed, after meals, last dose 1 hour ago.hydrOXYzine HCl Oral 50 mg, 3x a day as needed, last dose 2 hours ago. Allergies:Immitrex.Reglan. Definite(anxiety). FAMILY HISTORYFather: Diabetes, Heart Disease, Hypertension, Stroke/Brain Attack. (Electronically signed by Bridger Hall 12/23/2019 19:10) Weight:95.7 kg (S). Height/Length:65 inches (S). BMI:35.2 Obs Start: 12/21/2019 21:59 Obs Dispo: 12/22/2019 16:30 Obs Duration: 18 hr 31 min (Electronically signed by Jessica Jaimes, Bridger 12/22/2019 22:01) Name Value Range Interpretation Code Description Data Colleen rce(s) Supporting Document(s) ID Date Data Source [id number] 12/23/2019 05:27:20 PM [facility] Name Value Range Interpretation Code Description Data Colleen rce(s) Supporting Document(s) History and Physical [facility] GCJDRu5oBeDBQhBz29/XGVytUASeq5OpFJihJBg5RHuzVWSnF7KbECX1cW2nNYI7EPvQHgIlVwZcAAXp m KqZpuYAvVfEVDhWehLDpFhNAluTjcqkVJaRE1UcIN2OYKhO70nLQBsVNDpX8QbATHsKlv+Xs5XZSLktZ VyVG4FSicN4Q0tb2ZHOh4/Vec/HZLv2iAxQHKI82qBJiQxJ8JhQ8FUsIwdvNiUXdXqPqrrD9jBgwwaAi 0g1ZLPUTdZR4I00Q10CcVn/ZuR1SAbXFgh+X/1ZxBJ cX4l/jbflZ3HldnV7j+wu1wE6xlqpSnr/9Oxb7/zsXQ0M2xlgcITb9wfOhJ+Y81Tfs1Ngvu2xB4+FX+N f2W2Fj5FY/HpyXH/EUp610df/+s227WiQ3V4FM2hX0Zf91HMeL/ZO4efYBrj1RhZi17WivMeZqSeHQRq 89ZE+24I81LGUS54F8rJDOo657Vg6cPl0VcHDJwAv5 [file] ICAgICAgICAgICAgICAgICAgICAgICAgICAgICAgICAgICAgICAgICAgICAgICAgICAgICAgICAgICAg ICAgICAgICAgICAgICAgICAgICAgICAgICAgICAgIC ANCiAgICAgICAgICAgICAgICAgICAgICAgICAgICAgICAgICAgICAgICAgICAgICAgICAgICAgICAgIC AgICAgICAgICAgICAgICAgICAgICAgICAgICAgICAgICAgICAgICAgICANCiAgICAgICAgICAgICAgIC AgICAgICAgICAgICAgICAgICAgICAgICAgICAgICAg ICAgICAgICAgICAgICAgICAgICAgICAgICAgICAgICAgICAgICAgICAgICAgICAgICAgICANCiAgICAg ICAgICAgICAgICAgICAgICAgICAgICAgICAgICAgICAgICAgICAgICAgICAgICAgICAgICAgICAgICAg ICAgICAgICAgICAgICAgICAgICAgICAgICAgICAgIC AgICANCiAgICAgICAgICAgICAgICAgICAgICAgICAgICAgICAgICAgICAgICAgICAgICAgICAgICAgIC AgICAgICAgICAgICAgICAgICAgICAgICAgICAgICAgICAgICAgICAgICAgICANCiAgICAgICAgICAgIC AgICAgICAgICAgICAgICAgICAgICAgICAgICAgICAg ICAgICAgICAgICAgICAgICAgICAgICAgICAgICAgICAgICAgICAgICAgICAgICAgICAgICAgICANCiAg ICAgICAgICAgICAgICAgICAgICAgICAgICAgICAgICAgICAgICAgICAgICAgICAgICAgICAgICAgICAg ICAgICAgICAgICAgICAgICAgICAgICAgICAgICAgIC AgICAgICANCiAgICAgICAgICAgICAgICAgICAgICAgICAgICAgICAgICAgICAgICAgICAgICAgICAgIC AgICAgICAgICAgICAgICAgICAgICAgICAgICAgICAgICAgICAgICAgICAgICAgICANCiAgICAgICAgIC AgICAgICAgICAgICAgICAgICAgICAgICAgICAgICAg ICAgICAgICAgICAgICAgICAgICAgICAgICAgICAgICAgICAgICAgICAgICAgICAgICAgICAgICAgICAN CiAgICAgICAgICAgICAgICAgICAgICAgICAgICAgICAgICAgICAgICAgICAgICAgICAgICAgICAgICAg ICAgICAgICAgICAgICAgICAgICAgICAgICAgICAgIC AgICAgICAgICANCjw/nLUvQ0oxdGYlrvN5N8akJi3RFd9LPL8nw6VwHAIgWDaoyjVeFpdIRqZyUSJyYo xAMmd7PMkvQG4ObFEtT3IjO1OmXUedDA5QTOBxRDXshAJnPUBwZSSuUrR2TWDqGLkeRH7JpMVpECjbYY AwIFIgNyAwIFIgOSAwIFIgMTEgMCBSIDEzIDAgUiAx ILAwOXZiVR5INFXjK243vzUrEc6XPp9JWfTlYI5mvz6CXqDkJCXjPhsOAdf4KAjaPC9DlFGveVOpEbTd AFJGGeEkE9gfh4QeHxHoLSLSZEwxPI5Un3YobROtIWu+Jw1CVV5fi3GpTYqmExQyXD4eau7FZFcZXyKw J2FveXmpNEifWDKvhBKWnRO1DP3cTTNjDdUDiDKwDA NKARZqxPLoKJ7uMlJhCePhDVM9WmOuNP1lFDdwAJ0BZUF1DGbxIDZwDIEeH7sOVhZpOIRkErTobZhuNE 7EQyEjA7LhqeZyvSQrWRQtPTRMMc0+GJfbaxDwHyjJJwZ2ODSga1WdOPd1CW1AERQbPZqtJE5RLGZysP 4qPMwwOA0LNhGbFsJcCYBOJlBuH34yyGLyANe4G4Ku YmVkZGVkRmlsZXMgPDwvTmFtZXMgWyBdDQogID4+ID4+URroPU2IXQnbgaVrYGYqTc0VLAZyWXJrYK1x LAYcXMBcO6A1uWgeGBQHLpLjB1srmjznBH4yMHPzV094uPjgqsYqWZT9OKVaRs7JKBAcGYY8PMXmxHSx VvQgJJWRLGtrBI9GcVKzMIA1eC2jXRkfMPAhVUIzU4 kHJpYbdFrsVQ17iDtjamWbxRTjUVe+Cd1MRA9nt3KxMUh4zkGoQDewITN5VWcjCRClKTMlXLLfYLV1MK D4FGMCOpOaGPPoRXCkHYfrXOAuXKIzek5ZVMKhCHAzSJTmNpHdIPEdZUSkBMdeUXUhSNE8KVS3WJAoFE GaHB8YLdTbXSVlRPSjNJnqWLLcAADfra2HJRToYHXs ZrX6XzRqOKRaGWDuVJgxIYZpEVWjJwxdHDJyQXPoSO0UWpWiEOLrMDS3OTBjWWGlNTHebb8DZURyRFNn OyS5AYLzGHGaHIDbRDvrIMSiULO3TQU5COFfKBFiNS4FFuWoXXTkQHl3YBAfKBIfSBWcow4SNCFeERRr FtEcJUPwNZJaPOFrXNhaSMTsKHYyYNC6FPKqVKIfPS 3WHpQwPUCwHXO6CrklMFEtUCXyqf9UKOYaTCYmITT5RCTfZGFsOFBdCKynYPGrVXS6TiIoPNGvCHTmJX 0ARrKkKSBoGRn8MHvdDCAaRVKgfn8OGIAlMYIpXSQtQHYeLQJiHBFjLYfeREXiFZD4KvF0HSSlOVQdSS 5TSaUbBHZyMQz6YYefIZDoHVPntu4EWUYqVRPnTJw1 PINkELUjNJGqTXieEWZzRSY3UMKeTUFmQQXbYT0DXkEeQVJjMmNxUVbgDCEkATSnad0VNKJjBFFiWYQz YJJmYNWnQXRrSUyyYQRvYGVuFzC2CBNxOJXgPU2RPzClAOMwYvJ4UTfbQPSaPQKumk1PPXZrAKAhFdc9 IaVnANKbXAIaQDflBWStSMMlMStvOQWlIJQiTG7UTb GeAQQuLgE3PKRtBTQgDLRidj3PUABmYDJwDcUlVWYuIBAkCSIaIEjpBKYjGGSvWzl0XLVoSUHySZ3ZPj YkDDSiLjS1GdhpKLWnWCWjan5DVBIfWBBbYMpfGdJiUTQdKNApXVqsCORcVFQ5AOc6YCNzRBGeRU8QVa VqWTSdDbF3EauuVFVhKIBihj6LLMIhSXPrEss1NEQx HHNhDBXsJObbZIZgRDL9EMfqUZFfYPXhKV0RTdCtVERuCokiWJQtFHEiQFIkoh9IzNYleBchle8ANKfT Ix8TvRhhMOX0YJcpJo8tqCUsCxWsNHIXEv8EejYbNAItBXENDRumPJKuHRf4LtQuE9X3VgOrHOZiBrG2 UZLsOpQ6TGFaPQEhWbJaIcW5JvUzRrPrNZYwV5K1OS PvMsg1XsP6HgRnDBW9TgNgKxI+YC4jUQf+Lh1Ji9QqtjV4toKlBBybWxU6KT4ASRNFA8OVFi== ID Date Data Source [id number] 12/23/2019 05:26:33 PM EDT [facility] FLUORO UPPER GI SERIES WITH SMALL BOWELF INAL RESULTInterpreted by:Alondra Khan MDUpper GI and small bowel series.CLINICAL HISTORY: Rule out small bowel obstruction.TECHNIQUE: An upper GI and small bowel series was performed using single contrast technique. The patient was able to drink contrast around a nasogastric tube without difficulty. Serial images were obtained of the small bowel loops as it entered the anastomosis with the colon. 2 bottles of thin contrast was ingested by the patient.FINDINGS: The esophagus demonstrated normal distention, mucosal pattern and motility. Some gastroesophageal reflux was demonstrated. However this may be secondary to the nasogastric tube extending across the GE junction.The stomach, duodenum and duodenal sweep demonstrating normal distention, mucosal pattern and motility.The transit time to the colon was 150 minutes. The visualized segment of colon within the pelvis is unremarkable. There are no segments of strictures or mucosal abnormality throughout the small bowel loops. No masses are identified. There is no evidence of a small bowel obstruction.IMPRESSION: Unremarkable upper GI series except for some gastroesophageal reflux demonstrated with a nasogastric tube extending across the GE junction. This may be contributing to the reflux.No evidence of a small bowel obstruction, strictures or masses.Normal transit time to anastomosis in the pelvis.This document has been electronically signed by Alondra Khan MD on 12/23/2019 5:24 PM Name Value Range Interpretation Code Description Data Colleen rce(s) Supporting Document(s) ID Date Data Source [id number] 12/23/2019 01:27:28 PM [facility] Name Value Range Interpretation Code Description Data Colleen rce(s) Supporting Document(s) [facility] ZYTGQm0iPoPUTvFc97/PQWxcIXSog0PjNTxoKMt2KIunOQFlT3LlEKH3cD9tUCV0DHqHKkWnNfTpBACz [facility] [file] [id number]= ID Date Data Source [id number] 12/22/2019 11:24:08 PM EDT [facility] XR ABDOMEN AP ABD SUPINE ONLY [id number] RESULTInterpreted by:PAZ ByrnesROCYOLIS INFORMATION: Exam: XR Abdomen, 1 View Exam date and time: 12/22/2019 11:02 PM Age: 29 years old Clinical indication: Other: Check tube placement TECHNIQUE: Imaging protocol: XR of the abdomen. Views: Frontal supine view of the abdomen. 1 View. COMPARISON: CT ABD/PEL NO CONTRAST 12/21/2019 7:56 PM FINDINGS: Tubes, catheters and devices: NG tube is at the EG junction. Gastrointestinal tract: Normal. No bowel dilation. Organs: There has been a cholecystectomy. Bones/joints: Unremarkable. IMPRESSION: NG tube at the EG junction.THIS DOCUMENT HAS BEEN ELECTRONICALLY SIGNED BY SHERIN BAILEY MDThis document has been electronically signed by Sherin Bailey MD on 12/22/2019 11:24 PM Name Value Range Interpretation Code Description Data Colleen rce(s) Supporting Document(s) ID Date Data Source [id number] 12/22/2019 11:31:17 PM EDT [facility] Name Value Range Interpretation Code Description Data Colleen rce(s) Supporting Document(s) Leukocytes [#/volume] in Blood by Automated count 6.7 10*3/uL 4-10 [facility] Erythrocytes [#/volume] in Blood by Automated count 4.13 10*6/uL 4.1- 5.3 [facility] Hemoglobin [Mass/volume] in Blood 12.0 g/dL 11.5-15.5 [facility] Hematocrit [Volume Fraction] of Blood by Automated count 36.4 % 3 6-45 [facility] Erythrocyte mean corpuscular volume [Entitic volume] by Auto mated count 88.1 fL 80-96 [facility] Erythrocyte mean corpuscular hemoglobin [Entitic mass] by Automated count 29.1 pg 27-33 [facility] Erythrocyte mean corpuscular hemoglobin concentration [Mass/volume] by Automated count 33.1 g/dL 32.0-36.0 [facility] Erythrocyte distribution width [Ratio] by Automated count 14.0 % 11.5-14.5 [facility] Platelets [#/volume] in Blood by Automated count 345 10*3/uL 150-400 [facility] ID Date Data Source [id number] 12/22/2019 11:50:[address] [facility] Value Range Interpretation Code Description Data Colleen rce(s) Supporting Document(s) Amylase [Enzymatic activity/volume] in Serum or Plasma 32 U/L 28- 103 [facility] ID Date Data Source [id number] 12/22/2019 11:50:[address] [facility] Value Range Interpretation Code Description Data Colleen rce(s) Supporting Document(s) Lipase [Enzymatic activity/volume] in Serum or Plasma 19 U/L 13-6 0 [facility] ID Date Data Source [id number] 12/22/2019 11:50:[address] [facility] Value Range Interpretation Code Description Data Colleen rce(s) Supporting Document(s) Bicarbonate [Moles/volume] in Serum 26 mmol/L 22-29 [facility] Chloride [Moles/volume] in Serum or Plasma 104 mmol/L 98-107 [facility] Creatinine [Mass/volume] in Serum or Plasma 0.87 mg/dL 0.50-0.90 [facility] Glucose [Mass/volume] in Serum or Plasma 84 mg/dL 70-140 [facility] Potassium [Moles/volume] in Serum or Plasma 3.8 mmol/L 3.4-5.1 [facility] Sodium [Moles/volume] in Serum or Plasma 139 mmol/L 136-145 [facility] Urea nitrogen [Mass/volume] in Serum or Plasma 7 mg/dL 6-20 [facility] Anion gap 3 in Serum or Plasma 9 mmol/L 8-15 [facility] Osmolality of Serum or Plasma by calculation 285 mosm/kg 275-300 [facility] Creatinine/Urea nitrogen [Mass Ratio] in Serum or Plasma 8 [facility] Calcium [Mass/volume] in Serum or Plasma 8.7 mg/dL 8.6-10.0 [facility] Glomerular filtration rate/1.73 sq M pre dicted among non-blacks [Volume Rate/Area] in Serum or Plasma by Creatinine-based formula (MDRD) 89 mL/min/1.73m2 >60 [facility] Glomerular filtration rate/1.73 sq M pre dicted among blacks [Volume Rate/Area] in Serum or Plasma by Creatinine-based formula (MDRD) >60 [facility] ID Date Data Source [id number] 12/22/2019 11:50:37 PM EDT [facility] Name Value Range Interpretation Code Description Data Colleen rce(s) Supporting Document(s) Albumin [Mass/volume] in Serum or Plasma by Bromocresol green (BCG) dye binding method 4.1 g/dL 3.5-5.2 [facility] Bilirubin.total [Mass/volume] in Serum or Plasma 0.6 mg/dL <1.2 [facility] Bilirubin.direct [Mass/volume] in Serum or Plasma <0.3 [facility] Alkaline phosphatase [Enzymatic activity/volume] in Serum or Plasma 48 U/L 35-104 [facility] Aspartate aminotransferase [Enzymatic activity/volume] in Serum or Plasma 18 U/L <32 [facility] Alanine aminotransferase [Enzymatic activity/volume] in Seru m or Plasma 25 U/L <33 [facility] Protein [Mass/volume] in Serum or Plasma 6.2 g/dL 6.4-8.3 L [facility] ID Date Data Source [id number] 12/22/2019 11:52:57 PM EDT [facility] Name Value Range Interpretation Code Description Data Colleen rce(s) Supporting Document(s) Prothrombin time (PT) 13.2 s 12.5-14.9 [facility] INR in Platelet poor plasma by Coagulation assay 0.99 [facility] Routine intensity oral anticoagulation I NR is typically 2.0-3.0. Target INR must be clinically individualized. ID Date Data Source [id number] 12/22/2019 11:52:57 PM EDT [facility] Name Value Range Interpretation Code Description Data Colleen rce(s) Supporting Document(s) aPTT in Platelet poor plasma by Coagulation assay 23.7 s 24.0-33. 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 [facility] Patient has symptoms related to [facility] When did you start to experience these symptoms [Date and time] [PhenX] [id number] [facility] Patient was hospitalized because of this [facility] patient was admitted to ICU for [facility] Patient resides in a congregate care setting [facility] status [facility] ID Date Data Source [id number] 12/22/2019 10:05:00 PM EDT [facility] Name Value Range Interpretation Code Description Data Colleen rce(s) Supporting Document(s) SARS-CoV-2 RNA [facility] This lab was ordered by [facility] and reported by [facility]. ID Date Data Source [id number] 12/22/2019 06:17:00 AM EDT [facility] TSYSORDER [id number] Name Value Range Interpretation Code Description Data Colleen rce(s) Supporting Document(s) Adenovirus Not Detected Detected [facility] Coronavirus 229E [facility] HKU1 Not Detected Detected Not [facility] Coronavirus NL63 Not Detected Detected Not [facility] Coronavirus OC43 Not Detected Detected Not [facility] Sars Cov 2 Not Detected Detected [facility] Metapneumovirus Not Detected Detected Not [facility] Human Rhinovirus Not Detected Detected Not [facility] Influenza A Not Detected Detected [facility] Influenza B Not Detected Detected [facility] Parainfluenza Virus 1 Not Detected Detected [facility] Parainfluenza Virus 2 Not Detected Detected Not [facility] Parainfluenza Virus 3 Not Detected Detected Not [facility] Parainfluenza Virus 4 Not Detected Detected Not [facility] Respiratory Syncytial Virus Not Detected Detected Not [facility] Bordetella parapertus ([id number]) Not Detected Detected Not [facility] Bordetella pertussis (ptxP) Not Detected Detected Not [facility] Chlamydia pneumoniae Not Detected Detected Not [facility] Mycoplasma pneumoniae Not Detected Detected [facility] The Above results have been determined b y using the [employer] Film[employer] system.FilmArray is an automated in vitro diagnostic system thatutilizes nested multiplex Polymerase Chain Reaction (PCR)and high-resolution melting analysis to detect and identifymultiple nucleic acid targets from clinical specimens. ID Date Data Source [id number] 12/22/2019 12:00:00 AM EDT [facility] Name Value Range Interpretation Code Description Data Colleen rce(s) Supporting Document(s) 2019 Novel Coronavirus RNA [facility] This lab was ordered by [facility] L aboratory and reported by [facility]. ID Date Data Source [id number] 12/21/2019 09:18:00 PM EDT [facility] CT SCAN OF THE ABDOMEN AND PELVIS DATE O F EXAMINATION: 12/21/2019 INDICATION: Lower abdominal pain and vomiting COMPARISON: 12/20/2019 TECHNIQUE: Axial images were obtained through the abdomen and pelvis from thelung bases through the rectum. Intravenous contrast was not utilized for thisexamination. One or more of the following dose reduction techniques were utilized ineffectively lowering the radiation dose for this examination: Automated ExposureControl, Adjustment of the mA and/or kV according to patient size, or Iterativereconstruction ABDOMEN FINDINGS: Lung bases are clear. The patient is post subtotal colectomy.The liver is diffusely decreased in attenuation consistent with fatty change.There are surgical clips in the gallbladder fossa postcholecystectomy. Thespleen, pancreas, adrenal glands are unremarkable. There is slight prominence ofthe renal sinus fat. No hydronephrosis. There is a tiny hyperdense punctatefocus in the cortex of the midpole of the right kidney laterally. The aorta isunremarkable. Bowel is distended and fluid-filled. No clear obstruction ofidentified. Postoperative changes are noted with surgical clips as well asstranding within the soft tissues of the right lower quadrant superficialtissues. PELVIC FINDINGS: The bladder is unremarkable. Uterus is unremarkable.Postoperative changes are noted. There is prominent stool and a small section ofbowel in the pelvis. No free air or free fluid. IMPRESSION: Post subtotal colectomy. There is distention of the bowel withair-fluid levels. This has increased slightly when compared to the study fromone day previously. No clear obstructing point. There is a focus of of stoolwithin the distal colon and pelvis. Electronically signed in [id number] by: Kezia Barney M.D. 12/21/2019 21:13 EDT Name Value Range Interpretation Code Description Data Colleen rce(s) Supporting Document(s) ID Date Data Source [id number] 12/21/2019 09:27:00 PM EDT [facility] TSYSORDER [id number] Name Value Range Interpretation Code Description Data Colleen rce(s) Supporting Document(s) MAGNESIUM 2.1 mg/dL 1.8-2.4 [facility] ID Date Data Source [id number] 12/21/2019 09:27:00 PM [facility]T [facility] [id number] Name Value Range Interpretation Code Description Data Colleen rce(s) Supporting Document(s) LIPASE 201 U/L 73-393 [facility] ID Date Data Source [id number] 12/21/2019 09:27:00 PM EDT [facility] TSYSORDER [id number] Name Value Range Interpretation Code Description Data Colleen rce(s) Supporting Document(s) GLUCOSE 94 mg/dL 74-106 [facility] BLOOD UREA NITROGEN 9 mg/dL 7-18 [facility] ital CREATININE 0.9 mg/dL 0.6-1.0 [facility] SODIUM 140 mmol/L 136-145 [facility] POTASSIUM 3.8 mmol/L 3.5-5.1 [facility] CHLORIDE 103 mmol/L 98-107 [facility] CO2 27 mmol/L 21-32 [facility] CALCIUM 9.0 mg/dL 8.5-10.1 [facility] ANION GAP 10.0 mmol/L 5-12 [facility] GLOMERULAR FILTRATION RATE 74 mL/min [facility] GFR IS CALCULATED IN mL/min/1.73m2 TATI L FUNCTION: >90MILDLY DECREASED: 60-89MILDY TO MODERATELY DECREASED: 45-59 MODERATELY TO SEVERELY DECREASED: 30-44SEVERELY DECREASED: 15-29RENAL FAILURE: <15 AST 11 U/L 15-37 L [facility] ALT 36 U/L 12-78 [facility] ALKALINE PHOSPHATASE 42 U/L 46-116 L [facility] pital TOTAL BILIRUBIN 0.2 mg/dL 0.2-1.0 [facility] TOTAL PROTEIN 6.6 g/dl 6.4-8.2 [facility] ALBUMIN 3.8 gm/dL 3.4-5.0 [facility] ID Date Data Source [id number] 12/21/2019 09:29:00 PM T [facility] TSYSORDER [id number] Name Value Range Interpretation Code Description Data Colleen rce(s) Supporting Document(s) PARTIAL THROMBOPLASTIN TIME 23.5 SECONDS 21.4-30.2 [facility] ID Date Data Source [id number] 12/21/2019 09:29:00 PM [facility] TSYSORDER [id number] Name Value Range Interpretation Code Description Data Colleen rce(s) Supporting Document(s) PROTHROMBIN TIME (PATIENT) 9.9 SECONDS 9.2-11.6 [facility] INR 0.95 0.87-1.06 [facility] ID Date Data Source [id number] 12/21/2019 09:02:00 PM [facility] TSYSORDER [id number] Name Value Range Interpretation Code Description Data Colleen rce(s) Supporting Document(s) WHITE BLOOD COUNT 7.6 K/mm3 4.0-10.0 [facility] al RED BLOOD COUNT 3.88 M/mm3 4.00-5.50 L [facility] HEMOGLOBIN 11.4 gm/dL 12.0-16.0 L [facility] HEMATOCRIT 33.8 % 36.0-48.8 L [facility] MEAN CELL VOLUME 87.1 fl 80-96 [facility] l MEAN CORPUSCULAR HEMOGLOBIN 29.4 pg 27.0-31.0 [facility] MEAN CORPUSCULAR HGB CONC 33.7 g/dl 32.0-36.0 [facility] RED CELL DISTRIBUTION WIDTH 13.0 % 10.0-14.5 [facility] PLATELET COUNT 323 K/mm3 172-450 [facility] MEAN PLATELET VOLUME 9.2 fl 9.0-13.0 [facility] pital GRAN % 62.3 % 50-80.0 [facility] IG% 0.3 % 0.0-0.2 H [facility] LYMPH % 27.7 % 25.0-50.0 [facility] MONO % 5.7 % 2.0-10.0 [facility] EOS % 2.9 % 0-5.0 [facility] BASO % 1.1 % 0.0-2.0 [facility] GRAN # 4.7 K/mm3 2.0-8.00 [facility] IG# 0.0 K/mm3 0.0-0.2 [facility] LYMPH # 2.1 K/mm3 1.0-5.0 [facility] MONO # 0.4 K/mm3 0.10-1.20 [facility] EOS # 0.2 K/mm3 0.0-0.5 [facility] BASO # 0.1 K/mm3 0.0-0.2 [facility] ID Date Data Source [id number] 12/21/2019 07:34:00 PM EDT [facility] TSYSORDER [id number] Name Value Range Interpretation Code Description Data Colleen rce(s) Supporting Document(s) HCG URINE NEGATIVE NEGATIVE [facility] ID Date Data Source [id number] 12/21/2019 07:46:00 PM EDT [facility] ital TSYSORDER [id number] Name Value Range Interpretation Code Description Data Colleen rce(s) Supporting Document(s) URINE COLOR. [facility] URINE APPEARANCE SLIGHTY CLOUDY [facility] SPECIFIC GRAVITY,URINE 1.025 1.001-1.035 [facility] URINE LEUKOCYTE ESTERASE NEGATIVE NEGATIVE [facility] URINE NITRATE NEGATIVE NEGATIVE [facility] PH,URINE 7.0 5.0-9.0 [facility] URINE PROTEIN NEGATIVE mg/dL NEGATIVE [facility] UR[facility] GLUCOSE (UA) NEGATIVE mg/dL NEGATIVE [facility] URINE KETONE NEGATIVE mg/dL NEGATIVE [facility] UROBILINOGEN NORMAL(0.2-1) mg/dL 0-1 R [facility] URINE BILIRUBIN NEGATIVE NEGATIVE [facility] URINE BLOOD NEGATIVE NEGATIVE [facility] ID Date Data Source [id number] 12/20/2019 11:10:00 PM EDT [facility] Patient: RITA ROSA Observation Report - [facility] [id number] [place] [address] [phone], [facility] Date/Time: 12/20/2019 18:18 Weight:95.7 kg (M). Height/Length:65 inches (S). BMI:35.2 PAST HISTORYProblems:Migraine Headache [Chronic].Hemorrhoids [Chronic].Substance Abuse [Chronic].Depression [Chronic].Bipolar Disorder [Chronic].Chronic neck pain [Chronic]. Additional Surgeries:Appendectomy.Cholecystectomy.Colon resection.Hernia Repair.Knee Surgery.Left knee surgery. Medications:hydrOXYzine HCl Oral 50 mg, 3x a day as needed, last dose last night.Multivitamins Oral 1 pill, daily, last dose yesterday.Nexplanon Subcutaneous, last dose continuous (implant).PROzac Oral 60mg, daily, last dose yesterday.SEROquel Oral 300 mg, daily every AM, every PM, last dose last night (100 mg am and 200 mg at night total of 300 mg po daily).traZODone HCl Oral 150 mg, daily every PM, last dose last night.Zofran ODT Oral 4mg, 3x a day as needed, after meals, last dose last night. Allergies:Immitrex.Reglan. Definite(anxiety). FAMILY HISTORYNo significant family medical history. (Electronically signed by Bridger Worthy 12/20/2019 21:22) Name Value Range Interpretation Code Description Data Colleen rce(s) Supporting Document(s) ID Date Data Source [id number] 12/20/2019 08:50:00 PM EDT [facility] SCAN OF THE ABDOMEN AND PELVIS DATE O F EXAMINATION: 12/20/2019 INDICATION: Abdominal pain COMPARISON: 10/19/2019, 02/09/2019 TECHNIQUE: Axial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 Range Interpretation Code Description Data Colleen rce(s) Supporting Document(s) ID Date Data Source [id number] 09/12/2019 01:15:00 PM EDT [facility] DATE OF EXAMINATION: 09/12/2019 11:32 EDT CHEST 1 VIEW HISTORY: Chest pain TECHNIQUE: Single frontal radiograph of chest FINDINGS: No evidence of focal consolidation, pneumothorax or large pleural effusion.Lungs are clear. Mediastinal structures are unremarkable. No aggressive osseouslesions. IMPRESSION: No focal consolidation. Electronically signed in PS360 by: Chris Mckeon M.D. 09/12/2019 13:09 EDT Name Value Range Interpretation Code Description Data Colleen rce(s) Supporting Document(s) ID Date Data Source [id number] 09/12/2019 01:11:00 PM EDT [facility] [id number] Name Value Range Interpretation Code Description Data Colleen rce(s) Supporting Document(s) FREE T4 0.92 ng/dL 0.76-1.46 [facility] ID Date Data Source [id number] 09/12/2019 01:11:00 PM EDT [facility] TSYSORDER [id number] Name Value Range Interpretation Code Description Data Colleen rce(s) Supporting Document(s) TSH 2.36 uIU/mL 0.36-3.74 [facility] ID Date Data Source [id number] 09/12/2019 12:57:00 PM EDT [facility] TSYSORDER [id number] Name Value Range Interpretation Code Description Data Colleen rce(s) Supporting Document(s) LIPASE 74 U/L 73-393 [facility] ID Date Data Source [id number] 09/12/2019 12:57:00 PM EDT [facility] [id number] Name Value Range Interpretation Code Description Data Colleen rce(s) Supporting Document(s) GLUCOSE 93 mg/dL 74-106 [facility] BLOOD UREA NITROGEN 11 mg/dL 7-18 [facility] CREATININE 0.9 mg/dL 0.6-1.0 [facility] SODIUM 139 mmol/L 136-145 [facility] POTASSIUM 3.6 mmol/L 3.5-5.1 [facility] CHLORIDE 103 mmol/L 98-107 [facility] CO2 27 mmol/L 21-32 [facility] CALCIUM 9.1 mg/dL 8.5-10.1 [facility] ANION GAP 9.0 mmol/L 5-12 [facility] GLOMERULAR FILTRATION RATE 74 mL/min [facility] GFR IS CALCULATED IN mL/min/1.73m2 TATI L FUNCTION: >90MILDLY DECREASED: 60-89MILDY TO MODERATELY DECREASED: 45-59 MODERATELY TO SEVERELY DECREASED: 30-44SEVERELY DECREASED: 15-29RENAL FAILURE: <15 AST 28 U/L 15-37 [facility] ALT 39 U/L 12-78 [facility] ALKALINE PHOSPHATASE 32 U/L 46-116 L [facility] pital TOTAL BILIRUBIN 0.1 mg/dL 0.2-1.0 L [facility] TOTAL PROTEIN 6.7 g/dl 6.4-8.2 [facility] ALBUMIN 3.4 gm/dL 3.4-5.0 [facility] ID Date Data Source [id number] 09/12/2019 12:57:00 PM EDT [facility] TSYSORDER [id number] Name Value Range Interpretation Code Description Data Colleen rce(s) Supporting Document(s) MAGNESIUM 2.0 mg/dL 1.8-2.4 [facility] ID Date Data Source [id number] 09/12/2019 12:57:00 PM EDT [facility] TSYSORDER [id number] Name Value Range Interpretation Code Description Data Colleen rce(s) Supporting Document(s) TROPONIN I < 0.017 ng/mL 0.0-0.056 [facility] ID Date Data Source [id number] 09/12/2019 12:52:00 PM EDT [facility] TSYSORDER [id number] Name Value Range Interpretation Code Description Data Colleen rce(s) Supporting Document(s) DDIMER 3.78 mg/LFEU 0.19-0.60 H [facility] ID Date Data Source [id number] 09/12/2019 12:52:00 PM EDT [facility] TSYSORDER [id number] Name Value Range Interpretation Code Description Data Colleen rce(s) Supporting Document(s) PARTIAL THROMBOPLASTIN TIME 22.3 SECONDS 21.4-30.2 [facility] ID Date Data Source [id number] 09/12/2019 12:52:00 PM EDT [facility] TSYSORDER [id number] Name Value Range Interpretation Code Description Data Colleen rce(s) Supporting Document(s) PROTHROMBIN TIME (PATIENT) 10.4 SECONDS 9.2-11.6 [facility] INR 1.00 0.87-1.06 [facility] ID Date Data Source [id number] 09/12/2019 12:43:00 PM EDT [facility] [id number] Name Value Range Interpretation Code Description Data Colleen rce(s) Supporting Document(s) HCG,SERUM NEGATIVE NEGATIVE [facility] False negative results may occur when th e levels of hCG arebelow the sensitivity level of the test. If isstill suspected, a first morning urine specimen should becollected 48hrs later.This test has a sensitivity of 10mIU/mL in serum ppj49mUR/mL in urine. ID Date Data Source [id number] 09/12/2019 12:33:00 PM EDT [facility] TSYSORDER [id number] Name Value Range Interpretation Code Description Data Colleen rce(s) Supporting Document(s) WHITE BLOOD COUNT 5.9 K/mm3 4.0-10.0 [facility] al RED BLOOD COUNT 3.80 M/mm3 4.00-5.50 L [facility] HEMOGLOBIN 10.8 gm/dL 12.0-16.0 L [facility] HEMATOCRIT 32.6 % 36.0-48.8 L [facility] MEAN CELL VOLUME 85.8 fl 80-96 [facility] MEAN CORPUSCULAR HEMOGLOBIN 28.4 pg 27.0-31.0 [facility] MEAN CORPUSCULAR HGB CONC 33.1 g/dl 32.0-36.0 [facility] RED CELL DISTRIBUTION WIDTH 14.6 % 10.0-14.5 H [facility] PLATELET COUNT 313 K/mm3 172-450 [facility] MEAN PLATELET VOLUME 9.9 fl 9.0-13.0 [facility] pital GRAN % 48.2 % 50-80.0 L [facility] IG% 0.5 % 0.0-0.2 H [facility] LYMPH % 38.7 % 25.0-50.0 [facility] MONO % 9.4 % 2.0-10.0 [facility] EOS % 2.2 % 0-5.0 [facility] BASO % 1.0 % 0.0-2.0 [facility] GRAN # 2.8 K/mm3 2.0-8.00 [facility] IG# 0.0 K/mm3 0.0-0.2 [facility] LYMPH # 2.3 K/mm3 1.0-5.0 [facility] MONO # 0.6 K/mm3 0.10-1.20 [facility] EOS # 0.1 K/mm3 0.0-0.5 [facility] BASO # 0.1 K/mm3 0.0-0.2 [facility] ID Date Data Source [id number] 08/11/2019 11:15:00 AM EDT [facility] Name Value Range Interpretation Code Description Data Colleen rce(s) Supporting Document(s) SARS-CoV-2 [facility] This lab was ordered by [facility] and reported by [facility]. ID Date Data Source [id number] 07/16/2019 07:40:00 PM EDT [facility] Patient: RITA ROSA Observation Report [facility].VisitID: [id number] [place] [address] [phone], FRegistration Date/Time: 07/16/2019 15:00 Weight:122.4 kg (S). Height/Length:65 inches (S). BMI:45 FAMILY HISTORYFather: Diabetes, Heart Disease, Hypertension, Stroke/Brain Attack. (Electronically signed by Nickie Ryan P.A. 07/16/2019 18:06) Name Value Range Interpretation Code Description Data Colleen rce(s) Supporting Document(s) ID Date Data Source [id number] 07/16/2019 04:55:00 PM EDT [facility] DATE OF EXAMINATION: 07/16/2019 15:30 EDT ABD/PEL WITH IV CONTRAST HISTORY: Abdominal pain TECHNIQUE: This CT exam was performed using the following dose reduction techniques:automated exposure control, adjustment of mA and/or kV according to thepatient's size, and use of iterative reconstruction technique. Standard contiguous axial spiral imaging was obtained from the dome of thediaphragms through the symphysis pubis without oral contrast and withintravenous contrast administration and with coronal reformatting. FINDINGS: Lower thorax: Unremarkable ABDOMEN: Liver: Moderate fatty infiltrationGallbl adder and bile ducts: Cholecystectomy.Pancreas: UnremarkableSpleen: UnremarkableAdrenals: UnremarkableKidneys and ureters: UnremarkableStomach and bowel: There is a loop of small bowel intimately abutting theanterior abdominal wall in the right lower quadrant secondary to adhesions.Suture material is seen more inferiorly involving small bowel loops from priorsurgical intervention with mild secondary partial small bowel obstruction in theright lower quadrant.Appendix: Not seen. No definite evidence for appendicitis. PELVIS: Bladder: UnremarkableReproductive: Unremarkable No free fluid IMPRESSION: Adh esions in the right lower quadrant with mild partial small bowel obstruction. Electronically signed in [id number] by: Chris Mckeon M.D. 07/16/2019 16:49 EDT Name Value Range Interpretation Code Description Data Colleen rce(s) Supporting Document(s) ID Date Data Source [id number] 07/16/2019 04:04:00 PM EDT [facility] l TSYSORDER [id number] Name Value Range Interpretation Code Description Data Colleen rce(s) Supporting Document(s) LACTIC ACID 1.2 mmol/L 0.4-2.0 [facility] ID Date Data Source [id number] 07/16/2019 03:18:00 PM EDT [facility] l TSYSORDER [id number] Name Value Range Interpretation Code Description Data Colleen rce(s) Supporting Document(s) HCG URINE NEGATIVE NEGATIVE [facility] ID Date Data Source [id number] 07/16/2019 03:36:00 PM EDT [facility] ital TSYSORDER [id number] Entery of ALL Res ults have been RecheckedBy HILARIO on 07/16/19 @ 1536. Name Value Range Interpretation Code Description Data Colleen rce(s) Supporting Document(s) URINE COLOR. [facility] URINE APPEARANCE CLEAR [facility] l SPECIFIC GRAVITY,URINE 1.030 1.001-1.035 [facility] URINE LEUKOCYTE ESTERASE NEGATIVE NEGATIVE [facility] URINE NITRATE NEGATIVE NEGATIVE [facility] PH,URINE 6.0 5.0-9.0 [facility] URINE PROTEIN NEGATIVE mg/dL [facility]IVE [facility] GLUCOSE (UA) NEGATIVE mg/dL NEGATIVE [facility] URINE KETONE NEGATIVE mg/dL [facility] UROBILINOGEN 0.2 mg/dL 0-1 [facility] UR[facility] BILIRUBIN NEGATIVE NEGATIVE [facility] URINE BLOOD NEGATIVE NEGATIVE [facility] ID Date Data Source [id number] 07/16/2019 03:54:00 PM EDT [facility] [id number] Name Value Range Interpretation Code Description Data Colleen rce(s) Supporting Document(s) GLUCOSE 88 mg/dL 74-106 [facility] BLOOD UREA NITROGEN 21 mg/dL 7-18 H [facility] ital CREATININE 1.2 mg/dL 0.6-1.0 H [facility] SODIUM 140 mmol/L 136-145 [facility] POTASSIUM 4.6 mmol/L 3.5-5.1 [facility] CHLORIDE 102 mmol/L 98-107 [facility] CO2 27 mmol/L 21-32 [facility] CALCIUM 8.9 mg/dL 8.5-10.1 [facility] ANION GAP 11.0 mmol/L 5-12 [facility] GLOMERULAR FILTRATION RATE 53 mL/min [facility] GFR IS CALCULATED IN mL/min/1.73m2 TATI L FUNCTION: >90MILDLY DECREASED: 60-89MILDY TO MODERATELY DECREASED: 45-59 MODERATELY TO SEVERELY DECREASED: 30-44SEVERELY DECREASED: 15-29RENAL FAILURE: <15 AST 21 U/L 15-37 [facility] ALT 28 U/L 12-78 [facility] ALKALINE PHOSPHATASE 43 U/L 46-116 L [facility] pital TOTAL BILIRUBIN 0.1 mg/dL 0.2-1.0 L [facility] TOTAL PROTEIN 7.1 g/dl 6.4-8.2 [facility] ALBUMIN 3.9 gm/dL 3.4-5.0 [facility] ID Date Data Source [id number] 07/16/2019 03:54:00 PM EDT [facility] [id number] Name Value Range Interpretation Code Description Data Colleen rce(s) Supporting Document(s) LIPASE 113 U/L 73-393 [facility] ID Date Data Source [id number] 07/16/2019 03:37:00 PM EDT [facility] l TSYSORDER [id number] Name Value Range Interpretation Code Description Data Colleen rce(s) Supporting Document(s) WHITE BLOOD COUNT 5.9 K/mm3 4.0-10.0 [facility] RED [facility]LOOD COUNT 4.13 M/mm3 4.00-5.50 [facility] l HEMOGLOBIN 11.3 gm/dL 12.0-16.0 L [facility] HEMATOCRIT 34.8 % 36.0-48.8 L [facility] MEAN CELL VOLUME 84.3 fl 80-96 [facility] MEAN CORPUSCULAR HEMOGLOBIN 27.4 pg 27.0-31.0 [facility] MEAN CORPUSCULAR HGB CONC 32.5 g/dl 32.0-36.0 [facility] RED CELL DISTRIBUTION WIDTH 17.3 % 10.0-14.5 H [facility] PLATELET COUNT 249 K/mm3 172-450 [facility] MEAN PLATELET VOLUME 10.1 fl 9.0-13.0 [facility] pital GRAN % 51.6 % 50-80.0 [facility] IG% 0.5 % 0.0-0.2 H [facility] LYMPH % 34.6 % 25.0-50.0 [facility] MONO % 9.6 % 2.0-10.0 [facility] EOS % 2.9 % 0-5.0 [facility] BASO % 0.8 % 0.0-2.0 [facility] GRAN # 3.1 K/mm3 2.0-8.00 [facility] IG# 0.0 K/mm3 0.0-0.2 [facility] LYMPH # 2.1 K/mm3 1.0-5.0 [facility] MONO # 0.6 K/mm3 0.10-1.20 [facility] EOS # 0.2 K/mm3 0.0-0.5 [facility] BASO # 0.1 K/mm3 0.0-0.2 [facility] Procedure Social History Code Duration Value Status Description Data Source(s ) Alcohol intake 12/22/2019 12:00:00 AM EDT Lifetime non-drinker (finding) completed Lifetime non-drinker (finding) [facility] Smoking 12/22/2019 12:00:00 AM EDT Never smoker completed Never s [facility] Vital Signs ID Date Data Source [id number] Name Value Range Interpretation Code Description Data Source(s) Body weight 99.565 kg 99.565 kg [facility] ([facility], ) Body mass index (BMI) [Ratio] 37.1 kg/m2 37.1 k g/m2 [facility] ([facility], ) Body weight 219.50 [lb_av] 219.50 [lb_av] MEDEN T ([facility], ) Body height 64.50 [in_i] 64.50 [in_i] [facility] 5'4.50" Diastolic blood pressure 72 mm[Hg] 72 mm[Hg] [facility] Systolic blood pressure 112 mm[Hg] 112 mm[Hg] M EDSANDRINE ([facility], ) ID Date Data Source [id number] 12/29/2019 11:20:49 AM [facility] Name Value Range Interpretation Code Description Data Source(s) WEIGHT RECORDED 211 lb 211 lb [facility] Body height Measured 65 in 65 in [facility] TRANSFER FROM [facility] ID Date Data Source [id number] 04/09/2020 10:33:00 AM [facility] Name Value Range Interpretation Code Description Data Source(s) WEIGHT 81.64 kilos 81.64 kilos [facility] al HEIGHT 165.1 centimeters 165.1 centimeters [facility] WEIGHT 81.64 kilos 81.64 kilos [facility] al HEIGHT 165.1 centimeters 165.1 centimeters [facility] Patient Treatment Plan of Care Planned Activity Planned Date Details Description Data Source (s) pantoprazole 40 MG Delayed Release Oral Tablet 12/26/2019 12:00:00 AM [facility] meloxicam 15 MG Oral Tablet 12/25/2019 12:00:00 AM [facility] Cyclobenzaprine hydrochloride 10 MG Oral Tablet 12/25/2019 12:00:00 AM [facility] Acetaminophen 325 MG Oral Tablet 12/25/2019 12:00:00 AM [facility] tramadol hydrochloride 50 MG Oral Tablet 12/25/2019 12:00:00 AM [facility] Furosemide 20 MG Oral Tablet 12/24/2019 12:07:14 PM [facility] morphine sulfate (PF) 4 MG/ML injection 12/22/2019 09:07:38 PM [facility] Dicyclomine Hydrochloride 10 MG Oral Capsule 12/21/2019 12:00:00 AM [facility] tramadol hydrochloride 50 MG Oral Tablet 10/20/2019 12:00:00 AM [facility] Cyclobenzaprine hydrochloride 10 MG Oral Tablet 10/03/2019 12:00:00 AM [facility] Furosemide 20 MG Oral Tablet 10/01/2019 12:00:00 AM [facility] Acetaminophen 325 MG / Oxycodone Hydrochloride 5 MG Or al Tablet 08/02/2019 12:00:00 AM [facility]
[2020-04-11 14:48] LABS: BASO # 0.1 10^3/uL (0.0-0.2); BASO % 0.7 % (0.0-1.0); EOS # 0.2 10^3/uL (0.0-0.5); EOS % 2.3 % (0.0-3.0); HEMATOCRIT 38.7 % (36.0-47.0); HEMOGLOBIN 12.3 g/dl (12.0-15.5); MEAN CORPUSCULAR HEMOGLOBIN 27.3 pg (27.0-33.0); MEAN CORPUSCULAR HGB CONC 31.8 g/dl (32.0-36.5); MEAN CORPUSCULAR VOLUME 85.8 fl (80.0-96.0); MONO # 0.6 10^3/uL (0.0-0.8); MONO % 7.4 % (0.0-5.0); NEUTROPHILS # 5.4 10^3/uL (1.5-8.5); NEUTROPHILS % 65.2 % (36.0-66.0); PLATELET COUNT, AUTOMATED 381 10^3/uL (150-450); RED BLOOD COUNT 4.51 10^6/uL (4.00-5.40); WHITE BLOOD COUNT 8.3 10^3/uL (4.0-10.0)
[2020-04-11] MEDS ORDERED: fentaNYL 100 MCG/2 ML INJECTION (J3010) IV ONE (15:00)
[2020-04-11] MEDS ORDERED: NS 1,000 ML IV ONE (15:00)
[2020-04-11] MEDS ORDERED: KETOROLAC 30 MG/ML 1ML VIAL IV ONE (15:00)
--- OUTSIDE RECORDS SUMMARY | 2020-04-11 15:14 | CCD ---
Author Author [facility] Organization [facility] Address Unknown Phone Unavailable Care Team Providers Care Tree Surgeon Helper Name Role Phone PETROFF, NICKIE PA Unavailable [...] MD Unavailable Unavailable Marcusbek-LangJosiah MD Unavailable Unavailable Marcusbek-LangJosiah MD Unavailable Unavailable [...] DO Unavailable Unavailable WERBLIN, Esteban. PHYLLIS Unavailable [phone] WERBLIN, Esteban. PHYLLIS Unavailable [phone] WERBLIN, Esteban. PHYLLIS Unavailable [phone] WERBLIN, Esteban. PHYLLIS Unavailable [phone] WERBLIN, Luigi FERGUSON Unavailable [phone] [facility] [place] Unavailable Unavailable [...] Unavailable Rydberg, Sabrina PA Unavailable Unavailable Rydberg, Sabrian PA Unavailable Unavailable Rydberg, Sabrina PA Unavailable [...] is protected by Article 27-F of the [facility] Public Health law. If you continue you may have access to information: Regarding HIV / AIDS; Provided by facilities licensed or operated by the [facility] Office of Mental Health; or Provided by the [facility] Office for People With Developmental Disabilities. If such information is present, then the following [facility] mandated warning applies: This information has been [...] law may result in a fine or group home sentence or both. A general authorization for the release of medical or other information is NOT sufficient authorization for further disc losure. Allergies and Adverse Reactions Type Description Substance Reaction Status Data Source(s ) DRUG INGREDI METOCLOPRAMIDE METOCLOPRAMIDE Anxiety [facility] DRUG INGREDI SUMATRIPTAN SUMATRIPTAN Other [facility] Drug allergy MDX - Nka - No Known Allergies MDX - Nka - No Known [facility] Family History Family Member Name Family Member Gender Family Member Status Date o f Status Description Data Source(s) Unknown Female Encounters Encounter Providers Location Date Indications Data Source(s ) Outpatient Attender: Sabrina DILLON 04/09/2020 11:19:00 AM [facility] Outpatient Attender: Sabrina DILLON 04/09/2020 10:30:00 AM [facility] Emergency Attender: NICKIE DILLON EMERGENCY ROOM-ER 03/23 11:16:00 AM EST - 04/06/2020 01:20:00 PM [facility] Patient discharged. Outpatient Attender: NJ OLVERA PAConsultant: [facility] [id number] 03/09/2020 08:30:00 AM [facility] Emergency Attender: NJ DILLON EMERGENCY ROOM- ER 03/09/2020 08:02:00 AM [facility] - 03/09/2020 11:31:00 AM [facility] Patient discharged. Emergency Attender: Phyllis LUZC 02:40:00 PM [facility] - 03/04/2020 04:09:00 PM [facility] Patient discharged. Emergency Attender: DARLEEN DILLON EMERGENCY ROOM-ER 11:18:00 AM [facility] - 02/09/2020 03:06:00 PM [facility] Patient discharged. Outpatient Attender: Patricia Mcfadden MDConsultant: [facility] [id number] 12/29/2019 09:40:00 PM EDT [facility] Emergency Attender: Emil Richards PAAdayaender: NIKKIE DILLON EMERGENCY ROOM-ER 12/29/2019 07:33:00 PM EDT - 12/29/2019 10:45:00 PM EDT [facility] Patient discharged. Inpatient Attender: ABELINO HUNTER MDReferrer: ABELINO HUNTER MD 12/22/2019 10:13:22 PM EDT [facility] Inpatient Attender: Andrei Sheridan er: ABELINO HUNTER MDAdmitter: Andrei Cosme: PROVIDER SYSTEM IN [id number]-[id number]/22/2019 12:00:00 A M EDT - 12/25/2019 01:57:00 PM EDT Unspecified intestinal obstruction, unsp ecified as to partial versus complete obstruction [facility] Unspecified intestinal obstruction, unsp ecified as to partial versus complete obstruction Patient discharged. Inpatient Attender: NJ Melgar PAAdayaender: DARLEEN LOZADAdmitter: Phlylis Carranza DO EMERGENCY ROOM-OBS UNIT 12/21/2019 09:59:00 PM EDT - 12/22/2019 04:30:00 PM EDT [facility] Patient discharged. Emergency Attender: HALLE AN PAAttender: NIKKIE DILLON EMERGENCY ROOM-ER 12/20/2019 08:09:00 PM EDT - 12/20/2019 09:14:00 PM [facility] Patient discharged. Emergency Attender: Phyllis STEWART EMERGENCY ROOM-ER 0 11/13/2019 10:30:00 AM EDT - 11/13/2019 12:55:00 PM [facility] Patient discharged. Outpatient Attender: Phyllis LUZCConsultant: [facility] [id number] 11[facility]13[facility]EN [facility]ON EMERGENCY ROOM-ER 05:29:00 PM EDT - [facility] Attender: JESSICA DILLON 03:30:00 PM EDT - 10/03/2019 04:55:00 PM [facility] Patient discharged. Emergency Attender: DARLEEN DILLON EMERGENCY ROOM-ER 11:38:00 AM EDT - 09/12/2019 04:28:00 PM [facility] Patient discharged. Emergency Attender: NICKIE DILLON EMERGENCY ROOM-ER 06/22 03:47:00 PM EDT - 07/16/2019 07:28:00 PM [facility] Patient discharged. Emergency Attender: DARLEEN DILLON EMERGENCY ROOM-ER 11:31:00 AM EDT - 10/31/2018 03:00:00 PM [facility] Patient discharged. Emergency Attender: PHYLLIS CADE EMERGENCY ROOM-ER 12/15 03:33:00 PM EDT - 12/16/2015 07:10:00 PM [facility] Emergency Attender: GARRETT THOMAS MD EMERGENCY ROOM-E R 02/07/2014 11:15:00 AM [facility] - 02/07/2014 01:35:00 PM [facility] Emergency Attender: ADI DILLON 01:22:00 PM [facility] - 03/17/2013 03:06:00 PM [facility] Outpatient Attender: Jacque Zurita MS, PAT EMERGENC Y ROOM-RAD 03/15/2012 10:24:00 AM [facility] - 03/15/2012 10:24:00 AM EST [facility] Emergency Attender: KIN TRAORE DO EMERGENCY ROOM-ER 05:55:00 AM [facility] - 03/14/2012 01:33:00 PM [facility] Immunizations Vaccine Date Status Description Data Source(s) New in 2011. IIV4 12/23/2019 12:00:00 AM EDT completed In [facility] IM Pres Free (0.5 mL dose) 12/23/2019 [facility] Medications Medication Brand Name Start Date Product Form Dose Route Admi nistrative Instructions Pharmacy Instructions Status Indications Reaction Description Data Source(s) 500 mg 04/09/2020 12:00:00 AM EST tablet 20 TAKE ONE TABLET BY MOUTH EVERY 12 HOURS WITH FOOD OR MILK TAKE ONE TABLET BY MOUTH EVERY 12 HOURS WITH FOOD OR MILK SOLD: 04/09/2020 [facility] 875-125 mg 03/04/2020 12:00:00 AM EST tablet 20 TAKE ONE TABLET BY MOUTH TWICE A DAY TAKE ONE TABLET BY MOUTH TWICE A DAY SOLD: 03/04/2020 [facility] 5-325 mg 02/09/2020 12:00:00 AM EST tablet 12 TAKE ONE TO TWO TABLETS BY MOUTH EVERY 4 TO 6 HOURS WHILE AWAKE NEEDED FOR PAIN MAXIMUM DAILY DOSE = 12 TAKE ONE TO TWO TABLETS BY MOUTH EVERY 4 TO 6 HOURS WHILE AWAKE NEEDED FOR PAIN MAXIMUM DAILY DOSE = 12 SOLD: 02/09/2020 [facility] pantoprazole 40 MG Delayed Release Oral Tablet Pantoprazole Sodium 40 MG Oral Tablet Delayed Release (PROTONIX) Pantoprazole Sodium 40 MG Oral Tablet De layed Release (PROTONIX) 12/26/2019 12:00:00 AM EDT 40 mg Oral active Take 1 tablet by mouth daily [facility] pantoprazole 40 MG Delayed Release Oral Tablet pantoprazole (PROTONIX) EC tablet 40 mg pantoprazole (PROTONIX) EC tablet 40 mg 12/25/2019 09:00:00 AM E DT 40 mg Oral active 40 mg, Ora l, Daily Standard, First dose on 12/25/19 at 0900, For 30 days
Do not crush or chew
[facility] Medication administered onsite Cyclobenzaprine hydrochloride 10 [...] 2 days, Max Daily Dose: 200 mg [facility] Acetaminophen 325 MG Oral Tablet Acetaminophen 325 MG Oral T ablet 12/25/2019 12:00:00 AM EDT 650 mg Oral active Take 2 tablets by mouth every 8 (eight) hours [facility] 15 mg 12/25/2019 12:00:00 AM EDT tablet 20 TAKE ONE TABLET BY MOUTH EVERY DAY TAKE ONE TABLET BY MOUTH EVERY DAY SOLD: 12/25/2019 Helene Barreto meloxicam 15 MG Oral Tablet Meloxicam 15 MG Oral Table t (Mobic) Meloxicam 15 MG Oral Tablet (Mobic) 12/25/2019 12:00:00 AM EDT 15 mg Oral active Take 1 tablet by mouth daily [facility] Cyclobenzaprine hydrochloride 10 MG Oral Tablet Cyclobenzaprine HCl 10 MG Oral Tablet (FLEXERIL) Cyclobenzaprine HCl 10 MG Oral Tablet (FLEXERIL) 12/24 12:00:00 AM EDT 10 mg Oral active Take 1 tablet by mouth Two times daily as needed for Muscle spasms [facility] pantoprazole 40 MG Delayed Release Oral [...] Starting 12/24/19 at 1319, For 30 days [facility] Medication administered onsite potassium chloride (K-DUR) dissolvable tablet 40 mEq [id number] 12/24/2019 12:15:00 PM EDT 40 meq Oral completed 40 mEq, Oral, Once, 12/24/19 at 1215, For 1 dose
May be dissolved in water for patients with a G-Tube or unable to swallow. If concern for clogging G-Tube, may contact Pharmacy to switch formulation to a powder packet.
[facility] Medication administered onsite tramadol hydrochloride 50 MG Oral Tablet tramadol (ULT KAMINI) tablet 50 mg tramadol (ULTRAM) tablet 50 mg 12/24/2019 12:07:47 PM EDT 50 mg Oral active 50 mg, Oral, Every 6 hours PRN, Moderate Pain (Pain Scale Score 4-6), Starting 12/24/19 at 1207, For 3 days [facility] Medication administered onsite Furosemide 20 MG Oral Tablet furosemide (LASIX) tablet 20 mg furosemide (LASIX) tablet 20 mg 12/24/2019 12:07:14 PM EDT 20 mg Oral activ e 20 mg, Oral, Daily PRN, Swelling, Starting 12/24/19 at 1207, For 30 days [facility] Medication administered onsite Dicyclomine Hydrochloride 10 MG Oral Capsule dicyclomi ne (BENTYL) capsule 10 mg dicyclomine (BENTYL) capsule 10 mg 12/24/2019 12:06:32 PM EDT 10 mg Oral active 10 mg, Oral, 2 Times Daily PRN, Spastic pain, Starting 12/24/19 at 1206, For 30 days [facility] Medication administered onsite Cyclobenzaprine hydrochloride 10 MG Oral Tablet cyclobenzaprine (FLEXERIL) tablet 10 mg cyclobenzaprine (FLEXERIL) tablet 10 mg 12/24/2019 12:05:52 PM EDT 10 mg Oral active 10 mg, Oral, 2 T imes Daily PRN, Muscle spasms, Starting 12/24/19 at 1205, For 30 days [facility] Medication administered onsite pantoprazole 4 MG/ML Injectable Solution pantoprazole (PROTONIX) injection 40 mg pantoprazole (PROTONIX) injection 40 mg 12/24/2019 09:00:00 AM EDT 40 mg Intravenous aborted 40 mg, Intrav enous, Daily Standard, First dose on 12/24/19 at 0900, For 30 days [facility] Medication administered onsite Acetaminophen 325 MG Oral Tablet acetaminophen (TYLENO L) tablet 975 mg acetaminophen (TYLENOL) tablet 975 mg 12/24/2019 08:30:00 AM EDT 97 5 mg Oral active 975 mg, Oral, E very 8 hours, First dose on 12/24/19 at 0830, For 30 days
Maximum daily dose of acetaminophen is 3,000 mg from all sources in 24 hours.
[facility] Medication administered onsite Oxycodone Hydrochloride 5 [...] only) require Pain Service consultation and approval.
[facility] Medication administered onsite Acetaminophen 10 MG/ML [...] dose 3 gm daily from all sources
[facility] Medication administered onsite influenza vac split quad (FLUARIX) injection 6 months and ol marco a 0.5 mL [id number] 12/23/2019 08:27:06 PM EDT 0.5 mL Intramuscular complet ed 0.5 mL, Intramuscular, Give Now, Starting Thu12/23/19 at 2027, For 1 dose [facility] Medication administered onsite Potassium Chloride 0.1 MEQ/ML Injectable Solution potassium chloride 10 mEq in 100 mL IVPB (premix) potassium chloride 10 mEq in 100 mL IVPB (premix) 12/23/2019 06:00:00 PM EDT 10 meq Intravenous completed 10 mEq, Intravenous, Administer over 60 Minutes, Every 1 hour, First dose on Thu12/23/19 at 1800, For 2 doses [facility] Medication administered onsite 0.4 ML Enoxaparin sodium 100 MG/ML Prefi lled Syringe enoxaparin sodium (LOVENOX) injection 40 mg enoxaparin sodium (LOVENOX) injection 40 mg 12/23/2019 09:00:00 AM EDT 40 mg Subcutaneous active 40 mg, Subcutaneous, Daily Standard, First dose on Thu12/23/19 at 0900, For 30 days [facility] Medication administered onsite ondansetron (ZOFRAN) injection 4 mg [id number] 12/23/2019 02:56:2 5 AM EDT 4 mg Intravenous active 4 mg, In travenous, Every 8 hours PRN, Nausea, Vomiting, Starting Thu12/23/19 at 0256, For 7 days [facility] Medication administered onsite Calcium Chloride 0.0014 MEQ/ML / Potassi um Chloride 0.004 MEQ/ML / Sodium Chloride 0.103 MEQ/ML / Sodium Lactate 0.028 MEQ/ML Injectable Solution lactated ringers infusion lactated ringers infusion 12/22/2019 10:15:00 PM EDT 135 mL/h Intravenous aborted at 135 m L/hr, Intravenous, Continuous, Starting [place]ron[place] 12/22/19 at 2215, For 30 days [facility] Medication administered onsite fentaNYL (SUBLIMAZE) (PF) injection 25 mcg [id number] 12/22/2019 10:06:32 PM EDT 25 ug Intravenous aborted 25 m cg, Intravenous, Every 3 hours PRN, Other, breakthrough, Starting [place]ron[place] 12/22/19 at 2206, For 2 days [facility] Medication administered onsite 1 ML Ketorolac Tromethamine 15 MG/ML Car tridge ketorolac (TORADOL) 15 MG/ML injection 15 mg ketorolac (TORADOL) 15 MG/ML injection 15 mg 0 10:06:15 PM EDT 15 mg Intravenous aborted 15 m g, Intravenous, Every 6 hours PRN, Severe Pain (Pain Scale Score 7-10), Starting [place]ron[place] 12/22/19 at 2206, For 5 days [facility] Medication administered onsite Acetaminophen 10 MG/ML [...] dose 3 gm daily from all sources
[facility] Medication administered onsite diphenhydrAMINE (BENADRYL) injection 25 mg [id number] 12/22/2019 09:30:00 PM EDT 25 mg Intravenous completed 25 mg, Intravenous, Once, [place] 12/22/19 at 2130, For 1 dose [facility] Medication administered onsite morphine sulfate (PF) injection 4 mg [id number] 12/22/2019 09:15: 00 PM EDT 4 mg Intravenous completed 4 mg, In travenous, Once, [facility] 12/22/19 at 2115, For 1 dose [facility] Medication administered onsite morphine sulfate (PF) 4 MG/ML injection [id number] 12/22/19 09:07:38 PM EDT completed Starting [facility] at 2107, For 1 dose
Jaquelin Chavis : cabinet override
[facility] Medication administered onsite morphine sulfate (PF) injection 4 mg [id number] 12/22/2019 07:45: 00 PM EDT 4 mg Intravenous completed 4 mg, In travenous, Once, [facility] 12/22/19 at 1945, For 1 dose [facility] Medication administered onsite ondansetron (ZOFRAN) injection 4 mg [id number] 12/22/2019 07:45:0 0 PM EDT 4 mg Given by IV completed 4 mg, Gi thao by IV, Once, [place] 12/22/19 at 1945, For 1 dose [facility] Medication administered onsite Dicyclomine Hydrochloride 10 MG Oral Cap norbert Dicyclomine HCl 10 MG Oral Capsule (BENTYL) Dicyclomine HCl 10 MG Oral Capsule (BENTYL) 12/21/2019 12:00 :00 AM EDT aborted TAKE ONE CAPSULE BY MOUTH TWICE A DAY NEEDED [facility] 10 mg 12/21/2019 12:00:00 AM EDT capsule 15 TAKE ONE CAPSULE BY MOUTH TWICE A DAY NEEDED TAKE ONE CAPSULE BY MOUTH TWICE A DAY NEEDED SOLD: 12/21/2019 [employer] tramadol hydrochloride 50 MG Oral Tablet traMADol HCl 50 MG Oral Tablet (ULTRAM) traMADol HCl 50 MG Oral Tablet (ULTRAM) 10/20/2019 12:00:00 AM EDT aborted TAKE 1 2 TABLETS BY MOUTH EVERY 4 6 HOURS MAXIMUM DAILY DOSE 8 TABLETS [facility] 50 mg 10/20/2019 12:00:00 AM EDT tablet 12 TAKE 1-2 TABLETS BY MOUTH EVERY 4-6 HOURS MAXIMUM DAILY DOSE = 8 TABLETS TAKE 1-2 TABLETS BY MOUTH EVERY 4-6 HOURS MAXIMUM DAILY DOSE = 8 TABLETS SOLD: 10/20/2019 [facility] 4 mg 10/20/2019 12:00:00 AM EDT tablet 12 TAKE ONE TABLET BY MOUTH THREE TIMES A DAY NEEDED TAKE ONE TABLET BY MOUTH THREE TIMES A DAY NEEDED S OLD: 10/20/2019 [facility] 1 mg 10/17/2019 12:00:00 AM EDT tablet 42 TAKE ONE TABLET BY MOUTH THREE TIMES A DAY NEEDED MAXIMUM DAILY DOSE = 3 TAKE ONE TABLET BY MOUTH THREE TIMES A DAY NEEDED MAXIMUM DAILY DOSE = 3 SOLD: 10/17/2019 [facility] Cyclobenzaprine hydrochloride 10 MG Oral Tablet CYCLOBENZAPR INE HCL 10/03/2019 12:00:00 AM EDT tablet 21 TAKE ONE TABLET BY MOUTH EVERY 8 HOURS NEEDED FOR PAIN TAKE ONE TABLET BY MOUTH EVERY 8 HOURS NEEDED FOR PAIN SO LD: 10/03/2019 [facility] Cyclobenzaprine hydrochloride 10 MG Oral Tablet Cyclobenzaprine HCl 10 MG Oral Tablet (FLEXERIL) Cyclobenzaprine HCl 10 MG Oral Tablet (FLEXERIL) 10/02 12:00:00 AM EDT 10 mg Oral aborted Take 10 mg by mouth every 8 (eight) hours as needed For Pain [facility] Furosemide 20 MG Oral Tablet Furosemide 20 MG Oral Tab let (LASIX) Furosemide 20 MG Oral Tablet (LASIX) 10/01/2019 12:00:00 AM EDT active TAKE ONE TABLET BY MOUTH EVERY DAY NEEDED FOR SWELLING [facility] 20 mg 10/01/2019 12:00:00 AM EDT [...] 08/02/2019 12:00:00 AM EDT ORAL active [facility] ([facility], ) Acetaminophen 325 MG / Oxycodone Hydroch loride 5 MG Oral Tablet oxyCODONE- Acetaminophen 5-325 MG Oral Tablet (PERCOCET) oxyCODONE-Acetaminophen 5-325 MG Oral Tablet (PERCOCET) 08/02/2019 12:00:00 AM EDT aborted TAKE ONE TABLET BY MOUTH EVERY 4 TO 6 HOURS MAXIMUM DAILY DOSE 4 [facility] Insurance Providers Payer name Policy type / Coverage type Policy ID Covered libertarian ID Covered libertarian's relationship to haque Policy Haque Plan Information [employer] INSUR[employer] [place] [id number] SP [id number] [facility] [id number] S [id number] [facility] [id number] S [id number] CLAIM#[id number] CLAIM#[id number] INSURANCE CLAIM#[id number] S CLAIM#[id number] [facility] [id number] CHILD [id number] [employer] INS[employer]ANCE CO O [id number] S [id number] CIGNA U [id number] Self [id number] CIGNA [id number] Jayashree [id number] [employer]IGNA [id number] [employer] [place] [id number] S [id number] [employer] INSURANCE CO [id number] SP [id number] SELF PAY ONLY [id number] [facility] [id number] [facility] [id number] Health Net Federal Servic Commercial Family Depend ent SELF PAY SP UNAVAILABLE S UNAVAILA BLE CLAIMS SERVICE [place] [id number] PARENT [id number] [employer] [place] BC [id number] S VYS [id number] [employer] WATN PPO [id number] SP [id number] Problems, Conditions, and Diagnoses Code Display Name Description Problem Type Effective Dates Data Source(s) M62.838 Other muscle spasm OTHER MUSCLE SPASM Diagnosis 01:24:00 PM [facility] Z90.49 Acquired 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 ACQUIRED ABSENCE OF OTHER SPECIFIED PARTS OF DIGES Diagnosis 04/06/2020 11:16:0 0 AM [facility] Z79.899 Other fci (current) drug therapy O THER INTERMEDIATE (CURRENT) DRUG THERAPY Diagnosis 04/06/2020 11:16:00 AM [facility] Z79.891 FDC (current) use of opiate analge sic INTERMEDIATE (CURRENT) USE OF OPIATE ANALGESIC Diagnosis 04/06/2020 11:16:00 AM [facility] Z20.822 CONTACT WITH AND (SUSPECTED) EXPOSURE TO COVID-19 CONTACT WITH AND (SUSPECTED) EXPOSURE TO COVID-19 Diagnosis 04/06/2020 11:16:00 AM [facility] J45.909 Unspecified asthma, uncomplicated UNSPECIFIED THMA, UNCOMPLICATED Diagnosis 04/06/2020 11:16:00 AM [facility] R10.31 Right lower quadrant pain RIGHT LOWER QUADRANT PAIN Di agnosis 04/06/2020 11:16:00 AM [facility] Z90.89 Acquired absence of other organs ACQUIRED ABSENC E OF OTHER ORGANS Diagnosis 03/09/2020 08:02:00 AM [facility] Z79.3 FDC (current) use of hormonal cont raceptives FAMILY EDUCATOR (CURRENT) USE OF HORMONAL CONTRACEPTIVES Diagnosis 03/09/2020 08:02:00 AM [facility] Z79.2 FDC (current) use of antibiotics L SHARMILA TERM (CURRENT) USE OF ANTIBIOTICS Diagnosis 03/09/2020 08:02:00 AM [facility] G89.29 Other chronic pain OTHER CHRONIC PAIN Diagnosis 08:02:00 AM [facility] R10.11 Right upper quadrant pain RIGHT UPPER QUADRANT PAIN Di agnosis 03/09/2020 08:02:00 AM [facility] R10.9 Unspecified abdominal pain UNSPECIFIED ABDOMINAL PAIN Diagnosis 03/09/2020 08:02:00 AM [facility] H66.001 Acute suppurative otitis med ia without spontaneous rupture of ear drum, right ear ACUTE SUPPR OTITIS MEDIA W/O SPON RUPT EAR DRUM, R Diagnosis 03/04/2020 02:40:00 PM [facility] G43.009 Migraine without aura, not intractable, without status migrainosus MIGRAINE W/O AURA, NOT INTRACTABLE, W/O STATUS MARISA Diagnosis 02:40:00 PM [facility] R51.9 HEADACHE, UNSPECIFIED HEADACHE, UNSPECIFIED Diagnosis 03/04/2020 02:40:00 PM [facility] R10.13 Epigastric pain EPIGASTRIC PAIN Diagnosis 02/09/2020 11:1 8:00 AM [facility] K56.609 Unspecified intestinal obstr uction, unspecified as to partial versus complete obstruction Unspecified intestinal obstruction, unsp ecified as to partial versus complete obstruction Diagnosis 12/22/2019 06:33:00 PM [facility] concern for SBO, N/V, abd pain concern for SBO, N/V, a bd pain Diagnosis 12/22/2019 06:33:[address] [facility] Z68.35 Body mass index (BMI) 35.0-35.9, adult B [place] INDEX [BMI] 35.0-35.9, ADULT Diagnosis 12/21/2019 09:59:00 PM [facility] Z20.828 Contact with and (suspected) exposure to other viral communicable diseases CONTACT W AND EXPOSURE TO OTH VIRAL COMMUNICABLE D Diagnosis 12/21/2019 09:59:00 PM [facility] E66.9 Obesity, unspecified OBESITY, UNSPECIFIED Diagnosis 12/21/2019 09:59:00 PM [facility] D64.9 Anemia, unspecified ANEMIA, UNSPECIFIED Diagnosis 0 12/21/2019 09:59:00 PM [facility] N18.2 Chronic kidney disease, stage 2 (mild) C HRONIC KIDNEY DISEASE, STAGE 2 (MILD) Diagnosis 12/21/2019 09:59:00 PM [facility] I12.9 Hypertensive chronic kidney disease with stage 1 through stage 4 chronic kidney disease, or unspecified chronic kidney disease HYPERTENSIVE CHRONIC KIDNEY DISEASE W STG 1-4/UNSP Diagnosis 12/21/2019 09:59:00 PM [facility] K56.7 Ileus, unspecified ILEUS, UNSPECIFIED Diagnosis 09:59:00 PM [facility] K52.9 Noninfective gastroenteritis and colitis , unspecified NONINFECTIVE GASTROENTERITIS AND COLITIS, UNSPECIF Diagnosis 12/20/2019 08:09:00 PM [facility] R10.30 Lower abdominal pain, unspecified LOWER ABDOMINA L PAIN, UNSPECIFIED Diagnosis 12/20/2019 08:09:00 PM [facility] R10.84 Generalized abdominal pain GENERALIZED ABDOMINAL PAIN Diagnosis 11/13/2019 10:30:00 AM [facility] Y92.[address] as the place of o ccurrence of the external cause OTH PLACES THE PLACE OF OCCURRENCE OF THE EXTER Diagnosis 03:30:00 PM [facility] X50.1XXA OVEREXERTION FROM PROLONGED STATIC OR AW KWARD POST OVEREXERTION FROM PROLONGED STATIC OR AWKWARD POST Diagnosis 10/03/2019 03:30:00 PM [facility] Y93.01 Activity, walking, marching and hiking A CTIVITY, WALKING, MARCHING AND HIKING Diagnosis 10/03/2019 03:30:00 PM [facility] S43.421A Sprain of right rotator cuff capsule, in itial encounter SPRAIN OF RIGHT ROTATOR CUFF CAPSULE, INITIAL ENCO Diagnosis 10/03/2019 03:30:00 PM [facility] S43.001A Unspecified subluxation of right shoulde r joint, initial encounter UNSPECIFIED SUBLUXATION OF RIGHT SHOULDER JOINT, I Diagnosis 03:30:00 PM [facility] S49.91XA Unspecified injury of right shoulder and upper arm, initial encounter UNSP INJURY OF RIGHT SHOULDER AND UPPER ARM, INIT ENCNTR Diagnosis 10/03/2019 03:30:00 PM [facility] R79.89 Other specified abnormal findings of blo od chemistry OTHER SPECIFIED ABNORMAL FINDINGS OF BLOOD RN ENDOCRINOLOGY Diagnosis 09/12/2019 11:38:00 AM [facility] M79.662 Pain in left lower leg PAIN IN LEFT LOWER LEG Diagnosi s 09/12/2019 11:38:00 AM [facility] M79.661 Pain in right lower leg PAIN IN RIGHT LOWER LEG Diagno sis 09/12/2019 11:38:00 AM [facility] F41.1 Generalized anxiety disorder GENERALIZED ANXIETY DISOR MARCO A Diagnosis 09/12/2019 11:38:00 AM [facility] J45.31 Mild persistent asthma with (acute) exac erbation MILD PERSISTENT ASTHMA WITH (ACUTE) EXACERBATION Diagnosis 09/12/2019 11:38:00 AM [facility] R06.00 Dyspnea, unspecified DYSPNEA, UNSPECIFIED Diagnosis 09/12/2019 11:38:00 AM [facility] [facility] K59.8 Other specified functional intestinal di sorders OTHER SPECIFIED FUNCTIONAL INTESTINAL DISORDERS Diagnosis 07/16/2019 03:47:00 [facility] INTESTINAL ADHESIONS [BANDS], WITH PARTI AL OBSTRUC INTESTINAL ADHESIONS [BANDS], WITH PARTIAL OBSTRUC Diagnosis 07/16/2019 03:47:00 PM [facility] Surgeries/Procedures Procedure Description Date Indications Data Source(s) BLOOD COUNT COMPLETE AUTOMATED CBC STAT 12/25/2019 6:18 A M EDT 12/25/2019 06:18:[address] [facility] PHOSPHORUS INORGANIC PHOSPHORUS LEVEL STAT 12/25/2019 6:18 AM E DT 12/25/2019 06:18:[address] [facility] MAGNESIUM MAGNESIUM LEVEL STAT 12/25/2019 6:18 AM EDT 12/25/2019 06:18:[address] [facility] BASIC METABOLIC PANEL CALCIUM TOTAL BASIC METABOLIC PANEL STAT 12/25/2019 6:18 AM EDT 12/[facility] AUT[facility]ATED CBC Routine 12/24/2019 3:39 A M EDT 12/24/2019 03:39:[address] [facility] PHOSPHORUS INORGANIC PHOSPHORUS LEVEL Routine 12/24/2019 3:39 AM E DT 12/24/2019 03:39:[address] [facility] MAGNESIUM MAGNESIUM LEVEL Routine 12/24/2019 3:39 AM EDT 12/24/2019 03:39:[address] [facility] BASIC METABOLIC PANEL CALCIUM TOTAL BASIC METABOLIC PANEL Routi ne 12/24/2019 3:39 AM EDT 12/24/2019 03:39:00 AM EDT [facility] FLUORO UPPER GI SERIES WITH SMALL BOWEL FLUORO UPPER GI SERIES WITH SMALL BOWEL STAT 12/23/2019 3:20 PM EDT 12/23/2019 03:20 :[address] [facility] THROMBOPLASTIN TIME PARTIAL PLASMA/WHOLE BLOOD PARTIA L THROMBOPLASTIN TIME (PTT) Routine 12/22/2019 10:54 PM EDT 12/22/2019 10:54 :[address] [facility] PROTHROMBIN TIME PROTIME INR Routine 12/22/2019 10:54 PM EDT 12/22/2019 10:54:[address] [facility] BLOOD COUNT COMPLETE AUTOMATED CBC Routine 12/22/2019 10:54 P M EDT 12/22/2019 10:54:[address] [facility] LIPASE LIPASE LEVEL Routine 12/22/2019 10:54 PM EDT 12/22/2019 10:54:[address] [facility] AMYLASE AMYLASE LEVEL Routine 12/22/2019 10:54 PM EDT 12/22/2019 10:54:[address] [facility] HEPATIC FUNCTION PANEL HEPATIC FUNCTION PANEL A Routine 12/22/2019 10:54 PM EDT 12/22/2019 10:54:00 PM EDT [facility] BASIC METABOLIC PANEL CALCIUM TOTAL BASIC METABOLIC PANEL Routi ne 12/22/2019 10:54 PM EDT 12/22/2019 10:54:00 PM EDT [facility] COVID-19 PCR COVID-19 PCR Routine 12/22/2019 10:05 PM EDT 12/22/2019 10:05:[address] [facility] XR ABDOMEN AP ABD SUPINE ONLY [id number] XR ABDOMEN AP ABD SUPIN E ONLY [id number] Routine 12/22/2019 11:00 AM EDT 12/22/2019 11:00:[address] [facility] Results ID Date Data Source [id number] 04/06/2020 04:31:00 PM EST [facility] Patient: RITA ROSA Observation Report - [facility].VisitID: [id number] [place] [address] [phone], FRegistration Date/Time: 04/06/2020 10:29 Weight:95.7 kg (S). [...] rce(s) Supporting Document(s) ID Date Data Source [id number] 04/06/2020 12:46:00 PM EST [facility] [...] rce(s) Supporting Document(s) ID Date Data Source [id number] 04/06/2020 11:15:00 AM EST [facility] Name Value Range Interpretation Code Description Data Colleen rce(s) Supporting Document(s) COVID-19 NEGATIVE [facility] This lab was ordered by [facility] and reported by [facility]. ID Date Data Source [id number] 04/06/2020 11:36:00 AM EST [facility] TSYSORDER [id number] Name Value Range Interpretation Code Description Data Colleen rce(s) Supporting Document(s) COVID-19 NEGATIVE NEGATIVE [facility] Negative results should be treated as pr [...] are for the indentification of SARS-CoV-2 RNA. UthREQD-IdY-0 RNA is generally detectable in respiratorysamples during the actue phase of infection. ID Date Data Source [id number] 04/06/2020 11:15:00 AM EST [facility] TSYSORDER [id number] Name Value Range Interpretation Code Description Data Colleen rce(s) Supporting Document(s) URINE COLOR. [facility] CLOU[facility] GLUCOSE (UA) NEGATIVE mg/dL NEGATIVE [facility] URINE BILIRUBIN NEGATIVE NEGATIVE [facility] URINE KETONE NEGATIVE mg/dL NEGATIVE [facility] SPECIFIC GRAVITY,URINE 1.025 1.001-1.035 [facility] URINE BLOOD NEGATIVE NEGATIVE [facility] PH,URINE 5.0 5.0-9.0 [facility] URINE PROTEIN NEGATIVE mg/dL NEGATIVE [facility] URINE UROBILINOGEN NORMAL(0.2-1) mg/dL 0-1 [facility] URINE NITRATE NEGATIVE NEGATIVE [facility] URINE LEUKOCYTE ESTERASE NEGATIVE NEGATIVE [facility] ID Date Data Source [id number] 04/06/2020 11:29:00 AM [facility] TSYSORDER [id number] Name Value Range Interpretation Code Description Data Colleen rce(s) Supporting Document(s) LACTIC ACID 1.2 mmol/L 0.4-2.0 [facility] ID Date Data Source [id number] 04/06/2020 11:23:00 AM [facility] TSYSORDER [id number] Name Value Range Interpretation Code Description Data Colleen rce(s) Supporting Document(s) LIPASE 70 U/L 73-393 [facility] ID Date Data Source [id number] 04/06/2020 11:23:00 AM [facility] TSYSORDER [id number] Name Value Range Interpretation Code Description Data Colleen rce(s) Supporting Document(s) GLUCOSE 97 mg/dL 74-106 [facility] BLOOD UREA NITROGEN 19 mg/dL 7-18 H [facility] CREATININE 0.80 mg/dL 0.6-1.0 [facility] SODIUM 136 mmol/L 136-145 [facility] POTASSIUM 5.0 mmol/L 3.5-5.1 [facility] CHLORIDE 100 mmol/L 98-107 [facility] CO2 25 mmol/L 21-32 [facility] CALCIUM 9.4 mg/dL 8.5-10.1 [facility] ANION GAP 11.0 mmol/L 5-12 [facility] GLOMERULAR FILTRATION RATE 84 mL/min [facility] GFR IS CALCULATED IN mL/min/1.73m2 TATI L FUNCTION: >90MILDLY DECREASED: 60-89MILDY TO MODERATELY DECREASED: 45-59 MODERATELY TO SEVERELY DECREASED: 30-44SEVERELY DECREASED: 15-29RENAL FAILURE: <15 AST 43 U/L 15-37 H [facility] ALT 73 U/L 12-78 [facility] ALKALINE PHOSPHATASE 38 U/L 46-116 L [facility] TOTAL BILIRUBIN 0.4 mg/dL 0.2-1.0 [facility] TOTAL PROTEIN 7.5 g/dl 6.4-8.2 [facility] ALBUMIN 3.6 gm/dL 3.4-5.0 [facility] ID Date Data Source [id number] 04/06/2020 11:21:00 AM [facility] TSYSORDER [id number] Name Value Range Interpretation Code Description Data Colleen rce(s) Supporting Document(s) HCG,SERUM NEGATIVE NEGATIVE [facility] False negative results may occur when th e levels of hCG arebelow the sensitivity level of the test. If isstill suspected, a first morning urine specimen should becollected 48hrs later.This test has a sensitivity of 10mIU/mL in serum pbh10hSU/mL in urine. ID Date Data Source [id number] 04/06/2020 11:11:00 AM [facility] TSYSORDER [id number] Name Value Range Interpretation Code Description Data Colleen rce(s) Supporting Document(s) WHITE BLOOD COUNT 6.0 K/mm3 4.0-10.0 [facility] al RED BLOOD COUNT 3.92 M/mm3 4.00-5.50 L [facility] HEMOGLOBIN 10.9 gm/dL 12.0-16.0 L [facility] HEMATOCRIT 32.5 % 36.0-48.8 L [facility] MEAN CELL VOLUME 82.9 fl 80-96 [facility] MEAN CORPUSCULAR HEMOGLOBIN 27.8 pg 27.0-31.0 [facility] MEAN CORPUSCULAR HGB CONC 33.5 g/dl 32.0-36.0 [facility] RED CELL DISTRIBUTION WIDTH 13.6 % 10.0-14.5 [facility] PLATELET COUNT 290 K/mm3 172-450 [facility] MEAN PLATELET VOLUME 10.4 fl 9.0-13.0 [facility] pital GRAN % 61.1 % 50-80.0 [facility] IG% 0.3 % 0.0-0.2 H [facility] LYMPH % 26.8 % 25.0-50.0 [facility] MONO % 7.0 % 2.0-10.0 [facility] EOS % 4.0 % 0-5.0 [facility] BASO % 0.8 % 0.0-2.0 [facility] GRAN # 3.7 K/mm3 2.0-8.00 [facility] IG# 0.0 K/mm3 0.0-0.2 [facility] LYMPH # 1.6 K/mm3 1.0-5.0 [facility] MONO # 0.4 K/mm3 0.10-1.20 [facility] EOS # 0.2 K/mm3 0.0-0.5 [facility] BASO # 0.1 K/mm3 0.0-0.2 [facility] ID Date Data Source [id number] 03/29/2020 05:15:00 PM EST [facility] Name Value Range Interpretation Code Description Data Colleen rce(s) Supporting Document(s) SARS-CoV-2 RNA Resp Ql LEXIE+probe Negative [facility] This lab was ordered by [facility] and reported by [facility]. ID Date Data Source [id number] 03/09/2020 01:09:00 PM EST [facility] Patient: RITA ROSA Observation Report - [facility].VisitID: [id number] [place] [address] [phone], FRegistration Date/Time: 03/09/2020 07:53 Weight:90.2 kg (S). [...] Name Value Range Interpretation Code Description Data [facility] Supporting Document(s) ID Date Data Source [id number] 03/09/2020 10:51:00 AM EST [facility] TSYSORDER [id number] Name Value Range Interpretation Code Description Data [facility] Supporting Document(s) URINE COLOR. [facility] URINE APPEARANCE CLEAR [facility] URINE GLUCOSE (UA) NEGATIVE mg/dL NEGATIVE [facility] URINE BILIRUBIN NEGATIVE NEGATIVE [facility] URINE KETONE NEGATIVE mg/dL NEGATIVE [facility] SPECIFIC GRAVITY,URINE 1.020 1.001-1.035 [facility] URINE BLOOD NEGATIVE NEGATIVE [facility] PH,URINE 6.0 5.0-9.0 [facility] URINE PROTEIN NEGATIVE mg/dL NEGATIVE [facility] URINE UROBILINOGEN NORMAL(0.2-1) mg/dL 0-1 [facility] URINE NITRATE NEGATIVE NEGATIVE [facility] URINE LEUKOCYTE ESTERASE NEGATIVE NEGATIVE [facility] ID Date Data Source [id number] 03/09/2020 10:22:00 AM EST [facility] [...] rce(s) Supporting Document(s) ID Date Data Source [id number] 03/16/2020 09:28:00 AM EST [facility] #2 L-AC Name Value Range Interpretation Code Description Data Colleen rce(s) Supporting Document(s) [facility] ID Date Data Source [id number] 03/16/2020 09:29:00 AM EST [facility] Name Value Range Interpretation Code Description Data Colleen rce(s) Supporting Document(s) [facility] ID Date Data Source [id number] 03/09/2020 09:14:00 AM EST [facility] TSYSORDER [id number] Name Value Range Interpretation Code Description Data Colleen rce(s) Supporting Document(s) LACTIC ACID 2.0 mmol/L 0.4-2.0 [facility] ID Date Data Source [id number] 03/09/2020 09:14:00 AM EST [facility] TSYSORDER [id number] Name Value Range Interpretation Code Description Data Colleen rce(s) Supporting Document(s) MAGNESIUM 2.0 mg/dL 1.8-2.4 [facility] ID Date Data Source [id number] 03/09/2020 09:14:00 AM EST [facility] TSYSORDER [id number] Name Value Range Interpretation Code Description Data Colleen rce(s) Supporting Document(s) LIPASE 64 U/L 73-393 L [facility] ID Date Data Source [id number] 03/09/2020 09:14:00 AM [facility] TSYSORDER [id number] Name Value Range Interpretation Code Description Data Colleen rce(s) Supporting Document(s) GLUCOSE 101 mg/dL 74-106 [facility] BLOOD UREA NITROGEN 15 mg/dL 7-18 [facility] CREATININE 0.87 mg/dL 0.6-1.0 [facility] SODIUM 138 mmol/L 136-145 [facility] POTASSIUM 3.9 mmol/L 3.5-5.1 [facility] CHLORIDE 100 mmol/L 98-107 [facility] CO2 24 mmol/L 21-32 [facility] CALCIUM 9.6 mg/dL 8.5-10.1 [facility] ANION GAP 14.0 mmol/L 5-12 H [facility] GLOMERULAR FILTRATION RATE 76 mL/min [facility] GFR IS CALCULATED IN mL/min/1.73m2 TATI L FUNCTION: >90MILDLY DECREASED: 60-89MILDY TO MODERATELY DECREASED: 45-59 MODERATELY TO SEVERELY DECREASED: 30-44SEVERELY DECREASED: 15-29RENAL FAILURE: <15 AST 27 U/L 15-37 [facility] ALT 52 U/L 12-78 [facility] ALKALINE PHOSPHATASE 33 U/L 46-116 L [facility] pital TOTAL BILIRUBIN 0.4 mg/dL 0.2-1.0 [facility] TOTAL PROTEIN 7.7 g/dl 6.4-8.2 [facility] ALBUMIN 4.0 gm/dL 3.4-5.0 [facility] ID Date Data Source [id number] 03/09/2020 09:14:00 AM [facility] TSYSORDER [id number] Name Value Range Interpretation Code Description Data Colleen rce(s) Supporting Document(s) PARTIAL THROMBOPLASTIN TIME 20.8 SECONDS 21.2-27.3 [facility] ID Date Data Source [id number] 03/09/2020 09:14:00 AM [facility] TSYSORDER [id number] Name Value Range Interpretation Code Description Data Colleen rce(s) Supporting Document(s) PROTHROMBIN TIME (PATIENT) 10.1 SECONDS 9.1-11.6 [facility] INR 0.97 0.87-1.06 [facility] ID Date Data Source [id number] 03/09/2020 09:02:00 AM [facility] [id number] Name Value Range Interpretation Code Description Data Colleen rce(s) Supporting Document(s) HCG,SERUM NEGATIVE NEGATIVE [facility] False negative results may occur when th e levels of hCG arebelow the sensitivity level of the test. If isstill suspected, a first morning urine specimen should becollected 48hrs later.This test has a sensitivity of 10mIU/mL in serum nah52uMT/mL in urine. ID Date Data Source [id number] 03/09/2020 08:46:00 AM [facility] TSYSORDER [id number] Name Value Range Interpretation Code Description Data Colleen rce(s) Supporting Document(s) WHITE BLOOD COUNT 5.8 K/mm3 4.0-10.0 [facility] al RED BLOOD COUNT 4.06 M/mm3 4.00-5.50 [facility] HEMOGLOBIN 11.3 gm/dL 12.0-16.0 [facility] HEMATOCRIT 33.8 % 36.0-48.8 [facility] MEAN CELL VOLUME 83.3 fl 80-96 [facility] MEAN CORPUSCULAR HEMOGLOBIN 27.8 pg 27.0-31.0 [facility] MEAN CORPUSCULAR HGB CONC 33.4 g/dl 32.0-36.0 [facility] RED CELL DISTRIBUTION WIDTH 12.9 % 10.0-14.5 [facility] PLATELET COUNT 273 K/mm3 172-450 [facility] MEAN PLATELET VOLUME 10.0 fl 9.0-13.0 [facility] pital GRAN % 58.2 % 50-80.0 [facility] IG% 0.3 % 0.0-0.2 H [facility] LYMPH % 30.0 % 25.0-50.0 [facility] MONO % 7.5 % 2.0-10.0 [facility] EOS % 3.1 % 0-5.0 [facility] BASO % 0.9 % 0.0-2.0 [facility] GRAN # 3.4 K/mm3 2.0-8.00 [facility] IG# 0.0 K/mm3 0.0-0.2 [facility] LYMPH # 1.8 K/mm3 1.0-5.0 [facility] MONO # 0.4 K/mm3 0.10-1.20 [facility] EOS # 0.2 K/mm3 0.0-0.5 [facility] BASO # 0.1 K/mm3 0.0-0.2 [facility] ID Date Data Source [id number] 03/04/2020 05:05:00 PM [facility] Patient: RITA ROSA Observation Report - [facility].VisitID: [id number] [place] [address] [phone], [facility] Date/Time: 03/04/2020 14:03 Weight:90.2 kg (S). Height/Length:69 inches (S). BMI:29.4 FAMILY HISTORYNo significant family medical history. (Electronically signed by Phyllis Cope PA 03/04/2020 16:00) Name Value Range Interpretation Code Description Data Colleen rce(s) Supporting Document(s) ID Date Data Source [id number] 02/09/2020 06:46:00 PM EST [facility] Patient: SANDEEPArielle RITA Coronado Observation Report - Phys[facility].VisitID: [id number] [place] [address] [phone], FRegistration Date/Time: 02/09/2020 10:16 Weight:90.2 kg (S). [...] rce(s) Supporting Document(s) ID Date Data Source [id number] 02/09/2020 02:01:00 PM [facility] DATE OF EXAMINATION: 02/09/2020 [...] rce(s) Supporting Document(s) ID Date Data Source [id number] 02/09/2020 01:20:00 PM EST [facility] TSYSORDER [id number] Name Value Range Interpretation Code Description Data Colleen rce(s) Supporting Document(s) MAGNESIUM 1.7 mg/dL 1.8-2.4 [facility] ID Date Data Source [id number] 02/09/2020 01:20:00 PM EST [facility] TSYSORDER [id number] Name Value Range Interpretation Code Description Data Colleen rce(s) Supporting Document(s) LIPASE 106 U/L 73-393 [facility] ID Date Data Source [id number] 02/09/2020 01:20:00 PM EST [facility] TSYSORDER [id number] Name Value Range Interpretation Code Description Data Colleen rce(s) Supporting Document(s) GLUCOSE 96 mg/dL 74-106 [facility] BLOOD UREA NITROGEN 15 mg/dL 7-18 [facility] CREATININE 0.9 mg/dL 0.6-1.0 [facility] SODIUM 139 mmol/L 136-145 [facility] POTASSIUM 4.1 mmol/L 3.5-5.1 [facility] CHLORIDE 100 mmol/L 98-107 [facility] CO2 29 mmol/L 21-32 [facility] CALCIUM 9.4 mg/dL 8.5-10.1 [facility] ANION GAP 10.0 mmol/L 5-12 [facility] GLOMERULAR FILTRATION RATE 74 mL/min [facility] GFR IS CALCULATED IN mL/min/1.73m2 TATI L FUNCTION: >90MILDLY DECREASED: 60-89MILDY TO MODERATELY DECREASED: 45-59 MODERATELY TO SEVERELY DECREASED: 30-44SEVERELY DECREASED: 15-29RENAL FAILURE: <15 AST 16 U/L 15-37 L [facility] 02/09/20 1538: AST previously reported as: 0 L U/L ALT 39 U/L 12-78 [facility] ALKALINE PHOSPHATASE 41 U/L 46-116 [facility] pital TOTAL BILIRUBIN 0.2 mg/dL 0.2-1.0 [facility] TOTAL PROTEIN 7.2 g/dl 6.4-8.2 [facility] ALBUMIN 3.6 gm/dL 3.4-5.0 [facility] ID Date Data Source [id number] 02/09/2020 01:10:00 PM [facility] Name Value Range Interpretation Code Description Data Colleen rce(s) Supporting Document(s) PARTIAL THROMBOPLASTIN TIME 21.0 SECONDS 21.2-27.3 [facility] ID Date Data Source [id number] 02/09/2020 01:10:00 PM [facility] Name Value Range Interpretation Code Description Data Colleen rce(s) Supporting Document(s) PROTHROMBIN TIME (PATIENT) 9.9 SECONDS 9.1-11.6 [facility] INR 0.95 0.87-1.06 [facility] ID Date Data Source [id number] 02/09/2020 01:05:00 PM [facility] T[facility] [id number] Name Value Range Interpretation Code Description Data Colleen rce(s) Supporting Document(s) HCG,SERUM NEGATIVE NEGATIVE [facility] False negative results may occur when th e levels of hCG arebelow the sensitivity level of the test. If isstill suspected, a first morning urine specimen should becollected 48hrs later.This test has a sensitivity of 10mIU/mL in serum [id number]/mL in urine. ID Date Data Source [id number] 02/09/2020 12:57:00 PM EST [facility] TSYSORDER [id number] Name Value Range Interpretation Code Description Data Colleen rce(s) Supporting Document(s) WHITE BLOOD COUNT 6.4 K/mm3 4.0-10.0 [facility] 3.69 M/mm3 4.00-5.50 L [facility] l HEMOGLOBIN 10.4 gm/dL 12.0-16.0 L [facility] HEMATOCRIT 32.1 % 36.0-48.8 L [facility] MEAN CELL VOLUME 87.0 fl 80-96 [facility] l MEAN CORPUSCULAR HEMOGLOBIN 28.2 pg 27.0-31.0 [facility] MEAN CORPUSCULAR HGB CONC 32.4 g/dl 32.0-36.0 [facility] RED CELL DISTRIBUTION WIDTH 12.8 % 10.0-14.5 [facility] PLATELET COUNT 267 K/mm3 172-450 [facility] MEAN PLATELET VOLUME 9.6 fl 9.0-13.0 [facility] pital GRAN % 54.8 % 50-80.0 [facility] IG% 0.0 % 0.0-0.2 [facility] LYMPH % 28.7 % 25.0-50.0 [facility] MONO % 7.4 % 2.0-10.0 [facility] EOS % 8.5 % 0-5.0 H [facility] BASO % 0.6 % 0.0-2.0 [facility] GRAN # 3.5 K/mm3 2.0-8.00 [facility] IG# 0.0 K/mm3 0.0-0.2 [facility] LYMPH # 1.8 K/mm3 1.0-5.0 [facility] MONO # 0.5 K/mm3 0.10-1.20 [facility] EOS # 0.5 K/mm3 0.0-0.5 [facility] BASO # 0.0 K/mm3 0.0-0.2 [facility] ID Date Data Source [id number] 01/12/2020 07:25:00 PM EDT [facility] Name Value Range Interpretation Code Description Data Colleen rce(s) Supporting Document(s) SARS coronavirus 2 RNA [Presence] in Res piratory specimen by LEXIE with probe detection [facility] This lab was ordered by [facility] and reported by [facility]. ID Date Data Source [id number] 12/29/2019 10:57:00 PM EDT [facility] Patient: RITA ROSA Observation Report - [facility].VisitID: [id number] [place] [address] [phone], FRegistration Date/Time: 12/29/2019 18:14 Weight:95.7 kg (S). [...] FAMILY HISTORY(non contributory). (Electronically signed by Emil Richrads PA-C 12/29/2019 22:37) Addenda for RITA ROSA VisitID: [id number] Date: 12/29/2019 12/29/2019 18:37Triage/assessment/progress all completed by Meg Stoddard. Richi Mercedes aware.(Electronically signed by Alma Vigil R.N. 12/29/2019 18:37) Name Value Range Interpretation Code Description Data Colleen rce(s) Supporting Document(s) ID Date Data Source [id number] 01/05/2020 10:26:00 AM EDT [facility] Name Value Range Interpretation Code Description Data Colleen rce(s) Supporting Document(s) [facility] ID Date Data Source [id number] 12/29/2019 10:37:00 PM EDT [facility] l TSYSORDER [id number] Name Value Range Interpretation Code Description Data Colleen rce(s) Supporting Document(s) LACTIC ACID 1.6 mmol/L 0.4-2.0 [facility] ID Date Data Source [id number] 12/29/2019 10:27:00 PM EDT [facility] TSYSORDER [id number] Name Value Range Interpretation Code Description Data Colleen rce(s) Supporting Document(s) GLUCOSE 83 mg/dL 74-106 [facility] BLOOD UREA NITROGEN 16 mg/dL 7-18 [facility] ital CREATININE 0.9 mg/dL 0.6-1.0 [facility] SODIUM 140 mmol/L 136-145 [facility] POTASSIUM 3.9 mmol/L 3.5-5.1 [facility] CHLORIDE 101 mmol/L 98-107 [facility] CO2 28 mmol/L 21-32 [facility] CALCIUM 9.1 mg/dL 8.5-10.1 [facility] ANION GAP 11.0 mmol/L 5-12 [facility] GLOMERULAR FILTRATION RATE 74 mL/min [facility] GFR IS CALCULATED IN mL/min/1.73m2 TATI L FUNCTION: >90MILDLY DECREASED: 60-89MILDY TO MODERATELY DECREASED: 45-59 MODERATELY TO SEVERELY DECREASED: 30-44SEVERELY DECREASED: 15-29RENAL FAILURE: <15 AST 11 U/L 15-37 [facility] ALT 29 U/L 12-78 [facility] ALKALINE PHOSPHATASE 50 U/L 46-116 [facility]ital TOTAL BILIRUBIN 0.2 mg/dL 0.2-1.0 [facility] TOTAL PROTEIN 6.6 g/dl 6.4-8.2 [facility] ALBUMIN 3.9 gm/dL 3.4-5.0 [facility] ID Date Data Source [id number] 12/29/2019 10:27:00 PM EDT [facility] l TSYSORDER [id number] Name Value Range Interpretation Code Description Data Colleen rce(s) Supporting Document(s) MAGNESIUM 1.9 mg/dL 1.8-2.4 [facility] ID Date Data Source [id number] 12/29/2019 10:27:00 PM EDT [facility] TSYSORDER [id number] Name Value Range Interpretation Code Description Data Colleen e(s) Supporting Document(s) LIPASE 159 U/L 73-393 [facility] ID Date Data Source [id number] 12/29/2019 10:22:00 PM EDT [facility] [id number] Name Value Range Interpretation Code Description Data Colleen [facility](s) Supporting Document(s) WHITE BLOOD COUNT 4.9 K/mm3 4.0-10.0 [facility]LOOD COUNT 3.83 M/mm3 4.00-5.50 L [facility] l HEMOGLOBIN 11.3 gm/dL 12.0-16.0 [facility] HEMATOCRIT 33.2 % 36.0-48.8 [facility] MEAN CELL VOLUME 86.7 fl 80-96 [facility] MEAN CORPUSCULAR HEMOGLOBIN 29.5 pg 27.0-31.0 [facility] MEAN CORPUSCULAR HGB CONC 34.0 g/dl 32.0-36.0 [facility] RED CELL DISTRIBUTION WIDTH 12.8 % 10.0-14.5 [facility] PLATELET COUNT 312 K/mm3 172-450 [facility] MEAN PLATELET VOLUME 10.0 fl 9.0-13.0 [facility] pital GRAN % 39.5 % 50-80.0 L [facility] IG% 0.4 % 0.0-0.2 H [facility] LYMPH % 47.2 % 25.0-50.0 [facility] MONO % 9.1 % 2.0-10.0 [facility] EOS % 2.6 % 0-5.0 [facility] BASO % 1.2 % 0.0-2.0 [facility] GRAN # 1.9 K/mm3 2.0-8.00 L [facility] IG# 0.0 K/mm3 0.0-0.2 [facility] LYMPH # 2.3 K/mm3 1.0-5.0 [facility] MONO # 0.5 K/mm3 0.10-1.20 [facility] EOS # 0.1 K/mm3 0.0-0.5 [facility] BASO # 0.1 K/mm3 0.0-0.2 [facility] ID Date Data Source [id number] 12/29/2019 10:21:00 PM EDT [facility] l TSYSORDER [id number] Name Value Range Interpretation Code Description Data Colleen rce(s) Supporting Document(s) PROTHROMBIN TIME (PATIENT) 9.9 SECONDS 9.2-11.6 [facility] INR 0.95 0.87-1.06 [facility] ID Date Data Source [id number] 12/29/2019 10:21:00 PM EDT [facility] l TSYSORDER [id number] Name Value Range Interpretation Code Description Data Colleen rce(s) Supporting Document(s) PARTIAL THROMBOPLASTIN TIME 20.1 SECONDS 21.4-30.2 [facility] ID Date Data Source [id number] 12/29/2019 08:42:00 PM EDT [facility] DATE OF EXAMINATION: 12/29/2019 19:33 EDT [...] by: Kezia Barney M.D. 12/29/2019 20:36 EDT Name Value Range Interpretation Code Description Data Colleen rce(s) Supporting Document(s) ID Date Data Source [id number] 12/29/2019 07:52:00 PM EDT [facility] l TSYSORDER [id number] Name Value Range Interpretation Code Description Data Colleen rce(s) Supporting Document(s) URINE RBC NONE SEEN /hpf 0-3 [facility] URINE WBC 0-2 /hpf 0-5 H [facility] URINE EPITHELIAL CELLS 3+ /hpf 0 [facility] URINE BACTERIA 1+ NONE SEEN [facility] ID Date Data Source [id number] 12/29/2019 07:50:00 PM EDT [facility] ital TSYSORDER [id number] Name Value Range Interpretation Code Description Data Colleen rce(s) Supporting Document(s) URINE COLOR. [facility] URINE APPEARANCE CLEAR [facility] l URINE GLUCOSE (UA) NEGATIVE mg/dL NEGATIVE [facility] URINE BILIRUBIN NEGATIVE NEGATIVE [facility] URINE KETONE NEGATIVE mg/dL NEGATIVE [facility] SPECIFIC GRAVITY,URINE 1.025 1.001-1.035 [facility] URINE BLOOD NEGATIVE NEGATIVE [facility] PH,URINE 7.5 5.0-9.0 [facility] URINE PROTEIN NEGATIVE mg/dL NEGATIVE [facility] UROBILINOGEN NORMAL(0.2-1) mg/dL 0-1 [facility] URINE NITRATE NEGATIVE NEGATIVE [facility] URINE LEUKOCYTE ESTERASE TRACE NEGATIVE [facility] ID Date Data Source [id number] 12/29/2019 06:36:00 PM EDT [facility] TSYSORDER [id number] Name Value Range Interpretation Code Description Data Colleen rce(s) Supporting Document(s) HCG URINE NEGATIVE NEGATIVE [facility] ID Date Data Source [id number] 12/29/2019 11:20:49 AM EDT [facility] Name Value Range Interpretation Code Description Data Colleen rce(s) Supporting Document(s) Discharge Summary [facility] HLDDNa0zUtQUIrTq09/YZBaqHOTne1DqUGnlKSj1BDrqANRtH3BhEEC2bC5mYTO0ZQzRJlInOaYkWEM0 lbm [file] AgICAgICAgICAgICAgICAgICAgICAgICAgICAgICAgICAgICAgICAgICAgICAgICAgICAgICAgICAgIC EmCIUhKGAsIPKmTTFkVYFvFYDqHIXaZBHdPFYnXFUjVG8ZIPZjCWEwGFGpGDAaQOBdEKPaLSKuGTXlKP AgICAgICAgICAgICAgICAgICAgICAgICAgICAgICAg UGMgYIZnFBDsBOXeIKObTVUlJRYqBUCiWGQiWIVzGTZeKWQtIAIlLFLsCV9RSTQnOHGhVBRdLBYqBCWj ICAgICAgICAgICAgICAgICAgICAgICAgICAgICAgICAgICAgICAgICAgICAgICAgICAgICAgICAgICAg CHVpEQYuMJHsEOFqSFOwPFHzDGHiMZWwBY6RETOwWN AgICAgICAgICAgICAgICAgICAgICAgICAgICAgICAgICAgICAgICAgICAgICAgICAgICAgICAgICAgIC ZhTLDdHAMnVPZxTLXxZQEdBYCwBLMnIJGdVIZiTOAlKNZtLI9ZZGDnATIgVTMzYOQjTYKoVEKiAHFnXW AgICAgICAgICAgICAgICAgICAgICAgICAgICAgICAg SXUrGPRfICWpWLKpKFTfVAQzEVOdRCVvMJZgETJqVRWyEBOfSCQfYKUkGZCmDU6KZXKpHWZeCYOyXZEa ICAgICAgICAgICAgICAgICAgICAgICAgICAgICAgICAgICAgICAgICAgICAgICAgICAgICAgICAgICAg PTQyKUAoJNEtOPPsRZVdPYGyBXXhYOFeZHUpNV7XLN AgICAgICAgICAgICAgICAgICAgICAgICAgICAgICAgICAgICAgICAgICAgICAgICAgICAgICAgICAgIC RtYECwWOSfLIQzKWMuAMBqIOCsGHEpELPsBJTtPOUoMRDmEBCzBD9MYUScXGQrQUKmFEKaCCZvSBKlEQ AgICAgICAgICAgICAgICAgICAgICAgICAgICAgICAg TEGzKUVoPBNmEAQeAWUuVJQrFJLsEGIuJRZkUNQgWGQgMFKqTNQvWUTnKXAaQWZhDU5KUHMaMMQxGQAo ICAgICAgICAgICAgICAgICAgICAgICAgICAgICAgICAgICAgICAgICAgICAgICAgICAgICAgICAgICAg ICAgICAgICAgICAgICAgICAgICAgICAgICAgICAgIA 0KICAgICAgICAgICAgICAgICAgICAgICAgICAgICAgICAgICAgICAgICAgICAgICAgICAgICAgICAgIC MaTVShVZLdCSNlNPRiSQUaOYVzNVDoGUUiLHEvHWJsHZXoOUUnJSEjYI5TJO02hDCst8Y4NWClVG2quo c/Sr0XSUctvpHfeACoDL7BFwDxDV6mlg1BCfKsIF5r am0HGQxQLuBoX4L0fLWlXRLzENRCIoRkU98lLTqlFr14WJsdLSJfOaUxBWp8Gz9RXjCgA1dcTJTuRsK0 RHNkExF5FFKpOyN8PUQnEeNlTJshSK3Px6LznREeIBd+Ar4LRE1on0HoAZyaYICyFV9dnd9IVBxGLyHk O3TbzxF1ZUXgATYyLh9VDAKuPQRteVBjGoHkPOOSVf KtX1EcmH00IMGJHq0+FTifezCtZzaKVrAqVSJmo4AuKXx2WR5WAXBlNNm8jFCqMQxqJ0qtzrhfCJB9mC 7ybdvcQrpoA7PodArma7DgUCXvKS3llkSlYHCSLmCEUQV2YQQhOlPkSxPhRTVrYLm7FpAFPSqYPqAuH8 Wui0GaYyT4SWZwYmJzFYwiAPTsVbU2XG23jAfeGV5P OFCjUKWbQF38IJWfPGTkUf6XLm3YMcVwNA1dsn5LWoOfLANwHynDQdn7IOhrCO4ViBDzO5FucGCpe1kA JeSnS6KMQOF2MERfQr1BITWrNkNeAXYoAFxcPQ3qIOBeFPUNuBfhqvK0DV6CDP5rnuJfHY0NVxHiCx9a Hd3EXhNxN5CxN1ShKLGvFRSXQGcmRC7VRUqzEB6sWS 3Yx5OUvHBtdC8qca4EALPiIZZdIcrhrv8ZVwzkO8G4qAgwZXTdZsYzPIWSEAonPV6ZTLVgDQK9AOMnED TpYUQVTrYoL86sUK6PC8Prb46gJmF9GOTsAsKfWYpfKQ43jAnbruEwvYIbuHqqGU2OPi4+DQplbmRvYm qGXtexPAVKPhOgMuZJVfJzGBAzADQaOSYySpY2KqBb Ak9ZKBGxZEEoZFRfWrYqUXGnITOcKYxfESHrATS1XxLkESOcRRZhTQ0BMpDyVNCgICL3AuBcCFCwACVk qy9OKYLlWSKrXVC8OtOlHICxAYSxWSnbIHKsEYY5SSO8AZTtOJOkZP9QJeYtUJWpKVXwFaCxBKEpZVEb dz5FFVBzTHDsMYN1AgEaOOEpRCSwEWmnHQVrWHZ9Ye gvQHQfRZTcAF6SAnSjPUGhOAM2UkHvDLWqKVXrpr4RJGJgZVSaQQA2UUCtTKRyEYFtWTjxYPBoMNThCI UcZAQnVYJeGH0YZoAgSWStISNnIlogFOGnGLNnqv3FKZBsBLZyUwXeANJeERUuZUBhRMgzAVUdYRQxCH W7FEYqMBTzTN2VHfCcPWEbQXS3ZfUbKYSaOLCpqv1S XOHxSFGnVtu3ZBAzMFDjIWHvJMqoDTYuTFP2SCF5HAGpCGFjVX0EYhCtXXRlSFMdHCXaOPZsACQuoq7L LGFbNSHpXKG6VUQgSQJbQDZuSQfjOBMeCFM8EgYbWMUzSDQaDX6NWzRzZFOiQDugFrVmFZSyBQXdio0B FWJlRGNmNtD1KfCzQZXjAIMwWLuiEJMdHLF8CaGbHW LgFRGwQR1SNfUhUVixCTQRYun2BDgeZ9f0WAWaAM0ZT8Dat0YhXyVeCREFIUflUF4tgyOfLMHcYt9AP1 fWSul7JQLeCpEsBJU6FMQdYZZ0ADfvJVDvAxGoOtGmU4WqNt6uFBB1ELSvKxH0WDTcKXAwDXU7CCHcN1 DqLYBcYNUjGxA3DzZkEK2ZJr0EZkL6EVE1cBYvVx5TMHl6DOQGQoHnSF8NLFz= ID Date Data Source [id number] 12/25/2019 11:52:52 PM EDT [facility] Name Value Range Interpretation Code Description Data Colleen rce(s) Supporting Document(s) ED Provider Note [facility] WLACJe2rUzZWVwPh36/FBVztNOFga9CnLZgsOMy3YRtnLPNuQ6RoOVX0dE3rPPD3EJzVLaCpMzXuUPG3 lbm [file] FyJnNNVsDJM3UnJ4HPI6DB3gYNSZRh9+RMikvQHhjWkhTGNSFpKgHkPgYCroAFLICp5O ID Date Data Source [id number] 12/25/2019 07:10:04 AM [facility] Name Value Range Interpretation Code Description Data Colleen rce(s) Supporting Document(s) Leukocytes [#/volume] in Blood by Automated count 5.5 10*3/uL 4-10 [facility] Erythrocytes [#/volume] in Blood by Automated count 4.13 10*6/uL 4.1- 5.3 [facility] Hemoglobin [Mass/volume] in Blood 12.3 g/dL 11.5-15.5 [facility] Hematocrit [Volume Fraction] of Blood by Automated count 35.8 % 3 6-45 L [facility] Erythrocyte mean corpuscular volume [Entitic volume] by Auto mated count 86.8 fL 80-96 [facility] Erythrocyte mean corpuscular hemoglobin [Entitic mass] by Automated count 29.9 pg 27-33 [facility] Erythrocyte mean corpuscular hemoglobin concentration [Mass/volume] by Automated count 34.4 g/dL 32.0-36.0 [facility] width [Ratio] by Automated count 13.5 % 11.5-14.5 [facility] Platelets [#/volume] in Blood by Automated count 318 10*3/uL 150-400 [facility] ID Date Data Source [id number] 12/25/2019 08:06:02 AM [facility] Name Value Range Interpretation Code Description Data Colleen rce(s) Supporting Document(s) Bicarbonate [Moles/volume] in Serum 25 mmol/L 22-29 [facility] Chloride [Moles/volume] in Serum or Plasma 102 mmol/L 98-107 [facility] Creatinine [Mass/volume] in Serum or Plasma 0.91 mg/dL 0.50-0.90 H [facility] Glucose [Mass/volume] in Serum or Plasma 87 mg/dL 70-140 [facility] Potassium [Moles/volume] in Serum or Plasma 4.0 mmol/L 3.4-5.1 [facility] Sodium [Moles/volume] in Serum or Plasma 138 mmol/L 136-145 [facility] Urea nitrogen [Mass/volume] in Serum or Plasma 10 mg/dL 6-20 [facility] Anion gap 3 in Serum or Plasma 11 mmol/L 8-15 [facility] Osmolality of Serum or Plasma by calculation 284 mosm/kg 275-300 [facility] Creatinine/Urea nitrogen [Mass Ratio] in Serum or Plasma 11 [facility] Calcium [Mass/volume] in Serum or Plasma 8.7 mg/dL 8.6-10.0 [facility] Glomerular filtration rate/1.73 sq M pre dicted among non-blacks [Volume Rate/Area] in Serum or Plasma by Creatinine-based formula (MDRD) 85 mL/min/1.73m2 >60 [facility] Glomerular filtration rate/1.73 sq M pre dicted among blacks [Volume Rate/Area] in Serum or Plasma by Creatinine-based formula (MDRD) >60 [facility] ID Date Data Source [id number] 12/25/2019 08:06:02 AM [facility] Name Value Range Interpretation Code Description Data Colleen rce(s) Supporting Document(s) Phosphate [Mass/volume] in Serum or Plasma 3.8 mg/dL 2.5-4.5 [facility] ID Date Data Source [id number] 12/25/2019 08:06:02 AM [facility] Name Value Range Interpretation Code Description Data Colleen rce(s) Supporting Document(s) Magnesium [Mass/volume] in Serum or Plasma 2.1 mg/dL 1.6-2.6 [facility] ID Date Data Source [id number] 12/24/2019 05:03:32 AM [facility] Name Value Range Interpretation Code Description Data Colleen rce(s) Supporting Document(s) Leukocytes [#/volume] in Blood by Automated count 7.2 10*3/uL 4-10 [facility] Erythrocytes [#/volume] in Blood by Automated count 4.09 10*6/uL 4.1- 5.3 L [facility] Hemoglobin [Mass/volume] in Blood 12.1 g/dL 11.5-15.5 [facility] Hematocrit [Volume Fraction] of Blood by Automated count 35.3 % 3 6-45 L [facility] Erythrocyte mean corpuscular volume [Entitic volume] by Auto mated count 86.4 fL 80-96 [facility] Erythrocyte mean corpuscular hemoglobin [Entitic mass] by Automated count 29.6 pg 27-33 [facility] Erythrocyte mean corpuscular hemoglobin concentration [Mass/volume] by Automated count 34.3 g/dL 32.0-36.0 [facility] distribution width [Ratio] by Automated count 13.8 % 11.5-14.5 [facility] Platelets [#/volume] in Blood by Automated count 346 10*3/uL 150-400 [facility] ID Date Data Source [id number] 12/24/2019 05:21:20 AM EDT [facility] Name Value Range Interpretation Code Description Data Colleen rce(s) Supporting Document(s) Bicarbonate [Moles/volume] in Serum 28 mmol/L 22-29 [facility] Chloride [Moles/volume] in Serum or Plasma 100 mmol/L 98-107 [facility] Creatinine [Mass/volume] in Serum or Plasma 0.82 mg/dL 0.50-0.90 [facility] Glucose [Mass/volume] in Serum or Plasma 72 mg/dL 70-140 [facility] Potassium [Moles/volume] in Serum or Plasma 3.6 mmol/L 3.4-5.1 [facility] Sodium [Moles/volume] in Serum or Plasma 140 mmol/L 136-145 [facility] Urea nitrogen [Mass/volume] in Serum or Plasma 9 mg/dL 6-20 [facility] Anion gap 3 in Serum or Plasma 11 mmol/L 8-15 [facility] Osmolality of Serum or Plasma by calculation 287 mosm/kg 275-300 [facility] Creatinine/Urea nitrogen [Mass Ratio] in Serum or Plasma 11 [facility] Calcium [Mass/volume] in Serum or Plasma 9.1 mg/dL 8.6-10.0 [facility] Glomerular filtration rate/1.73 sq M pre dicted among non-blacks [Volume Rate/Area] in Serum or Plasma by Creatinine-based formula (MDRD) >6 0 [facility] Glomerular filtration rate/1.73 sq M pre dicted among blacks [Volume Rate/Area] in Serum or Plasma by Creatinine-based formula (MDRD) >60 [facility] ID Date Data Source [id number] 12/24/2019 05:21:20 AM EDT [facility] Name Value Range Interpretation Code Description Data Colleen rce(s) Supporting Document(s) Magnesium [Mass/volume] in Serum or Plasma 2.0 mg/dL 1.6-2.6 [facility] ID Date Data Source [id number] 12/24/2019 05:21:20 AM EDT [facility] Name Value Range Interpretation Code Description Data Colleen rce(s) Supporting Document(s) Phosphate [Mass/volume] in Serum or Plasma 3.8 mg/dL 2.5-4.5 [facility] ID Date Data Source [id number] 12/23/2019 07:15:00 PM EDT [facility] Patient: RITA ROSA Observation Report - [facility].VisitID: [id number] [place] [address] [phone], FRegistration Date/Time: 12/21/2019 18:33 Weight:95.7 kg (S). [...] then was hospitalized. She came home to [place] little over week ago and then came here to see her mother a few days ago. She is unaware of any sick contacts. As I stated above she does follow up with the colorectal surgeon in [place] (Dr. Salinas) and saw him about a [...] The patient prefers to be sent to [place] and [facility] REVIEW OF SYSTEMSThe patient denies [...] an y complaints. 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 She denies any specific musculoskeletal complaints. [...] cyst. She is still undergoing workup in [place] for this. PAST SURGICAL HISTORY: Subtotal colectomy [...] HISTORY: Father at age 57 from an [place]. He had an underlying CAD, prior CVAs, [...] palpable lymphadenopathy). LABS, X-RAYS, AND EKGLaboratory Tests: [facility] Respiratory Panel: (SONY: 12/22/2019 05:28)( MsgRcvd 12/22/2019 06:18) New Order TSYSORDER [id number] Test Result Flag Units (Referen ce)Adenovirus Not [...] Virus Not Detected Detected (Not) Bordetella parapertus (NT3779) Not Detected Detected (Not) Bordetella pertussis (ptxP) Not Detected Detected (Not) Chlamydia pneumoniae Not Detected Detected (Not) Mycoplasma pneumoniae Not Detected Detected (Not) The Above results have been determined by using the [employer] system.[employer] is an automated in vitro diagnostic system thatutilizes nested multiplex Polymerase Chain Reaction (PCR)and high-resolution melting analysis to detect and identifymultiple nucleic acid targets from clinical specimens. CBC w Diff: (SONY: 12/21/2019 20:55)( MsgRcvd 12/21/2019 21:03) New Order TSYSORDER [id number] Test Result Flag Units (Reference)WHITE BLOOD COUNT [...] 20:55)( MsgRcvd 12/21/2019 21:52) New Order TSYSORDER [id number] Test Result Flag Units (Reference)GLUCOSE 94 mg/dL (74-106) BLOOD UREA NITROGEN 9 mg/dL (7-18) CREATININE 0.9 mg/dL (0.6-1.0) SODIUM 140 mmol/L (136-145) POTASSIUM 3.8 mmol/L (3.5-5.1) CHLORIDE 103 mmol/L (98-107) CO2 27 mmol/L (21-32) CALCIUM 9.0 mg/dL (8.5-10.1) ANION GAP 10.0 mmol/L (5-12) GLOMERULAR FILTRATION RATE 74 mL/min GFR IS CALCULATED IN mL/min/1.86m7WCQTTD FUNCTION: >90MILDLY DECREASED: 60-89MILDY TO MODERATELY DECREASED: [...] 20:55)( MsgRcvd 12/21/2019 21:30) New Order TSYSORDER [id number] Test Result Flag Units (Reference)PROTHROMBIN TIME (PATIENT) 9.9 SECONDS (9.2-11.6) INR 0.95 (0.87-1.06) PARTIAL THROMBOPLASTIN TIME 23.5 SECONDS (21.4-30.2) UA CULTURE IF INDICATED: (SONY: 12/21/2019 19:34)( [facility] 12/21/2019 19:46) New Order URINE SOURCE? URINE, CLEAN CATCHTSYSORDER [id number] Test Result Flag Units (Reference)URINE COLOR. YELLOW URINE APPEARANCE SLIGHTY CLOUDY SPECIFIC GRAVITY,URINE 1.025 (1.001-1.035) URINE LEUKOCYTE ESTERASE NEGATIVE (NEGATIVE) URINE NITRATE NEGATIVE (NEGATIVE) PH,URINE 7.0 (5.0-9.0) URINE PROTEIN NEGATIVE mg/dL (NEGATIVE) URINE GLUCOSE (UA) NEGATIVE mg/dL (NEGATIVE) URINE KETONE NEGATIVE mg/dL (NEGATIVE) URINE UROBILINOGEN NORMAL(0.2-1) mg/dL (0-1) URINE BILIRUBIN NEGATIVE (NEGATIVE) URINE BLOOD NEGATIVE (NEGATIVE) Beta-HCG, Qual Urine: (SONY: 12/21/2019 19:34)( [facility] 12/21/2019 20:07) New Order TSYSORDER [id number] Test Result Flag Units (Reference)HCG URINE NEGATIVE (NEGATIVE) CT ABDOMEN PELVIS DRY: (SONY: 12/21/2019 19:33)( [facility] 12/21/2019 21:19) F Exam ABD/PEL NO CONTRAST [...] being auto excepted to the ER. The medical care administrator Dr. Paz is the accepting physician. The appropriate paperwork has been completed. The patient is medically stable for transfer. Disposition: Benefits, risks and alternatives to transfer explained to patient and mother. Transferred to [facility]. Summary of care (CCDA) provided to transport team, EMS and transfer facility. 13:30. Condition: stable. CLINICAL IMPRESSIONAbdominal pain of unknown cause. (Possible SBO, question [facility] syndrome). nausea with periodic vomiting. (Electronically signed [...] rce(s) Supporting Document(s) ID Date Data Source [id number] 12/23/2019 05:27:20 PM [facility] Name Value Range Interpretation Code Description Data Colleen rce(s) Supporting Document(s) History and Physical [facility] PDXOIv7dPxXDIcWq15/XNTuaJBLdl1NuWEwfPGm9DQdxOBNkT6PlSRK8bG8fOGF2JQyTLpByLpHyGYLb m IxKxlHBeQvBZXvAkiKBvSxNTlfAiyinFHiZR8WmMP9LNMdO42fLHByPHKzV9MiLWExYiq+Rf6YKFVtsZ KbLL6YLneQ4L9oi3PUQq6/Vec/GEFp4xDgRSWK25dPZjZyD2IzE1HWrCjgbQuAMtVdAxudY8cMsthxDv 7d8VVFGPoYG8N51T24IfDm/UdZ4FMeNKvd+X/1ZxBJ cX4l/muxvY1WwhxX5l+vd9rR8uhvvUnu/9Oxb7/ucEO7N3hojgSXt2vnMyO+V06Afj9Hyqw2uN4+FX+N y3X8Wz1WY/HpyXH/OSg642gu/+r797YuU4O0KQ0zP4Df47TWbX/IQ9npUNqz4QuGk97NjoTtUjFlZSBq 89ZE+03E54HNJQ42U3bGAAm685La5cKo1OoUNNlOf1 [file] ICAgICAgICAgICAgICAgICAgICAgICAgICAgICAgICAgICAgICAgICAgICAgICAgICAgICAgICAgICAg ICAgICAgICAgICAgICAgICAgICAgICAgICAgICAgIC ANCiAgICAgICAgICAgICAgICAgICAgICAgICAgICAgICAgICAgICAgICAgICAgICAgICAgICAgICAgIC AgICAgICAgICAgICAgICAgICAgICAgICAgICAgICAgICAgICAgICAgICANCiAgICAgICAgICAgICAgIC AgICAgICAgICAgICAgICAgICAgICAgICAgICAgICAg ICAgICAgICAgICAgICAgICAgICAgICAgICAgICAgICAgICAgICAgICAgICAgICAgICAgICANCiAgICAg ICAgICAgICAgICAgICAgICAgICAgICAgICAgICAgICAgICAgICAgICAgICAgICAgICAgICAgICAgICAg ICAgICAgICAgICAgICAgICAgICAgICAgICAgICAgIC AgICANCiAgICAgICAgICAgICAgICAgICAgICAgICAgICAgICAgICAgICAgICAgICAgICAgICAgICAgIC AgICAgICAgICAgICAgICAgICAgICAgICAgICAgICAgICAgICAgICAgICAgICANCiAgICAgICAgICAgIC AgICAgICAgICAgICAgICAgICAgICAgICAgICAgICAg ICAgICAgICAgICAgICAgICAgICAgICAgICAgICAgICAgICAgICAgICAgICAgICAgICAgICAgICANCiAg ICAgICAgICAgICAgICAgICAgICAgICAgICAgICAgICAgICAgICAgICAgICAgICAgICAgICAgICAgICAg ICAgICAgICAgICAgICAgICAgICAgICAgICAgICAgIC AgICAgICANCiAgICAgICAgICAgICAgICAgICAgICAgICAgICAgICAgICAgICAgICAgICAgICAgICAgIC AgICAgICAgICAgICAgICAgICAgICAgICAgICAgICAgICAgICAgICAgICAgICAgICANCiAgICAgICAgIC AgICAgICAgICAgICAgICAgICAgICAgICAgICAgICAg ICAgICAgICAgICAgICAgICAgICAgICAgICAgICAgICAgICAgICAgICAgICAgICAgICAgICAgICAgICAN CiAgICAgICAgICAgICAgICAgICAgICAgICAgICAgICAgICAgICAgICAgICAgICAgICAgICAgICAgICAg ICAgICAgICAgICAgICAgICAgICAgICAgICAgICAgIC AgICAgICAgICANCjw/sPVhQ2kkxQRajsO1O2slQx3AJx1LMI9dn1NbIMNuCLtbwvTbDfqMPiWmCYVaOm gJPdk7NSkiBT8BuVVlX7PyV1FkNZgdXT5SLVWkYCPfjBGvULRcOIMoZeH9TYItEFfdIT9RxODiPZfySX AwIFIgNyAwIFIgOSAwIFIgMTEgMCBSIDEzIDAgUiAx BYZfRWShSH1DYBBsH533xcQzQx3SRw3ZKxYnQZ5kai7XMzPuJSWnDooILel3VLewZT9GtXAdiUDvAsSf RQLWQiEdT1scm8OhBgIwZKVROZkxJM7Lm8XsiVBmOKs+Yn2PEL7gt0WwWWyvErMjDF6uqh3TQNxVGyDx F7GncBulXMliTOTadHHKsIX2PC2gJMRwLlWVfURpRP LQBOEhxZGaNV8zLjOqBfUlFAV4EaZxNZ8kZCziYI5SQUD4BXovOPJeTRWiS5vYDsOuGREjKoPgdBleWE 8HEcFeO5SwvyVbdWZyICGyRKKNHd0+RLdvwiMpWgeEDkV5PVEnk3CiDAs9CE1ADWIyFFhlSG2ILLKyoQ 7kPZpkYM3YBaApYbZvYWHYWfZxM25btNRyUFh7D6Iw YmVkZGVkRmlsZXMgPDwvTmFtZXMgWyBdDQogID4+ID4+CMhcEL7MFJgnqeOoTAQrTn3YHAIuBPRxUY8x LEFfAQYjR5B3yNqyAQGBSgCpH1uwsnmmJH2fHFUbS808fTligbSgRYG8AOTcBm6ACAMcXXQ5RQXnjTIx BwWoGDHDFKrbIP2YdTJiMCC7iE7fUButOZRmYKUpW3 eIQyXtuGcwQO76yUhfxgJwdRPqUJm+Fg3ILT2ta7OhZTk4ydXdXIugAGM3QTlwLMLlJDEgVTBeWMO8CY J6XACXTcDiTAEzIJDhXTlyPIZzUZHivf6MCRZtRAYaTCDcFvOiPRHcGCXnAToxURHmUMW7KOZ2WMBsEK ZxDD9QEtNpWBLjDQFnUDuxUEEmMFBzrm0ZPBPvUYBb JtC3DaTsQCOvGFIsQRnvEGTsAITxCuiiNPUwVZKkST8IJsLzKMAjODX8SIDpANKcHNJrcb8UFZEkXDHm SmW0BXKbXQZvMPEeKJliYNLlVZB4CZV4VUTyNQTmZD2HWlKqISElGQm0QLTpBYAiWCXrmh7IPLArFRVh MnVkXWErHXEeGRPbJUpaLWQnIMJkUDS3IPGeNVQxZE 4EQtYyVKBuJVR6GqfeSAPeQYRiya7XRYFmDCIpOUN0LKMfYBBkKCUbEIvaFUEiPVK9UtCeNJOwLRAgFC 0RMsSvWQOnDYi7MQctJBCaRTSheb7URUFjQJDxQBVmKCEwYNMmEPAkAWuyNHUzGDJ9VoV9XAIpEKFlDV 6ZLuLvLTJpQSt4IGrqNXDaNKXphr0BYCNcVYNbSGa4 NLOySZRaFCSmQJsiZUAmTCG0AYLgSMAySZNsAI1SShBwAKWuNnDbJGhpYYTsHADucp6ISYSwMUGxANLv PVYnORKiXGRiIOlmSMVbZQCgEwL4MWLgLIPaIJ0JHjEpIBFtMvT0VCbkRLUuOEUynj2TBTHsQMNsYkb6 YzCbCCDdEJWsGDzbUXDtPCWmRIwqSUHeULJlTT3YYm HqNUOhNlN3WYYdLKQvWKWbrn8OIDBeLKVeUhVqXVXuAUVzISNfJCjeSIEwYMQmDtt9JYZhAQAxEF7HBd XhRUPdHxE0QfevNYLcVHFiag2EXQMaQUWbIPqgYfKtBZHkFCQzBTsiWJHuZRG2OYd7VOKiKTIcDT6SUp SmGNAdMiB6SnroQXSvHEFqru8SFUKqIDVpQzq3QKLg HGInVDDpFJgdKWRdXVR2AQjuVUXvMTPmDJ2QHvVzQXUmHhmbCUEyQBMuEMPadj9WzNEomTozwr7HRYnO Na3IwSjiLMJ7FTtdKf5bqZCiRhHiTPFALr7IwrRuHZIiSCWTQPjaVOEeYSd9MzHpX9X1FzQyCSUvRfE8 UKBnInZ1ONJuWFXgUzKvTzC3OnUlVgXpJEZkV3Y7II VfOwr5JdS1QbLpLOV8JkUlBcW+WE9hTZl+Ic2Ca1ZhxrZ7uiLxGNxiKxP8NN2RIMWJJ6AIPz== ID Date Data Source [id number] 12/23/2019 05:26:33 PM EDT [facility] FLUORO UPPER GI SERIES WITH SMALL BOWELF [...] rce(s) Supporting Document(s) ID Date Data Source [id number] 12/23/2019 01:27:28 PM [facility] Name Value Range Interpretation Code Description Data Colleen rce(s) Supporting Document(s) [facility] [id number]/NMJhdFCLhf0SnKEaxUXy4NXziDFXkV7HnTYJ7uN4gEUT4YLaSQtHdQaTuLUPz [facility] [file] [id number]= ID Date Data Source [id number] 12/22/2019 11:24:08 PM EDT [facility] XR ABDOMEN AP ABD SUPINE ONLY [id number] RESULTInterpreted by:PAZ ByrnesROCYOLIS INFORMATION: Exam: XR Abdomen, [...] Name Value Range Interpretation Code Description Data Collene rce(s) Supporting Document(s) ID Date Data Source [id number] 12/22/2019 11:31:17 PM EDT [facility] Name Value Range Interpretation Code Description Data Colleen rce(s) Supporting Document(s) Leukocytes [#/volume] in Blood by Automated count 6.7 10*3/uL 4-10 [facility] Erythrocytes [#/volume] in Blood by Automated count 4.13 10*6/uL 4.1- 5.3 [facility] Hemoglobin [Mass/volume] in Blood 12.0 g/dL 11.5-15.5 [facility] Hematocrit [Volume Fraction] of Blood by Automated count 36.4 % 3 6-45 [facility] Erythrocyte mean corpuscular volume [Entitic volume] by Auto mated count 88.1 fL 80-96 [facility] Erythrocyte mean corpuscular hemoglobin [Entitic mass] by Automated count 29.1 pg 27-33 [facility] Erythrocyte mean corpuscular hemoglobin concentration [Mass/volume] by Automated count 33.1 g/dL 32.0-36.0 [facility] distribution width [Ratio] by Automated count 14.0 % 11.5-14.5 [facility] Platelets [#/volume] in Blood by Automated count 345 10*3/uL 150-400 [facility] ID Date Data Source [id number] 12/22/2019 11:50:37 PM [facility] Value Range Interpretation Code Description Data Colleen rce(s) Supporting Document(s) Amylase [Enzymatic activity/volume] in Serum or Plasma 32 U/L 28- 103 [facility] ID Date Data Source [id number] 12/22/2019 11:50:37 PM [facility] Value Range Interpretation Code Description Data Colleen rce(s) Supporting Document(s) Lipase [Enzymatic activity/volume] in Serum or Plasma 19 U/L 13-6 0 [facility] ID Date Data Source [id number] 12/22/2019 11:50:37 PM [facility] Value Range Interpretation Code Description Data Colleen rce(s) Supporting Document(s) Bicarbonate [Moles/volume] in Serum 26 mmol/L 22-29 [facility] Chloride [Moles/volume] in Serum or Plasma 104 mmol/L 98-107 [facility] Creatinine [Mass/volume] in Serum or Plasma 0.87 mg/dL 0.50-0.90 [facility] Glucose [Mass/volume] in Serum or Plasma 84 mg/dL 70-140 [facility] Potassium [Moles/volume] in Serum or Plasma 3.8 mmol/L 3.4-5.1 [facility] Sodium [Moles/volume] in Serum or Plasma 139 mmol/L 136-145 [facility] Urea nitrogen [Mass/volume] in Serum or Plasma 7 mg/dL 6-20 [facility] Anion gap 3 in Serum or Plasma 9 mmol/L 8-15 [facility] Osmolality of Serum or Plasma by calculation 285 mosm/kg 275-300 [facility] Creatinine/Urea nitrogen [Mass Ratio] in Serum or Plasma 8 [facility] Calcium [Mass/volume] in Serum or Plasma 8.7 mg/dL 8.6-10.0 [facility] Glomerular filtration rate/1.73 sq M pre dicted among non-blacks [Volume Rate/Area] in Serum or Plasma by Creatinine-based formula (MDRD) 89 mL/min/1.73m2 >60 [facility] Glomerular filtration rate/1.73 sq M pre dicted among blacks [Volume Rate/Area] in Serum or Plasma by Creatinine-based formula (MDRD) >60 [facility] ID Date Data Source [id number] 12/22/2019 11:50:37 PM EDT [facility] Name Value Range Interpretation Code Description Data Colleen rce(s) Supporting Document(s) Albumin [Mass/volume] in Serum or Plasma by Bromocresol green (BCG) dye binding method 4.1 g/dL 3.5-5.2 [facility] Bilirubin.total [Mass/volume] in Serum or Plasma 0.6 mg/dL <1.2 [facility] Bilirubin.direct [Mass/volume] in Serum or Plasma <0.3 [facility] Alkaline phosphatase [Enzymatic activity/volume] in Serum or Plasma 48 U/L 35-104 [facility] Aspartate aminotransferase [Enzymatic activity/volume] in Serum or Plasma 18 U/L <32 [facility] Alanine aminotransferase [Enzymatic activity/volume] in Seru m or Plasma 25 U/L <33 [facility] Protein [Mass/volume] in Serum or Plasma 6.2 g/dL 6.4-8.3 L [facility] ID Date Data Source [id number] 12/22/2019 11:52:57 PM EDT [facility] Name Value Range Interpretation Code Description Data Colleen rce(s) Supporting Document(s) Prothrombin time (PT) 13.2 s 12.5-14.9 [facility] INR in Platelet poor plasma by Coagulation assay 0.99 [facility] Routine intensity oral anticoagulation I NR is typically 2.0-3.0. Target INR must be clinically individualized. ID Date Data Source [id number] 12/22/2019 11:52:57 PM EDT [facility] Name Value Range Interpretation Code Description Data Colleen rce(s) Supporting Document(s) aPTT in Platelet poor plasma by Coagulation assay 23.7 s 24.0-33. 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 and reported by [facility]. ID Date Data Source [id number] 12/22/2019 06:17:00 AM EDT [facility] TSYSORDER [id number] Name Value Range Interpretation Code Description Data Colleen rce(s) Supporting Document(s) Adenovirus Not Detected Detected [facility] Coronavirus 229E Not Detected [facility]ed [facility]U1 Not Detected Detected Not R [facility] Coronavirus NL63 Not Detected Detected Not R [facility] Coronavirus OC43 Not Detected Detected Not [facility] Sars Cov 2 Not Detected Detected Not [facility] Human Metapneumovirus Not Detected Detected Not [facility] Human Rhinovirus Not Detected Detected Not [facility] Influenza A Not Detected Detected [facility] Influenza B Not Detected Detected [facility] Parainfluenza Virus 1 Not Detected Detected [facility] Parainfluenza Virus 2 Not Detected Detected Not [facility] Parainfluenza Virus 3 Not Detected Detected Not [facility] Parainfluenza Virus 4 Not Detected Detected Not [facility] Respiratory Syncytial Virus Not Detected Detected Not [facility] Bordetella parapertus ([id number]) Not Detected Detected Not [facility] Bordetella pertussis (ptxP) Not Detected Detected Not [facility] Chlamydia pneumoniae Not Detected Detected Not [facility] Mycoplasma pneumoniae Not Detected Detected [facility] The Above results have been determined b y using the [employer] FilmArray system.FilmArray is an automated in vitro diagnostic system thatutilizes nested multiplex Polymerase Chain Reaction (PCR)and high-resolution melting analysis to detect and identifymultiple nucleic acid targets from clinical specimens. ID Date Data Source [id number] 12/22/2019 12:00:00 AM EDT [facility] Name Value Range Interpretation Code Description Data Colleen rce(s) Supporting Document(s) 2019 Novel Coronavirus RNA [facility] This lab was ordered by [facility] L aboratory and reported by [facility] Laboratory. ID Date Data Source [id number] 12/21/2019 09:18:00 PM EDT [facility] CT SCAN OF THE ABDOMEN AND PELVIS [...] rce(s) Supporting Document(s) ID Date Data Source [id number] 12/21/2019 09:27:00 PM EDT [facility] TSYSORDER [id number] Name Value Range Interpretation Code Description Data Colleen rce(s) Supporting Document(s) MAGNESIUM 2.1 mg/dL 1.8-2.4 [facility] ID Date Data Source [id number] 12/21/2019 09:27:00 PM [facility]T [facility] [id number] Name Value Range Interpretation Code Description Data Colleen rce(s) Supporting Document(s) LIPASE 201 U/L 73-393 [facility] ID Date Data Source [id number] 12/21/2019 09:27:00 PM EDT [facility] TSYSORDER [id number] Name Value Range Interpretation Code Description Data Colleen rce(s) Supporting Document(s) GLUCOSE 94 mg/dL 74-106 [facility] BLOOD UREA NITROGEN 9 mg/dL 7-18 [facility] CREATININE 0.9 mg/dL 0.6-1.0 [facility] SODIUM 140 mmol/L 136-145 [facility] POTASSIUM 3.8 mmol/L 3.5-5.1 [facility] CHLORIDE 103 mmol/L 98-107 [facility] CO2 27 mmol/L 21-32 [facility] CALCIUM 9.0 mg/dL 8.5-10.1 [facility] ANION GAP 10.0 mmol/L 5-12 [facility] GLOMERULAR FILTRATION RATE 74 mL/min [facility] GFR IS CALCULATED IN mL/min/1.73m2 TATI L FUNCTION: >90MILDLY DECREASED: 60-89MILDY TO MODERATELY DECREASED: 45-59 MODERATELY TO SEVERELY DECREASED: 30-44SEVERELY DECREASED: 15-29RENAL FAILURE: <15 AST 11 U/L 15-37 L [facility] ALT 36 U/L 12-78 [facility] ALKALINE PHOSPHATASE 42 U/L 46-116 L [facility] pital TOTAL BILIRUBIN 0.2 mg/dL 0.2-1.0 [facility] TOTAL PROTEIN 6.6 g/dl 6.4-8.2 [facility] ALBUMIN 3.8 gm/dL 3.4-5.0 [facility] ID Date Data Source [id number] 12/21/2019 09:29:00 PM T [facility] TSYSORDER [id number] Name Value Range Interpretation Code Description Data Colleen rce(s) Supporting Document(s) PARTIAL THROMBOPLASTIN TIME 23.5 SECONDS 21.4-30.2 [facility] ID Date Data Source [id number] 12/21/2019 09:29:00 PM [facility] TSYSORDER [id number] Name Value Range Interpretation Code Description Data Colleen rce(s) Supporting Document(s) PROTHROMBIN TIME (PATIENT) 9.9 SECONDS 9.2-11.6 [facility] INR 0.95 0.87-1.06 [facility] ID Date Data Source [id number] 12/21/2019 09:02:00 PM [facility] TSYSORDER [id number] Name Value Range Interpretation Code Description Data Colleen rce(s) Supporting Document(s) WHITE BLOOD COUNT 7.6 K/mm3 4.0-10.0 [facility] al RED BLOOD COUNT 3.88 M/mm3 4.00-5.50 L [facility] HEMOGLOBIN 11.4 gm/dL 12.0-16.0 L [facility] HEMATOCRIT 33.8 % 36.0-48.8 L [facility] MEAN CELL VOLUME 87.1 fl 80-96 [facility] l MEAN CORPUSCULAR HEMOGLOBIN 29.4 pg 27.0-31.0 [facility] MEAN CORPUSCULAR HGB CONC 33.7 g/dl 32.0-36.0 [facility] RED CELL DISTRIBUTION WIDTH 13.0 % 10.0-14.5 [facility] PLATELET COUNT 323 K/mm3 172-450 [facility] MEAN PLATELET VOLUME 9.2 fl 9.0-13.0 [facility] pital GRAN % 62.3 % 50-80.0 [facility] IG% 0.3 % 0.0-0.2 H [facility] LYMPH % 27.7 % 25.0-50.0 [facility] MONO % 5.7 % 2.0-10.0 [facility] EOS % 2.9 % 0-5.0 [facility] BASO % 1.1 % 0.0-2.0 [facility] GRAN # 4.7 K/mm3 2.0-8.00 [facility] IG# 0.0 K/mm3 0.0-0.2 [facility] LYMPH # 2.1 K/mm3 1.0-5.0 [facility] MONO # 0.4 K/mm3 0.10-1.20 [facility] EOS # 0.2 K/mm3 0.0-0.5 [facility] BASO # 0.1 K/mm3 0.0-0.2 [facility] ID Date Data Source [id number] 12/21/2019 07:34:00 PM EDT [facility] TSYSORDER [id number] Name Value Range Interpretation Code Description Data Colleen rce(s) Supporting Document(s) HCG URINE NEGATIVE NEGATIVE [facility] ID Date Data Source [id number] 12/21/2019 07:46:00 PM EDT [facility] TSYSORDER [id number] Name Value Range Interpretation Code Description Data Colleen rce(s) Supporting Document(s) URINE COLOR. [facility] URINE APPEARANCE SLIGHTY CLOUDY [facility] SPECIFIC GRAVITY,URINE 1.025 1.001-1.035 [facility] URINE LEUKOCYTE ESTERASE NEGATIVE NEGATIVE [facility] URINE NITRATE NEGATIVE NEGATIVE [facility] PH,URINE 7.0 5.0-9.0 [facility] URINE PROTEIN NEGATIVE mg/dL NEGATIVE [facility] GLUCOSE (UA) NEGATIVE mg/dL NEGATIVE [facility] URINE KETONE NEGATIVE mg/dL NEGATIVE [facility] UR[facility] UROBILINOGEN NORMAL(0.2-1) mg/dL 0-1 R [facility] URINE BILIRUBIN NEGATIVE NEGATIVE [facility] URINE BLOOD NEGATIVE NEGATIVE [facility] ID Date Data Source [id number] 12/20/2019 11:10:00 PM EDT [facility] Patient: RITA ROSA Observation Report - Phys[facility] Levels [facility] [id number] [place] [address] [phone], [facility] Date/Time: 12/20/2019 18:18 Weight:95.7 kg (M). Height/Length:65 [...] rce(s) Supporting Document(s) ID Date Data Source [id number] 12/20/2019 08:50:00 PM EDT [facility] [...] Name Value Range Interpretation Code Description Data [facility] rce(s) Supporting Document(s) ID Date Data Source [id number] 12/20/2019 07:31:00 PM EDT [facility] TSYSORDER [id number] Name Value Range Interpretation Code Description Data [facility] Supporting Document(s) URINE COLOR. [facility] URINE APPEARANCE CLEAR [facility] l SPECIFIC GRAVITY,URINE 1.020 1.001-1.035 [facility] URINE LEUKOCYTE ESTERASE NEGATIVE NEGATIVE [facility] URINE NITRATE NEGATIVE NEGATIVE [facility] PH,URINE 7.5 5.0-9.0 [facility] URINE PROTEIN NEGATIVE mg/dL NEGATIVE [facility] reese URINE GLUCOSE (UA) NEGATIVE mg/dL NEGATIVE [facility] URINE KETONE NEGATIVE mg/dL NEGATIVE [facility] al URINE UROBILINOGEN NORMAL(0.2-1) mg/dL 0-1 R [facility] URINE BILIRUBIN NEGATIVE NEGATIVE [facility] URINE BLOOD NEGATIVE NEGATIVE [facility] ID Date Data Source [id number] 12/20/2019 07:19:00 PM EDT [facility] TSYSORDER [id number] Name Value Range Interpretation Code Description Data Colleen rce(s) Supporting Document(s) MAGNESIUM 2.3 mg/dL 1.8-2.4 [facility] ID Date Data Source [id number] 12/20/2019 07:19:00 PM EDT [facility] TSYSORDER [id number] Name Value Range Interpretation Code Description Data Colleen rce(s) Supporting Document(s) LIPASE 205 U/L 73-393 [facility] ID Date Data Source [id number] 12/20/2019 07:19:00 PM EDT [facility] TSYSORDER [id number] Name Value Range Interpretation Code Description Data Colleen rce(s) Supporting Document(s) GLUCOSE 93 mg/dL 74-106 [facility] BLOOD UREA NITROGEN 13 mg/dL 7-18 [facility] CREATININE 1.1 mg/dL 0.6-1.0 H [facility] SODIUM 139 mmol/L 136-145 [facility] POTASSIUM 3.7 mmol/L 3.5-5.1 [facility] CHLORIDE 105 mmol/L 98-107 [facility] CO2 28 mmol/L 21-32 [facility] CALCIUM 8.7 mg/dL 8.5-10.1 [facility] ANION GAP 6.0 mmol/L 5-12 [facility] GLOMERULAR FILTRATION RATE 59 mL/min [facility] GFR IS CALCULATED IN mL/min/1.73m2 TATI L FUNCTION: >90MILDLY DECREASED: 60-89MILDY TO MODERATELY DECREASED: 45-59 MODERATELY TO SEVERELY DECREASED: 30-44SEVERELY DECREASED: 15-29RENAL FAILURE: <15 AST 19 U/L 15-37 [facility] ALT 42 U/L 12-78 [facility] ALKALINE PHOSPHATASE 43 U/L 46-116 L [facility] pital TOTAL BILIRUBIN 0.2 mg/dL 0.2-1.0 [facility] TOTAL PROTEIN 6.7 g/dl 6.4-8.2 [facility] ALBUMIN 3.7 gm/dL 3.4-5.0 [facility] ID Date Data Source [id number] 12/20/2019 07:19:00 PM EDT [facility] TSYSORDER [id number] Name Value Range Interpretation Code Description Data Colleen rce(s) Supporting Document(s) PARTIAL THROMBOPLASTIN TIME 23.0 SECONDS 21.4-30.2 [facility] ID Date Data Source [id number] 12/20/2019 07:19:00 PM EDT [facility] TSYSORDER [id number] Name Value Range Interpretation Code Description Data Colleen rce(s) Supporting Document(s) PROTHROMBIN TIME (PATIENT) 10.3 SECONDS 9.2-11.6 [facility] INR 0.99 0.87-1.06 [facility] ID Date Data Source [id number] 12/20/2019 07:13:[address] [facility] TSYSORDER [id number] Name Value Range Interpretation Code Description Data Colleen rce(s) Supporting Document(s) HCG,SERUM NEGATIVE NEGATIVE [facility] False negative results may occur when th e levels of hCG arebelow the sensitivity level of the test. If isstill suspected, a first morning urine specimen should becollected 48hrs later.This test has a sensitivity of 10mIU/mL in serum mtd33uPH/mL in urine. ID Date Data Source [id number] 12/20/2019 07:02:00 PM EDT [facility] TSYSORDER [id number] Name Value Range Interpretation Code Description Data Colleen rce(s) Supporting Document(s) WHITE BLOOD COUNT 7.5 K/mm3 4.0-10.0 [facility] al RED BLOOD COUNT 3.71 M/mm3 4.00-5.50 L [facility] HEMOGLOBIN 10.8 gm/dL 12.0-16.0 [facility] HEMATOCRIT 31.9 % 36.0-48.8 L [facility] MEAN CELL VOLUME 86.0 fl 80-96 [facility] MEAN CORPUSCULAR HEMOGLOBIN 29.1 pg 27.0-31.0 [facility] MEAN CORPUSCULAR HGB CONC 33.9 g/dl 32.0-36.0 [facility] RED CELL DISTRIBUTION WIDTH 13.0 % 10.0-14.5 [facility] PLATELET COUNT 328 K/mm3 172-450 [facility] MEAN PLATELET VOLUME 9.0 fl 9.0-13.0 [facility] pital GRAN % 64.9 % 50-80.0 [facility] IG% 0.1 % 0.0-0.2 [facility] LYMPH % 27.3 % 25.0-50.0 [facility] MONO % 5.2 % 2.0-10.0 [facility] EOS % 1.7 % 0-5.0 [facility] BASO % 0.8 % 0.0-2.0 [facility] GRAN # 4.9 K/mm3 2.0-8.00 [facility] IG# 0.0 K/mm3 0.0-0.2 [facility] LYMPH # 2.1 K/mm3 1.0-5.0 [facility] MONO # 0.4 K/mm3 0.10-1.20 [facility] EOS # 0.1 K/mm3 0.0-0.5 [facility] BASO # 0.1 K/mm3 0.0-0.2 [facility] ID Date Data Source [id number] 11/13/2019 01:12:00 PM EDT [facility] Patient: RITA ROSA Observation Report - Physicians/Mid Levels [facility] [id number] [place] [address] [phone], [facility] Date/Time: 11/13/2019 10:00 Weight:94.8 kg (S). Height/Length:65 inches (S). BMI:34.8 FAMILY HISTORYNo significant family medical history. (Electronically signed by Phyllis Cope PA 11/13/2019 13:06) Name Value Range Interpretation Code Description Data Colleen rce(s) Supporting Document(s) ID Date Data Source [id number] 11/13/2019 12:02:00 PM EDT [facility] [...] rce(s) Supporting Document(s) ID Date Data Source [id number] 11/13/2019 11:53:00 AM EDT [facility] [id number] Name Value Range Interpretation Code Description Data Colleen rce(s) Supporting Document(s) GLUCOSE 93 mg/dL 74-106 [facility] BLOOD UREA NITROGEN 19 mg/dL 7-18 H [facility] CREATININE 1.1 mg/dL 0.6-1.0 H [facility] SODIUM 139 mmol/L 136-145 [facility] POTASSIUM 4.0 mmol/L 3.5-5.1 [facility] CHLORIDE 103 mmol/L 98-107 [facility] CO2 26 mmol/L 21-32 [facility] CALCIUM 9.5 mg/dL 8.5-10.1 [facility] ANION GAP 10.0 mmol/L 5-12 [facility] GLOMERULAR FILTRATION RATE 59 mL/min [facility] GFR IS CALCULATED IN mL/min/1.73m2 TATI L FUNCTION: >90MILDLY DECREASED: 60-89MILDY TO MODERATELY DECREASED: 45-59 MODERATELY TO SEVERELY DECREASED: 30-44SEVERELY DECREASED: 15-29RENAL FAILURE: <15 AST 16 U/L 15-37 [facility] ALT 35 U/L 12-78 [facility] ALKALINE PHOSPHATASE 45 U/L 46-116 L [facility] pital TOTAL BILIRUBIN 0.4 mg/dL 0.2-1.0 [facility] TOTAL PROTEIN 8.2 g/dl 6.4-8.2 [facility] ALBUMIN 4.5 gm/dL 3.4-5.0 [facility] ID Date Data Source [id number] 11/13/2019 11:53:00 AM EDT [facility] TSYSORDER [id number] Name Value Range Interpretation Code Description Data Colleen rce(s) Supporting Document(s) LIPASE 180 U/L 73-393 [facility] ID Date Data Source [id number] 11/13/2019 11:05:00 AM EDT [facility] [id number] Name Value Range Interpretation Code Description Data Colleen rce(s) Supporting Document(s) HCG,SERUM NEGATIVE NEGATIVE [facility] False negative results may occur when th e levels of hCG arebelow the sensitivity level of the test. If isstill suspected, a first morning urine specimen should becollected 48hrs later.This test has a sensitivity of 10mIU/mL in serum jer37uVS/mL in urine. ID Date Data Source [id number] 11/13/2019 10:58:00 AM EDT [facility] l TSYSORDER [id number] Name Value Range Interpretation Code Description Data Colleen rce(s) Supporting Document(s) WHITE BLOOD COUNT 5.8 K/mm3 4.0-10.0 [facility] RED BLOOD COUNT 4.32 M/mm3 4.00-5.50 [facility] l HEMOGLOBIN 12.9 gm/dL 12.0-16.0 [facility] HEMATOCRIT 36.9 % 36.0-48.8 [facility] MEAN CELL VOLUME 85.4 fl 80-96 [facility] MEAN CORPUSCULAR HEMOGLOBIN 29.9 pg 27.0-31.0 [facility] MEAN CORPUSCULAR HGB CONC 35.0 g/dl 32.0-36.0 [facility] RED CELL DISTRIBUTION WIDTH 13.2 % 10.0-14.5 [facility] PLATELET COUNT 300 K/mm3 172-450 [facility] MEAN PLATELET VOLUME 10.2 fl 9.0-13.0 [facility]ital GRAN % 54.9 % 50-80.0 [facility] IG% 0.3 % 0.0-0.2 H [facility] LYMPH % 34.3 % 25.0-50.0 [facility] MONO % 8.6 % 2.0-10.0 [facility] EOS % 1.2 % 0-5.0 [facility] BASO % 0.7 % 0.0-2.0 [facility] GRAN # 3.2 K/mm3 2.0-8.00 [facility] IG# 0.0 K/mm3 0.0-0.2 [facility] LYMPH # 2.0 K/mm3 1.0-5.0 [facility] MONO # 0.5 K/mm3 0.10-1.20 [facility] EOS # 0.1 K/mm3 0.0-0.5 [facility] BASO # 0.0 K/mm3 0.0-0.2 [facility] ID Date Data Source [id number] 11/16/2019 01:03:00 PM EDT [facility] MIXED ABIMBOLA GROWN NO PATHOGENS ISOLATED Name Value Range Interpretation Code Description Data Colleen rce(s) Supporting Document(s) ID Date Data Source [id number] 11/13/2019 10:53:00 AM EDT [facility] TSYSORDER [id number] Name Value Range Interpretation Code Description Data Colleen rce(s) Supporting Document(s) URINE RBC 0-2 /hpf 0-3 [facility] URINE WBC 5-10 /hpf 0-5 H [facility] URINE EPITHELIAL CELLS 1+ /hpf [facility] URINE BACTERIA 3+ NONE SEEN [facility] ID Date Data Source [id number] 11/13/2019 10:46:00 AM EDT [facility] TSYSORDER [id number] Name Value Range Interpretation Code Description Data Colleen rce(s) Supporting Document(s) URINE COLOR. YELLOW [facility] URINE APPEARANCE CLEAR [facility] SPECIFIC GRAVITY,URINE 1.030 1.001-1.035 [facility] URINE LEUKOCYTE ESTERASE TRACE NEGATIVE [facility] URINE NITRATE NEGATIVE NEGATIVE [facility] PH,URINE 5.5 5.0-9.0 [facility] URINE PROTEIN NEGATIVE mg/dL NEGATIVE [facility] URINE GLUCOSE (UA) NEGATIVE mg/dL NEGATIVE [facility] URINE KETONE NEGATIVE mg/dL NEGATIVE [facility] URINE UROBILINOGEN 0.2 mg/dL 0-1 [facility] URINE BILIRUBIN NEGATIVE NEGATIVE [facility] URINE BLOOD TRACE NEGATIVE H [facility] ID Date Data Source [id number] 10/19/2019 08:48:00 PM EDT [facility] Patient: RITA ROSA Observation Report - [facility], [facility].VisitID: [id number] [place] [address] [phone], [facility] Date/Time: 10/19/2019 16:10 Weight:98.4 kg (S). Height/Length:65 [...] rce(s) Supporting Document(s) ID Date Data Source [id number] 10/19/2019 08:24:00 PM EDT [facility] [...] rce(s) Supporting Document(s) ID Date Data Source [id number] 10/19/2019 06:34:00 PM EDT [facility] TSYSORDER [id number] Name Value Range Interpretation Code Description Data Colleen rce(s) Supporting Document(s) MAGNESIUM 2.1 mg/dL 1.8-2.4 [facility] ID Date Data Source [id number] 10/19/2019 06:34:00 PM EDT [facility] TSYSORDER [id number] Name Value Range Interpretation Code Description Data Colleen rce(s) Supporting Document(s) LIPASE 88 U/L 73-393 [facility] ID Date Data Source [id number] 10/19/2019 06:34:00 PM EDT [facility] TSYSORDER [id number] Name Value Range Interpretation Code Description Data Colleen rce(s) Supporting Document(s) GLUCOSE 113 mg/dL 74-106 H [facility] BLOOD UREA NITROGEN 14 mg/dL 7-18 [facility] CREATININE 1.2 mg/dL 0.6-1.0 H [facility] SODIUM 138 mmol/L 136-145 [facility] POTASSIUM 3.7 mmol/L 3.5-5.1 [facility] CHLORIDE 101 mmol/L 98-107 [facility] CO2 30 mmol/L 21-32 [facility] CALCIUM 9.0 mg/dL 8.5-10.1 [facility] ANION GAP 7.0 mmol/L 5-12 [facility] GLOMERULAR FILTRATION RATE 53 mL/min [facility] GFR IS CALCULATED IN mL/min/1.73m2 TATI L FUNCTION: >90MILDLY DECREASED: 60-89MILDY TO MODERATELY DECREASED: 45-59 MODERATELY TO SEVERELY DECREASED: 30-44SEVERELY DECREASED: 15-29RENAL FAILURE: <15 AST 18 U/L 15-37 [facility] ALT 47 U/L 12-78 [facility] ALKALINE PHOSPHATASE 37 U/L 46-116 L [facility] pital TOTAL BILIRUBIN 0.3 mg/dL 0.2-1.0 [facility] TOTAL PROTEIN 6.5 g/dl 6.4-8.2 [facility] ALBUMIN 3.7 gm/dL 3.4-5.0 [facility] ID Date Data Source [id number] 10/19/2019 05:40:00 PM EDT [facility] TSYSORDER [id number] Name Value Range Interpretation Code Description Data Colleen rce(s) Supporting Document(s) URINE RBC 1-3 /hpf 0-3 [facility] URINE WBC 0-2 /hpf 0-5 H [facility] URINE EPITHELIAL CELLS 1+ /hpf 0 [facility] ID Date Data Source [id number] REFLEX 10/19/2019 05:40:00 PM [facility] ital TSYSORDER [id number] Name Value Range Interpretation Code Description Data Colleen rce(s) Supporting Document(s) URINE COLOR. [facility] URINE APPEARANCE CLEAR [facility] l SPECIFIC GRAVITY,URINE 1.015 1.001-1.035 [facility] URINE LEUKOCYTE ESTERASE TRACE NEGATIVE [facility] URINE NITRATE NEGATIVE NEGATIVE [facility] PH,URINE 6.0 5.0-9.0 [facility] URINE PROTEIN NEGATIVE mg/dL NEGATIVE [facility] reese URINE GLUCOSE (UA) NEGATIVE mg/dL NEGATIVE [facility] URINE KETONE NEGATIVE mg/dL NEGATIVE [facility] URINE UROBILINOGEN NORMAL(0.2-1) mg/dL 0-1 [facility] URINE BILIRUBIN NEGATIVE NEGATIVE [facility] URINE BLOOD TRACE NEGATIVE [facility] ID Date Data Source [id number] 10/19/2019 05:05:00 PM [facility] TSYSORDER [id number] Name Value Range Interpretation Code Description Data Colleen rce(s) Supporting Document(s) HCG URINE NEGATIVE NEGATIVE [facility] ID Date Data Source [id number] 10/19/2019 05:35:00 PM [facility] TSYSORDER [id number] Name Value Range Interpretation Code Description Data Colleen rce(s) Supporting Document(s) PARTIAL THROMBOPLASTIN TIME 21.0 SECONDS 21.4-30.2 [facility] ID Date Data Source [id number] 10/19/2019 05:35:00 PM [facility] TSYSORDER [id number] Name Value Range Interpretation Code Description Data Colleen rce(s) Supporting Document(s) PROTHROMBIN TIME (PATIENT) 9.9 SECONDS 9.2-11.6 [facility] INR 0.95 0.87-1.06 [facility] ID Date Data Source [id number] 10/19/2019 05:29:00 PM EDT [facility] TSYSORDER [id number] Name Value Range Interpretation Code Description Data Colleen rce(s) Supporting Document(s) WHITE BLOOD COUNT 6.9 K/mm3 4.0-10.0 [facility] RED BLOOD COUNT 3.90 M/mm3 4.00-5.50 L [facility] HEMOGLOBIN 11.2 gm/dL 12.0-16.0 L [facility] HEMATOCRIT 32.5 % 36.0-48.8 L [facility] MEAN CELL VOLUME 83.3 fl 80-96 [facility] MEAN CORPUSCULAR HEMOGLOBIN 28.7 pg 27.0-31.0 [facility] MEAN CORPUSCULAR HGB CONC 34.5 g/dl 32.0-36.0 [facility] RED CELL DISTRIBUTION WIDTH 13.0 % 10.0-14.5 [facility] PLATELET COUNT 258 K/mm3 172-450 [facility] MEAN PLATELET VOLUME 10.9 fl 9.0-13.0 [facility] pital GRAN % 58.7 % 50-80.0 [facility] IG% 0.1 % 0.0-0.2 [facility] LYMPH % 29.9 % 25.0-50.0 [facility] MONO % 7.3 % 2.0-10.0 [facility] EOS % 3.4 % 0-5.0 [facility] BASO % 0.6 % 0.0-2.0 [facility] GRAN # 4.0 K/mm3 2.0-8.00 [facility] IG# 0.0 K/mm3 0.0-0.2 [facility] LYMPH # 2.1 K/mm3 1.0-5.0 [facility] MONO # 0.5 K/mm3 0.10-1.20 [facility] EOS # 0.2 K/mm3 0.0-0.5 [facility] BASO # 0.0 K/mm3 0.0-0.2 [facility] ID Date Data Source [id number] 10/03/2019 06:08:00 PM EDT [facility] Patient: RITA ROSA Observation Report - [facility], [facility].VisitID: [id number] [place] [address] [phone], [facility] Date/Time: 10/03/2019 14:49 Weight:98.8 kg (S). Height/Length:65 [...] Name Value Range Interpretation Code Description Data [facility](s) Supporting Document(s) ID Date Data Source [id number] 10/03/2019 04:59:00 PM EDT [facility] l DATE OF EXAMINATION: 10/03/2019 15:36 EDT [...] rce(s) Supporting Document(s) ID Date Data Source [id number] 09/20/2019 04:17:00 PM EDT [facility] Name Value Range Interpretation Code Description Data Colleen rce(s) Supporting Document(s) SARS-COV-2 RNA RESP QL LEXIE+PROBE A [facility] This lab was ordered by [facility] and reported by [facility]. ID Date Data Source [id number] 09/12/2019 07:26:00 PM EDT [facility] Patient: RITA ROSA Observation Report - Physicians/[facility].VisitID: [id number] [place] [address] [phone], FRegistration Date/Time: 09/12/2019 10:33 Weight:97.5 kg (S). [...] rce(s) Supporting Document(s) ID Date Data Source [id number] 09/12/2019 03:44:00 PM EDT [facility] [...] rce(s) Supporting Document(s) ID Date Data Source [id number] 09/12/2019 02:19:00 PM EDT [facility] [...] rce(s) Supporting Document(s) ID Date Data Source [id number] 09/12/2019 01:15:00 PM EDT [facility] [...] rce(s) Supporting Document(s) ID Date Data Source [id number] 09/12/2019 01:11:00 PM EDT [facility] TSYSORDER [id number] Name Value Range Interpretation Code Description Data Colleen rce(s) Supporting Document(s) FREE T4 0.92 ng/dL 0.76-1.46 [facility] ID Date Data Source [id number] 09/12/2019 01:11:00 PM EDT [facility] l TSYSORDER [id number] Name Value Range Interpretation Code Description Data Colleen rce(s) Supporting Document(s) TSH 2.36 uIU/mL 0.36-3.74 [facility] ID Date Data Source [id number] 09/12/2019 12:57:00 PM EDT [facility] TSYSORDER [id number] Name Value Range Interpretation Code Description Data Colleen rce(s) Supporting Document(s) LIPASE 74 U/L 73-393 [facility] ID Date Data Source [id number] 09/12/2019 12:57:00 PM EDT [facility] TSYSORDER [id number] Name Value Range Interpretation Code Description Data Colleen rce(s) Supporting Document(s) GLUCOSE 93 mg/dL 74-106 [facility] BLOOD UREA NITROGEN 11 mg/dL 7-18 [facility] CREATININE 0.9 mg/dL 0.6-1.0 [facility] SODIUM 139 mmol/L 136-145 [facility] POTASSIUM 3.6 mmol/L 3.5-5.1 [facility] CHLORIDE 103 mmol/L 98-107 [facility] CO2 27 mmol/L 21-32 [facility] CALCIUM 9.1 mg/dL 8.5-10.1 [facility] ANION GAP 9.0 mmol/L 5-12 [facility] GLOMERULAR FILTRATION RATE 74 mL/min [facility] GFR IS CALCULATED IN mL/min/1.73m2 TATI L FUNCTION: >90MILDLY DECREASED: 60-89MILDY TO MODERATELY DECREASED: 45-59 MODERATELY TO SEVERELY DECREASED: 30-44SEVERELY DECREASED: 15-29RENAL FAILURE: <15 AST 28 U/L 15-37 [facility] ALT 39 U/L 12-78 [facility] ALKALINE PHOSPHATASE 32 U/L 46-116 L [facility] pital TOTAL BILIRUBIN 0.1 mg/dL 0.2-1.0 L [facility] TOTAL PROTEIN 6.7 g/dl 6.4-8.2 [facility] ALBUMIN 3.4 gm/dL 3.4-5.0 [facility] ID Date Data Source [id number] 09/12/2019 12:57:00 PM EDT [facility] TSYSORDER [id number] Name Value Range Interpretation Code Description Data Colleen rce(s) Supporting Document(s) MAGNESIUM 2.0 mg/dL 1.8-2.4 [facility] ID Date Data Source [id number] 09/12/2019 12:57:00 PM EDT [facility] TSYSORDER [id number] Name Value Range Interpretation Code Description Data Colleen rce(s) Supporting Document(s) TROPONIN I < 0.017 ng/mL 0.0-0.056 [facility] ID Date Data Source [id number] 09/12/2019 12:52:00 PM EDT [facility] TSYSORDER [id number] Name Value Range Interpretation Code Description Data Colleen rce(s) Supporting Document(s) DDIMER 3.78 mg/LFEU 0.19-0.60 H [facility] ID Date Data Source [id number] 09/12/2019 12:52:00 PM EDT [facility] TSYSORDER [id number] Name Value Range Interpretation Code Description Data Colleen rce(s) Supporting Document(s) PARTIAL THROMBOPLASTIN TIME 22.3 SECONDS 21.4-30.2 [facility] ID Date Data Source [id number] 09/12/2019 12:52:00 PM EDT [facility] l TSYSORDER [id number] Name Value Range Interpretation Code Description Data Colleen rce(s) Supporting Document(s) PROTHROMBIN TIME (PATIENT) 10.4 SECONDS 9.2-11.6 [facility] INR 1.00 0.87-1.06 [facility] ID Date Data Source [id number] 09/12/2019 12:43:00 PM EDT [facility] T[facility] [id number] Name Value Range Interpretation Code Description Data Colleen rce(s) Supporting Document(s) HCG,SERUM NEGATIVE NEGATIVE [facility] False negative results may occur when th e levels of hCG arebelow the sensitivity level of the test. If isstill suspected, a first morning urine specimen should becollected 48hrs later.This test has a sensitivity of 10mIU/mL in serum sek91tAQ/mL in urine. ID Date Data Source [id number] 09/12/2019 12:33:00 PM EDT [facility] l TSYSORDER [id number] Name Value Range Interpretation Code Description Data Colleen rce(s) Supporting Document(s) WHITE BLOOD COUNT 5.9 K/mm3 4.0-10.0 [facility] al RED BLOOD COUNT 3.80 M/mm3 4.00-5.50 L [facility] HEMOGLOBIN 10.8 gm/dL 12.0-16.0 L [facility] HEMATOCRIT 32.6 % 36.0-48.8 L [facility] MEAN CELL VOLUME 85.8 fl 80-96 [facility] MEAN CORPUSCULAR HEMOGLOBIN 28.4 pg 27.0-31.0 [facility] MEAN CORPUSCULAR HGB CONC 33.1 g/dl 32.0-36.0 [facility] RED CELL DISTRIBUTION WIDTH 14.6 % 10.0-14.5 H [facility] PLATELET COUNT 313 K/mm3 172-450 [facility] MEAN PLATELET VOLUME 9.9 fl 9.0-13.0 [facility] pital GRAN % 48.2 % 50-80.0 L [facility] IG% 0.5 % 0.0-0.2 H [facility] LYMPH % 38.7 % 25.0-50.0 [facility] MONO % 9.4 % 2.0-10.0 [facility] EOS % 2.2 % 0-5.0 [facility] BASO % 1.0 % 0.0-2.0 [facility] GRAN # 2.8 K/mm3 2.0-8.00 [facility] IG# 0.0 K/mm3 0.0-0.2 [facility] LYMPH # 2.3 K/mm3 1.0-5.0 [facility] MONO # 0.6 K/mm3 0.10-1.20 [facility] EOS # 0.1 K/mm3 0.0-0.5 [facility] BASO # 0.1 K/mm3 0.0-0.2 [facility] ID Date Data Source [id number] 08/11/2019 11:15:00 AM EDT [facility] Name Value Range Interpretation Code Description Data Colleen rce(s) Supporting Document(s) SARS-CoV-2 [facility] This lab was ordered by [facility] and reported by [facility]. ID Date Data Source [id number] 07/16/2019 07:40:00 PM EDT [facility] Patient: RITA ROSA Observation Report - Physicians/[facility].VisitID: [id number] [place] [address] [phone], FRegistration Date/Time: 07/16/2019 15:00 Weight:122.4 kg (S). Height/Length:65 inches (S). BMI:45 FAMILY HISTORYFather: Diabetes, Heart Disease, Hypertension, Stroke/Brain Attack. (Electronically signed by Nickie Ryan P.A. 07/16/2019 18:06) Name Value Range Interpretation Code Description Data Colleen rce(s) Supporting Document(s) ID Date Data Source [id number] 07/16/2019 04:55:00 PM EDT [facility] [...] rce(s) Supporting Document(s) ID Date Data Source [id number] 07/16/2019 04:04:00 PM EDT [facility] TSYSORDER [id number] Name Value Range Interpretation Code Description Data Colleen rce(s) Supporting Document(s) LACTIC ACID 1.2 mmol/L 0.4-2.0 [facility] ID Date Data Source [id number] 07/16/2019 03:18:00 PM EDT [facility] l TSYSORDER [id number] Name Value Range Interpretation Code Description Data Colleen rce(s) Supporting Document(s) HCG URINE NEGATIVE NEGATIVE [facility] ID Date Data Source [id number] 07/16/2019 03:36:00 PM EDT [facility] TSYSORDER [id number] Entery of ALL Res ults have been RecheckedBy HILARIO on 07/16/19 @ 1536. Name Value Range Interpretation Code Description Data Colleen rce(s) Supporting Document(s) URINE COLOR. [facility] URINE APPEARANCE CLEAR [facility] l SPECIFIC GRAVITY,URINE 1.030 1.001-1.035 [facility] URINE LEUKOCYTE ESTERASE NEGATIVE NEGATIVE [facility] URINE NITRATE NEGATIVE NEGATIVE [facility] PH,URINE 6.0 5.0-9.0 [facility] URINE PROTEIN NEGATIVE mg/dL NEGATIVE [facility] URINE GLUCOSE (UA) NEGATIVE mg/dL NEGATIVE [facility] URINE KETONE NEGATIVE mg/dL NEGATIVE [facility] URINE UROBILINOGEN 0.2 mg/dL 0-1 [facility] URINE BILIRUBIN NEGATIVE NEGATIVE [facility] URINE BLOOD NEGATIVE NEGATIVE [facility] ID Date Data Source [id number] 07/16/2019 03:54:00 PM EDT [facility] TSYSORDER [id number] Name Value Range Interpretation Code Description Data Colleen rce(s) Supporting Document(s) GLUCOSE 88 mg/dL 74-106 [facility] BLOOD UREA NITROGEN 21 mg/dL 7-18 H [facility] CREATININE 1.2 mg/dL 0.6-1.0 H [facility] SODIUM 140 mmol/L 136-145 [facility] POTASSIUM 4.6 mmol/L 3.5-5.1 [facility] CHLORIDE 102 mmol/L 98-107 [facility] CO2 27 mmol/L 21-32 [facility] CALCIUM 8.9 mg/dL 8.5-10.1 [facility] ANION GAP 11.0 mmol/L 5-12 [facility] GLOMERULAR FILTRATION RATE 53 mL/min [facility] GFR IS CALCULATED IN mL/min/1.73m2 TATI L FUNCTION: >90MILDLY DECREASED: 60-89MILDY TO MODERATELY DECREASED: 45-59 MODERATELY TO SEVERELY DECREASED: 30-44SEVERELY DECREASED: 15-29RENAL FAILURE: <15 AST 21 U/L 15-37 [facility] ALT 28 U/L 12-78 [facility] ALKALINE PHOSPHATASE 43 U/L 46-116 L [facility]ital TOTAL BILIRUBIN 0.1 mg/dL 0.2-1.0 L [facility] TOTAL PROTEIN 7.1 g/dl 6.4-8.2 [facility] ALBUMIN 3.9 gm/dL 3.4-5.0 [facility] ID Date Data Source [id number] 07/16/2019 03:54:00 PM EDT [facility] TSYSORDER [id number] Name Value Range Interpretation Code Description Data Colleen rce(s) Supporting Document(s) LIPASE 113 U/L 73-393 [facility] ID Date Data Source [id number] 07/16/2019 03:37:00 PM EDT [facility] TSYSORDER [id number] Name Value Range Interpretation Code Description Data Colleen rce(s) Supporting Document(s) WHITE BLOOD COUNT 5.9 K/mm3 4.0-10.0 [facility] RED BLOOD COUNT 4.13 M/mm3 4.00-5.50 [facility] l HEMOGLOBIN 11.3 gm/dL 12.0-16.0 L [facility] HEMATOCRIT 34.8 % 36.0-48.8 L [facility] MEAN CELL VOLUME 84.3 fl 80-96 [facility] MEAN CORPUSCULAR HEMOGLOBIN 27.4 pg 27.0-31.0 [facility] MEAN CORPUSCULAR HGB CONC 32.5 g/dl 32.0-36.0 [facility] RED CELL DISTRIBUTION WIDTH 17.3 % 10.0-14.5 H [facility] PLATELET COUNT 249 K/mm3 172-450 [facility] MEAN PLATELET VOLUME 10.1 fl 9.0-13.0 [facility]ital GRAN % 51.6 % 50-80.0 [facility] IG% 0.5 % 0.0-0.2 H [facility] LYMPH % 34.6 % 25.0-50.0 [facility] MONO % 9.6 % 2.0-10.0 [facility] EOS % 2.9 % 0-5.0 [facility] BASO % 0.8 % 0.0-2.0 [facility] GRAN # 3.1 K/mm3 2.0-8.00 [facility] IG# 0.0 K/mm3 0.0-0.2 [facility] LYMPH # 2.1 K/mm3 1.0-5.0 [facility] MONO # 0.6 K/mm3 0.10-1.20 [facility] EOS # 0.2 K/mm3 0.0-0.5 [facility] BASO # 0.1 K/mm3 0.0-0.2 [facility] Procedure Social History Code Duration Value Status Description Data Source(s ) Alcohol intake 12/22/2019 12:00:00 AM EDT Lifetime non-drinker (finding) completed Lifetime non-drinker (finding) [facility] ital Smoking 12/22/2019 12:00:00 AM EDT Never smoker completed Never s [facility] Vital Signs ID Date Data Source UNK Name Value Range Interpretation Code Description Data Source(s) Body weight 99.565 kg 99.565 kg [facility] ([facility], ) Body mass index (BMI) [Ratio] 37.1 kg/m2 37.1 k g/m2 [facility] ([facility], ) Body weight 219.50 [lb_av] 219.50 [lb_av] [facility] T ([facility], ) Body height 64.50 [in_i] 64.50 [in_i] [facility] ([facility], ) 5'4.50" Diastolic blood pressure 72 mm[Hg] 72 mm[Hg] [facility] ([facility], ) Systolic blood pressure 112 mm[Hg] 112 mm[Hg] M EDSANDRINE ([facility], ) ID Date Data Source [id number] 12/29/2019 11:20:49 AM [facility] Name Value Range Interpretation Code Description Data Source(s) WEIGHT RECORDED 211 lb 211 lb [facility] Body height Measured 65 in 65 in [facility] TRANSFER FROM [facility] ID Date Data Source [id number] 04/09/2020 10:33:00 AM [facility] Name Value Range Interpretation Code Description Data Source(s) WEIGHT 81.[address] [facility] al HEIGHT 165.1 centimeters 165.1 centimeters [facility] WEIGHT 81.[address] [facility] al HEIGHT 165.1 centimeters 165.1 centimeters [facility] Patient Treatment Plan of Care Planned Activity Planned Date Details Description Data Source (s) pantoprazole 40 MG Delayed Release Oral Tablet 12/26/2019 12:00:[address] [facility] meloxicam 15 MG Oral Tablet 12/25/2019 12:00:[address] [facility] Cyclobenzaprine hydrochloride 10 MG Oral Tablet 12/25/2019 12:00:[address] [facility] Acetaminophen 325 MG Oral Tablet 12/25/2019 12:00:[address] [facility] tramadol hydrochloride 50 MG Oral Tablet 12/25/2019 12:00:[address] [facility] Furosemide 20 MG Oral Tablet 12/24/2019 12:07:[address] [facility] morphine sulfate (PF) 4 MG/ML injection 12/22/2019 09:07:[address] [facility] Dicyclomine Hydrochloride 10 MG Oral Capsule 12/21/2019 12:00:[address] [facility] tramadol hydrochloride 50 MG Oral Tablet 10/20/2019 12:00:[address] [facility] Cyclobenzaprine hydrochloride 10 MG Oral Tablet 10/03/2019 12:00:[address] [facility] Furosemide 20 MG Oral Tablet 10/01/2019 12:00:[address] [facility] Acetaminophen 325 MG / Oxycodone Hydrochloride 5 MG Or al Tablet 08/02/2019 12:00:00 AM [facility] ospital
[2020-04-11 15:20] LABS: ALBUMIN 4.4 GM/DL (3.2-5.2); ALT/SGPT 87 U/L (12-78); BILIRUBIN,DIRECT < 0.1 MG/DL (0.0-0.2); BILIRUBIN,TOTAL 0.5 MG/DL (0.2-1.0); BLOOD UREA NITROGEN 14 MG/DL (7-18); CALCIUM LEVEL 10.3 MG/DL (8.5-10.1); CARBON DIOXIDE LEVEL 30 MEQ/L (21-32); CHLORIDE LEVEL 101 MEQ/L (98-107); CREATININE FOR GFR 0.84 MG/DL (0.55-1.30); GLOMERULAR FILTRATION RATE > 60.0 (>60); GLUCOSE, FASTING 124 MG/DL (70-100); LIPASE 115 U/L (73-393); POTASSIUM SERUM 4.6 MEQ/L (3.5-5.1); SODIUM LEVEL 136 MEQ/L (136-145); TOTAL PROTEIN 8.4 GM/DL (6.4-8.2)
[2020-04-11 15:23] LABS: HCG, SERUM QUALITATIVE NEGATIVE (NEGATIVE)
[2020-04-11] MEDS ORDERED: ONDANSETRON 4MG/2ML VIAL IV ONE ×2 (15:30→16:30)
[2020-04-11] MEDS: GASTROGRAFIN SOLUTION 30ML PO SCH ×2 (16:12→16:29)
[2020-04-11] MEDS ORDERED: MORPHINE 4 MG/ML 1ML VIAL/SYRINGE (J2270) IV ONE (16:30)
[2020-04-11] MEDS ORDERED: ISOVUE-370 76% 100ML VIAL As Ordered ONE (16:50)
--- NOTE | 2020-04-11 17:24 | REPVR ---
PROCEDURE INFORMATION: Exam: CT Abdomen And Pelvis With Contrast Exam date and time: 04/11/2020 5:00 PM Age: 30 years old Clinical indication: Abdominal pain; Additional info: Rlq pain, HX of colectomy and obstructions TECHNIQUE: Imaging protocol: Computed tomography of the abdomen and pelvis with intravenous contrast. Radiation optimization: All CT scans at this facility use at least one of these dose optimization techniques: automated exposure control; mA and/or kV adjustment per patient size (includes targeted exams where dose is matched to clinical indication); or iterative reconstruction. Contrast material: ISO 370; Contrast volume: 100 ml; Contrast route: INTRAVENOUS (IV); COMPARISON: CT ABD/PEL W/IV ORAL CONTRAS 02/04/2020 9:36 PM FINDINGS: Liver: Diffuse hepatic steatosis. No focal hepatic lesion or intrahepatic duct dilatation. Gallbladder and bile ducts: Status post cholecystectomy. Normal caliber common bile duct. Pancreas: Unremarkable. No ductal dilation. Spleen: Unremarkable. No splenomegaly. Adrenal glands: Normal. No mass. Kidneys and ureters: Duplicated left renal collecting system. The left kidney and ureters are otherwise unremarkable. Normal right kidney and right ureter. 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 No parastomal hernia. No enteritis or bowel obstruction. The stomach is unremarkable. Appendix: No evidence of appendicitis. Intraperitoneal space: Small volume of pelvic ascites, less voluminous than that seen on the previous exam. No free intraperitoneal air. No abdominopelvic abscess. Vasculature: Unremarkable. No abdominal aortic aneurysm. Lymph nodes: Unremarkable. No enlarged lymph nodes. Urinary bladder: Unremarkable as visualized. Reproductive: Unremarkable as visualized. Bones/joints: No acute fracture. Soft tissues: Right ileostomy without parastomal hernia. IMPRESSION: 1. 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 2. No bowel obstruction. 3. Small volume of pelvic ascites, less voluminous than that seen on the previous exam. Electronically signed by: Garrett Smith On 04/11/2020 17:23:57 PM
[2020-04-11] MEDS ORDERED: ONDA4TAB6 PO (17:37)
[2020-04-11 17:52] VITALS: BP 132/76
--- NOTE | 2020-04-12 11:43 | ED PDOC ---
Post-Departure Follow-Up certified letter sent to pt re formal read of ct abd/p. please obtain pcp name a nd fax report for Sarai Rivera MD Apr 12, 2020 11:43
== END 2020-04-11 17:54 | disposition home or self-care (01) ==
LOC: M ED 13:38
DX: R10.32 Left lower quadrant pain (principal); R11.2 Nausea with vomiting, unspecified; Z90.49 Acquired absence of other specified parts of digestive tract; Z86.73 Personal history of transient ischemic attack (TIA), and cerebral infarction without residual deficits; Z87.19 Personal history of other diseases of the digestive system; Z87.42 Personal history of other diseases of the female genital tract; K21.9 Gastro-esophageal reflux disease without esophagitis; J45.909 Unspecified asthma, uncomplicated; K58.8 Other irritable bowel syndrome; F41.9 Anxiety disorder, unspecified; F60.3 Borderline personality disorder; F31.9 Bipolar disorder, unspecified; Z88.8 Allergy status to other drugs, medicaments and biological substances; Z79.899 Other long term (current) drug therapy
CPT/HCPCS: 74177; 80048; 80076; 81001; 83690; 84703; 85025; 96361; 96374; 96375; 96376; 99284; J1885; J2270; J2405; J3010; Q9963; Q9967

== ENCOUNTER 2020-05-19 17:14 | Emergency (ER) | payer OTHER ==
[~2020-05-19] VITALS: Ht 165.1 cm; Wt 101.3 kg
[~2020-05-19 17:14] MED LIST changes: -PEG1POW PO; +POLY17PO18 PO
[2020-05-19 18:02] LABS: BASO # 0.1 10^3/uL (0.0-0.2); BASO % 0.8 % (0.0-1.0); EOS # 0.2 10^3/uL (0.0-0.5); EOS % 2.7 % (0.0-3.0); HEMATOCRIT 34.7 % (36.0-47.0); HEMOGLOBIN 11.2 g/dl (12.0-15.5); LYMPH # 2.1 10^3/uL (1.5-5.0); LYMPH % 33.2 % (24.0-44.0); MEAN CORPUSCULAR HEMOGLOBIN 27.3 pg (27.0-33.0); MEAN CORPUSCULAR HGB CONC 32.3 g/dl (32.0-36.5); MEAN CORPUSCULAR VOLUME 84.6 fl (80.0-96.0); MONO # 0.5 10^3/uL (0.0-0.8); MONO % 8.5 % (2.0-8.0); NEUTROPHILS # 3.4 10^3/uL (1.5-8.5); NEUTROPHILS % 54.5 % (36.0-66.0); WHITE BLOOD COUNT 6.2 10^3/uL (4.0-10.0)
[2020-05-19] MEDS ORDERED: MORPHINE 4 MG/ML 1ML VIAL/SYRINGE (J2270) IV ONE (18:10)
[2020-05-19] MEDS ORDERED: ONDANSETRON 4MG/2ML VIAL IV ONE (18:10)
[2020-05-19] MEDS ORDERED: ISOVUE-370 76% 100ML VIAL As Ordered ONE (18:14)
[2020-05-19 18:29] LABS: ERYTHROCYTE SEDIMENTATION RATE 6 mm/hr (0-20)
[2020-05-19] MEDS ORDERED: MORPHINE 2 MG/ML 1ML VIAL (J2270) IV ONE (18:40)
[2020-05-19 18:42] LABS: ALBUMIN 3.5 GM/DL (3.2-5.2); ALT/SGPT 52 U/L (12-78); BILIRUBIN,DIRECT < 0.1 MG/DL (0.0-0.2); BILIRUBIN,TOTAL 0.3 MG/DL (0.2-1.0); LDH LACTATE DEHYDROGENASE 563 U/L (84-246); LIPASE 143 U/L (73-393); TOTAL PROTEIN 6.9 GM/DL (6.4-8.2)
--- NOTE | 2020-05-19 19:12 | REPVR ---
PROCEDURE INFORMATION: Exam: CT Abdomen And Pelvis With Contrast Exam date and time: 05/19/2020 6:18 PM Age: 30 years old Clinical indication: Abdominal pain; Generalized TECHNIQUE: Imaging protocol: Computed tomography of the abdomen and pelvis with contrast. Radiation optimization: All CT scans at this facility use at least one of these dose optimization techniques: automated exposure control; mA and/or kV adjustment per patient size (includes targeted exams where dose is matched to clinical indication); or iterative reconstruction. Contrast material: ISOVUE 370; Contrast volume: 100 ml; Contrast route: INTRAVENOUS (IV); COMPARISON: CT ABD/PEL W/IV ORAL CONTRAS 04/11/2020 4:52 PM FINDINGS: Lungs: Included lung bases are unremarkable. Liver: There is diffuse fatty liver change with minimal focal sparing at the gallbladder bed and left lobe of the liver. Liver is enlarged. Gallbladder and bile ducts: There has been a cholecystectomy. No significant biliary ductal dilatation. Pancreas: Normal. No ductal dilation. Spleen: Small splenule adjacent to the spleen. Adrenal glands: Normal. No mass. Kidneys and ureters: Duplicated left renal collecting system. No hydronephrosis bilaterally. Minimal renal cortical thinning bilaterally. Stomach and bowel: As before, status post subtotal colectomy with rectal stump and right ileostomy. No peristomal hernia. Surgical clips at the proximal extent of the rectal stump. No bowel dilatation to indicate obstruction. No pneumatosis. Appendix: No evidence of appendicitis. Intraperitoneal space: Small volume hypodense ascites. No free air. Vasculature: Unremarkable. No abdominal aortic aneurysm. Lymph nodes: Unremarkable. No enlarged lymph nodes. Urinary bladder: Bladder is relatively collapsed. Reproductive: Uterus and ovaries are grossly unremarkable. Bones/joints: No acute osseous abnormality. Small sclerotic lesion in the left femoral head and left acetabulum, most likely bone islands. Soft tissues: Prior midline abdominal incision. IMPRESSION: 1. 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 2. No bowel obstruction. 3. Small volume hypodense ascites again present. 4. Enlarged fatty liver. 5. Cholecystectomy. Electronically signed by: Alice Arevalo On 05/19/2020 19:12:24 PM
[2020-05-19] MEDS ORDERED: NORCO 5/325MG TABLET (BULK FOR ED) PO ONE (20:25)
[2020-05-19 20:35] VITALS: BP 137/83
== END 2020-05-19 20:38 | disposition home or self-care (01) ==
LOC: M ED 17:14
DX: R10.84 Generalized abdominal pain (principal); R11.0 Nausea; J45.909 Unspecified asthma, uncomplicated; D64.9 Anemia, unspecified; F60.3 Borderline personality disorder; K21.9 Gastro-esophageal reflux disease without esophagitis; K58.9 Irritable bowel syndrome, unspecified; Z79.899 Other long term (current) drug therapy; Z79.3 Long term (current) use of hormonal contraceptives; Z88.8 Allergy status to other drugs, medicaments and biological substances
CPT/HCPCS: 36415; 74177; 80047; 80076; 83605; 83615; 83690; 84702; 85025; 85652; 96374; 96375; 99284; J2270; J2405; Q9967

== ENCOUNTER 2020-05-21 12:11 | Emergency (ER) | payer OTHER ==
[~2020-05-21] VITALS: Ht 165.1 cm; Wt 100.0 kg
[2020-05-21] MEDS ORDERED: NS 1,000 ML IV SCH (14:38)
[2020-05-21] MEDS ORDERED: LORazepam 2 MG/ML VIAL IV STA (14:41)
[2020-05-21 15:18] LABS: BASO # 0.1 10^3/uL (0.0-0.2); BASO % 0.7 % (0.0-1.0); EOS # 0.1 10^3/uL (0.0-0.5); EOS % 0.7 % (0.0-3.0); HEMATOCRIT 33.7 % (36.0-47.0); HEMOGLOBIN 10.8 g/dl (12.0-15.5); LYMPH # 1.5 10^3/uL (1.5-5.0); LYMPH % 21.9 % (24.0-44.0); MEAN CORPUSCULAR HEMOGLOBIN 27.1 pg (27.0-33.0); MEAN CORPUSCULAR VOLUME 84.5 fl (80.0-96.0); MONO # 0.6 10^3/uL (0.0-0.8); NEUTROPHILS # 4.7 10^3/uL (1.5-8.5); NEUTROPHILS % 68.4 % (36.0-66.0); RED BLOOD COUNT 3.99 10^6/uL (4.00-5.40); WHITE BLOOD COUNT 6.9 10^3/uL (4.0-10.0)
[2020-05-21 15:45] LABS: URINE PREG TEST NEGATIVE (NEGATIVE)
[2020-05-21 15:58] LABS: ACETAMINOPHEN LEVEL < 2.0 UG/ML (10.0-30.0); ALBUMIN 3.6 GM/DL (3.2-5.2); ALT/SGPT 57 U/L (12-78); BILIRUBIN,DIRECT < 0.1 MG/DL (0.0-0.2); BILIRUBIN,TOTAL 0.4 MG/DL (0.2-1.0); ETHYL ALCOHOL (ETHANOL) < 0.003 % (0.000-0.010); LIPASE 124 U/L (73-393); SALICYLATE LEVEL < 1.7 MG/DL (5.0-30.0); TOTAL PROTEIN 7.1 GM/DL (6.4-8.2)
[2020-05-21 16:21] LABS: AMPHETAMINES LEVEL URINE NEGATIVE (NEGATIVE); BARBITURATES URINE NEGATIVE (NEGATIVE); BENZODIAZEPINES URINE NEGATIVE (NEGATIVE); CANNABINOIDS URINE POSITIVE (NEGATIVE); COCAINE METABOLITE URINE NEGATIVE (NEGATIVE); METHADONE URINE NEGATIVE (NEGATIVE); OPIATES URINE POSITIVE (NEGATIVE); PHENCYCLIDINE URINE NEGATIVE (NEGATIVE)
[2020-05-21] MEDS ORDERED: ATIV1TAB7 PO (16:55)
[2020-05-21] MEDS ORDERED: HYDR100C PO (16:55)
[2020-05-21] MEDS ORDERED: LORazepam 1 MG TAB PO STA (16:59)
[2020-05-21 17:23] VITALS: BP 166/97
--- NOTE | 2020-05-21 19:35 | ECGEPIP ---
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
== END 2020-05-21 17:26 | disposition home or self-care (01) ==
LOC: M ED 12:11
DX: F41.0 Panic disorder [episodic paroxysmal anxiety] (principal); F45.1 Undifferentiated somatoform disorder; F60.3 Borderline personality disorder; F31.9 Bipolar disorder, unspecified; K58.9 Irritable bowel syndrome, unspecified; Z90.49 Acquired absence of other specified parts of digestive tract; Z88.8 Allergy status to other drugs, medicaments and biological substances; Z79.899 Other long term (current) drug therapy
CPT/HCPCS: 80047; 80076; 80143; 80307; 82077; 83605; 83690; 84443; 84702; 84703; 85025; 93005; 93041; 96361; 96374; 99285; J2060

== ENCOUNTER 2020-09-09 10:32 | Inpatient (IN) | payer OTHER ==
[~2020-09-09] VITALS: Ht 165.1 cm; Wt 99.2 kg
[~2020-09-09 10:32] MED LIST changes: +ATIV1TAB7 PO; +GABA-283 PO; -GABA-845 PO; +HYDR100C PO
[2020-09-09] MEDS ORDERED: POTA20TA6 PO (10:44)
[2020-09-09] MEDS ORDERED: DIPH2.5T15 PO (10:44)
[2020-09-09] MEDS ORDERED: LAMO25TA4 PO (10:44)
[2020-09-09] MEDS ORDERED: HYDR-4514 PO (10:44)
[2020-09-09] MEDS ORDERED: ONDANSETRON 4MG/2ML VIAL IV ONE (11:45)
[2020-09-09] MEDS ORDERED: NS 1,000 ML IV ONE (11:45)
[2020-09-09] MEDS ORDERED: MORPHINE 4 MG/ML 1ML VIAL/SYRINGE (J2270) IV ONE (11:45)
[2020-09-09 12:51] LABS: BASO % 0.6 % (0.0-1.0); EOS # 0.3 10^3/uL (0.0-0.5); EOS % 4.6 % (0.0-3.0); HEMATOCRIT 36.8 % (36.0-47.0); HEMOGLOBIN 11.7 g/dl (12.0-15.5); LYMPH # 1.6 10^3/uL (1.5-5.0); LYMPH % 22.9 % (24.0-44.0); MEAN CORPUSCULAR HEMOGLOBIN 26.7 pg (27.0-33.0); MEAN CORPUSCULAR HGB CONC 31.8 g/dl (32.0-36.5); MONO # 0.5 10^3/uL (0.0-0.8); MONO % 7.1 % (2.0-8.0); NEUTROPHILS # 4.5 10^3/uL (1.5-8.5); NEUTROPHILS % 64.5 % (36.0-66.0); PLATELET COUNT, AUTOMATED 260 10^3/uL (150-450); RED BLOOD COUNT 4.38 10^6/uL (4.00-5.40); WHITE BLOOD COUNT 6.9 10^3/uL (4.0-10.0)
[2020-09-09] MEDS ORDERED: ISOVUE-370 76% 100ML VIAL As Ordered ONE (13:17)
[2020-09-09 13:33] LABS: BILIRUBIN,DIRECT 0.1 MG/DL (0.0-0.2); BILIRUBIN,TOTAL 0.7 MG/DL (0.2-1.0); TOTAL PROTEIN 7.8 GM/DL (6.4-8.2)
[2020-09-09] MEDS ORDERED: MORPHINE 2 MG/ML 1ML VIAL (J2270) IV ONE (13:50)
--- NOTE | 2020-09-09 14:03 | REP ---
INDICATION: post op abd pain and drainage from surgical wound. COMPARISON: Multiple the latest 05/19/2020. TECHNIQUE: Standard helical technique after the intravenous administration of 100 cc Isovue 370. FINDINGS: Lung bases are clear and unchanged. The liver and spleen are unchanged. Surgical clips are again seen in the gallbladder fossa from previous cholecystectomy. The pancreas, adrenal glands, and kidneys are again seen to be within normal limits. The abdominal aorta and para-aortic regions are unchanged. There is no evidence of free fluid or free air. There is no mass or adenopathy. There are multiple dilated fluid and gas-filled small bowel loops this represents a change from the prior exam. Subtotal colectomy is again noted with reversal of the right ileostomy and an ileocolic anastomosis in the hemipelvis. There is content bowel content distal to the estimate attic site. The anastomosis shows no definite obstructive pattern. The osseous structures are unchanged. IMPRESSION: 1. Status post reversal of ileostomy with anastomotic site as described above. Although the lumen of the anastomotic site is more narrow than the bowel immediately proximal and distal to it, it is patent and is approximately the same size as small-bowel not dilatated in the abdomen. Ileus is suspected, however, partial small bowel obstruction cannot be ruled out. 2. Mixed density in the subcutanea over the operative site consistent with a healing wound. No evidence of an abscess or seroma. <Electronically signed by Alexandro Garcia > 09/09/20 [id number]
[2020-09-09] MEDS ORDERED: metroNIDAZOLE 500 MG in IV 1 EA IV ONE (14:45)
[2020-09-09] MEDS ORDERED: DICYCLOMINE INJ 20MG/2ML (J0500) IM PRN (15:05)
[2020-09-09] MEDS: LR 1,000 ML IV SCH ×2 (15:39→22:30)
[2020-09-09] MEDS: KETOROLAC 30 MG/ML 1ML VIAL IV PRN (15:39)
[2020-09-09] MEDS ORDERED: DICY20TA11 PO (16:34)
[2020-09-09] MEDS ORDERED: MULT-40 PO (16:34)
[2020-09-09] MEDS ORDERED: HYDR100C PO (16:34)
[2020-09-09] MEDS: cefTRIAXone SOD 1 GM in D5W MINI-BAG PLUS 50 ML IV SCH (16:50)
[2020-09-09] MEDS: MORPHINE 4 MG/ML 1ML VIAL/SYRINGE (J2270) IV PRN ×2 (16:53→20:46)
[2020-09-09 17:10] VITALS: BP 124/79
--- NOTE | 2020-09-09 18:23 | HPEPDOC ---
General Date of Admission Sep 09, 2020 at 10:33 Date of Service: Sep 09, 2020 Chief Complaint The patient is a 30-year-old female admitted with a reason for visit of Colitis Enteritis. 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 Ileostomy was reversed on 08/10/20 with delayed midline incision healing with some persistent discharge. She presented to [facility] ED on 09/09/20 with 6 days of diarrhea, abdominal pain and increased discharge from the midline incision and new onset nausea and vomiting for 1 day. Her pain in 8/10 in intensity constant, sharp located in the right iliac fossa and the periumbilical region next to the midline incision with intermittent cramps when she needs to have a bowel movement with relief of the cramps. Her diarrhea in about 5 to 8 times a day brown liquid stool without any blood in it. CT abdomen and pelvis shows multiple dilated fluid and gas-filled small bowel loops this represents a change from the prior exam. Subtotal colectomy is noted with reversal of the right ileostomy and an ileocolic anastomosis in the hemipelvis. There is content bowel content distal to the anastomotic site. The anastomosis shows no definite obstructive pattern. Ileus is suspected, however, partial small bowel obstruction cannot be ruled out. Mixed density in the subcutanea over the operative site consistent with a healing wound. No evidence of an abscess or seroma. She is admitted for gastro-enterocolitis vs partial SBO. GI panel is negative. Patient was seen by Dr Silva. The midline incision was opened up more and packed. Home Medications Scheduled Etonogestrel (Nexplanon) 68 Mg Implant, 68 MG SC ASDIRECTED, (Reported) Haloperidol (Haloperidol) 5 Mg Tablet, 5 MG PO TID, (Reported) Lamotrigine (Lamotrigine) 25 Mg Tablet, 25 MG PO QHS, (Reported) Multivitamin (Multivitamins) 1 Each Tablet, 1 TAB PO DAILY, (Reported) Paroxetine HCl (Paxil) 20 Mg Tablet, 60 MG PO DAILY, (Reported) Potassium Chloride (Potassium Chloride) 20 Meq Tab.er.prt, 20 MEQ PO DAILY, (Reported) Quetiapine Fumarate (Quetiapine Fumarate) 300 Mg Tablet, 300 MG PO QHS, (Reported) Risperidone (Risperidone) 0.5 Mg Tablet, 0.5 MG PO BID, (Reported) Trazodone HCl (Trazodone HCl) 100 Mg Tablet, 200 MG PO QHS, (Reported) Scheduled PRN Dicyclomine HCl (Dicyclomine HCl) 20 Mg Tablet, 20 MG PO TID PRN for CRAMPS, (Reported) Diphenoxylate HCl/Atropine (Diphenoxylate-Atrop 2.5-0.025) 1 Each Tablet, 1 TAB PO TID PRN for DIARRHEA, (Reported) Hydrocodone/Acetaminophen (Hydrocodone-Acetamin 7.5-325) 1 Each Tablet, 1 TAB PO Q4H PRN for PAIN LEVEL 4-7, (Reported) Hydroxyzine Pamoate (Hydroxyzine Pamoate) 100 Mg Capsule, 100 MG PO TID PRN for ANXIETY/AGITATION, (Reported) Rizatriptan Benzoate (Maxalt) 10 Mg Tab, 10 MG PO DAILY PRN for MIGRAINE, (Reported) Allergies Coded Allergies: cetirizine (Verified Allergy, Mild, rash, 01/05/20) metoclopramide (Verified Adverse Reaction, Mild, anxiety, 01/05/20) sumatriptan (Verified Adverse Reaction, Mild, joint pain, 01/05/20) Past Medical History Medical History Asthma as a child 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 hernias Obesity JOO diagnosed in 2009 sleep study Surgical History appendectomy 2010 cholecystectomy left knee arthroscopic repair of meniscus in 8th grade. wisdom tooth. Large bowel obstruction with Subtotal colectomy and ileostomy in 2014 ileostomy reversal in 2015 recurrent SBOs form adhesions with lysis of adhesions Small bowel resection with small bowel anastomosis Internal hernias/ incisional hernias x 2 repair in 2018 and 2019 SBO with lysis of adhesions and ileostomy creation in 2019 ileostomy reversal in July 2020 Family History Significant Family History: Cancer (kidney cancer maternal grandmother), Diabet es (father), Heart disease (father) Social History * Smoker: non-smoker Alcohol: Denies Drugs: denies A-FIB/CHADSVASC A-FIB History Current/History of A-Fib/PAF?: No Review of Systems Constitutional: Denies: Chills, Fever, Night Sweats Eyes: Denies: Pain, Vision change ENT: Denies: Head Aches, Ear Pain, Dysphagia Skin: Denies: Rash, Lesions, Breakdown Pulmonary: Denies: Dyspnea, Cough Cardiovascular: Denies: Chest Pain, Palpitations, Orthopnea, Paroxysmal Noc. Dyspnea, Lt Headedness Gastrointestinal: Reports: Nausea, Vomiting, Abdominal Pain, Diarrhea Genitourinary: Denies: Dysuria, Frequency, Incontinence, Retention Hematologic: Denies: Bruising, Bleeding Excessively Physical Examination General Exam: Positive: Alert, Cooperative, No Acute Distress Eye Exam: Positive: PERRLA, Conjunctiva & lids normal, EOMI; Negative: Sclera icteric ENT Exam: Positive: Atraumatic, Mucous membr. moist/pink, Pharynx Normal Neck Exam: Positive: Supple; Negative: JVD, thyromegaly Chest Exam: Positive: Clear to auscultation, Normal air movement Heart Exam: Positive: Rate Normal, Regular Rhythm, Normal S1, Normal S2, Murmu rs (soft systolic); Negative: Rubs Abdomen Exam: Positive: Normal bowel sounds, Soft, Tenderness (right iliac fossa and periumbilical region), Other (No guarding or rigidity); Negative: Hepatospenomegaly Extremity Exam: Negative: Clubbing, Cyanosis, Edema Vital Signs Vital Signs Date Time Temp Pulse Resp B/P (MAP) Pulse Ox O2 Delivery O2 Flow Rate FiO2 09/09/20 17:10 98.1 86 18 124/79 (94) 99 Room Air Laboratory Data Labs 24H Laboratory Tests 2 09/09/20 12:38: Immature Granulocyte % (Auto) 0.3, Neutrophils (%) (Auto) 64.5, Lymphocytes (%) (Auto) 22.9L, Monocytes (%) (Auto) 7.1, Eosinophils (%) (Auto) 4.6H, Basophils (%) (Auto) 0.6, Neutrophils # (Auto) 4.5, Lymphocytes # (Auto) 1.6, Monocytes # (Auto) 0.5, Eosinophils # (Auto) 0.3, Basophils # (Auto) 0.0, Nucleated Red Blood Cells % (auto) 0.0, Lactic Acid Level 1.8, Total Bilirubin 0.7, Direct Bilirubin 0.1, Aspartate Amino Transf (AST/SGOT) 93H, Alanine Aminotransferase (ALT/SGPT) 118H, Alkaline Phosphatase 50, Total Protein 7.8, Albumin 4.0, Albumin/Globulin Ratio 1.1L 09/09/20 12:51: POC Glucose (Misc Panel) 115H, POC Sodium (Misc Panel) 138, POC Potassium (Misc Panel) 4.2, POC Chloride (Misc Panel) 101, POC Total CO2 (Misc Panel) 23.0, POC Blood Urea Nitrogen (Misc Panel 9, POC Ionized Calcium (Misc Panel) 4.7, POC Creatinine (Misc Panel) 1.0, POC Hematocrit (Misc Panel) 38.0 09/09/20 12:53: POC Beta HCG, Quantitative < 5.0 09/09/20 13:39: Urine Color YELLOW, Urine Appearance CLOUDYH, Urine pH 5.0, Urine Specific [place] 1.023, Urine Protein 1+H, Urine Glucose (UA) NEGATIVE, Urine Ketones TRACEH, Urine Blood NEGATIVE, Urine Nitrite NEGATIVE, Urine Bilirubin NEGATIVE, Urine Urobilinogen 4.0H, Urine Leukocyte Esterase NEGATIVE, Urine WBC (Auto) 2, Urine RBC (Auto) 1, Urine Hyaline Casts (Auto) 0, Urine Bacteria (Auto) NEGATIVE, Urine Squamous Epithelial Cells 9, Urine Calcium Oxalate Cryst (Auto) LARGE, Urine Mucus (Auto) SMALL, Urine Sperm (Auto) 09/09/20 14:51: Coronavirus (COVID-19)(PCR) NEGATIVE CBC/BMP Laboratory Tests 09/09/20 12:38 Microbiology Microbiology 09/09/20 Gastrointestinal Tract Panel (PCR) - Final, Complete 09/09/20 Gram Stain, Received Pending 09/09/20 Wound Culture, Received Pending 09/09/20 Blood Culture, Received Pending 09/09/20 Blood Culture, Received Pending Assessment/Plan 30 year old female with h/o Chronic constipation from childhood, appendectomy, cholecystectomy, Colonic inertia with severe constipation which led to large bowel obstruction in 2014 which culminated in subtotal colectomy, colostomy, colostomy reversal a year later, internal/ incisional hernias x 2 repair, 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 Ileostomy was reversed on 08/10/20 with delayed midline incision healing with some persistent discharge. She presented to [facility] ED on 09/09/20 with 6 days of diarrhea, abdominal pain and increased discharge from the midline incision and new onset nausea and vomiting for 1 day. GI panel is negative. CT abdomen and pelvis shows multiple dilated fluid and gas-filled small bowel loops this represents a change from the prior exam. Subtotal colectomy is noted with reversal of the right ileostomy and an ileocolic anastomosis in the hemipelvis. There is content bowel content distal to the anastomotic site. The anastomosis shows no definite obstructive pattern. Ileus is suspected, however, partial small bowel obstruction cannot be ruled out. Mixed density in the subcutanea over the operative site consistent with a healing wound. No evidence of an abscess or seroma. She is admitted for gastro-enterocolitis vs partial SBO. Patient was seen by Dr Silva. The midline incision was opened up more and packed. Gastroenterocolitis vs partial SBO. GI panel negative NPO, IVF, ceftriaxone and metronidazole , zofran, compazine, morphine and toradol. Surgical consult appreciated Healing Midline incision persistent drainage incision opened up and packing done. No abscess or seroma. Psych issues haldol and paroxetine, resperidal hold seroquel, trazodone, Migraine continue lamictal. Obesity and JOO Untreated Plan / VTE VTE Prophylaxis Ordered?: Yes KIEL DURAN MD Sep 09, 2020 18:23
[2020-09-09] MEDS: PROCHLORPERAZINE 10MG/2ML VIAL (J0780 PER 1) IV PRN (20:45)
[2020-09-09] MEDS: risperiDONE 0.5 MG TAB PO SCH (21:00)
[2020-09-09 22:00] VITALS: BP 125/82
[2020-09-09] MEDS: metroNIDAZOLE 500 MG in IV 1 EA IV SCH (22:23)
[2020-09-09] MEDS: haloperidoL 5 MG TAB PO SCH (22:30)
[2020-09-09] MEDS: lamoTRIgine 25MG TAB PO SCH (22:30)
[2020-09-10] MEDS: KETOROLAC 30 MG/ML 1ML VIAL IV PRN ×4 (02:09→23:45)
[2020-09-10] MEDS: MORPHINE 4 MG/ML 1ML VIAL/SYRINGE (J2270) IV PRN ×4 (05:59→20:02)
[2020-09-10 06:00] VITALS: BP 127/70
[2020-09-10] MEDS: metroNIDAZOLE 500 MG in IV 1 EA IV SCH ×3 (06:00→23:45)
[2020-09-10] MEDS: PROCHLORPERAZINE 10MG/2ML VIAL (J0780 PER 1) IV PRN ×3 (06:10→21:21)
[2020-09-10 06:30] LABS: BASO # 0.1 10^3/uL (0.0-0.2); BASO % 1.1 % (0.0-1.0); EOS # 0.7 10^3/uL (0.0-0.5); EOS % 15.6 % (0.0-3.0); HEMATOCRIT 32.4 % (36.0-47.0); HEMOGLOBIN 10.5 g/dl (12.0-15.5); LYMPH # 1.7 10^3/uL (1.5-5.0); LYMPH % 38.5 % (24.0-44.0); MEAN CORPUSCULAR HEMOGLOBIN 27.2 pg (27.0-33.0); MEAN CORPUSCULAR HGB CONC 32.4 g/dl (32.0-36.5); MEAN CORPUSCULAR VOLUME 83.9 fl (80.0-96.0); MONO # 0.4 10^3/uL (0.0-0.8); MONO % 10.1 % (2.0-8.0); NEUTROPHILS # 1.5 10^3/uL (1.5-8.5); NEUTROPHILS % 34.5 % (36.0-66.0); PLATELET COUNT, AUTOMATED 240 10^3/uL (150-450); RED BLOOD COUNT 3.86 10^6/uL (4.00-5.40); WHITE BLOOD COUNT 4.4 10^3/uL (4.0-10.0)
[2020-09-10 06:43] LABS: BLOOD UREA NITROGEN 8 MG/DL (7-18); CALCIUM LEVEL 8.8 MG/DL (8.5-10.1); CARBON DIOXIDE LEVEL 24 MEQ/L (21-32); CHLORIDE LEVEL 110 MEQ/L (98-107); CREATININE FOR GFR 0.93 MG/DL (0.55-1.30); GLOMERULAR FILTRATION RATE > 60.0 (>60); GLUCOSE, FASTING 100 MG/DL (70-100); SODIUM LEVEL 140 MEQ/L (136-145)
[2020-09-10] MEDS: haloperidoL 5 MG TAB PO SCH ×3 (07:50→21:21)
[2020-09-10] MEDS: risperiDONE 0.5 MG TAB PO SCH ×2 (07:50→21:21)
[2020-09-10] MEDS: ONDANSETRON 4MG/2ML VIAL IV PRN ×3 (07:51→23:44)
[2020-09-10] MEDS: ENOXAPARIN 40MG/0.4ML SYRINGE (J1650 PER 10MG) SC SCH (07:51)
[2020-09-10] MEDS ORDERED: PARoxetine 20MG TABLET PO SCH (09:00)
[2020-09-10] MEDS: POTASSIUM CHLORIDE INJ 40 MEQ in LR 1,000 ML IV SCH ×2 (10:07→22:44)
--- NOTE | 2020-09-10 10:23 | IPNPDOC ---
Subjective Date Seen The patient was seen on 09/10/20. Subjective Chief Complaint/HPI Continues to have abdominal pain and diarrhea, She reports does not feel much better today. Still needing Morphine. Objective Physical Examination General Exam: Positive: Alert, Cooperative, No Acute Distress Eye Exam: Positive: PERRLA, Conjunctiva & lids normal, EOMI; Negative: Sclera icteric ENT Exam: Positive: Atraumatic, Mucous membr. moist/pink, Pharynx Normal Neck Exam: Positive: Supple; Negative: JVD, thyromegaly Chest Exam: Positive: Clear to auscultation, Normal air movement Heart Exam: Positive: Rate Normal, Regular Rhythm, Normal S1, Normal S2, Murmurs (soft systolic); Negative: Rubs Abdomen Exam: Positive: Normal bowel sounds, Soft, Tenderness (right iliac fossa and periumbilical region), Other (No guarding or rigidity); Negative: Hepatospenomegaly Extremity Exam: Negative: Clubbing, Cyanosis, Edema Assessment /Plan Assessment 30 year old female with h/o Chronic constipation from childhood, appendectomy, cholecystectomy, Colonic inertia with severe constipation which led to large bowel obstruction in 2014 which culminated in subtotal colectomy, colostomy, colostomy reversal a year later, internal/ incisional hernias x 2 repair, 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 Ileostomy was reversed on 08/10/20 with delayed midline incision healing with some persistent discharge. She presented to [facility] ED on 09/09/20 with 6 days of diarrhea, abdominal pain and increased discharge from the midline incision and new onset nausea and vomiting for 1 day. GI panel is negative. CT abdomen and pelvis shows multiple dilated fluid and gas-filled small bowel l oops this represents a change from the prior exam. Subtotal colectomy is noted with reversal of the right ileostomy and an ileocolic anastomosis in the hemipelvis. There is content bowel content distal to the anastomotic site. The anastomosis shows no definite obstructive pattern. Ileus is suspected, however, partial small bowel obstruction cannot be ruled out. Mixed density in the subcutanea over the operative site consistent with a healing wound. No evidence of an abscess or seroma. She is admitted for gastro-enterocolitis vs partial SBO. Patient was seen by Dr Silva. The midline incision was opened up more and packed. Gastroenterocolitis vs partial SBO. GI panel negative NPO, IVF, ceftriaxone and metronidazole , zofran, compazine, morphine and toradol. Surgical consult appreciated Healing Midline incision persistent drainage incision opened up and packing done. No abscess or seroma. Psych issues haldol and resperidal hold seroquel, trazodone, paroxetine psychiatrist [facility] [place] [phone] will call to clarify dosages. Migraine continue lamictal. Obesity and JOO Untreated Plan/VTE VTE Prophylaxis Ordered?: Yes VS, I&O, 24H, Fishbone Vital Signs/I&O Vital Signs Date Time Temp Pulse Resp B/P (MAP) Pulse Ox O2 Delivery O2 Flow Rate FiO2 09/10/20 10:09 20 09/10/20 06:09 95 Room Air 09/10/20 06:00 98.2 81 127/70 (89) I&O- Last 24 Hours up to 6 AM 09/10/20 06:00 Intake Total 1090 ml Output Total 600 ml Balance 490 ml Laboratory Data 24H LABS Laboratory Tests 2 09/09/20 12:38: Immature Granulocyte % (Auto) 0.3, Neutrophils (%) (Auto) 64.5, Lymphocytes (%) (Auto) 22.9L, Monocytes (%) (Auto) 7.1, Eosinophils (%) (Auto) 4.6H, Basophils (%) (Auto) 0.6, Neutrophils # (Auto) 4.5, Lymphocytes # (Auto) 1.6, Monocytes # (Auto) 0.5, Eosinophils # (Auto) 0.3, Basophils # (Auto) 0.0, Nucleated Red Blood Cells % (auto) 0.0, Lactic Acid Level 1.8, Total Bilirubin 0.7, Direct Bilirubin 0.1, Aspartate Amino Transf (AST/SGOT) 93H, Alanine Aminotransferase (ALT/SGPT) 118H, Alkaline Phosphatase 50, Total Protein 7.8, Albumin 4.0, Albumin/Globulin Ratio 1.1L 09/09/20 12:51: POC Glucose (Misc Panel) 115H, POC Sodium (Misc Panel) 138, POC Potassium (Misc Panel) 4.2, POC Chloride (Misc Panel) 101, POC Total CO2 (Misc Panel) 23.0, POC Blood Urea Nitrogen (Misc Panel 9, POC Ionized Calcium (Misc Panel) 4.7, POC Creatinine (Misc Panel) 1.0, POC Hematocrit (Misc Panel) 38.0 09/09/20 12:53: POC Beta HCG, Quantitative < 5.0 09/09/20 13:39: Urine Color YELLOW, Urine Appearance CLOUDYH, Urine pH 5.0, Urine Specific [place] 1.023, Urine Protein 1+H, Urine Glucose (UA) NEGATIVE, Urine Ketones TRACEH, Urine Blood NEGATIVE, Urine Nitrite NEGATIVE, Urine Bilirubin NEGATIVE, Urine Urobilinogen 4.0H, Urine Leukocyte Esterase NEGATIVE, Urine WBC (Auto) 2, Urine RBC (Auto) 1, Urine Hyaline Casts (Auto) 0, Urine Bacteria (Auto) NEGATIVE, Urine Squamous Epithelial Cells 9, Urine Calcium Oxalate Cryst (Auto) LARGE, Urine Mucus (Auto) SMALL, Urine Sperm (Auto) 09/09/20 14:51: Coronavirus (COVID-19)(PCR) NEGATIVE 09/10/20 05:58: Immature Granulocyte % (Auto) 0.2, Neutrophils (%) (Auto) 34.5L, Lymphocytes (%) (Auto) 38.5, Monocytes (%) (Auto) 10.1H, Eosinophils (%) (Auto) 15.6H, Basophils (%) (Auto) 1.1H, Neutrophils # (Auto) 1.5, Lymphocytes # (Auto) 1.7, Monocytes # (Auto) 0.4, Eosinophils # (Auto) 0.7H, Basophils # (Auto) 0.1, Nucleated Red Blood Cells % (auto) 0.0, Anion Gap 6L, Glomerular Filtration Rate > 60.0, Calcium Level 8.8 CBC/BMP Laboratory Tests 09/09/20 12:38 09/10/20 05:58 Microbiology Microbiology 09/09/20 Gastrointestinal Tract Panel (PCR) - Final, Complete 09/09/20 Gram Stain, Received Pending 09/09/20 Wound Culture, Received Pending 09/09/20 Blood Culture, Received Pending 09/09/20 Blood Culture, Received Pending KIEL DURAN MD Sep 10, 2020 10:23
--- NOTE | 2020-09-10 13:09 | IPNPDOC ---
Text Note Date of Service The patient was seen on 09/10/20. NOTE Gen. surgery. Dr. Silva The patient states she is still having abdominal pain. She reports she is still having diarrhea, 7 bowel movements recorded. She states she is not feeling much better today. Afebrile. VSS Lungs clear to auscultation S1-S2 regular rate and rhythm Abdomen. Soft, nondistended, Midline surgical scar with dressing intact, some tenderness noted with palpation in the right lower quadrant and around the midline incision. No guarding or rebound. I/O not recorded WBC 4.4, hemoglobin 10.5 Assessment/plan Abdominal pain/diarrhea [place] likely related to Proctitis. The pt is reviewed and examined as per Dr Silva. Will try clear liquids. Continue IV fluids/IV antibiotics as per hospitalist. Continue supportive care. Midline incision with persistent drainage. No abscess or seroma. Continue packing with iodoform packing 3 times a day and as needed. Dry dressing. Continue to monitor. VS,Fishbone, I+O VS, Fishbone, I+O Laboratory Tests 09/10/20 05:58 Vital Signs Date Time Temp Pulse Resp B/P (MAP) Pulse Ox O2 Delivery O2 Flow Rate FiO2 09/10/20 10:19 18 09/10/20 06:09 95 Room Air 09/10/20 06:00 98.2 81 127/70 (89) I&O- Last 24 Hours up to 6 AM 09/10/20 06:00 Intake Total 1090 ml Output Total 600 ml Balance 490 ml Ritu Akers Sep 10, 2020 13:09
[2020-09-10 14:00] VITALS: BP 115/79
--- NOTE | 2020-09-10 15:06 | ECGEPIP ---
[facility] - ED Test Date: 2020-09-09 Pat Name: RITA ROSA Department: Room: [place] [address] Gender: Female Slate Cutter: GOYO : 1990 Requested By: LAWRENCE GALLARDO PA-C. Order Number: [id number] Reading MD: Lasha Green Measurements Intervals Vest Rate: 92 P: 44 NE: 170 QRS: 29 QRSD: 88 T: 27 QT: 388 QTc: 479 Interpretive Statements Normal sinus rhythm Delayed anterior R wave progression Nonspecific ST-T wave abnormalities Prolonged QTc interval- longer than tracing done 05-21-20 Electronically Signed on 09-10-2020 15:06:37 EDT by Lasha Green
[2020-09-10] MEDS: cefTRIAXone SOD 1 GM in D5W MINI-BAG PLUS 50 ML IV SCH (16:09)
[2020-09-10] MEDS: LACTOBACILLUS ACIDOPHILUS CAP (BACID) PO SCH (17:00)
[2020-09-10] MEDS: lamoTRIgine 25MG TAB PO SCH (21:21)
[2020-09-10] MEDS: QUEtiapine FUMARATE 100 MG TAB PO SCH (21:30)
[2020-09-10 22:00] VITALS: BP 133/84
[2020-09-11] MEDS: MORPHINE 4 MG/ML 1ML VIAL/SYRINGE (J2270) IV PRN ×5 (01:07→22:24)
[2020-09-11 06:00] VITALS: BP 127/87
[2020-09-11] MEDS: metroNIDAZOLE 500 MG in IV 1 EA IV SCH ×2 (06:23→15:24)
[2020-09-11] MEDS: POTASSIUM CHLORIDE INJ 40 MEQ in LR 1,000 ML IV SCH ×2 (06:24→18:14)
[2020-09-11 06:25] LABS: BASO % 0.7 % (0.0-1.0); EOS # 0.7 10^3/uL (0.0-0.5); EOS % 16.2 % (0.0-3.0); HEMATOCRIT 32.4 % (36.0-47.0); HEMOGLOBIN 10.1 g/dl (12.0-15.5); LYMPH # 1.6 10^3/uL (1.5-5.0); LYMPH % 39.6 % (24.0-44.0); MEAN CORPUSCULAR HEMOGLOBIN 26.9 pg (27.0-33.0); MEAN CORPUSCULAR HGB CONC 31.2 g/dl (32.0-36.5); MEAN CORPUSCULAR VOLUME 86.4 fl (80.0-96.0); MONO # 0.5 10^3/uL (0.0-0.8); MONO % 10.9 % (2.0-8.0); NEUTROPHILS # 1.3 10^3/uL (1.5-8.5); NEUTROPHILS % 32.4 % (36.0-66.0); PLATELET COUNT, AUTOMATED 239 10^3/uL (150-450); RED BLOOD COUNT 3.75 10^6/uL (4.00-5.40); WHITE BLOOD COUNT 4.1 10^3/uL (4.0-10.0)
[2020-09-11 06:39] LABS: BLOOD UREA NITROGEN 4 MG/DL (7-18); CALCIUM LEVEL 8.5 MG/DL (8.5-10.1); CARBON DIOXIDE LEVEL 22 MEQ/L (21-32); CHLORIDE LEVEL 114 MEQ/L (98-107); CREATININE FOR GFR 0.98 MG/DL (0.55-1.30); GLOMERULAR FILTRATION RATE > 60.0 (>60); GLUCOSE, FASTING 105 MG/DL (70-100); POTASSIUM SERUM 3.4 MEQ/L (3.5-5.1); SODIUM LEVEL 143 MEQ/L (136-145)
[2020-09-11 08:05] LABS: C REACTIVE PROTEIN QUANTITATIV 1.14 MG/DL (0.00-0.30)
--- NOTE | 2020-09-11 08:36 | IPNPDOC ---
Text Note Date of Service The patient was seen on 09/11/20. NOTE Gen. surgery. Dr. Silva The patient reports abdominal pain is improved today, and she is feeling a little better. She had 10 bowel movements yesterday, none so far today. Denies nausea or vomiting. Tolerating clear liquids. Afebrile. VSS Lungs clear to auscultation S1-S2 regular rate and rhythm Abdomen. Soft, nondistended, Midline surgical scar with dressing intact, some tenderness noted with palpation in the right lower quadrant and around the midline incision. No guarding or rebound. I/O 3460/1900 +1560 WBC 4.1, hemoglobin 10.1 Assessment/plan Abdominal pain/diarrhea [place] likely related to Proctitis. The pt is reviewed as per Dr Silva. Tolerating clear liquids. Will advance to low residue diet. Continue IV fluids/IV antibiotics as per hospitalist. Continue supportive care. Midline incision with persistent drainage. No abscess or seroma. Continue packing with iodoform packing 3 times a day and as needed. Dry dressing. VS,Fishbone, I+O VS, Fishbone, I+O Laboratory Tests 09/11/20 06:10 Vital Signs Date Time Temp Pulse Resp B/P (MAP) Pulse Ox O2 Delivery O2 Flow Rate FiO2 09/11/20 06:24 16 Room Air 09/11/20 06:00 98.6 104 127/87 (100) 100 I&O- Last 24 Hours up to 6 AM 09/11/20 05:59 Intake Total 3580 ml Output Total 1500 ml Balance 2080 ml Ritu Akers Sep 11, 2020 08:35
[2020-09-11] MEDS: risperiDONE 0.5 MG TAB PO SCH ×2 (08:52→20:45)
[2020-09-11] MEDS: LACTOBACILLUS ACIDOPHILUS CAP (BACID) PO SCH ×3 (08:52→17:18)
[2020-09-11] MEDS: ENOXAPARIN 40MG/0.4ML SYRINGE (J1650 PER 10MG) SC SCH (08:52)
[2020-09-11] MEDS: POTASSIUM CHLORIDE 10 MEQ SR TABLET PO SCH (08:52)
[2020-09-11] MEDS: haloperidoL 5 MG TAB PO SCH ×3 (08:52→20:45)
[2020-09-11] MEDS: KETOROLAC 30 MG/ML 1ML VIAL IV PRN ×2 (08:53→15:25)
[2020-09-11] MEDS: ONDANSETRON 4MG/2ML VIAL IV PRN ×2 (09:34→17:18)
[2020-09-11 09:47] LABS: CLOSTRIDIUM DIFFICILE PCR NEGATIVE (NEGATIVE)
--- NOTE | 2020-09-11 11:35 | CR ---
CONSULTATION DATE: 09/09/2020 CHIEF COMPLAINT: Abdominal distention, diarrhea, status post recent reversal of an ileostomy to a rectal stump. HISTORY OF PRESENT ILLNESS: The patient is a 30-year-old female who has had a subtotal colectomy for colonic inertia with an ileostomy, had reversal of this ileostomy and developed significant diarrhea and was started on Imodium at home but developed abdominal distention, nausea, vomiting and came to the Emergency Room for further recommendations. CT scan shows very inflamed rectal stump with evidence of dilated small bowel but the anastomosis I feel is widely patent although there is a question of whether that is the case on the read from the radiologist, but definitely fluid can get through that area. She has had no blood per rectum. She has had significant nausea and vomiting as I discussed. PAST MEDICAL HISTORY: Significant for a history of asthma, history of colonic inertia with subtotal colectomy in 2014, history of recurrent small bowel obstructions secondary to adhesions, history of general anxiety disorder, migraines, multiple concussions, major depression, obesity, obstructive sleep apnea, appendectomy, cholecystectomy, left knee surgery. MEDICATIONS: 1. Nexplanon. 2. Haloperidol. 3. Lamotrigine. 4. Multivitamins. 5. Paxil. 6. Potassium Chloride. 7. Quetiapine fumarate. 8. Risperidone. 9. Trazodone. 10.Dicyclomine. 11.Lomotil. 12.Vicodin. 13.Hydroxyzine. 14.Maxalt. PHYSICAL EXAMINATION: This is a 30-year-old who looks her stated age. HEENT is unremarkable. Neck is supple without adenopathy. Lungs are clear. Heart is regular. Abdomen is distended, tympanitic without significant guarding or rebound but definitely uncomfortable to palpation. No peritoneal signs are appreciated. IMPRESSION/PLAN: Patient has most likely a combination of some inflammatory changes associated with the rectum similar to a pouchitis with possibly even some bacterial overgrowth associated with this and I would recommend antibiotic treatment for this. In addition, given the Lomotil this has probably created somewhat of a decreased motility issue in an individual who has bowel inertia issues may be contributing to this "partial obstruction." In any case, I do feel that keeping her NPO, IV fluids, IV antibiotics is warranted overnight. If she is having increased stool output with decreasing nausea, then we can start to consider clear liquids and then eventually I anticipate with antibiotic treatment and supportive care she will progress to a low residue diet and be discharged home on a low residue diet. Obviously, the big issue for her is to avoid dehydration once she starts having bowel movements, initially when she starts having bowel movements I anticipate she will have significant and frequent small volume bowel movements and that should start to improve over time.
[2020-09-11] MEDS: VANCOMYCIN ORAL SOL 250MG/5ML ORAL SYRINGE PO SCH ×2 (11:48→18:13)
--- NOTE | 2020-09-11 13:58 | IPNPDOC ---
Subjective Date Seen The patient was seen on 09/11/20. Subjective Chief Complaint/HPI Had 10 bowel movements yesterday. asking for morphine every 4 to 5 hours. Also received Toradol multiple doses in between. Continues to complain of right lower quadrant pain and also midline pain. no nausea or vomiting. Objective Physical Examination General Exam: Positive: Alert, Cooperative, No Acute Distress Eye Exam: Positive: PERRLA, Conjunctiva & lids normal, EOMI; Negative: Sclera icteric ENT Exam: Positive: Atraumatic, Mucous membr. moist/pink, Pharynx Normal Neck Exam: Positive: Supple; Negative: JVD, thyromegaly Chest Exam: Positive: Clear to auscultation, Normal air movement Heart Exam: Positive: Rate Normal, Regular Rhythm, Normal S1, Normal S2, Murmurs (soft systolic); Negative: Rubs Abdomen Exam: Positive: Normal bowel sounds, Soft, Tenderness (right iliac fossa and periumbilical region), Other (No guarding or rigidity); Negative: Hepatospenomegaly Extremity Exam: Negative: Clubbing, Cyanosis, Edema Assessment /Plan Assessment 30 year old female with h/o Chronic constipation from childhood, appendectomy, cholecystectomy, Colonic inertia with severe constipation which led to large bowel obstruction in 2014 which culminated in subtotal colectomy, colostomy, colostomy reversal a year later, internal/ incisional hernias x 2 repair, 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 Ileostomy was reversed on 08/10/20 with delayed midline incision healing with some persistent discharge. She presented to [facility] ED on 09/09/20 with 6 days of diarrhea, abdominal pain and increased discharge from the midline incision and new onset nausea and vomiting for 1 day. GI panel is negative. CT abdomen and pelvis shows multiple dilated fluid and gas-filled small bowel loops this represents a change from the prior exam. Subtotal colectomy is noted with reversal of the right ileostomy and an ileocolic anastomosis in the hemipelvis. There is content bowel content distal to the anastomotic site. The anastomosis shows no definite obstructive pattern. Ileus is suspected, however, partial small bowel obstruction cannot be ruled out. Mixed density in the subcutanea over the operative site consistent with a healing wound. No evidence of an abscess or seroma. She is admitted for gastro-enterocolitis vs partial SBO. Patient was seen by Dr Silva. The midline incision was opened up more and packed. Enterocolitis/ Proctitis Surgeon feels the diarrhea is due to proctitis. Had 10 bowel movemetns yesterday GI panel negative, c diff pcr negative ID consulted. Continue ceftriaxone and metronidazole , zofran, compazine, morphine and toradol. diet advanced Healing Midline incision persistent drainage incision opened up and packing done. No abscess or seroma. wound culture pseudomonas a few. Psych issues haldol and resperidal, seroquel. hold trazodone, paroxetine psychiatrist [facility] [phone] will call to clarify dosages. Migraine continue lamictal. Obesity and JOO Untreated Plan/VTE VTE Prophylaxis Ordered?: Yes VS, I&O, 24H, Fishbone Vital Signs/I&O Vital Signs Date Time Temp Pulse Resp B/P (MAP) Pulse Ox O2 Delivery O2 Flow Rate FiO2 09/11/20 11:56 16 09/11/20 06:24 Room Air 09/11/20 06:00 98.6 104 127/87 (100) 100 I&O- Last 24 Hours up to 6 AM 09/11/20 06:00 Intake Total 4410 ml Output Total 1300 ml Balance 3110 ml Laboratory Data 24H LABS Laboratory Tests 2 09/11/20 06:10: Immature Granulocyte % (Auto) 0.2, Neutrophils (%) (Auto) 32.4L, Lymphocytes (%) (Auto) 39.6, Monocytes (%) (Auto) 10.9H, Eosinophils (%) (Auto) 16.2H, Basophils (%) (Auto) 0.7, Neutrophils # (Auto) 1.3L, Lymphocytes # (Auto) 1.6, Monocytes # (Auto) 0.5, Eosinophils # (Auto) 0.7H, Basophils # (Auto) 0.0, Nucleated Red Blood Cells % (auto) 0.0, Anion Gap 7L, Glomerular Filtration Rate > 60.0, Calcium Level 8.5, C-Reactive Protein, Quantitative 1.14H 09/11/20 08:44: Clostridium difficile [id number] PRESUMPTIVE NEGATIVE, Clostridium difficile Toxin (PCR) NEGATIVE 09/11/20 10:58: Procalcitonin <0.05 CBC/BMP Laboratory Tests 09/11/20 06:10 Microbiology Microbiology 09/09/20 Gastrointestinal Tract Panel (PCR) - Final, Complete 09/09/20 Gram Stain - Final, Resulted 09/09/20 Wound Culture - Preliminary, Resulted Pseudomonas Aeruginosa 09/09/20 Blood Culture - Preliminary, Resulted No Growth after 48 hours. All Specime... 09/09/20 Blood Culture - Preliminary, Resulted No Growth after 48 hours. All Specime... KIEL DURAN MD Sep 11, 2020 13:58
[2020-09-11 14:00] VITALS: BP 126/82
[2020-09-11] MEDS: cefTRIAXone SOD 1 GM in D5W MINI-BAG PLUS 50 ML IV SCH (16:11)
[2020-09-11] MEDS: lamoTRIgine 25MG TAB PO SCH (20:45)
[2020-09-11] MEDS: QUEtiapine FUMARATE 100 MG TAB PO SCH (20:45)
[2020-09-11] MEDS ORDERED: traZODone 100 MG TAB PO SCH (21:00)
[2020-09-11] MEDS: LOMOTIL 2.5MG/0.025MG TABLET PO SCH (21:16)
[2020-09-11] MEDS: PIPERACILLIN/TAZOBACTAM SOD 3.375 GM in D5W MINI-BAG PLUS 50 ML IV SCH (21:17)
[2020-09-11 22:00] VITALS: BP 147/81
--- NOTE | 2020-09-11 22:11 | CR ---
INFECTIOUS DISEASE CONSULTATION DATE: 09/11/2020 REQUESTING PHYSICIAN: Dr. Drew CONSULTING PHYSICIAN: Dr. Casey REASON FOR CONSULTATION: Evaluation of postoperative wound infection with abdominal abscess. HISTORY OF PRESENT ILLNESS: Blanca is a 30-year-old female with a history of chronic constipation since childhood with colonic inertia who had multiple episodes of bowel obstruction in 2014 and 2019. The patient had an ileostomy that was reversed on 08/10/20 at [facility]. She was in the hospital for about 6 days. On discharge she had persistent drainage from the middle of the incision. The patient was here visiting her mother, who lives in [place]. She developed nausea, vomiting of one day duration, worsening abdominal pain around the umbilical area where she had the incision with drainage. She had cramps. She was having diarrhea about 8 times a day, brown liquid stool, non-bloody, non-mucoid. She had a CT abdomen and pelvis which showed multiple dilated fluid and gas filled small bowel loops. Subtotal colectomy was noted. Ileocolonic anastomosis in the hemipelvis. The anastomosis showed no definite obstructive pattern but ileus was suspected. There is cellulitis in the subcutaneous area at the operative site. No develop of abscess or seroma. PAST MEDICAL HISTORY: The patient's past medical history is significant for: 1. Depression. 2. Anxiety. 3. History of asthma. 4. Chronic constipation with colonic inertia status post subtotal colectomy in 2014. 5. Migraine headaches. 6. General anxiety disorder. 7. Major depression. 8. Multiple concussions. 9. Hernia. 10. Obesity. 11. Obstructive sleep apnea. PAST SURGICAL HISTORY: The patient's past surgical history is significant for: 1. Appendectomy in 2009. 2. Cholecystectomy. 3. Left knee arthroscopic repair 4. Large bowel obstruction with subtotal colectomy and ileostomy in 2014. 5. Ileostomy reversal in 2015. 6. Small-bowel obstruction with lysis of adhesions. 7. Hernia repairs in 2018 and 2019. 8. Small-bowel obstruction with lysis of adhesion and ileostomy creation again in 2019. 9. Ileostomy reversal in 2020. FAMILY HISTORY: The patient's family history is positive for maternal grandmother with kidney cancer and diabetes and heart disease in father. SOCIAL HISTORY: She is a nonsmoker. 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 She denies alcohol or drug use. She does not have any children. She is . She lives in [place]. Her is a qa architect. REVIEW OF SYSTEMS: She had nausea, vomiting and diarrhea. Usually she takes Lomotil and Imodium to help with the diarrhea. No cough or shortness of breath. She has some abdominal pain, especially around the umbilical area. No upper or lower extremity weakness. PHYSICAL EXAMINATION: GENERAL APPEARANCE: She is a pleasant, healthy looking female in no acute distress. VITAL SIGNS: Temperature is 99.6, pulse 103, respirations 16, blood pressure 126/82, 02 sat 100% on room air. HEART: Normal S1, S2, no murmurs, rubs or gallops. LUNGS: Clear. No rales, rhonchi or wheezes. ABDOMEN: Soft, tender around the incision. The incision is open around the middle of it, measuring 2 cm, 4 cm depth with serosanguinous drainage with surrounding the incision there is some periumbilical cellulitis with tenderness, warmth and redness. EXTREMITIES: No clubbing, cyanosis, or edema. SKIN: No rashes. She has a large tattoo on her right thigh in memory of her father. LABORATORY STUDIES: White count 4.1, hemoglobin 10.1, hematocrit 32.4, platelet count 239, 32% neutrophils, 39% lymphocytes, 10% monocytes, 15% eosinophils. Sodium 143, potassium 3.4, chloride 114, bicarbonate 22, BUN 4, creatinine 0.98, glucose 105, calcium 8.5, CRP 1.14, procalcitonin less than 0.05. Wound culture has pseudomonas aeruginosa. Blood cultures are negative. GI panel is negative. ALLERGIES: 1. cetirizine. 2. reglan MEDICATIONS: 1. Flagyl 500 mg IV q. 8 hours. 2. Ceftriaxone 1 gram IV q. 24 hours. 3. Compazine p.r.n. 4. Haldol 5 mg p.o. three times daily. 5. Lamictal 25 mg p.o. q. h.s. 6. Risperidone 0.5 mg p.o. twice daily. 7. Lovenox 40 mg subcutaneously daily. 8. Probiotics one tablet p.o. with meals. 9. Seroquel 300 mg p.o. q. h.s. 10. Potassium 40 mEq daily. 11. Vancomycin 125 mg p.o. q. 6 hours. 12. Morphine 4 mg IV q. 6 p.r.n. 13. Trazodone 200 mg p.o. q. h.s. 14. Dicyclomine 10 mg I.M. three times daily. 15. Ketorolac 15 mg IV q. 6 hours. IMPRESSION: This is a 30-year-old female who had a reversal of ileostomy with ileocolonic anastomosis on 07/2020 in [place], admitted with postoperative wound infection with a subcutaneous abscess. Wound culture positive for pseudomonas. She also had some nausea and vomiting that have resolved but now has diarrhea about 6 times a day, watery. The patient routinely takes Lomotil up to 4 times a day and she is asking to be restarted on her Lomotil. She has evidence of periumbilical area cellulitis as well which is quite tender. PLAN: 1. Discontinue IV Ceftriaxone and Flagyl. 2. Would switch her to IV Zosyn 3.375 grams q. 6 hours. 3. The patient has no previous history of C-difficile colitis. She has had a subtotal colectomy, to the chances of her having C-difficile which usually occurs in the colon is less likely. Discontinue p.o. Vancomycin. GI panel was negative. 4. Continue with probiotics one tablet p.o. with meals three times daily. 5. Lomotil one tablet p.o. q. 6 hours p.r.n. This case has been discussed with Dr. Arlene Drew. PATI
[2020-09-12] MEDS: POTASSIUM CHLORIDE INJ 40 MEQ in LR 1,000 ML IV SCH (03:24)
[2020-09-12] MEDS: PIPERACILLIN/TAZOBACTAM SOD 3.375 GM in D5W MINI-BAG PLUS 50 ML IV SCH ×4 (03:32→21:20)
[2020-09-12] MEDS: MORPHINE 4 MG/ML 1ML VIAL/SYRINGE (J2270) IV PRN (04:52)
[2020-09-12 06:00] VITALS: BP 134/83
[2020-09-12 06:52] LABS: BLOOD UREA NITROGEN 2 MG/DL (7-18); CALCIUM LEVEL 8.7 MG/DL (8.5-10.1); CARBON DIOXIDE LEVEL 19 MEQ/L (21-32); CHLORIDE LEVEL 114 MEQ/L (98-107); CREATININE FOR GFR 0.85 MG/DL (0.55-1.30); GLOMERULAR FILTRATION RATE > 60.0 (>60); GLUCOSE, FASTING 111 MG/DL (70-100); POTASSIUM SERUM 3.9 MEQ/L (3.5-5.1); SODIUM LEVEL 142 MEQ/L (136-145)
[2020-09-12 08:51] LABS: BASO # 0.1 10^3/uL (0.0-0.2); BASO % 1.1 % (0.0-1.0); EOS # 0.8 10^3/uL (0.0-0.5); EOS % 18.3 % (0.0-3.0); HEMATOCRIT 31.6 % (36.0-47.0); HEMOGLOBIN 9.9 g/dl (12.0-15.5); LYMPH # 1.5 10^3/uL (1.5-5.0); LYMPH % 32.7 % (24.0-44.0); MEAN CORPUSCULAR HEMOGLOBIN 27.3 pg (27.0-33.0); MEAN CORPUSCULAR HGB CONC 31.3 g/dl (32.0-36.5); MEAN CORPUSCULAR VOLUME 87.1 fl (80.0-96.0); MONO # 0.4 10^3/uL (0.0-0.8); MONO % 9.5 % (2.0-8.0); NEUTROPHILS # 1.7 10^3/uL (1.5-8.5); NEUTROPHILS % 38.2 % (36.0-66.0); PLATELET COUNT, AUTOMATED 247 10^3/uL (150-450); RED BLOOD COUNT 3.63 10^6/uL (4.00-5.40); WHITE BLOOD COUNT 4.5 10^3/uL (4.0-10.0)
[2020-09-12] MEDS: LOMOTIL 2.5MG/0.025MG TABLET PO SCH (09:00)
[2020-09-12] MEDS: ENOXAPARIN 40MG/0.4ML SYRINGE (J1650 PER 10MG) SC SCH (09:29)
[2020-09-12] MEDS: haloperidoL 5 MG TAB PO SCH ×3 (09:29→21:22)
[2020-09-12] MEDS: POTASSIUM CHLORIDE 10 MEQ SR TABLET PO SCH (09:29)
[2020-09-12] MEDS: risperiDONE 0.5 MG TAB PO SCH ×2 (09:29→21:22)
[2020-09-12] MEDS: LACTOBACILLUS ACIDOPHILUS CAP (BACID) PO SCH ×3 (09:29→17:08)
[2020-09-12] MEDS ORDERED: IBUPROFEN 600MG TAB PO PRN (11:05)
--- NOTE | 2020-09-12 11:09 | IPNPDOC ---
Subjective Date Seen The patient was seen on 09/12/20. Subjective Chief Complaint/HPI Nausea and vomiting has resolved. Diarrhea getting better. about 4 to 6 times/ day. Still very tender inthe perumbilical and right illiac fossa area. Objective Physical Examination General Exam: Positive: Alert, Cooperative, No Acute Distress Eye Exam: Positive: PERRLA, Conjunctiva & lids normal, EOMI; Negative: Sclera icteric ENT Exam: Positive: Atraumatic, Mucous membr. moist/pink, Pharynx Normal Neck Exam: Positive: Supple; Negative: JVD, thyromegaly Chest Exam: Positive: Clear to auscultation, Normal air movement Heart Exam: Positive: Rate Normal, Regular Rhythm, Normal S1, Normal S2, Murmurs (soft systolic); Negative: Rubs Abdomen Exam: Positive: Normal bowel sounds, Soft, Tenderness (right iliac fossa and periumbilical region), Other (No guarding or rigidity); Negative: Hepatospenomegaly Extremity Exam: Negative: Clubbing, Cyanosis, Edema Assessment /Plan Assessment 30 year old female with h/o Chronic constipation from childhood, appendectomy, cholecystectomy, Colonic inertia with severe constipation which led to large bowel obstruction in 2014 which culminated in subtotal colectomy, colostomy, colostomy reversal a year later, internal/ incisional hernias x 2 repair, 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 Ileostomy was reversed on 08/10/20 with delayed midline incision healing with some persistent discharge. She presented to [facility] ED on 09/09/20 with 6 days of diarrhea, abdominal pain and increased discharge from the midline incision and new onset nausea and vomiting for 1 day. GI panel is negative. CT abdomen and pelvis shows multiple dilated fluid and gas-filled small bowel loops this represents a change from the prior exam. Subtotal colectomy is noted with reversal of the right ileostomy and an ileocolic anastomosis in the hemipelvis. There is content bowel content distal to the anastomotic site. The anastomosis shows no definite obstructive pattern. Ileus is suspected, however, partial small bowel obstruction cannot be ruled out. Mixed density in the subcutanea over the operative site consistent with a healing wound. No evidence of an abscess or seroma. She is admitted for gastro-enterocolitis vs partial SBO. Patient was seen by Dr Silva. The midline incision was opened up more and packed. Enterocolitis/ Proctitis Surgeon feels the diarrhea is due to proctitis. GI panel negative, c diff pcr negative on Zosyn. diet advanced Post operative midline wound infection pseudomonas and enterococcus started on Zosyn 09/11 incision opened up and packing done. No abscess or seroma. wound culture pseudomonas a few. Psych issues haldol and resperidal, seroquel, trazodone. hold paroxetine psychiatrist [facility] [phone] will call to clarify dosages. Migraine continue lamictal. Obesity and JOO Untreated Plan/VTE VTE Prophylaxis Ordered?: Yes VS, I&O, 24H, Fishbone Vital Signs/I&O Vital Signs Date Time Temp Pulse Resp B/P (MAP) Pulse Ox O2 Delivery O2 Flow Rate FiO2 09/12/20 06:00 96.2 94 18 134/83 (100) 100 09/12/20 05:02 Room Air I&O- Last 24 Hours up to 6 AM 09/12/20 07:00 Intake Total 2380 ml Output Total 2100 ml Balance 280 ml Laboratory Data 24H LABS Laboratory Tests 2 09/12/20 05:36: Anion Gap 9, Glomerular Filtration Rate > 60.0, Calcium Level 8.7 09/12/20 08:16: Immature Granulocyte % (Auto) 0.2, Neutrophils (%) (Auto) 38.2, Lymphocytes (%) (Auto) 32.7, Monocytes (%) (Auto) 9.5H, Eosinophils (%) (Auto) 18.3H, Basophils (%) (Auto) 1.1H, Neutrophils # (Auto) 1.7, Lymphocytes # (Auto) 1.5, Monocytes # (Auto) 0.4, Eosinophils # (Auto) 0.8H, Basophils # (Auto) 0.1, Nucleated Red Blood Cells % (auto) 0.0 CBC/BMP Laboratory Tests 09/12/20 05:36 09/12/20 08:16 Microbiology Microbiology 09/09/20 Gastrointestinal Tract Panel (PCR) - Final, Complete 09/09/20 Gram Stain - Final, Resulted 09/09/20 Wound Culture - Preliminary, Resulted Pseudomonas Aeruginosa Enterococcus Avium 09/09/20 Blood Culture - Preliminary, Resulted No Growth after 48 hours. All Specime... 09/09/20 Blood Culture - Preliminary, Resulted No Growth after 48 hours. All Specime... KIEL DURAN MD Sep 12, 2020 11:09
[2020-09-12] MEDS: ANEXSIA, NORCO 7.5MG/325MG TABLET(HYDROCODONE/APAP) PO PRN ×3 (11:55→21:21)
[2020-09-12 14:00] VITALS: BP 125/83
[2020-09-12] MEDS: LOMOTIL 2.5MG/0.025MG TABLET PO PRN (15:38)
[2020-09-12] MEDS: LORazepam 0.5 MG TAB PO PRN (17:25)
[2020-09-12] MEDS: QUEtiapine FUMARATE 100 MG TAB PO SCH (21:22)
[2020-09-12] MEDS: lamoTRIgine 25MG TAB PO SCH (21:22)
--- NOTE | 2020-09-12 21:36 | ECGEPIP ---
[facility] Test Date: 2020-09-12 Pat Name: RITA ROSA Department: Room: [place] [address] Gender: Female [employer]er: edilia : 1990 Requested By: KIEL DURAN Order Number: [id number] Reading MD: Lasha Garcia Measurements Intervals [place] Rate: 83 P: 38 W[place]: 170 QRS: 22 QRSD: 92 T: 24 QT: 390 QTc: 458 Interpretive Statements Normal sinus rhythm Within normal limits. Improved repolarization and decreased heart rate compared with 09/09/2020. Electronically Signed on 09-12-2020 21:36:33 EDT by Lasha Garcia
[2020-09-12 22:00] VITALS: BP 108/74
[2020-09-13] MEDS: PIPERACILLIN/TAZOBACTAM SOD 3.375 GM in D5W MINI-BAG PLUS 50 ML IV SCH ×2 (04:28→08:54)
[2020-09-13 06:00] VITALS: BP 103/68
[2020-09-13 06:13] LABS: BASO % 0.8 % (0.0-1.0); EOS % 19.6 % (0.0-3.0); HEMATOCRIT 32.1 % (36.0-47.0); HEMOGLOBIN 10.1 g/dl (12.0-15.5); LYMPH # 1.7 10^3/uL (1.5-5.0); LYMPH % 34.7 % (24.0-44.0); MEAN CORPUSCULAR HEMOGLOBIN 26.9 pg (27.0-33.0); MEAN CORPUSCULAR HGB CONC 31.5 g/dl (32.0-36.5); MEAN CORPUSCULAR VOLUME 85.6 fl (80.0-96.0); MONO # 0.5 10^3/uL (0.0-0.8); MONO % 9.7 % (2.0-8.0); NEUTROPHILS # 1.7 10^3/uL (1.5-8.5); PLATELET COUNT, AUTOMATED 238 10^3/uL (150-450); RED BLOOD COUNT 3.75 10^6/uL (4.00-5.40)
[2020-09-13] MEDS: ANEXSIA, NORCO 7.5MG/325MG TABLET(HYDROCODONE/APAP) PO PRN ×2 (06:17→11:24)
[2020-09-13 06:47] LABS: BLOOD UREA NITROGEN 6 MG/DL (7-18); CALCIUM LEVEL 8.7 MG/DL (8.5-10.1); CARBON DIOXIDE LEVEL 22 MEQ/L (21-32); CHLORIDE LEVEL 113 MEQ/L (98-107); CREATININE FOR GFR 0.91 MG/DL (0.55-1.30); GLOMERULAR FILTRATION RATE > 60.0 (>60); GLUCOSE, FASTING 97 MG/DL (70-100); POTASSIUM SERUM 3.8 MEQ/L (3.5-5.1); SODIUM LEVEL 141 MEQ/L (136-145)
[2020-09-13] MEDS: ENOXAPARIN 40MG/0.4ML SYRINGE (J1650 PER 10MG) SC SCH (08:36)
[2020-09-13] MEDS: POTASSIUM CHLORIDE 10 MEQ SR TABLET PO SCH (08:36)
[2020-09-13] MEDS: risperiDONE 0.5 MG TAB PO SCH (08:36)
[2020-09-13] MEDS: LACTOBACILLUS ACIDOPHILUS CAP (BACID) PO SCH ×2 (08:36→11:23)
[2020-09-13] MEDS: haloperidoL 5 MG TAB PO SCH (08:36)
[2020-09-13] MEDS: LORazepam 0.5 MG TAB PO PRN (08:52)
[2020-09-13] MEDS: LOMOTIL 2.5MG/0.025MG TABLET PO PRN (08:52)
[2020-09-13] MEDS ORDERED: PARoxetine 20MG TABLET PO SCH (09:00)
[2020-09-13] MEDS ORDERED: LEVO750T13 PO (13:40)
[2020-09-13] MEDS ORDERED: FLAG500T PO (13:40)
--- NOTE | 2020-09-13 13:56 | DS.PDOC ---
Discharge Summary General Date of Admission Sep 10, 2020 at 12:23 Date of Discharge 09/13/20 Discharge Summary PROCEDURES PERFORMED DURING STAY: [None]. DISCHARGE DIAGNOSES: Proctitis/ enterocolitis Post operative wound infection with pseudomonas. SECONDARY DIAGNOSIS Multiple abdominal surgeries in the past Subtotal colectomy due to colonic inertia Bipolar disorder Generalized anxiety disorder PTSD Borderline personality disorder Obesity/ JOO Migraine COMPLICATIONS/CHIEF COMPLAINT: Colitis Enteritis. HOSPITAL COURSE: 30 year old female with h/o Chronic constipation from childhood, appendectomy, cholecystectomy, Colonic inertia with severe constipation which led to large bowel obstruction in 2014 which culminated in subtotal colectomy, colostomy, colostomy reversal a year later, internal/ in cisional hernias x 2 repair, 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 Ileostomy was reversed on 08/10/20 with delayed midline incision healing with some persistent discharge. She presented to [facility] ED on 09/09/20 with 6 days of diarrhea, abdominal pain and increased discharge from the midline incision and new onset nausea and vomiting for 1 day. GI panel is negative. CT abdomen and pelvis shows multiple dilated fluid and gas-filled small bowel loops this represents a change from the prior exam. Subtotal colectomy is noted with reversal of the right ileostomy and an ileocolic anastomosis in the hemipelvis. There is content bowel content distal to the anastomotic site. The anastomosis shows no definite obstructive pattern. Ileus is suspected, however, partial small bowel obstruction cannot be ruled out. Mixed density in the subcutanea over the operative site consistent with a healing wound. No evidence of an abscess or seroma. She is admitted for gastro-enterocolitis vs partial SBO. Patient was seen by Dr Silva. The midline incision was opened up more and packed. Enterocolitis/ Proctitis Surgeon feels the diarrhea is due to proctitis. GI panel negative, c diff pcr negative low residue diet. Will give levofloxacin and metronidazole on discharge. Post operative midline wound infection pseudomonas and enterococcus started on Zosyn 09/11 incision opened up and packing done. Continue daily packing and dressing at home. No abscess or seroma. wound culture pseudomonas, enterococcus, corynebacterium anareabic cultures were not sent will switch to Levofloxacin 750mg and metronidazole for 10 days. Psych issues haldol and resperidal, seroquel, trazodone and paroxetine psychiatrist [facility] [phone] confirmed meds: she is on paroxetine 60 mg daily, trazodone 150 mg HS, haldol 5 tid, seroquel 300 mg and resperidone 0.5 bid, hydroxyzine 100 mg tid prn, and lamictal. Discussed with patient she does not take trazodone daily its only when she cannot sleep , also takes atarax only prn for severe anxiety. SHe also reports that she does not take the haldol daily. SHe indicated that she will be able to hold these 3 medications for the 10 days she is going to be on Levofloxacin. Discussed the side effect of qtc prolongation that can happen with levofloxacin and these 3 medications. Migraine continue lamictal. Obesity and JOO Untreated DISCHARGE MEDICATIONS: Please see below. ALLERGIES: Please see below. PHYSICAL EXAMINATION ON DISCHARGE: VITAL SIGNS: Please see below. General Exam: Positive: Alert, Cooperative, No Acute Distress Eye Exam: Positive: PERRLA, Conjunctiva & lids normal, EOMI; Negative: Sclera icteric ENT Exam: Positive: Atraumatic, Mucous membr. moist/pink, Pharynx Normal Neck Exam: Positive: Supple; Negative: JVD, thyromegaly Chest Exam: Positive: Clear to auscultation, Normal air movement Heart Exam: Positive: Rate Normal, Regular Rhythm, Normal S1, Normal S2, Murmurs (soft systolic); Negative: Rubs Abdomen Exam: Positive: Normal bowel sounds, Soft, Tenderness (right iliac fossa and periumbilical region), Other (No guarding or rigidity); Negative: Hepatosplenomegaly Extremity Exam: Negative: Clubbing, Cyanosis, Edema LABORATORY DATA: Please see below. IMAGING: There are multiple dilated fluid and gas-filled small bowel loops this represents a change from the prior exam. Subtotal colectomy is again noted with reversal of the right ileostomy and an ileocolic anastomosis in the hemipelvis. There is content bowel content distal to the estimate attic site. The anastomosis shows no def inite obstructive pattern. The osseous structures are unchanged. IMPRESSION: 1. Status post reversal of ileostomy with anastomotic site as described above. Although the lumen of the anastomotic site is more narrow than the bowel immediately proximal and distal to it, it is patent and is approximately the same size as small-bowel not dilatated in the abdomen. Ileus is suspected, however, partial small bowel obstruction cannot be ruled out. 2. Mixed density in the subcutanea over the operative site consistent with a healing wound. No evidence of an abscess or seroma ACTIVITY: [As tolerated]. DIET: Low residue DISCHARGE PLAN: Home DISPOSITION: . DISCHARGE INSTRUCTIONS: Follow up with own surgeon in 1 to 2 weeks. Follow up wit PMD in 2 weeks DISCHARGE CONDITION: [Stable]. TIME SPENT ON DISCHARGE: 35 minutes. Vital Signs/I&Os Vital Signs Date Time Temp Pulse Resp B/P (MAP) Pulse Ox O2 Delivery O2 Flow Rate FiO2 09/13/20 12:00 16 09/13/20 06:47 Room Air 09/13/20 06:00 97.6 98 103/68 (80) 98 I&O- Last 24 Hours up to 6 AM 09/13/20 06:00 Intake Total 2570 ml Output Total 1600 ml Balance 970 ml Laboratory Data Labs 24H Laboratory Tests 2 09/12/20 15:01: Lab Scanned Report Miscellaneous Lab 09/13/20 06:00: Immature Granulocyte % (Auto) 0.2, Neutrophils (%) (Auto) 35.0L, Lymphocytes (%) (Auto) 34.7, Monocytes (%) (Auto) 9.7H, Eosinophils (%) (Auto) 19.6H, Basophils (%) (Auto) 0.8, Neutrophils # (Auto) 1.7, Lymphocytes # (Auto) 1.7, Monocytes # (Auto) 0.5, Eosinophils # (Auto) 1.0H, Basophils # (Auto) 0.0, Nucleated Red Blood Cells % (auto) 0.0, Anion Gap 6L, Glomerular Filtration Rate > 60.0, Calcium Level 8.7 CBC/BMP Laboratory Tests 09/13/20 06:00 Microbiology Microbiology 09/09/20 Gastrointestinal Tract Panel (PCR) - Final, Complete 09/09/20 Gram Stain - Final, Complete 09/09/20 Wound Culture - Final, Complete Pseudomonas Aeruginosa Enterococcus Avium Corynebacterium Species 09/09/20 Blood Culture - Preliminary, Resulted No Growth after 72 hours. All specime... 09/09/20 Blood Culture - Preliminary, Resulted No Growth after 72 hours. All specime... Discharge Medications Scheduled Etonogestrel (Nexplanon) 68 Mg Implant, 68 MG SC ASDIRECTED, (Reported) Lamotrigine (Lamotrigine) 25 Mg Tablet, 50 MG PO QHS, (Reported) Metronidazole (Metronidazole) 500 Mg Tablet, 500 MG PO Q8H, (Reported) started 09/13/20 x 10 days Multivitamin (Multivitamins) 1 Each Tablet, 1 TAB PO DAILY, (Reported) Paroxetine HCl (Paxil) 20 Mg Tablet, 60 MG PO DAILY, (Reported) Quetiapine Fumarate (Quetiapine Fumarate) 300 Mg Tablet, 300 MG PO QHS, (Reported) Risperidone (Risperidone) 0.5 Mg Tablet, 0.5 MG PO BID, (Reported) Topiramate (Topiramate) 100 Mg Tablet, 200 MG PO QHS, (Reported) levoFLOXacin (levoFLOXacin) 750 Mg Tablet, 750 MG PO DAILY, (Reported) started 09/13/20 x 10 days Scheduled PRN Dicyclomine HCl (Dicyclomine HCl) 20 Mg Tablet, 20 MG PO TID PRN for CRAMPS, (Reported) Diphenoxylate HCl/Atropine (Diphenoxylate-Atrop 2.5-0.025) 1 Each Tablet, 1 TAB PO TID PRN for DIARRHEA, (Reported) Haloperidol (Haloperidol) 5 Mg Tablet, 5 MG PO TID PRN for ANXIETY/AGITATION, (Reported) Hydrocodone/Acetaminophen (Hydrocodone-Acetamin 7.5-325) 1 Each Tablet, 1 TAB PO Q4H PRN for PAIN LEVEL 4-7, (Reported) Hydroxyzine Pamoate (Hydroxyzine Pamoate) 100 Mg Capsule, 100 MG PO TID PRN for ANXIETY, (Reported) Rizatriptan Benzoate (Maxalt) 10 Mg Tab, 10 MG PO DAILY PRN for MIGRAINE, (Reported) Trazodone HCl (Trazodone HCl) 150 Mg Tablet, 150 MG PO QHS PRN for SLEEP, (Reported) Miscellaneous Medications [med rec comment] , (Reported) pt states she was told to hold hydroxyzine,halidol, and trazadone until dont with abx Allergies Coded Allergies: cetirizine (Verified Allergy, Mild, rash, 01/05/20) metoclopramide (Verified Adverse Reaction, Mild, anxiety, 01/05/20) sumatriptan (Verified Adverse Reaction, Mild, joint pain, 01/05/20) KIEL DURAN MD Sep 13, 2020 13:55
== END 2020-09-13 14:55 | disposition home or self-care (01) | DRG 249 ==
LOC: M ED 10:32 → M ED INP 10:33 → ENRESERV 15:48 → M MSPAV 16:31 → OBSVTOIN 09-10 12:23
PROVIDERS: ADMIT Internal Medicine Nephrology; ATTEND Internal Medicine Nephrology
DX: K52.9 Noninfective gastroenteritis and colitis, unspecified (principal); T81.41XA Infection following a procedure, superficial incisional surgical site, initial encounter; G43.909 Migraine, unspecified, not intractable, without status migrainosus; F41.1 Generalized anxiety disorder; E66.9 Obesity, unspecified; G47.33 Obstructive sleep apnea (adult) (pediatric); F31.9 Bipolar disorder, unspecified; F43.10 Post-traumatic stress disorder, unspecified; F60.3 Borderline personality disorder; Z68.36 Body mass index [BMI] 36.0-36.9, adult; K59.09 Other constipation; Z79.899 Other long term (current) drug therapy; Z20.822 Contact with and (suspected) exposure to COVID-19; Z88.8 Allergy status to other drugs, medicaments and biological substances; B96.5 Pseudomonas (aeruginosa) (mallei) (pseudomallei) as the cause of diseases classified elsewhere

== ENCOUNTER 2020-09-13 19:05 | Emergency (ER) | payer OTHER ==
[~2020-09-13] VITALS: Ht 165.1 cm; Wt 98.8 kg
[~2020-09-13 19:05] MED LIST changes: +DIPH2.5T15 PO; +FLAG500T PO; +HYDR-4514 PO; +LAMO25TA4 PO; +LEVO750T13 PO; +MULT-40 PO; +POTA20TA6 PO
[2020-09-13 19:06] VITALS: BP 129/61
== END 2020-09-13 19:20 | disposition left against medical advice (07) ==
LOC: M ED 19:05
DX: Z53.21 Procedure and treatment not carried out due to patient leaving prior to being seen by health care provider (principal)

== ENCOUNTER 2020-09-15 17:54 | Emergency (ER) | payer OTHER ==
[~2020-09-15] VITALS: Ht 165.1 cm; Wt 100.4 kg
[2020-09-15 20:04] LABS: BASO # 0.1 10^3/uL (0.0-0.2); BASO % 0.8 % (0.0-1.0); EOS # 0.8 10^3/uL (0.0-0.5); EOS % 12.6 % (0.0-3.0); HEMATOCRIT 31.7 % (36.0-47.0); LYMPH % 34.1 % (24.0-44.0); MEAN CORPUSCULAR HEMOGLOBIN 27.5 pg (27.0-33.0); MEAN CORPUSCULAR HGB CONC 31.5 g/dl (32.0-36.5); MEAN CORPUSCULAR VOLUME 87.1 fl (80.0-96.0); MONO # 0.6 10^3/uL (0.0-0.8); MONO % 10.8 % (2.0-8.0); NEUTROPHILS # 2.5 10^3/uL (1.5-8.5); NEUTROPHILS % 41.4 % (36.0-66.0); PLATELET COUNT, AUTOMATED 246 10^3/uL (150-450); RED BLOOD COUNT 3.64 10^6/uL (4.00-5.40)
[2020-09-15] MEDS ORDERED: MORPHINE 4 MG/ML 1ML VIAL/SYRINGE (J2270) IV ONE ×2 (20:10→23:15)
[2020-09-15 20:27] LABS: ERYTHROCYTE SEDIMENTATION RATE 23 mm/hr (0-20)
[2020-09-15 20:32] LABS: ALBUMIN 3.3 GM/DL (3.2-5.2); ALT/SGPT 68 U/L (12-78); BILIRUBIN,DIRECT < 0.1 MG/DL (0.0-0.2); BILIRUBIN,TOTAL 0.1 MG/DL (0.2-1.0); C REACTIVE PROTEIN QUANTITATIV 0.44 MG/DL (0.00-0.30); LIPASE 116 U/L (73-393); TOTAL PROTEIN 6.3 GM/DL (6.4-8.2)
[2020-09-15] MEDS ORDERED: ONDANSETRON 4MG/2ML VIAL IV ONE (20:50)
[2020-09-15] MEDS: GASTROGRAFIN SOLUTION 30ML PO SCH ×2 (21:07→21:31)
[2020-09-15] MEDS ORDERED: KETOROLAC 30 MG/ML 1ML VIAL IV ONE (21:20)
[2020-09-15] MEDS ORDERED: ISOVUE-370 76% 100ML VIAL As Ordered ONE (22:15)
--- NOTE | 2020-09-15 23:06 | REPVR ---
PROCEDURE INFORMATION: Exam: CT Abdomen And Pelvis With Contrast Exam date and time: 09/15/2020 10:22 PM Age: 30 years old Clinical indication: Other: Recent ileostomy reversal, increased pain, eval for obst, se; Prior surgery TECHNIQUE: Imaging protocol: Computed tomography of the abdomen and pelvis with contrast. Radiation optimization: All CT scans at this facility use at least one of these dose optimization techniques: automated exposure control; mA and/or kV adjustment per patient size (includes targeted exams where dose is matched to clinical indication); or iterative reconstruction. Contrast material: ISOVUE 370; Contrast volume: 100 ml; Contrast route: INTRAVENOUS (IV); COMPARISON: CT ABD/PEL W/IV CONTRAST ONLY 09/09/2020 1:21 PM FINDINGS: Lungs: No suspicious mass or airspace process in the visualized lung bases. Liver: Liver is enlarged and decreased in density suggesting hepatic steatosis. Gallbladder and bile ducts: Gallbladder is surgically absent. Pancreas: Pancreas appears normal. No focal mass or peripancreatic inflammation. Spleen: Spleen appears homogeneous without focal mass. Adrenal glands: Adrenal glands are normal in appearance. Kidneys and ureters: Kidneys appear normal, with no stone, solid mass or hydronephrosis. Appendix: Appendix is likely surgically absent. Intraperitoneal space: No pneumoperitoneum. Vasculature: No aortic aneurysm. Main portal and splenic veins enhance normally. Lymph nodes: No enlarged lymph nodes. Urinary bladder: Urinary bladder appears normal. Reproductive: Female reproductive organs appear unremarkable. Bones/joints: Bony structures show no acute fracture or destructive process. Stomach and bowel: Postsurgical changes of bowel in the anterior right mid abdomen, with overlying midline incision/wound with packing material present and with possible fistulization of right paramedian mid abdominal small bowel with the skin tract. No identifiable abscess. Bowel loops are dilated up to 4 cm. Partial colectomy changes involving the left colon are present with the ileocolic anastomosis in the mid abdomen. No concerning focal abnormality of the extra-abdominal and pelvic soft tissues. IMPRESSION: Dilated mid abdominal bowel loops suggesting possible partial obstruction and concern for bowel fistulization with a right periumbilical skin tract No identifiable abscess Electronically signed by: David Goss On 09/15/2020 23:05:39 PM
[2020-09-16] MEDS ORDERED: NS 1,000 ML IV ONE (00:15)
[2020-09-16] MEDS ORDERED: LEVO750T14 PO (01:01)
[2020-09-16] MEDS ORDERED: METR-265 PO (01:01)
[2020-09-16] MEDS ORDERED: HYDR100C PO (01:02)
[2020-09-16] MEDS ORDERED: TRAZ1TAB14 PO (01:02)
[2020-09-16] MEDS ORDERED: HALO5TA PO (01:03)
[2020-09-16] MEDS ORDERED: TOPI100T9 PO (01:48)
[2020-09-16] MEDS ORDERED: med rec comment (01:49)
[2020-09-16 01:58] VITALS: BP 130/87
[2020-09-16 02:00] LABS: RSV AMPLIFICATION NEGATIVE (NEGATIVE)
--- NOTE | 2020-09-18 10:20 | ED PDOC ---
Post-Departure Follow-Up radiology report faxed to Tianna Crespo MD Sep 18, 2020 10:20
== END 2020-09-16 02:00 | disposition home or self-care (01) ==
LOC: M ED 17:54
DX: G89.18 Other acute postprocedural pain (principal); Z88.8 Allergy status to other drugs, medicaments and biological substances; Z98.890 Other specified postprocedural states
CPT/HCPCS: 74177; 80047; 80076; 81001; 83605; 83690; 84702; 85025; 85652; 86140; 87040; 87086; 87631; 96361; 96374; 96375; 99285; J1885; J2270; J2405; Q9963; Q9967

== ENCOUNTER 2020-10-15 10:40 | Observation (INO) | payer OTHER ==
[~2020-10-15] VITALS: Ht 165.1 cm; Wt 100.1 kg
[~2020-10-15 10:40] MED LIST changes: +LEVO750T14 PO; +METR-265 PO; +med rec comment
[2020-10-15] MEDS ORDERED: NS 1,000 ML IV SCH (11:25)
[2020-10-15] MEDS ORDERED: NS 1,000 ML IV ONE (11:40)
[2020-10-15] MEDS ORDERED: ONDANSETRON 4MG/2ML VIAL IV ONE (12:00)
[2020-10-15 13:06] LABS: BASO # 0.1 10^3/uL (0.0-0.2); EOS # 0.3 10^3/uL (0.0-0.5); EOS % 4.6 % (0.0-3.0); HEMATOCRIT 33.8 % (36.0-47.0); LYMPH # 2.1 10^3/uL (1.5-5.0); LYMPH % 34.1 % (24.0-44.0); MEAN CORPUSCULAR HEMOGLOBIN 27.1 pg (27.0-33.0); MEAN CORPUSCULAR HGB CONC 32.5 g/dl (32.0-36.5); MEAN CORPUSCULAR VOLUME 83.3 fl (80.0-96.0); MONO # 0.5 10^3/uL (0.0-0.8); MONO % 7.5 % (2.0-8.0); NEUTROPHILS # 3.2 10^3/uL (1.5-8.5); NEUTROPHILS % 52.5 % (36.0-66.0); PLATELET COUNT, AUTOMATED 280 10^3/uL (150-450); RED BLOOD COUNT 4.06 10^6/uL (4.00-5.40)
[2020-10-15 13:33] LABS: ALBUMIN 3.9 GM/DL (3.2-5.2); ALT/SGPT 72 U/L (12-78); BILIRUBIN,DIRECT < 0.1 MG/DL (0.0-0.2); BILIRUBIN,TOTAL 0.3 MG/DL (0.2-1.0); LIPASE 103 U/L (73-393); TOTAL PROTEIN 7.1 GM/DL (6.4-8.2)
[2020-10-15] MEDS: MORPHINE 4 MG/ML 1ML VIAL/SYRINGE (J2270) IV PRN ×2 (13:33→15:11)
[2020-10-15] MEDS ORDERED: ISOVUE-370 76% 100ML VIAL As Ordered ONE (14:26)
--- NOTE | 2020-10-15 15:25 | REP ---
INDICATION: abd pain multiple abd surgeries. COMPARISON: Multiple the latest 09/15/2020 TECHNIQUE: Standard helical technique after the intravenous administration of 100 cc Isovue 370. FINDINGS: The lung bases are clear and unchanged. The liver, spleen, pancreas, adrenal glands, and kidneys are unchanged the abdominal aorta and para-aortic regions are unchanged. There is no significant change in appearance of the bowel loops or the mesenteries. Once again, there are multiple fluid and gas-filled dilated small bowel loops within the abdomen. Surgical clips and roxanne are also seen in the pelvis status quo. The fatty infiltration of the subcutanea and anterior abdominal wall right lower quadrant is all unchanged, however, the air density seen in the region previously has abated. Increased density seen within the midline wound on the prior exam is no longer present. That previously had the appearance of a wound packing agent. There is no definite identifiable air or fluid density extending from the intra-abdominal region 2 the wound or skin surface. No free air has developed since the last exam. There is no change in the osseous structures. IMPRESSION: 1. Ileus versus partial small bowel obstruction with possible adhesions in the right hemipelvis region of previous surgery. 2. Healing wound as described above. 3. Other findings as described above. <Electronically signed by Alexandro Garcia > 10/15/20 [id number]
[2020-10-15] MEDS ORDERED: MORPHINE 4 MG/ML 1ML VIAL/SYRINGE (J2270) IV PRN (16:30)
[2020-10-15] MEDS ORDERED: ACETAMINOPHEN TAB 650MG DOSE (2X325MG) PO PRN (16:30)
[2020-10-15] MEDS ORDERED: MOM 30ML SUSPENSION UDC PO PRN (16:30)
[2020-10-15] MEDS ORDERED: PARO30TA65 PO (16:44)
[2020-10-15] MEDS ORDERED: FERR1TAB8 PO (16:44)
[2020-10-15] MEDS ORDERED: ONDA8TAB8 PO (16:44)
[2020-10-15] MEDS ORDERED: traZODone 50 MG TAB PO PRN (17:30)
[2020-10-15] MEDS ORDERED: hydrOXYzine 50 MG TAB PO PRN (17:30)
[2020-10-15] MEDS ORDERED: haloperidoL 5 MG TAB PO PRN (17:30)
--- NOTE | 2020-10-15 17:35 | HPEPDOC ---
General Date of Admission 10/15/20 Date of Service: Oct 15, 2020 Attending Physician: ZA FREDERICK MD Chief Complaint The patient is a 30-year-old female admitted with a reason for visit of Nausea / Abd Pain. Source: Patient, Family Exam Limitations: No limitations History of Present Illness 30 year old female with h/o Chronic constipation from childhood, multiple abdominal surgeries. 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 Ileostomy was reversed on 08/10/20 with delayed midline incision hea ling with some persistent discharge. She presented to [facility] ED on on 10/15/2020 with primary complaint of abdominal pain with nausea and vomiting for the past several days. He has CT of the abdomen and pelvis with contrast in the emergency room initially indicated that she had a partial small bowel obstruction. However the film was reviewed by the on-call surgeon, Dr. Silva. He felt that this was more of an ileus. The patient is admitted to the hospitalist service for observation status for treatment of ileus. Home Medications Scheduled Etonogestrel (Nexplanon) 68 Mg Implant, 68 MG SC ASDIRECTED, (Reported) Ferrous Sulfate (Ferrous Sulfate) 325 Mg Tablet, 325 MG PO DAILY, (Reported) Lamotrigine (Lamotrigine) 25 Mg Tablet, 50 MG PO QHS, (Reported) Multivitamin (Multivitamins) 1 Each Tablet, 1 TAB PO DAILY, (Reported) Paroxetine (Paroxetine HCl) 30 Mg Tablet, 30 MG PO DAILY, (Reported) Quetiapine Fumarate (Quetiapine Fumarate) 300 Mg Tablet, 300 MG PO QHS, (Reported) Risperidone (Risperidone) 0.5 Mg Tablet, 0.5 MG PO BID, (Reported) Topiramate (Topiramate) 100 Mg Tablet, 200 MG PO QHS, (Reported) Scheduled PRN Dicyclomine HCl (Dicyclomine HCl) 20 Mg Tablet, 20 MG PO TID PRN for CRAMPS, (Reported) Diphenoxylate HCl/Atropine (Diphenoxylate-Atrop 2.5-0.025) 1 Each Tablet, 1 TAB PO TID PRN for DIARRHEA, (Reported) Haloperidol (Haloperidol) 5 Mg Tablet, 5 MG PO TID PRN for ANXIETY/AGITATION, (Reported) Hydrocodone/Acetaminophen (Hydrocodone-Acetamin 7.5-325) 1 Each Tablet, 1 TAB PO Q4H PRN for PAIN LEVEL 4-7, (Reported) Hydroxyzine Pamoate (Hydroxyzine Pamoate) 100 Mg Capsule, 100 MG PO TID PRN for ANXIETY, (Reported) Ondansetron (Ondansetron Odt) 8 Mg Tab.rapdis, 8 MG PO Q6H PRN for NAUSEA OR VOMITING, (Reported) Rizatriptan Benzoate (Maxalt) 10 Mg Tab, 10 MG PO DAILY PRN for MIGRAINE, (Reported) Trazodone HCl (Trazodone HCl) 150 Mg Tablet, 150 MG PO QHS PRN for SLEEP, (Reported) Allergies Coded Allergies: cetirizine (Verified Allergy, Mild, rash, 01/05/20) metoclopramide (Verified Adverse Reaction, Mild, anxiety, 01/05/20) sumatriptan (Verified Adverse Reaction, Mild, joint pain, 01/05/20) Past Medical History Medical History Asthma as a child 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 hernias Obesity JOO diagnosed in 2009 sleep study Surgical History appendectomy 2010 cholecystectomy left knee arthroscopic repair of meniscus in 8th grade. wisdom tooth. Large bowel obstruction with Subtotal colectomy and ileostomy in 2014 ileostomy reversal in 2015 recurrent SBOs form adhesions with lysis of adhesions Small bowel resection with small bowel anastomosis Internal hernias/ incisional hernias x 2 repair in 2018 and 2019 SBO with lysis of adhesions and ileostomy creation in 2019 ileostomy reversal in July 2020 Family History Cancer (kidney cancer maternal grandmother), Diabetes (father), Heart disease (f ather) Social History * Smoker: Denies Alcohol: Denies Drugs: denies Recent Travel/Sick Contacts: Denies: Recent travel Psychosocial History: Anxiety A-FIB/CHADSVASC A-FIB History Current/History of A-Fib/PAF?: No Review of Systems Constitutional: Denies: Chills, Fever, Night Sweats Eyes: Denies: Pain, Vision change ENT: Denies: Head Aches, Ear Pain, Dysphagia Skin: Denies: Rash, Lesions, Breakdown Pulmonary: Denies: Dyspnea, Cough Cardiovascular: Denies: Chest Pain, Palpitations, Orthopnea, Paroxysmal Noc. Dyspnea, Lt Headedness Gastrointestinal: Reports: Nausea, Vomiting, Abdominal Pain Genitourinary: Denies: Dysuria, Frequency, Incontinence, Retention Hematologic: Denies: Bruising, Bleeding Excessively Musculoskeletal: Denies: Neck Pain, Back Pain, Joint Pain, Muscle Pain, Spasms Neurological: Denies: Weakness, Numbness, Change in speech, Confusion Psych: Reports: Mood Normal; Denies: Depression, Memory Issues Physical Examination General Exam: Positive: Alert, No Acute Distress, Other (obese) Eye Exam: Positive: PERRLA, Conjunctiva & lids normal, EOMI; Negative: Sclera icteric ENT Exam: Positive: Atraumatic, Mucous membr. moist/pink, Pharynx Normal Neck Exam: Positive: Supple; Negative: JVD, thyromegaly Chest Exam: Positive: Clear to auscultation, Normal air movement Heart Exam: Positive: Rate Normal, Regular Rhythm, Normal S1, Normal S2; Negative: Murmurs, Rubs Telemetry: Positive: No significant arrhythmia Abdomen Exam: Positive: Normal bowel sounds, Soft, Tenderness (RLQ); Negative: Hepatospenomegaly Extremity Exam: Positive: Normal pulses; Negative: Clubbing, Cyanosis, Edema Skin Exam: Positive: Nl turgor and temperature; Negative: Breakdown, Lesion Neuro Exam: Positive: Normal Gait, Normal Speech, Cranial Nerves 3-12 NL, Reflexes 2+ Psych Exam: Positive: Mental status NL, Mood NL, Oriented x 3 Vital Signs Vital Signs Date Time Temp Pulse Resp B/P (MAP) Pulse Ox O2 Delivery O2 Flow Rate FiO2 10/15/20 15:47 10/15/20 15:40 69 99 10/15/20 15:11 18 Room Air 10/15/20 10:40 98.0 Laboratory Data Labs 24H Laboratory Tests 2 10/15/20 12:54: Immature Granulocyte % (Auto) 0.3, Neutrophils (%) (Auto) 52.5, Lymphocytes (%) (Auto) 34.1, Monocytes (%) (Auto) 7.5, Eosinophils (%) (Auto) 4.6H, Basophils (%) (Auto) 1.0, Neutrophils # (Auto) 3.2, Lymphocytes # (Auto) 2.1, Monocytes # (Auto) 0.5, Eosinophils # (Auto) 0.3, Basophils # (Auto) 0.1, Nucleated Red Blood Cells % (auto) 0.0, Total Bilirubin 0.3, Direct Bilirubin < 0.1, Aspartate Amino Transf (AST/SGOT) 35, Alanine Aminotransferase (ALT/SGPT) 72, Alkaline Phosphatase 40L, Total Protein 7.1, Albumin 3.9, Albumin/Globulin Ratio 1.2, Lipase 103 10/15/20 13:01: POC Beta HCG, Quantitative < 5.0 10/15/20 13:23: POC Glucose (Misc Panel) 85, POC Sodium (Misc Panel) 141, POC Potassium (Misc Panel) 3.8, POC Chloride (Misc Panel) 101, POC Total CO2 (Misc Panel) 24.0, POC Blood Urea Nitrogen (Misc Panel 12, POC Ionized Calcium (Misc Panel) 4.9, POC Creatinine (Misc Panel) 0.9, POC Hematocrit (Misc Panel) 34.0L CBC/BMP Laboratory Tests 10/15/20 12:54 Assessment/Plan # Ileus - Admitted to observation status Nothing by mouth, D5 half-normal saline with KCl at 125 ml/hr -IV Zofran and morphine for symptom management Can consider adding an oral prokinetic in a.m. if not improved # Depression # Anxiety - haldol, risperidal, lamictal and Paxil resumed # JOO - untreated #DVT prophylaxis Lovenox and SCDs Plan / VTE VTE Prophylaxis Ordered?: Yes ZA FREDERICK MD Oct 15, 2020 16:37
[2020-10-15] MEDS: KCL 20MEQ IN D5/0.45NS 1000ML 1,000 ML IV SCH (18:56)
[2020-10-15 19:24] LABS: RSV AMPLIFICATION NEGATIVE (NEGATIVE)
[2020-10-15] MEDS: ONDANSETRON 4MG/2ML VIAL IV PRN (20:04)
[2020-10-15] MEDS: TOPIRAMATE (TopAMAX) 100 MG TAB PO SCH (22:33)
[2020-10-15] MEDS: risperiDONE 0.5 MG TAB PO SCH (22:34)
[2020-10-15] MEDS: lamoTRIgine 25MG TAB PO SCH (22:34)
[2020-10-15] MEDS: QUEtiapine FUMARATE 100 MG TAB PO SCH (22:34)
[2020-10-16] MEDS: MORPHINE 4 MG/ML 1ML VIAL/SYRINGE (J2270) IV PRN ×6 (00:36→18:24)
[2020-10-16] MEDS: KCL 20MEQ IN D5/0.45NS 1000ML 1,000 ML IV SCH ×3 (02:57→18:24)
[2020-10-16 07:02] LABS: HEMATOCRIT 32.6 % (36.0-47.0); HEMOGLOBIN 10.3 g/dl (12.0-15.5); MEAN CORPUSCULAR HEMOGLOBIN 26.6 pg (27.0-33.0); MEAN CORPUSCULAR HGB CONC 31.6 g/dl (32.0-36.5); MEAN CORPUSCULAR VOLUME 84.2 fl (80.0-96.0); PLATELET COUNT, AUTOMATED 263 10^3/uL (150-450); RED BLOOD COUNT 3.87 10^6/uL (4.00-5.40); WHITE BLOOD COUNT 4.2 10^3/uL (4.0-10.0)
[2020-10-16 07:32] LABS: BLOOD UREA NITROGEN 9 MG/DL (7-18); CALCIUM LEVEL 8.9 MG/DL (8.5-10.1); CARBON DIOXIDE LEVEL 25 MEQ/L (21-32); CHLORIDE LEVEL 110 MEQ/L (98-107); CREATININE FOR GFR 0.85 MG/DL (0.55-1.30); GLOMERULAR FILTRATION RATE > 60.0 (>60); GLUCOSE, FASTING 113 MG/DL (70-100); POTASSIUM SERUM 4.1 MEQ/L (3.5-5.1); SODIUM LEVEL 141 MEQ/L (136-145)
[2020-10-16] MEDS: risperiDONE 0.5 MG TAB PO SCH ×2 (08:34→21:07)
[2020-10-16] MEDS: FERROUS SULFATE 325MG TAB PO SCH (08:34)
[2020-10-16] MEDS: ONDANSETRON 4MG/2ML VIAL IV PRN (08:35)
[2020-10-16] MEDS: ENOXAPARIN 40MG/0.4ML SYRINGE (J1650 PER 10MG) SC SCH (08:35)
[2020-10-16 14:00] VITALS: BP 118/72
[2020-10-16] MEDS: PARoxetine 10MG TABLET PO SCH (15:01)
--- NOTE | 2020-10-16 18:28 | IPNPDOC ---
Subjective Date Seen The patient was seen on 10/16/20. Subjective Chief Complaint/HPI Blanca still is complaining of some abdominal pain and takes her pain medications by the clock per nursing, however, she did have a good bowel movement and has been passing gas this afternoon. She is asking if she must stay NPO or if she can try some food now General: Denies: Normal Appetite (her appetite isn't normal, but it is coming back) Constitutional: Denies: Chills, Fever Pulmonary: Denies: Dyspnea, Cough Cardiovascular: Denies: Palpitations Gastrointestinal: Reports: Nausea, Abdominal Pain; Denies: Vomiting, Diarrhea, Constipation Genitourinary: Denies: Dysuria Objective Physical Examination General Exam: Positive: Alert, Cooperative (she is laying in bed talking to the nurse when I entered the room), No Acute Distress Eye Exam: Positive: PERRLA, Conjunctiva & lids normal, EOMI; Negative: Sclera icteric ENT Exam: Positive: Atraumatic, Mucous membr. moist/pink, Pharynx Normal Neck Exam: Positive: Supple; Negative: Lymphadenopathy Chest Exam: Positive: Clear to auscultation, Normal air movement Heart Exam: Positive: Rate Normal, Regular Rhythm, Normal S1, Normal S2; Negative: Murmurs, Rubs Abdomen Exam: Positive: BS Hyperactive, Soft, Tenderness (RLQ), Other (obese, scars are well healed and there are no open areas); Negative: Hepatospenomegaly, Hernia Extremity Exam: Positive: Normal pulses; Negative: Clubbing, Cyanosis, Edema Skin Exam: Positive: Nl turgor and temperature; Negative: Breakdown, Lesion Neuro Exam: Positive: Normal Speech, Normal Tone Psych Exam: Positive: Mental status NL, Memory Intact Assessment /Plan Assessment # Ileus, this seems to have resolved - still on observation status will advance her diet. We discussed options and she wanted to start with full liquids, so I ordered this for her -IV Zofran and morphine for symptom management # Depression # Anxiety - haldol, risperidal, lamictal and Paxil resumed # JOO - untreated #DVT prophylaxis Lovenox and SCDs Plan/VTE VTE Prophylaxis Ordered?: Yes Disposition anticipate home tomorrow if she tolerates food VS, I&O, 24H, Fishbone Vital Signs/I&O Vital Signs Date Time Temp Pulse Resp B/P (MAP) Pulse Ox O2 Delivery O2 Flow Rate FiO2 10/16/20 18:24 16 Room Air 10/16/20 14:00 97.6 94 118/72 (87) 99 I&O- Last 24 Hours up to 6 AM 10/16/20 06:00 Intake Total 1000 ml Balance 1000 ml Laboratory Data 24H LABS Laboratory Tests 2 10/16/20 06:30: Nucleated Red Blood Cells % (auto) 0.0, Anion Gap 6L, Glomerular Filtration Rate > 60.0, Calcium Level 8.9 CBC/BMP Laboratory Tests 10/16/20 06:30 Faisal Sanchez MD Oct 16, 2020 18:28
[2020-10-16 20:00] VITALS: BP 118/74
[2020-10-16] MEDS: TOPIRAMATE (TopAMAX) 100 MG TAB PO SCH (21:06)
[2020-10-16] MEDS: ANEXSIA, NORCO 7.5MG/325MG TABLET(HYDROCODONE/APAP) PO PRN (21:06)
[2020-10-16] MEDS: lamoTRIgine 25MG TAB PO SCH (21:06)
[2020-10-16] MEDS: QUEtiapine FUMARATE 100 MG TAB PO SCH (21:06)
[2020-10-17] MEDS: KCL 20MEQ IN D5/0.45NS 1000ML 1,000 ML IV SCH ×2 (01:46→09:54)
[2020-10-17] MEDS: ANEXSIA, NORCO 7.5MG/325MG TABLET(HYDROCODONE/APAP) PO PRN (05:52)
[2020-10-17 06:08] VITALS: BP 102/71
[2020-10-17 06:41] LABS: HEMATOCRIT 36.5 % (36.0-47.0); HEMOGLOBIN 11.7 g/dl (12.0-15.5); MEAN CORPUSCULAR HEMOGLOBIN 27.4 pg (27.0-33.0); MEAN CORPUSCULAR HGB CONC 32.1 g/dl (32.0-36.5); MEAN CORPUSCULAR VOLUME 85.5 fl (80.0-96.0); PLATELET COUNT, AUTOMATED 275 10^3/uL (150-450); RED BLOOD COUNT 4.27 10^6/uL (4.00-5.40); WHITE BLOOD COUNT 3.5 10^3/uL (4.0-10.0)
[2020-10-17 06:57] LABS: BLOOD UREA NITROGEN 3 MG/DL (7-18); CALCIUM LEVEL 9.5 MG/DL (8.5-10.1); CARBON DIOXIDE LEVEL 18 MEQ/L (21-32); CHLORIDE LEVEL 113 MEQ/L (98-107); GLOMERULAR FILTRATION RATE > 60.0 (>60); GLUCOSE, FASTING 105 MG/DL (70-100); POTASSIUM SERUM 4.3 MEQ/L (3.5-5.1); SODIUM LEVEL 140 MEQ/L (136-145)
[2020-10-17] MEDS: FERROUS SULFATE 325MG TAB PO SCH (08:32)
[2020-10-17] MEDS: ENOXAPARIN 40MG/0.4ML SYRINGE (J1650 PER 10MG) SC SCH (08:33)
[2020-10-17] MEDS: risperiDONE 0.5 MG TAB PO SCH (08:33)
[2020-10-17] MEDS: PARoxetine 10MG TABLET PO SCH (08:33)
--- NOTE | 2020-10-17 08:57 | DS.PDOC ---
Discharge Summary General Date of Admission Oct 15, 2020 at 10:41 Date of Discharge 10/17/2020 Attending Physician: Faisal Sanchez MD [facility] PCP is Dr. Nick in [place], she has a colorectal surgeon in [place] as well Discharge Summary PROCEDURES PERFORMED DURING STAY: [None]. ADMITTING DIAGNOSES: 1. . DISCHARGE DIAGNOSES: 1. . COMPLICATIONS/CHIEF COMPLAINT: Nausea / Abd Pain. HISTORY OF PRESENT ILLNESS: . HOSPITAL COURSE: . DISCHARGE MEDICATIONS: Please see below. ALLERGIES: Please see below. PHYSICAL EXAMINATION ON DISCHARGE: VITAL SIGNS: Please see below. GENERAL: HEENT: NECK: CARDIOVASCULAR EXAMINATION: RESPIRATORY EXAMINATION: ABDOMINAL EXAMINATION: EXTREMITIES: SKIN: NEUROLOGICAL EXAMINATION: PSYCHIATRIC EXAMINATION: LABORATORY DATA: Please see below. IMAGING: PROGNOSIS: ACTIVITY: [As tolerated]. DIET: DISCHARGE PLAN: DISPOSITION: . DISCHARGE INSTRUCTIONS: 1. . ITEMS TO FOLLOWUP ON ON OUTPATIENT: 1. . DISCHARGE CONDITION: [Stable]. TIME SPENT ON DISCHARGE: minutes. Vital Signs/I&Os Vital Signs Date Time Temp Pulse Resp B/P (MAP) Pulse Ox O2 Delivery O2 Flow Rate FiO2 10/17/20 06:24 18 10/17/20 06:08 98.1 98 102/71 (81) 99 Room Air I&O- Last 24 Hours up to 6 AM 10/17/20 06:00 Intake Total 1410 ml Output Total 1500 ml Balance -90 ml Laboratory Data Labs 24H Laboratory Tests 2 10/17/20 06:24: Nucleated Red Blood Cells % (auto) 0.0, Anion Gap 9, Glomerular Filtration Rate > 60.0, Calcium Level 9.5 CBC/BMP Laboratory Tests 10/17/20 06:24 Discharge Medications Scheduled Etonogestrel (Nexplanon) 68 Mg Implant, 68 MG SC ASDIRECTED, (Reported) Ferrous Sulfate (Ferrous Sulfate) 325 Mg Tablet, 325 MG PO DAILY, (Reported) Lamotrigine (Lamotrigine) 25 Mg Tablet, 50 MG PO QHS, (Reported) Multivitamin (Multivitamins) 1 Each Tablet, 1 TAB PO DAILY, (Reported) Paroxetine (Paroxetine HCl) 30 Mg Tablet, 30 MG PO DAILY, (Reported) Quetiapine Fumarate (Quetiapine Fumarate) 300 Mg Tablet, 300 MG PO QHS, (Reported) Risperidone (Risperidone) 0.5 Mg Tablet, 0.5 MG PO BID, (Reported) Topiramate (Topiramate) 100 Mg Tablet, 200 MG PO QHS, (Reported) Scheduled PRN Dicyclomine HCl (Dicyclomine HCl) 20 Mg Tablet, 20 MG PO TID PRN for CRAMPS, (Reported) Diphenoxylate HCl/Atropine (Diphenoxylate-Atrop 2.5-0.025) 1 Each Tablet, 1 TAB PO TID PRN for DIARRHEA, (Reported) Haloperidol (Haloperidol) 5 Mg Tablet, 5 MG PO TID PRN for ANXIETY/AGITATION, (Reported) Hydrocodone/Acetaminophen (Hydrocodone-Acetamin 7.5-325) 1 Each Tablet, 1 TAB PO Q4H PRN for PAIN LEVEL 4-7, (Reported) Hydroxyzine Pamoate (Hydroxyzine Pamoate) 100 Mg Capsule, 100 MG PO TID PRN for ANXIETY, (Reported) Ondansetron (Ondansetron Odt) 8 Mg Tab.rapdis, 8 MG PO Q6H PRN for NAUSEA OR VOMITING, (Reported) Rizatriptan Benzoate (Maxalt) 10 Mg Tab, 10 MG PO DAILY PRN for MIGRAINE, (Reported) Trazodone HCl (Trazodone HCl) 150 Mg Tablet, 150 MG PO QHS PRN for SLEEP, (Reported) Allergies Coded Allergies: cetirizine (Verified Allergy, Mild, rash, 01/05/20) metoclopramide (Verified Adverse Reaction, Mild, anxiety, 01/05/20) sumatriptan (Verified Adverse Reaction, Mild, joint pain, 01/05/20) Faisal Sanchez MD Oct 17, 2020 08:57
[2020-10-17] MEDS: MORPHINE 4 MG/ML 1ML VIAL/SYRINGE (J2270) IV PRN (09:48)
== END 2020-10-17 12:32 | disposition home or self-care (01) ==
LOC: M ED 10:40 → M ED INP 10:41 → ENRESERV 10-16 13:45 → M MSPAV 10-16 14:42
PROVIDERS: ADMIT Internal Medicine; ATTEND Family Medicine
DX: K56.7 Ileus, unspecified (principal); R11.0 Nausea; G43.909 Migraine, unspecified, not intractable, without status migrainosus; F41.1 Generalized anxiety disorder; F32.9 Major depressive disorder, single episode, unspecified; G47.33 Obstructive sleep apnea (adult) (pediatric); Z79.899 Other long term (current) drug therapy; Z88.8 Allergy status to other drugs, medicaments and biological substances; E66.9 Obesity, unspecified
CPT/HCPCS: 36415; 74177; 80047; 80048; 80076; 83690; 84702; 85025; 85027; 87631; 96361; 96374; 96375; 96376; 99285; J1650; J2270; J2405; Q9967

== ENCOUNTER 2021-09-26 13:20 | Emergency (ER) | payer OTHER, MEDICARE ==
[~2021-09-26] VITALS: Ht 165.1 cm; Wt 98.9 kg
[~2021-09-26 13:20] MED LIST changes: -DICY20TA11 PO; +DICY20TA20 PO; +ETON68IM SC; +FERR1TAB8 PO; -HALO5TA PO; +HALO5TAB33 PO; -NEXP1IMP SC; +ONDA8TAB8 PO; +PARO30TA65 PO; +POTA-151 PO; -POTA20TA6 PO
[2021-09-26] MEDS ORDERED: traMADol 50 MG TAB PO ONE (15:20)
[2021-09-26] MEDS ORDERED: TRAM50TA2 PO (15:27)
[2021-09-26 15:43] VITALS: BP 155/92
== END 2021-09-26 15:45 | disposition home or self-care (01) ==
LOC: M ED 13:20
DX: K64.4 Residual hemorrhoidal skin tags (principal); J45.909 Unspecified asthma, uncomplicated; G43.909 Migraine, unspecified, not intractable, without status migrainosus; Z88.8 Allergy status to other drugs, medicaments and biological substances; Z79.899 Other long term (current) drug therapy

== ENCOUNTER 2021-10-31 14:16 | Emergency (ER) | payer OTHER, MEDICARE ==
[~2021-10-31] VITALS: Ht 165.1 cm; Wt 99.0 kg
[~2021-10-31 14:16] MED LIST changes: +LEVO1TAB40 PO; -LEVO750T13 PO; +TRAM50TA2 PO
[2021-10-31] MEDS ORDERED: KETOROLAC 30 MG/ML 1ML VIAL IV ONE (18:35)
[2021-10-31] MEDS ORDERED: NS 1,000 ML IV ONE (18:35)
[2021-10-31] MEDS ORDERED: ONDANSETRON 4MG 2ML VIAL IV ONE (18:35)
[2021-10-31 19:06] LABS: BASO # 0.1 10^3/uL (0.0-0.2); EOS # 0.2 10^3/uL (0.0-0.5); EOS % 3.4 % (0.0-3.0); HEMOGLOBIN 12.4 g/dl (12.0-15.5); LYMPH # 2.3 10^3/uL (1.5-5.0); LYMPH % 39.5 % (24.0-44.0); MEAN CORPUSCULAR HEMOGLOBIN 30.6 pg (27.0-33.0); MEAN CORPUSCULAR HGB CONC 33.5 g/dl (32.0-36.5); MEAN CORPUSCULAR VOLUME 91.4 fl (80.0-96.0); MONO # 0.4 10^3/uL (0.0-0.8); MONO % 6.8 % (2.0-8.0); NEUTROPHILS # 2.9 10^3/uL (1.5-8.5); PLATELET COUNT, AUTOMATED 259 10^3/uL (150-450); RED BLOOD COUNT 4.05 10^6/uL (4.00-5.40); WHITE BLOOD COUNT 5.9 10^3/uL (4.0-10.0)
[2021-10-31] MEDS ORDERED: MORPHINE 4 MG/ML 1ML VIAL/SYRINGE IV ONE (19:20)
[2021-10-31 19:51] LABS: ALBUMIN 3.7 GM/DL (3.2-5.2); BILIRUBIN,DIRECT 0.1 MG/DL (0.0-0.2); BILIRUBIN,TOTAL 0.3 MG/DL (0.2-1.0); TOTAL PROTEIN 6.9 GM/DL (6.4-8.2)
[2021-10-31] MEDS ORDERED: PERCOCET 5MG/325MG TAB PO ONE (20:00)
[2021-10-31] MEDS ORDERED: TRAM50TA2 PO (20:52)
[2021-10-31 21:02] VITALS: BP 119/72
== END 2021-10-31 21:14 | disposition home or self-care (01) ==
LOC: M ED 14:16
DX: N83.202 Unspecified ovarian cyst, left side (principal); K21.9 Gastro-esophageal reflux disease without esophagitis; G43.909 Migraine, unspecified, not intractable, without status migrainosus; J45.909 Unspecified asthma, uncomplicated; K58.9 Irritable bowel syndrome, unspecified; F31.9 Bipolar disorder, unspecified; Z87.42 Personal history of other diseases of the female genital tract; Z86.73 Personal history of transient ischemic attack (TIA), and cerebral infarction without residual deficits; Z88.8 Allergy status to other drugs, medicaments and biological substances; Z79.51 Long term (current) use of inhaled steroids; Z79.899 Other long term (current) drug therapy
CPT/HCPCS: 36415; 76856; 80047; 80076; 83690; 84702; 85025; 96361; 96374; 96375; 99284; J1885; J2270; J2405

== ENCOUNTER 2021-11-03 11:42 | Inpatient (IN) | payer OTHER, MEDICARE ==
[~2021-11-03] VITALS: Ht 165.1 cm; Wt 98.3 kg
[2021-11-03 13:40] LABS: BASO # 0.1 10^3/uL (0.0-0.2); BASO % 1.1 % (0.0-1.0); EOS % 0.6 % (0.0-3.0); HEMATOCRIT 39.4 % (36.0-47.0); HEMOGLOBIN 13.5 g/dl (12.0-15.5); LYMPH # 0.8 10^3/uL (1.5-5.0); LYMPH % 12.4 % (24.0-44.0); MEAN CORPUSCULAR HEMOGLOBIN 31.3 pg (27.0-33.0); MEAN CORPUSCULAR HGB CONC 34.3 g/dl (32.0-36.5); MEAN CORPUSCULAR VOLUME 91.4 fl (80.0-96.0); MONO # 0.7 10^3/uL (0.0-0.8); NEUTROPHILS # 4.7 10^3/uL (1.5-8.5); NEUTROPHILS % 74.1 % (36.0-66.0); PLATELET COUNT, AUTOMATED 260 10^3/uL (150-450); RED BLOOD COUNT 4.31 10^6/uL (4.00-5.40); WHITE BLOOD COUNT 6.4 10^3/uL (4.0-10.0)
[2021-11-03 15:33] LABS: HCG, SERUM QUALITATIVE NEGATIVE (NEGATIVE)
[2021-11-03 15:40] LABS: SQUAMOUS EPITHELIAL CELL URINE LARGE AMOUNT /hpf (SMALL AMT)
[2021-11-03 15:41] LABS: BACTERIA, URINE MOD AMOUNT; HYALINE CAST, URINE NONE SEEN /lpf (0-1); MUCUS, URINE LARGE AMOUNT (NEGATIVE)
[2021-11-03 15:58] LABS: ALBUMIN 3.7 GM/DL (3.2-5.2); ALT/SGPT 49 U/L (12-78); BILIRUBIN,DIRECT 0.2 MG/DL (0.0-0.2); BILIRUBIN,TOTAL 0.4 MG/DL (0.2-1.0); BLOOD UREA NITROGEN 5 MG/DL (7-18); CALCIUM LEVEL 8.7 MG/DL (8.5-10.1); CARBON DIOXIDE LEVEL 19 MEQ/L (21-32); CHLORIDE LEVEL 112 MEQ/L (98-107); CREATININE FOR GFR 0.98 MG/DL (0.55-1.30); GLOMERULAR FILTRATION RATE > 60.0 (>60); GLUCOSE, FASTING 103 MG/DL (70-100); LIPASE 63 U/L (73-393); POTASSIUM SERUM 3.8 MEQ/L (3.5-5.1); SODIUM LEVEL 138 MEQ/L (136-145); TOTAL PROTEIN 7.2 GM/DL (6.4-8.2)
[2021-11-03] MEDS ORDERED: ONDANSETRON 4MG 2ML VIAL IV ONE (17:20)
[2021-11-03] MEDS ORDERED: ISOVUE-370 76% 100ML VIAL As Ordered ONE (17:30)
[2021-11-03] MEDS: MORPHINE 4 MG/ML 1ML VIAL/SYRINGE IV PRN ×2 (18:16→19:11)
[2021-11-03 18:19] LABS: BASO % 0.8 % (0.0-1.0); EOS % 0.6 % (0.0-3.0); HEMATOCRIT 37.8 % (36.0-47.0); HEMOGLOBIN 12.9 g/dl (12.0-15.5); LYMPH # 0.9 10^3/uL (1.5-5.0); LYMPH % 17.8 % (24.0-44.0); MEAN CORPUSCULAR HEMOGLOBIN 30.9 pg (27.0-33.0); MEAN CORPUSCULAR HGB CONC 34.1 g/dl (32.0-36.5); MEAN CORPUSCULAR VOLUME 90.4 fl (80.0-96.0); MONO # 0.6 10^3/uL (0.0-0.8); MONO % 12.2 % (2.0-8.0); NEUTROPHILS # 3.3 10^3/uL (1.5-8.5); NEUTROPHILS % 68.2 % (36.0-66.0); PLATELET COUNT, AUTOMATED 247 10^3/uL (150-450); RED BLOOD COUNT 4.18 10^6/uL (4.00-5.40); WHITE BLOOD COUNT 4.8 10^3/uL (4.0-10.0)
[2021-11-03 18:50] LABS: ALBUMIN 3.8 GM/DL (3.2-5.2); BILIRUBIN,DIRECT 0.2 MG/DL (0.0-0.2); BILIRUBIN,TOTAL 0.5 MG/DL (0.2-1.0); TOTAL PROTEIN 7.2 GM/DL (6.4-8.2)
[2021-11-03 18:51] LABS: RSV AMPLIFICATION NEGATIVE (NEGATIVE)
[2021-11-03] MEDS ORDERED: diphenhydrAMINE 50MG/ML VIAL (J1200) IV ONE (18:55)
[2021-11-03] MEDS ORDERED: PROMETHAZINE 25MG/ML 1ML VIAL IV ONE (18:55)
[2021-11-03] MEDS ORDERED: NS 1,000 ML IV SCH (20:45)
[2021-11-03] MEDS ORDERED: D5W/0.9% SODIUM CHLORIDE 1,000 ML IV SCH (21:20)
[2021-11-03] MEDS ORDERED: LAMI1TAB7 PO (21:24)
[2021-11-03] MEDS ORDERED: BUSP10TA PO (21:24)
[2021-11-03] MEDS ORDERED: QUET300T2 PO (21:24)
[2021-11-03] MEDS ORDERED: HYDR-643 PO (21:24)
[2021-11-03] MEDS ORDERED: BACTDSTA PO (21:24)
[2021-11-03] MEDS ORDERED: CHOL378P3 PO (21:24)
[2021-11-03] MEDS ORDERED: PARO30TA3 PO (21:24)
[2021-11-03] MEDS ORDERED: VENTAER INH (21:24)
[2021-11-03] MEDS ORDERED: LAMI25TA PO (21:24)
[2021-11-03] MEDS ORDERED: TOPI100T9 PO (21:24)
[2021-11-03] MEDS ORDERED: CLON0.5T2 PO (21:24)
[2021-11-03] MEDS ORDERED: RISP-7 PO (21:24)
[2021-11-03] MEDS ORDERED: CLONI1TA PO (21:24)
[2021-11-03] MEDS ORDERED: ONDA4TAB6 PO (21:24)
[2021-11-03] MEDS ORDERED: TRAZ150T90 PO (21:24)
[2021-11-03] MEDS ORDERED: HOME MED LIST COMPLETE! XX SCH (21:25)
[2021-11-03 22:18] LABS: GC DNA AMPLIFICATION NEGATIVE (NEGATIVE)
[2021-11-03] MEDS ORDERED: diazePAM 10MG/2ML SYRINGE (J3360 PER 5MG) IV ONE (22:25)
[2021-11-03] MEDS ORDERED: HYDROMORPHONE HCL 0.5 MG/ 0.5 ML SYRINGE (J1170 PER 1) IV PRN (22:25)
[2021-11-03 22:50] VITALS: BP 140/78
[2021-11-03] MEDS ORDERED: REMDESIVIR 200 MG in NS 250 ML IV ONE (23:00)
[2021-11-03 23:18] LABS: INR 1.03
[2021-11-03 23:19] LABS: PARTIAL THROMBOPLASTIN TIME 26.8 SECONDS (25.9-37.0)
[2021-11-03 23:22] LABS: D-DIMER QUANT 1669.44 ng/ml (<500)
[2021-11-03 23:42] LABS: ALBUMIN 3.5 GM/DL (3.2-5.2); BILIRUBIN,DIRECT 0.3 MG/DL (0.0-0.2); BILIRUBIN,TOTAL 0.5 MG/DL (0.2-1.0); C REACTIVE PROTEIN QUANTITATIV 2.74 MG/DL (0.00-0.30)
[2021-11-04] MEDS ORDERED: SODIUM CHLORIDE 0.9% INJ 10 ML SYR IV ONE (01:00)
[2021-11-04] MEDS: HYDROMORPHONE HCL 0.5 MG/ 0.5 ML SYRINGE (J1170 PER 1) IV PRN ×4 (04:13→22:44)
[2021-11-04 04:35] VITALS: BP 125/80
[2021-11-04] MEDS ORDERED: ALBUTEROL 90 MCG/ACT 8GM HFA INHALER INH PRN (04:45)
[2021-11-04] MEDS ORDERED: FLEET ENEMA PR ONE (04:45)
[2021-11-04] MEDS: ONDANSETRON 4MG 2ML VIAL IV PRN ×3 (05:29→22:43)
[2021-11-04 06:01] LABS: BASO % 0.9 % (0.0-1.0); EOS # 0.1 10^3/uL (0.0-0.5); EOS % 1.6 % (0.0-3.0); HEMATOCRIT 34.9 % (36.0-47.0); HEMOGLOBIN 11.9 g/dl (12.0-15.5); LYMPH # 0.9 10^3/uL (1.5-5.0); LYMPH % 20.4 % (24.0-44.0); MEAN CORPUSCULAR HEMOGLOBIN 31.1 pg (27.0-33.0); MEAN CORPUSCULAR HGB CONC 34.1 g/dl (32.0-36.5); MEAN CORPUSCULAR VOLUME 91.1 fl (80.0-96.0); MONO # 0.5 10^3/uL (0.0-0.8); NEUTROPHILS # 2.9 10^3/uL (1.5-8.5); NEUTROPHILS % 64.6 % (36.0-66.0); PLATELET COUNT, AUTOMATED 231 10^3/uL (150-450); RED BLOOD COUNT 3.83 10^6/uL (4.00-5.40); WHITE BLOOD COUNT 4.4 10^3/uL (4.0-10.0)
[2021-11-04 06:35] LABS: ALBUMIN 3.5 GM/DL (3.2-5.2); BILIRUBIN,DIRECT 0.3 MG/DL (0.0-0.2); BILIRUBIN,TOTAL 0.3 MG/DL (0.2-1.0); TOTAL PROTEIN 6.5 GM/DL (6.4-8.2)
[2021-11-04 06:39] LABS: ALBUMIN 3.4 GM/DL (3.2-5.2); ALT/SGPT 66 U/L (12-78); BILIRUBIN,TOTAL 0.3 MG/DL (0.2-1.0); BLOOD UREA NITROGEN 8 MG/DL (7-18); CALCIUM LEVEL 8.2 MG/DL (8.5-10.1); CARBON DIOXIDE LEVEL 21 MEQ/L (21-32); CHLORIDE LEVEL 110 MEQ/L (98-107); GLOMERULAR FILTRATION RATE > 60.0 (>60); GLUCOSE, FASTING 129 MG/DL (70-100); MAGNESIUM LEVEL 1.9 MG/DL (1.8-2.4); POTASSIUM SERUM 3.3 MEQ/L (3.5-5.1); SODIUM LEVEL 135 MEQ/L (136-145); TOTAL PROTEIN 6.9 GM/DL (6.4-8.2)
[2021-11-04] MEDS ORDERED: POTASSIUM CHLORIDE INJ 40 MEQ in D5W/0.9% SODIUM CHLORIDE 1,000 ML IV SCH (07:53)
[2021-11-04] MEDS: KCL 40MEQ IN D5/NS 1000ML 1,000 ML IV SCH (10:00)
[2021-11-04] MEDS: PANTOPRAZOLE 40MG VIAL IV SCH (10:00)
[2021-11-04] MEDS: ENOXAPARIN 40MG/0.4ML SYRINGE (J1650 PER 10MG) SC SCH (10:00)
[2021-11-04] MEDS: PROCHLORPERAZINE 10MG 2ML VIAL IV PRN ×2 (10:25→20:11)
[2021-11-04] MEDS: busPIRone 10 MG TAB PO SCH (11:29)
[2021-11-04] MEDS: PARoxetine 10MG TABLET PO SCH (11:30)
[2021-11-04] MEDS: lamoTRIgine 100MG TAB PO SCH (11:36)
[2021-11-04] MEDS: lamoTRIgine 25MG TAB PO SCH (11:36)
[2021-11-04 12:00] VITALS: BP 136/90
[2021-11-04 19:50] VITALS: BP 135/86
[2021-11-04] MEDS: risperiDONE 0.5 MG TAB PO SCH (21:03)
[2021-11-04] MEDS: traZODone 50 MG TAB PO SCH (21:04)
[2021-11-04] MEDS: QUEtiapine FUMARATE 100 MG TAB PO SCH (21:04)
[2021-11-04] MEDS: TOPIRAMATE (TopAMAX) 100 MG TAB PO SCH (21:04)
[2021-11-04] MEDS: REMDESIVIR 100 MG in NS 250 ML IV SCH (22:43)
[2021-11-05] MEDS: KCL 40MEQ IN D5/NS 1000ML 1,000 ML IV SCH ×2 (00:03→12:59)
[2021-11-05] MEDS: SODIUM CHLORIDE 0.9% INJ 10 ML SYR IV SCH (00:03)
[2021-11-05 04:00] VITALS: BP 113/76
[2021-11-05] MEDS: ONDANSETRON 4MG 2ML VIAL IV PRN ×2 (05:35→11:48)
[2021-11-05] MEDS: HYDROMORPHONE HCL 0.5 MG/ 0.5 ML SYRINGE (J1170 PER 1) IV PRN ×4 (05:35→21:34)
[2021-11-05 06:20] LABS: BASO % 0.7 % (0.0-1.0); EOS # 0.1 10^3/uL (0.0-0.5); EOS % 2.1 % (0.0-3.0); HEMATOCRIT 35.3 % (36.0-47.0); HEMOGLOBIN 11.7 g/dl (12.0-15.5); LYMPH # 1.3 10^3/uL (1.5-5.0); LYMPH % 46.8 % (24.0-44.0); MEAN CORPUSCULAR HEMOGLOBIN 30.7 pg (27.0-33.0); MEAN CORPUSCULAR HGB CONC 33.1 g/dl (32.0-36.5); MEAN CORPUSCULAR VOLUME 92.7 fl (80.0-96.0); MONO # 0.3 10^3/uL (0.0-0.8); MONO % 12.1 % (2.0-8.0); NEUTROPHILS # 1.1 10^3/uL (1.5-8.5); NEUTROPHILS % 37.9 % (36.0-66.0); PLATELET COUNT, AUTOMATED 227 10^3/uL (150-450); RED BLOOD COUNT 3.81 10^6/uL (4.00-5.40); WHITE BLOOD COUNT 2.8 10^3/uL (4.0-10.0)
[2021-11-05 06:42] LABS: ALBUMIN 3.1 GM/DL (3.2-5.2); ALT/SGPT 51 U/L (12-78); BILIRUBIN,DIRECT 0.1 MG/DL (0.0-0.2); BILIRUBIN,TOTAL 0.3 MG/DL (0.2-1.0); BLOOD UREA NITROGEN 8 MG/DL (7-18); CARBON DIOXIDE LEVEL 21 MEQ/L (21-32); CHLORIDE LEVEL 116 MEQ/L (98-107); CREATININE FOR GFR 0.71 MG/DL (0.55-1.30); FERRITIN 63 NG/ML (8-252); GLOMERULAR FILTRATION RATE > 60.0 (>60); GLUCOSE, FASTING 103 MG/DL (70-100); LDH LACTATE DEHYDROGENASE 150 U/L (84-246); NT-PRO BNP 23 PG/ML (<125); POTASSIUM SERUM 3.7 MEQ/L (3.5-5.1); SODIUM LEVEL 141 MEQ/L (136-145); TOTAL PROTEIN 6.4 GM/DL (6.4-8.2)
[2021-11-05 06:54] LABS: INR 1.05; PROTHROMBIN TIME 14.1 SECONDS (12.7-14.5)
[2021-11-05] MEDS: lamoTRIgine 100MG TAB PO SCH (09:21)
[2021-11-05] MEDS: PARoxetine 10MG TABLET PO SCH (09:21)
[2021-11-05] MEDS: ENOXAPARIN 40MG/0.4ML SYRINGE (J1650 PER 10MG) SC SCH (09:22)
[2021-11-05] MEDS: busPIRone 10 MG TAB PO SCH (09:22)
[2021-11-05] MEDS: PANTOPRAZOLE 40MG VIAL IV SCH (09:22)
[2021-11-05] MEDS: lamoTRIgine 25MG TAB PO SCH (09:22)
[2021-11-05 12:00] VITALS: BP 124/82
[2021-11-05 16:00] VITALS: BP 134/91
[2021-11-05 20:30] VITALS: BP 136/92
[2021-11-05] MEDS: QUEtiapine FUMARATE 100 MG TAB PO SCH (21:34)
[2021-11-05] MEDS: traZODone 50 MG TAB PO SCH (21:35)
[2021-11-05] MEDS: risperiDONE 0.5 MG TAB PO SCH (21:35)
[2021-11-05] MEDS: TOPIRAMATE (TopAMAX) 100 MG TAB PO SCH (21:36)
[2021-11-05] MEDS: REMDESIVIR 100 MG in NS 250 ML IV SCH (23:19)
[2021-11-06] MEDS: SODIUM CHLORIDE 0.9% INJ 10 ML SYR IV SCH (00:39)
[2021-11-06] MEDS: KCL 40MEQ IN D5/NS 1000ML 1,000 ML IV SCH (01:22)
[2021-11-06] MEDS: HYDROMORPHONE HCL 0.5 MG/ 0.5 ML SYRINGE (J1170 PER 1) IV PRN ×3 (02:26→11:35)
[2021-11-06 05:06] VITALS: BP 111/73
[2021-11-06 07:25] LABS: BASO % 0.9 % (0.0-1.0); EOS # 0.2 10^3/uL (0.0-0.5); EOS % 5.5 % (0.0-3.0); HEMATOCRIT 34.4 % (36.0-47.0); HEMOGLOBIN 11.4 g/dl (12.0-15.5); LYMPH # 1.6 10^3/uL (1.5-5.0); LYMPH % 49.2 % (24.0-44.0); MEAN CORPUSCULAR HEMOGLOBIN 30.9 pg (27.0-33.0); MEAN CORPUSCULAR HGB CONC 33.1 g/dl (32.0-36.5); MEAN CORPUSCULAR VOLUME 93.2 fl (80.0-96.0); MONO # 0.3 10^3/uL (0.0-0.8); MONO % 9.4 % (2.0-8.0); NEUTROPHILS # 1.1 10^3/uL (1.5-8.5); NEUTROPHILS % 34.7 % (36.0-66.0); PLATELET COUNT, AUTOMATED 215 10^3/uL (150-450); RED BLOOD COUNT 3.69 10^6/uL (4.00-5.40); WHITE BLOOD COUNT 3.3 10^3/uL (4.0-10.0)
[2021-11-06] MEDS: ONDANSETRON 4MG 2ML VIAL IV PRN (07:29)
[2021-11-06 07:54] LABS: BLOOD UREA NITROGEN 5 MG/DL (7-18); CALCIUM LEVEL 8.3 MG/DL (8.5-10.1); CARBON DIOXIDE LEVEL 23 MEQ/L (21-32); CHLORIDE LEVEL 115 MEQ/L (98-107); GLOMERULAR FILTRATION RATE > 60.0 (>60); GLUCOSE, FASTING 109 MG/DL (70-100); SODIUM LEVEL 142 MEQ/L (136-145)
[2021-11-06] MEDS: lamoTRIgine 100MG TAB PO SCH (09:07)
[2021-11-06] MEDS: PANTOPRAZOLE 40MG VIAL IV SCH (09:07)
[2021-11-06] MEDS: ENOXAPARIN 40MG/0.4ML SYRINGE (J1650 PER 10MG) SC SCH (09:07)
[2021-11-06] MEDS: lamoTRIgine 25MG TAB PO SCH (09:07)
[2021-11-06] MEDS: busPIRone 10 MG TAB PO SCH (09:08)
[2021-11-06] MEDS: PARoxetine 10MG TABLET PO SCH (09:09)
[2021-11-06] MEDS ORDERED: HYDR-3713 PO (13:58)
[2021-11-06] MEDS ORDERED: ONDA4TAB6 PO (13:58)
== END 2021-11-06 13:55 | disposition home or self-care (01) | DRG 388 ==
LOC: M ED 11:42 → M ED INP 11:43 → ENRESERV 22:33 → M 4MAIN 22:55 → OBSVTOIN 11-04 14:44 → M MS5PR 11-05 15:50
PROVIDERS: ADMIT Internal Medicine; ATTEND Internal Medicine Nephrology
DX: K56.7 Ileus, unspecified (principal); U07.1 COVID-19; F43.10 Post-traumatic stress disorder, unspecified; K76.0 Fatty (change of) liver, not elsewhere classified; G43.909 Migraine, unspecified, not intractable, without status migrainosus; E66.9 Obesity, unspecified; G47.33 Obstructive sleep apnea (adult) (pediatric); F60.3 Borderline personality disorder; F41.1 Generalized anxiety disorder; F31.9 Bipolar disorder, unspecified; K31.84 Gastroparesis; Z88.8 Allergy status to other drugs, medicaments and biological substances; Z79.899 Other long term (current) drug therapy

== ENCOUNTER 2021-12-03 08:35 | Emergency (ER) | payer OTHER, MEDICARE ==
[~2021-12-03] VITALS: Ht 165.1 cm; Wt 95.5 kg
[~2021-12-03 08:35] MED LIST changes: +BACTDSTA PO; +BUSP10TA PO; +CHOL378P3 PO; +CLON0.5T2 PO; +CLONI1TA PO; +HYDR-3713 PO; +HYDR-643 PO; +LAMI1TAB7 PO; +LAMI25TA PO; -MAXA10TA14 PO; +PARO30TA3 PO; +RIZA10TA64 PO; +TRAZ150T90 PO; +VENTAER INH
[2021-12-03 10:00] LABS: BASO # 0.1 10^3/uL (0.0-0.2); BASO % 0.8 % (0.0-1.0); EOS # 0.2 10^3/uL (0.0-0.5); EOS % 3.1 % (0.0-3.0); HEMATOCRIT 40.6 % (36.0-47.0); HEMOGLOBIN 13.7 g/dl (12.0-15.5); LYMPH % 28.2 % (24.0-44.0); MEAN CORPUSCULAR HEMOGLOBIN 30.7 pg (27.0-33.0); MEAN CORPUSCULAR HGB CONC 33.7 g/dl (32.0-36.5); MONO # 0.5 10^3/uL (0.0-0.8); MONO % 6.3 % (2.0-8.0); NEUTROPHILS # 4.4 10^3/uL (1.5-8.5); NEUTROPHILS % 61.2 % (36.0-66.0); PLATELET COUNT, AUTOMATED 302 10^3/uL (150-450); RED BLOOD COUNT 4.46 10^6/uL (4.00-5.40); WHITE BLOOD COUNT 7.2 10^3/uL (4.0-10.0)
[2021-12-03 10:33] LABS: HCG, SERUM QUALITATIVE NEGATIVE (NEGATIVE)
[2021-12-03 10:43] LABS: ALT/SGPT 51 U/L (12-78); BILIRUBIN,DIRECT 0.1 MG/DL (0.0-0.2); BILIRUBIN,TOTAL 0.3 MG/DL (0.2-1.0); BLOOD UREA NITROGEN 13 MG/DL (7-18); CALCIUM LEVEL 9.6 MG/DL (8.5-10.1); CARBON DIOXIDE LEVEL 21 MEQ/L (21-32); CHLORIDE LEVEL 108 MEQ/L (98-107); CREATININE FOR GFR 0.94 MG/DL (0.55-1.30); GLOMERULAR FILTRATION RATE > 60.0 (>60); GLUCOSE, FASTING 89 MG/DL (70-100); LIPASE 150 U/L (73-393); POTASSIUM SERUM 4.3 MEQ/L (3.5-5.1); SODIUM LEVEL 136 MEQ/L (136-145); TOTAL PROTEIN 7.9 GM/DL (6.4-8.2)
[2021-12-03] MEDS ORDERED: ONDANSETRON 4MG 2ML VIAL IV ONE (11:25)
[2021-12-03] MEDS ORDERED: NS 1,000 ML IV ONE (11:25)
[2021-12-03] MEDS ORDERED: KETOROLAC 30 MG/ML 1ML VIAL IV ONE (11:25)
[2021-12-03] MEDS ORDERED: ISOVUE-370 76% 100ML VIAL As Ordered ONE (12:23)
[2021-12-03] MEDS ORDERED: MORPHINE 4 MG/ML 1ML VIAL/SYRINGE IV ONE (12:35)
[2021-12-03 13:56] VITALS: BP 120/74
== END 2021-12-03 14:00 | disposition home or self-care (01) ==
LOC: M ED 08:35
DX: N70.11 Chronic salpingitis (principal); R10.31 Right lower quadrant pain; G43.909 Migraine, unspecified, not intractable, without status migrainosus; F31.9 Bipolar disorder, unspecified; Z88.9 Allergy status to unspecified drugs, medicaments and biological substances; Z88.8 Allergy status to other drugs, medicaments and biological substances; Z79.51 Long term (current) use of inhaled steroids; Z79.899 Other long term (current) drug therapy
CPT/HCPCS: 74177; 76830; 76856; 80048; 80076; 81000; 81015; 83690; 84703; 85025; 93976; 96361; 96374; 96375; 99284; J1885; J2270; J2405; Q9967

== ENCOUNTER 2022-10-12 12:48 | Emergency (ER) | payer MEDICARE, OTHER ==
[~2022-10-12] VITALS: Ht 165.1 cm; Wt 100.2 kg
[~2022-10-12 12:48] MED LIST changes: +LORA1TAB23 PO; -LORA1TAB4 PO; -PAXI20TA29 PO; +PAXI20TA30 PO
[2022-10-12] MEDS ORDERED: MORPHINE 4 MG/ML 1ML VIAL IV ONE (16:10)
[2022-10-12] MEDS ORDERED: ONDANSETRON 4MG 2ML VIAL IV ONE ×2 (16:10→17:05)
[2022-10-12] MEDS ORDERED: NS 1,000 ML IV ONE (16:10)
[2022-10-12 16:40] LABS: BASO # 0.1 10^3/uL (0.0-0.2); BASO % 1.2 % (0.0-1.0); EOS # 0.6 10^3/uL (0.0-0.5); EOS % 6.6 % (0.0-3.0); HEMATOCRIT 38.2 % (36.0-47.0); HEMOGLOBIN 12.7 g/dl (12.0-15.5); LYMPH # 2.5 10^3/uL (1.5-5.0); LYMPH % 29.7 % (24.0-44.0); MEAN CORPUSCULAR HEMOGLOBIN 31.6 pg (27.0-33.0); MEAN CORPUSCULAR HGB CONC 33.2 g/dl (32.0-36.5); MONO # 0.6 10^3/uL (0.0-0.8); MONO % 7.1 % (2.0-8.0); NEUTROPHILS # 4.6 10^3/uL (1.5-8.5); NEUTROPHILS % 54.9 % (36.0-66.0); PLATELET COUNT, AUTOMATED 307 10^3/uL (150-450); RED BLOOD COUNT 4.02 10^6/uL (4.00-5.40); WHITE BLOOD COUNT 8.3 10^3/uL (4.0-10.0)
[2022-10-12] MEDS: GASTROGRAFIN SOLUTION 30ML PO SCH ×2 (16:48→17:12)
[2022-10-12 16:57] LABS: HCG, SERUM QUALITATIVE NEGATIVE (NEGATIVE); LIPASE 243 U/L (12-53)
[2022-10-12 16:59] LABS: ALKALINE PHOSPHATASE 52 U/L (46-116); ALT/SGPT 34 U/L (7.0-40); AST/SGOT 10 U/L (<34); BILIRUBIN,DIRECT < 0.1 MG/DL (<0.4); BILIRUBIN,TOTAL 0.2 MG/DL (0.3-1.2); BLOOD UREA NITROGEN 13 MG/DL (9-23); CARBON DIOXIDE LEVEL 24 MMOL/L (20-31); CHLORIDE LEVEL 109 MMOL/L (98-107); CREATININE FOR GFR 0.97 MG/DL (0.55-1.30); GLOMERULAR FILTRATION RATE > 60.0 (>60); GLUCOSE, FASTING 78 MG/DL (60-100); POTASSIUM SERUM 4.1 MMOL/L (3.5-5.1); SODIUM LEVEL 143 MMOL/L (136-145); TOTAL PROTEIN 7.2 G/DL (5.7-8.2)
[2022-10-12] MEDS ORDERED: MORPHINE 2 MG/ML 1ML VIAL IV ONE (17:05)
[2022-10-12] MEDS ORDERED: ISOVUE-370 76% 100ML VIAL As Ordered ONE (18:05)
[2022-10-12] MEDS ORDERED: KETOROLAC 30 MG/ML 1ML VIAL IV ONE (20:15)
[2022-10-12] MEDS ORDERED: PROMETHAZINE 25MG/ML 1ML VIAL IV ONE (20:15)
[2022-10-12] MEDS ORDERED: NORCO 5/325MG TABLET (HOME DOSE PACK) PO ONE (22:20)
[2022-10-12] MEDS ORDERED: HYDR-3713 PO (22:29)
[2022-10-12 22:38] VITALS: BP 122/69; TEMP 96.8; O2SAT 97
== END 2022-10-12 22:50 | disposition home or self-care (01) ==
LOC: M ED 12:48
DX: R10.9 Unspecified abdominal pain (principal); K56.7 Ileus, unspecified; G43.909 Migraine, unspecified, not intractable, without status migrainosus; Z88.8 Allergy status to other drugs, medicaments and biological substances; Z79.51 Long term (current) use of inhaled steroids; Z79.899 Other long term (current) drug therapy
CPT/HCPCS: 74177; 80048; 80076; 81001; 83690; 84703; 85025; 96374; 96375; 96376; 99284; J1885; J2405; J2550; Q9963; Q9967